=== PATIENT | male | born 1945 | race Caucasian/White ===

== ENCOUNTER → 2019-11-08 10:01 | Outpatient (CLI) | payer MEDICARE, OTHER, SELFPAY ==
--- NOTE | 2019-11-08 10:05 | DI.RAD.S_ITS ---
PROCEDURE: XR CERVICAL SPINE 4V OR 5V INDICATIONS: Cervical spondylosis TECHNIQUE: 5 views of the cervical spine acquired. COMPARISON: None. FINDINGS: Bones: No fractures or dislocations to the T1 level. Oblique images demonstrate no bony foraminal stenoses. Degenerative disc disease is near severe at C3-4, C4-5 and C5-6. Facet osteoarthritis is present at these levels, most pronounced at C4-5 and C5-6, symmetric bilaterally. Soft tissues: No prevertebral soft tissue swelling. IMPRESSION: Multilevel degenerative disc disease and facet osteoarthritis with finding of likelihood of significant spinal and foraminal stenosis from C3-4 through C5-6. Both osteophytic spurring from the degenerative disc disease and facet osteoarthritis combine to produce spinal foraminal and spinal canal narrowing. Dictated by: Cr Alex M.D. on 11/08/2019 at 10:43 Approved by: Cr Alex M.D. on 11/08/2019 at 10:44
== END ==
PROVIDERS: PCP Nurse Practitioner; Visit Provider Family Medicine
DX: M47.812 Spondylosis without myelopathy or radiculopathy, cervical region (principal); M50.31 Other cervical disc degeneration, high cervical region; M48.02 Spinal stenosis, cervical region; M48.9 Spondylopathy, unspecified; M53.86 Other specified dorsopathies, lumbar region; K22.70 Barrett's esophagus without dysplasia
CPT/HCPCS: 72050; 99214

== ENCOUNTER → 2019-11-09 19:28 | Outpatient (CLI) | payer MEDICARE, OTHER, SELFPAY | PROVIDERS: PCP Nurse Practitioner; Visit Provider Physical Medicine & Rehabilitation | DX: M48.9 Spondylopathy, unspecified (principal); Z53.20 Procedure and treatment not carried out because of patient's decision for unspecified reasons ==

== ENCOUNTER → 2019-11-16 12:34 | Outpatient (CLI) | payer MEDICARE, OTHER, SELFPAY ==
--- NOTE | 2019-11-16 12:35 | DI.MRI.S_ITS ---
PROCEDURE: MR CERVICAL SPINE WO CON INDICATIONS: Neck pain and upper extremity paresthesias TECHNIQUE: Noncontrast sagittal T1 spin echo and T2 fast spin echo, sagittal STIR, foraminal oblique sagittal T2 fast spin echo, and axial gradient echo or T2 fast spin echo through the cervical spine. COMPARISON: [facility], CR, XR CERVICAL SPINE 4V OR 5V, 11/08/2019, 10:02. FINDINGS: Image quality: Excellent. Alignment and Curvature: There is loss of normal cervical lordosis. There is mild kyphosis at C2-C4. Bone Marrow: Marrow demonstrates normal overall signal. Moderate reactive signal within the endplates adjacent to the C3-C4, C4-C5, and C5-C6 intervertebral discs. Spinal Cord: Visualized spinal cord has normal size and signal. No cerebellar tonsillar herniation. Paraspinous Soft Tissues: No paravertebral masses. Prevertebral soft tissues are normal in thickness. C2-C3: Mild disc desiccation. Left greater than right facet hypertrophy. No canal stenosis. Severe left and mild right foraminal stenosis. Left C3 nerve root compression. C3-C4: Moderate disc height loss and desiccation. Moderate diffuse disc bulge/osteophyte. Moderate facet and uncovertebral hypertrophy bilaterally. Moderate to severe canal stenosis. Mild cord flattening. Moderate left and severe right foraminal stenosis. Right C4 nerve root compression. C4-C5: Moderate disc height loss and desiccation. Mild diffuse disc bulge/osteophyte. Moderate facet and uncovertebral hypertrophy bilaterally. Moderate to severe canal stenosis. Mild cord flattening. Severe bilateral foraminal stenosis with bilateral C5 nerve root compression. C5-C6: Moderate disc height loss and desiccation. Mild diffuse disc bulge/osteophyte. Moderate facet and uncovertebral hypertrophy bilaterally. Moderate canal stenosis. Severe bilateral foraminal stenosis with bilateral C6 nerve root compression. C6-C7: Moderate disc desiccation. Mild diffuse disc bulge. Mild facet and uncovertebral hypertrophy bilaterally. Mild canal stenosis. Moderate right and mild left foraminal stenosis. C7-T1: Normal appearance. IMPRESSION: 1. Multilevel degenerative disc and facet disease, as well as uncovertebral hypertrophy. 2. Multilevel canal stenoses, worst at C3-C4 at C4-C5, where there is mild cord flattening present. 3. Multilevel foraminal stenoses, worst at C2-C3, C3-C4, C4-C5, and C5-C6, where there is associated intraforaminal nerve root compression. Recommend correlation with clinical symptoms to ascertain relevance of these findings. Dictated by: Justin Carson M.D. on 11/16/2019 at 13:17 Approved by: Justin Carson M.D. on 11/16/2019 at 13:21
== END ==
PROVIDERS: PCP Nurse Practitioner; Visit Provider Physical Medicine & Rehabilitation
DX: M47.22 Other spondylosis with radiculopathy, cervical region (principal); M50.11 Cervical disc disorder with radiculopathy, high cervical region; M48.02 Spinal stenosis, cervical region; R20.2 Paresthesia of skin
CPT/HCPCS: 72141

== ENCOUNTER → 2019-11-27 09:41 | Outpatient (CLI) | payer MEDICARE, OTHER, SELFPAY ==
[2019-11-27 11:23] LABS: Add Manual Diff / Slide Review NO; Basophils Absolute Auto 0 /uL (0-100); Basophils Percent Auto 0.8 % (0-2); Eosinophils Absolute Auto 200 /uL (0-450); Eosinophils Percent Auto 3.2 % (2-4); Hematocrit 45.7 % (41-53); Hemoglobin 15.4 g/dL (13.5-17.5); Lymphocytes Absolute Auto 1300 /uL (1100-4500); Lymphocytes Percent Auto 25.3 % (25-40); Mean Corpuscular HGB Conc 33.7 % (30-36); Mean Corpuscular Hemoglobin 33.5 PG (26-34); Mean Corpuscular Volume 99.4 fL (80-100); Monocytes Absolute Auto 600 /uL (0-900); Monocytes Percent Auto 10.4 % (3-14); Neutrophils Absolute Auto 3200 /uL (1500-7000); Neutrophils Percent Auto 60.3 % (50-75); Platelet Count 266 X10^3/uL (150-400); Red Cell Distribution Width 13.8 % (11.6-14.8); White Blood Cell Count 5.3 X10^3/uL (4.5-11.0)
[2019-11-27 11:45] LABS: Alanine Aminotransferase 28 IU/L (<50); Albumin 4.4 g/dL (3.5-5.0); Albumin Globulin Ratio 1.6 (1.0-2.8); Alkaline Phosphatase 70 U/L (38-126); Aspartate Aminotransferase 32 IU/L (17-59); Bilirubin Total 1.2 mg/dL (0.2-1.3); Bilirubin Unconjugated 1.2 mg/dL (0.0-1.1); Cholesterol 154 mg/dL (140-199); Globulin 2.7 g/dL (1.7-4.1); HDL Cholesterol 52 mg/dL (40-60); HEMOLYSIS < 15 (0-50); LDL Cholesterol Calculated 77 mg/dL (<100); Total Protein 7.1 g/dL (6.3-8.2); Triglycerides 127 mg/dL (35-150)
[2019-11-27 11:54] LABS: Ferritin 19.3 ng/mL (17.9-464)
[2019-11-30 14:16] LABS: Albumin 4.2 g/dL (3.6-5.1); Sex Hormone Binding Globulin 49 nmol/L (22-77); Testosterone, Bioavailable 106.1 ng/dL (15.0-150.0); Testosterone, Total 559 ng/dL (250-1100); Testosterone,Free 55.1 pg/mL (6.0-73.0)
== END ==
PROVIDERS: PCP Nurse Practitioner; Visit Provider Nurse Practitioner
DX: R79.89 Other specified abnormal findings of blood chemistry (principal); D64.9 Anemia, unspecified; E78.5 Hyperlipidemia, unspecified; Z79.899 Other long term (current) drug therapy
CPT/HCPCS: 36415; 80061; 80076; 82040; 82728; 84270; 84403; 85025

== ENCOUNTER 2020-02-08 09:45 | Outpatient (RCR) | payer MEDICARE, OTHER, SELFPAY ==
--- NOTE | 2019-12-20 16:00 | PT.OPPOC ---
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) Spinal stenosis, cervical region (12/20/19) Visit Care Team Role Provider Type RISA Bain Primary Care Provider Advanced Marine Design Engineer Specialty: Family Practice Address: [address] [place] [address], [id number] Email: [email or web address] RISA Fountain Attending Provider Advanced Marine Design Engineer Specialty: Pain Management Address: [address] [place] [address], [place], [address] Email: [email or web address] Plan Of Care PT-OP-T Assessment and Plan Start: 12/20/19 15:04 Freq: Status: Active Protocol: Document 12/20/19 15:06 EG (Rec: 12/20/19 16:19 EG [id number]) Physical Therapy Assessment Rehab Potential Rehabilitation Potential Good Evaluation Complexity Number of Personal Factors/Comorbidities 3 or More Number of Body Systems Impaired 4 or More Clinical Presentation at Evaluation Stable Impairments Impairments Functional Activities, Functional Mobility,Pain, Posture,ROM,Soft Tissue Mobility,Strength Other Concerns Barriers to Rehabilitation Chronic Neck pain Goals Two Impairment Pain Short Term Goal (STG) Patient will be able to play trVONTRAVELet with a max of 1/10 pain in neck in 4 weeks. STG Duration 4 weeks Senior Care Goal (LTG) Patient will be able to roll over in bed with a 1/10 pain in 6-8 weeks. LTG Duration 6-8 weeks One Impairment ROM Short Term Goal (STG) Patient will increase cervical lateral flexion to the R to 35 degrees per L lateral flexion without pain in 4 weeks. STG Duration 4 weeks Drywall Contractor Goal (LTG) Patient will increase bilateral cervical rotation to 60 degrees with no pain in 6- 8 weeks. LTG Duration 6-8 weeks Assessment Summary Assessment Patient has increased tension and decreased soft tissue length of L upper trap and levator scapulae increasing amount of cervical rotation to this side and sensitivity of tissue. Patient also seems to recruit these muscles when playing his instruments or initiating movement with rolling. Cervical stenosis is most prominent in C3-C4 and C4 /C5 but has no radiating symptoms at this time. Patient should increase scapular and postural strength to work on postural endurance. Patient should also move through breathing exercises to decrease recruitment of upper trap muscles when playing instruments. Patient will benefit from soft tissue manipulation as well as soft tissue lengthening as well as traction of the cervical spine . Physical Therapy Plan Frequency and Duration Frequency of Treatment 2x/Week Duration of Treatment 6 weeks Plan of Care Start Date 12/20/19 Plan of Care End Date 01/31/20 Therapeutic Interventions Therapeutic Interventions Home Exercise Program,Joint Mobilizations,Manual Therapy, Neuromuscular Re-education, Self-Care/Home Management,Soft Tissue Mobilization, Therapeutic Activities, Therapeutic Exercises Modalities Cold Pack/Ice Massage,Electric Stimulation,Traction- Mechanical,Ultrasound Next Visit Focus/Plan Next Note Type Treatment Note Next Visit Plan Observe rolling mechanics. Introduce scapular and postural strengthening exercises. Increase soft tissue stretching. manual therapy focused on trigger point release and traction of cervical spine. Plan of Care Dates Plan of Care Start Date 12/20/19 Plan of Care End Date 01/31/20 IVanessa, NADYAT, supervised all treatment performed by, and agreed with the plan of care, as performed by Diamond Mcdermott, EDDIE. Electronically Signed by: Vanessa Giang, PT 12/21/19 [id number] Please Sign and Return: I have reviewed this Plan of Care and certify that the skilled therapy services above are required to meet the patient?s needs. Physician Signature Date Printed Name and Credentials Clinical Instructor Signature Printed Name and Credentials
--- NOTE | 2019-12-20 16:00 | PT.OIE ---
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) Spinal stenosis, cervical region (12/20/19) Past Medical History (Last Updated 12/14/19 @ 07:58 by RISA Bain) Allergies (Chronic ~1959) Anemia (Acute ~2009) Anxiety (Chronic ~2006) Flores's syndrome (Chronic ~2004) Cervical spine disease (Chronic ~1994) Cervical spondylosis with radiculopathy (Acute) Cervical stenosis of spinal canal (Chronic) Cervicalgia (Chronic) Chicken pox (Resolved ~1957) Depression (Chronic ~2006) Disorder of lumbar spine (Chronic ~1997) Facet arthropathy, cervical (Chronic) Foot pain (Chronic ~2005) Foraminal stenosis of cervical region (Chronic) Hearing loss (Chronic ~2016) Hyperlipidemia (Acute) Low testosterone (Chronic ~2017) Mumps (Resolved ~1957) Osteoarthritis (Chronic ~2004) 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) Peripheral neuropathy (Chronic ~2015) Wears hearing aid in both ears (Acute) Past Surgical History (Last Reviewed 11/20/19 @ 13:00 by RISA Fountain) Anesthesia (Resolved) History of discectomy (Resolved ~1997) History of shoulder surgery (Resolved ~2016) History of spinal fusion (Resolved ~1978) Visit Care Team Role Provider Type RISA Bain Primary Care Provider Advanced Home Energy Inspector Specialty: Family Practice Address: [address] [place] [address] Email: [email or web address] RISA Fountain Attending Provider Advanced Home Energy Inspector Specialty: Pain Management Address: [address] [place] [address] Email: [email or web address] Physical Therapy Initial Evaluation PT-OP-A Visit Information Start: 12/20/19 15:04 Freq: Status: Active Protocol: Document 12/20/19 15:06 EG (Rec: 12/20/19 15:34 EG [id number]) Out-Patient Physical Therapy Visit Information Visit Information Visit Type Initial Evaluation Visit Note 12/08 Visit Start Time 13:45 Visit Stop Time 14:45 Total Visit Minutes 60 Visit Number 1 Number of VACATION PLANNER Visits 0 Evaluation Information Evaluation Date 12/20/19 PT-OP-B Current Condition Start: 12/20/19 15:04 Freq: Status: Active Protocol: Document 12/20/19 15:06 JAZZ (Rec: 12/20/19 15:34 EG [id number]) Current Condition History of Current Condition Onset Date 40 years ago Current Complaints Pain when rolling in bed and getting up in morning History of Current Condition Patient is a pleasant 74 year old male who reports to physical therapy with cheif complaint of L neck and upper shoulder pain. Patient initially started having pain in his L shoulder on the inside of L shoulder blade about 40 years ago. He cannot recall any reason why he started to have this pain but had gone to physical therapy and done many treatments for years before coming to conclusion that the pain was coming from his neck. The patient had been using Radio Frequency Ablations to decrease the cervical nerve sensitivity in the past. He had also been doing PT and didn't quite remember what he had did but mentioned they had tried the ultrasound on him as well as stretching and massage. The patient's main complaint is that his L side of neck hurts the most when he is rolling to the right in the middle of the night - he mentioned that he needs to use both hands to help move his head. He also feels pain in the morning and before going to bed at night. He occasionally does have a cramp in the L upper shoulder and gets a sharp zinger towards the top of the L head once a week. 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 The only things that seem to alleviate his pain is lying on his back and taking recreational marijuana at night before going to bed. His pain hasn't stopped him from doing any activities at home but he does feel limited in what he can do. The patient recently moved here from [place], [place] and is retired, enjoys playing music, riding his bike , and walking his dog. He also has a boat that he goes in when the weather is nicer. The patient would like to learn stretches from physical therapy as well as help reduce his pain. Currently, the patient is 02/05. Prior Treatments and Tests Physical Therapy, Pain Clinic, Radio Frequency Ablations, medications (listed in paper chart); prior surgery in lumbar spine, shoulder, and foot. MRI done with results in EMR Treatment Goals Patient/Caregiver Goals Get stretches and decrease pain Prior Functional Status Baseline Function- ADL's Independent Baseline Function- Mobility Independent Baseline Function- Gait I Baseline Function- Work/School Retired Baseline Function- Recreation/Hobbies I in playing music, riding bike, walking, boating Current Functional Impairments (Reported) Functional Limitations- ADL's Bed mobility - rolling in bed Functional Limitations- Mobility/Gait Rotation in neck when turning and driving Functional Limitations- Recreation/ No longer skis; pain with Hobbies playing the [employer] Personal Factors Other Personal Factors That May Effect Arthritis, Back pain, Blood Therapy/Recovery Clots, Essential Tremor, Depression, Neuropathy, past surgery, vision problems, varicose veins PT-OP-C Subjective Start: 12/20/19 15:04 Freq: Status: Active Protocol: Document 12/20/19 15:06 EG (Rec: 12/20/19 15:34 EG [id number]) Patient Questionnaires Neck Disability Index NDI Score 16 Neck Disability Index Impairment 20 to 39% Impaired (Score 10- 19) Quick Dash- Upper Extremity Quick Dash UE Score 31.8 Quick Dash UE Impairment 20 to 39% Impaired (Score 20- 39) OP-PT Pain Assessment Pain Assessment Grid Paper Pain Assessment Grid Completed Yes: 5 on L upper shoulder/ neck Home Pain Medication Use Pain Medications Used Yes Home Pain Medication Frequency Celebrex PT-OP-E Functional Tests Start: 12/20/19 15:04 Freq: Status: Active Protocol: Document 12/20/19 15:06 EG (Rec: 12/20/19 15:45 EG [id number]) Functional Tests Apley's Scratch Test Action 2- Left WNL Action 2- Right WNL Action 3- Left 3 inches less than R Action 3- Right WNL PT-OP-F Manual Assessment Start: 12/20/19 15:04 Freq: Status: Active Protocol: Document 12/20/19 15:06 EG (Rec: 12/20/19 15:45 EG [id number]) Manual Assessments Soft Tissue Assessment Soft Tissue Mobility Assessment L>R upper trap soft tissue tension moderate bilateral cervical paraspinal tightness PT-OP-G Mobility & Gait Start: 12/20/19 15:04 Freq: Status: Active Protocol: Document 12/20/19 15:06 EG (Rec: 12/20/19 15:45 EG [id number]) OP Mobility Evaluation Bed Mobility Rolling Increased p! rolling to R when supine PT-OP-H Neuro Start: 12/20/19 15:04 Freq: Status: Active Protocol: Document 12/20/19 15:06 EG (Rec: 12/20/19 15:45 EG [id number]) Sensation Evaluation Comments Summary Comments Patient has felt N&T in the past but very infrequent. Last report of N&T was last summer (2018). PT-OP-J Posture/Palpation/Skin Start: 12/20/19 15:04 Freq: Status: Active Protocol: Document 12/20/19 15:06 EG (Rec: 12/20/19 15:45 EG [id number]) Posture Evaluation Position Sitting Evaluation View Posterior Head/C-Spine Posture Rotated Left,Forward Head T-Spine Posture Increased Kyphosis Thorax Posture (R) Elevated L-Spine Posture Decreased Lordosis Shoulder Posture (L) Rounded,(R) Rounded,(R) Elevated Scapula Posture (L) Rotated Up,(R) Rotated Up Palpation Assessment Location One Palpation Location L upper trap/L levator scapulae Palpation Findings Soft Tissue Tightness, Tenderness,Trigger Point PT-OP-K Range of Motion Start: 12/20/19 15:04 Freq: Status: Active Protocol: Document 12/20/19 15:06 EG (Rec: 12/20/19 15:45 EG [id number]) Cervical Spine Range of Motion Cervical Spine Active Degrees Testing Position Sitting Flexion 42 Extension 30 Rotation Left 30 Rotation Right 40 Lateral Flexion Left 33 Lateral Flexion Right 20 ROM Limitations Soft Tissue Tightness Comments p! in L side of neck w/ R cervical rotation PT-OP-L Special Tests Start: 12/20/19 15:04 Freq: Status: Active Protocol: Document 12/20/19 15:06 EG (Rec: 12/20/19 15:45 EG [id number]) Special Tests Cervical Spine Special Tests Traction Test Results + Comments decreased tension in neck Spurling's Test Test Results - PT-OP-M Strength Start: 12/20/19 15:04 Freq: Status: Active Protocol: Document 12/20/19 15:06 EG (Rec: 12/20/19 15:45 EG [id number]) Cervical Spine Strength Cervical Spine Manual Muscle Testing Rotation Left 4+ Good+ Rotation Right 4+ Good+ PT-OP-Q Treatments Start: 12/20/19 15:04 Freq: Status: Active Protocol: Document 12/20/19 15:06 EG (Rec: 12/20/19 16:19 EG [id number]) Therapeutic Exercises Sitting Exercises Levator Trap Stretch Sitting Exercise Name Levator Scapula Stretch Side bilateral Reps/Minutes 2x30 sec Comments given as HEP; hand behind back Upper Trap Stretch Sitting Exercise Name Upper trap stretch Side bilateral Reps/Minutes 2x30 sec Comments given as HEP; hand underneath seat PT-OP-T Assessment and Plan Start: 12/20/19 15:04 Freq: Status: Active Protocol: Document 12/20/19 15:06 EG (Rec: 12/20/19 16:19 EG [id number]) Physical Therapy Assessment Rehab Potential Rehabilitation Potential Good Evaluation Complexity Number of Personal Factors/Comorbidities 3 or More Number of Body Systems Impaired 4 or More Clinical Presentation at Evaluation Stable Impairments Impairments Functional Activities, Functional Mobility,Pain, Posture,ROM,Soft Tissue Mobility,Strength Other Concerns Barriers to Rehabilitation Chronic Neck pain Goals Two Impairment Pain Short Term Goal (STG) Patient will be able to play trumpet with a max of 1/10 pain in neck in 4 weeks. STG Duration 4 weeks Shelter Goal (LTG) Patient will be able to roll over in bed with a 1/10 pain in 6-8 weeks. LTG Duration 6-8 weeks One Impairment ROM Short Term Goal (STG) Patient will increase cervical lateral flexion to the R to 35 degrees per L lateral flexion without pain in 4 weeks. STG Duration 4 weeks Supervisor Bl[employer] Auxiliaries Goal (LTG) Patient will increase bilateral cervical rotation to 60 degrees with no pain in 6- 8 weeks. LTG Duration 6-8 weeks Assessment Summary Assessment Patient has increased tension and decreased soft tissue length of L upper trap and levator scapulae increasing amount of cervical rotation to this side and sensitivity of tissue. Patient also seems to recruit these muscles when playing his instruments or initiating movement with rolling. Cervical stenosis is most prominent in C3-C4 and C4 /C5 but has no radiating symptoms at this time. Patient should increase scapular and postural strength to work on postural endurance. Patient should also move through breathing exercises to decrease recruitment of upper trap muscles when playing instruments. Patient will benefit from soft tissue manipulation as well as soft tissue lengthening as well as traction of the cervical spine . Physical Therapy Plan Frequency and Duration Frequency of Treatment 2x/Week Duration of Treatment 6 weeks Plan of Care Start Date 12/20/19 Plan of Care End Date 01/31/20 Therapeutic Interventions Therapeutic Interventions Home Exercise Program,Joint Mobilizations,Manual Therapy, Neuromuscular Re-education, Self-Care/Home Management,Soft Tissue Mobilization, Therapeutic Activities, Therapeutic Exercises Modalities Cold Pack/Ice Massage,Electric Stimulation,Traction- Mechanical,Ultrasound Next Visit Focus/Plan Next Note Type Treatment Note Next Visit Plan Observe rolling mechanics. Introduce scapular and postural strengthening exercises. Increase soft tissue stretching. manual therapy focused on trigger point release and traction of cervical spine. Vanessa Lam DPT, supervised all treatment performed by, and agreed with the plan of care, as performed by Diamond Mcdermott, EDDIE.
--- NOTE | 2019-12-22 16:16 | PT.OTN ---
Current Diagnoses Spondylosis without myelopathy or radiculopathy, cervical region (12/22/19) Spinal stenosis, cervical region (12/22/19) Physical Therapy Treatment Note PT-OP-A Visit Information Start: 12/20/19 15:04 Freq: Status: Active Protocol: Document 12/22/19 15:07 EG (Rec: 12/22/19 15:25 EG [email or web address]) Out-Patient Physical Therapy Visit Information Visit Information Visit Type Treatment Note Visit Note 01/08 Visit Start Time 13:00 Visit Stop Time 13:45 Total Visit Minutes 45 Visit Number 2 Number of PRINCIPAL INVESTIGATOR Visits 0 PT-OP-B Current Condition Start: 12/20/19 15:04 Freq: Status: Active Protocol: Document 12/20/19 15:06 EG (Rec: 12/20/19 15:34 EG [id number]) Current Condition History of Current Condition Onset Date 40 years ago Current Complaints Pain when rolling in bed and getting up in morning History of Current Condition Patient is a pleasant 74 year old male who reports to physical therapy with cheif complaint of L neck and upper shoulder pain. Patient initially started having pain in his L shoulder on the inside of L shoulder blade about 40 years ago. He cannot recall any reason why he started to have this pain but had gone to physical therapy and done many treatments for years before coming to conclusion that the pain was coming from his neck. The patient had been using Radio Frequency Ablasions to decrease the cervical nerve sensitivity in the past. He had also been doing PT and didn't quite remember what he had did but mentioned they had tried the ultrasound on him as well as stretching and massage. The patient's main complaint is that his L side of neck hurts the most when he is rolling to the right in the middle of the night - he mentioned that he needs to use both hands to help move his head. He also feels pain in the morning and before going to bed at night. He occasionally does have a cramp in the L upper shoulder and gets a sharp zinger towards the top of the L head once a week. 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 The only things that seem to alleviate his pain is lying on his back and taking recreational marijuana at night before going to bed. His pain hasn't stopped him from doing any activities at home but he does feel limited in what he can do. The patient recently moved here from [place], [place] and is retired, enjoys playing music, riding his bike , and walking his dog. He also has a boat that he goes in when the weather is nicer. The patient would like to learn stretches from physical therapy as well as help reduce his pain. Currently, the patient is 02/05. Prior Treatments and Tests Physical Therapy, Pain Clinic, Radio Frequency Aplasions, medications (listed in paper chart); prior surgery in lumbar spine, shoulder, and foot. MRI done with results in EMR Treatment Goals Patient/Caregiver Goals Get stretches and decrease pain Prior Functional Status Baseline Function- ADL's Independent Baseline Function- Mobility Independent Baseline Function- Gait I Baseline Function- Work/School Retired Baseline Function- Recreation/Hobbies I in playing music, riding bike, walking, boating Current Functional Impairments (Reported) Functional Limitations- ADL's Bed mobility - rolling in bed Functional Limitations- Mobility/Gait Rotation in neck when turning and driving Functional Limitations- Recreation/ No longer skis; pain with Hobbies playing the [employer] Personal Factors Other Personal Factors That May Effect Arthritis, Back pain, Blood Therapy/Recovery Clots, Essential Tremor, Depression, Neuropathy, past surgery, vision problems, varicose veins PT-OP-C Subjective Start: 12/20/19 15:04 Freq: Status: Active Protocol: Document 12/22/19 15:07 EG (Rec: 12/22/19 15:25 EG [email or web address]) OP-PT Subjective Patient Comments Patient Comments Patient reported that he was pretty sore after last appointment and he didn't know what we did that could have made him that sore. Patient also reported that he had been doing his stretches at home. He is curious about what pillow to use at home to help with his neck pain. PT-OP-E Functional Tests Start: 12/20/19 15:04 Freq: Status: Active Protocol: Document 12/20/19 15:06 EG (Rec: 12/20/19 15:45 EG [id number]) Functional Tests Neftaliey's Scratch Test Action 2- Left WNL Action 2- Right WNL Action 3- Left 3 inches less than R Action 3- Right WNL PT-OP-F Manual Assessment Start: 12/20/19 15:04 Freq: Status: Active Protocol: Document 12/20/19 15:06 EG (Rec: 12/20/19 15:45 EG [id number]) Manual Assessments Soft Tissue Assessment Soft Tissue Mobility Assessment L>R upper trap soft tissue tension moderate bilateral cervical paraspinal tightness PT-OP-G Mobility & Gait Start: 12/20/19 15:04 Freq: Status: Active Protocol: Document 12/20/19 15:06 EG (Rec: 12/20/19 15:45 EG [id number]) OP Mobility Evaluation Bed Mobility Rolling Increased p! rolling to R when supine PT-OP-H Neuro Start: 12/20/19 15:04 Freq: Status: Active Protocol: Document 12/20/19 15:06 EG (Rec: 12/20/19 15:45 EG [id number]) Sensation Evaluation Comments Summary Comments Patient has felt N&T in the past but very infrequent. Last report of N&T was last summer (2018). PT-OP-J Posture/Palpation/Skin Start: 12/20/19 15:04 Freq: Status: Active Protocol: Document 12/20/19 15:06 EG (Rec: 12/20/19 15:45 EG [id number]) Posture Evaluation Position Sitting Evaluation View Posterior Head/C-Spine Posture Rotated Left,Forward Head T-Spine Posture Increased Kyphosis Thorax Posture (R) Elevated L-Spine Posture Decreased Lordosis Shoulder Posture (L) Rounded,(R) Rounded,(R) Elevated Scapula Posture (L) Rotated Up,(R) Rotated Up Palpation Assessment Location One Palpation Location L upper trap/L levator scapulae Palpation Findings Soft Tissue Tightness, Tenderness,Trigger Point PT-OP-K Range of Motion Start: 12/20/19 15:04 Freq: Status: Active Protocol: Document 12/20/19 15:06 EG (Rec: 12/20/19 15:45 EG [id number]) Cervical Spine Range of Motion Cervical Spine Active Degrees Testing Position Sitting Flexion 42 Extension 30 Rotation Left 30 Rotation Right 40 Lateral Flexion Left 33 Lateral Flexion Right 20 ROM Limitations Soft Tissue Tightness Comments p! in L side of neck w/ R cervical rotation PT-OP-L Special Tests Start: 12/20/19 15:04 Freq: Status: Active Protocol: Document 12/20/19 15:06 EG (Rec: 12/20/19 15:45 EG [id number]) Special Tests Cervical Spine Special Tests Traction Test Results + Comments decreased tension in neck Spurling's Test Test Results - PT-OP-M Strength Start: 12/20/19 15:04 Freq: Status: Active Protocol: Document 12/20/19 15:06 EG (Rec: 12/20/19 15:45 EG [id number]) Cervical Spine Strength Cervical Spine Manual Muscle Testing Rotation Left 4+ Good+ Rotation Right 4+ Good+ PT-OP-Q Treatments Start: 12/20/19 15:04 Freq: Status: Active Protocol: Document 12/22/19 15:07 EG (Rec: 12/22/19 15:25 EG [email or web address]) Cardio Equipment Upper Body Ergometer (UBE) Duration (Minutes) 4 Other 2 min f/b Therapeutic Exercises Supine Exercises cervical rotation Supine Exercise Name cervical rotation on ball Side bilateral Equipment Used green pilates ball Reps/Minutes 10x each side Comments pain free ROM each way Standing Exercises Standing thoracic rotation Standing Exercise Name Standing thoracic rotation Side bilateral Reps/Minutes 10x each side Comments toes forward, hands on wall, thoracic rotation followed by cervical. HEP TB lat pulldown/ shoulder extension Standing Exercise Name TB lat pulldown/Shoulder extension Side bilateral Resistance Level 2 Equipment Used TB Reps/Minutes 2x10 Comments cue to decrease activation of upper trap TB Rows Standing Exercise Name TB scapular rows Side bilateral Resistance Level 2 Equipment Used TB Reps/Minutes 2x10 Comments tactile cue to increase activation of scapular retractors TB ER Standing Exercise Name TB ER Side bilateral Resistance Level 2 Equipment Used towel roll Reps/Minutes 10x Comments cues to keep towel roll up under armpit Therapeutic Activity Therapeutic Activity Belly Breathing Name Belly Breathing Reps/Minutes 2 min Comments Focus on belly breathing opposed to using chest and upper trap to help with inhalation. Rolling Name Rolling observation Comments pain in L side of neck with lift of head rolling from L to R Manual Therapy Treatment Soft Tissue Mobilization Upper trap and cervical extensors Body Location upper trap and cervical paraspinal STM Intensity/Depth Moderate Body Position Supine Comments 4 min Joint Mobilizations C3-C6 Joint C3-C6 Direction A/P and Lateral rotation Grade II Body Position Supine Reps/Duration 6 min Comments decreased pain with rotation when mobilization was done on L side. Done on both sides with rotational glide Manual Traction Cervical Details Cervical traction Body Position Supine Reps/Duration 2 min PT-OP-T Assessment and Plan Start: 12/20/19 15:04 Freq: Status: Active Protocol: Document 12/22/19 15:07 EG (Rec: 12/22/19 15:25 EG [email or web address]) Physical Therapy Assessment Assessment Summary Assessment Patient tolerated treatment well this afternoon. His rotation is still limited due to decreased cervical joint motion as well as soft tissue tightness in bilateral upper traps and cervical paraspinals . Patient should continue to work on scapular and postural strengthening to recruit correct muscles during UE movement. He should also continue with pain free ROM in both cervical and thoracic rotation to increase mobility during daily activities. Patient will benefit from soft tissue mobilization in upper traps, cervical paraspinals, as well as rotational glide of C2-C6. Physical Therapy Plan Next Visit Focus/Plan Next Note Type Treatment Note Next Visit Plan Continue with scapular and postural strengthening. Give patient rows and bilateral ER to do for HEP with a TB level 2. See how thoracic rotation exercise at home is going as well as how the upper trap and LS stretch is at home. Introduce open books. Continue with cervical rotation on the ball. Continue with soft tissue mobilization of traps and cervical paraspinals as well as manual cervical traction. Potentially introduce isometrics of cervical spine to increase tolerance of lifting head when rolling. Vanessa Lam DPT, supervised all treatment performed by, and agreed with the plan of care, as performed by Diamond Mcdermott, EDDIE.
--- NOTE | 2019-12-26 13:21 | PT.OTN ---
Current Diagnoses Spondylosis without myelopathy or radiculopathy, cervical region (12/26/19) Spinal stenosis, cervical region (12/26/19) Physical Therapy Treatment Note PT-OP-A Visit Information Start: 12/20/19 15:04 Freq: Status: Active Protocol: Document 12/26/19 11:29 EG (Rec: 12/26/19 12:25 EG [email or web address]) Out-Patient Physical Therapy Visit Information Visit Information Visit Type Treatment Note Visit Note 02/05 Visit Start Time 07:30 Visit Stop Time 08:15 Total Visit Minutes 45 Visit Number 3 Number of SETTER HELPER Visits 0 PT-OP-B Current Condition Start: 12/20/19 15:04 Freq: Status: Active Protocol: Document 12/20/19 15:06 EG (Rec: 12/20/19 15:34 EG [id number]) Current Condition History of Current Condition Onset Date 40 years ago Current Complaints Pain when rolling in bed and getting up in morning History of Current Condition Patient is a pleasant 74 year old male who reports to physical therapy with cheif complaint of L neck and upper shoulder pain. Patient initially started having pain in his L shoulder on the inside of L shoulder blade about 40 years ago. He cannot recall any reason why he started to have this pain but had gone to physical therapy and done many treatments for years before coming to conclusion that the pain was coming from his neck. The patient had been using Radio Frequency Ablasions to decrease the cervical nerve sensitivity in the past. He had also been doing PT and didn't quite remember what he had did but mentioned they had tried the ultrasound on him as well as stretching and massage. The patient's main complaint is that his L side of neck hurts the most when he is rolling to the right in the middle of the night - he mentioned that he needs to use both hands to help move his head. He also feels pain in the morning and before going to bed at night. He occasionally does have a cramp in the L upper shoulder and gets a sharp zinger towards the top of the L head once a week. 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 The only things that seem to alleviate his pain is lying on his back and taking recreational marijuana at night before going to bed. His pain hasn't stopped him from doing any activities at home but he does feel limited in what he can do. The patient recently moved here from [place], [place] and is retired, enjoys playing music, riding his bike , and walking his dog. He also has a boat that he goes in when the weather is nicer. The patient would like to learn stretches from physical therapy as well as help reduce his pain. Currently, the patient is 02/05. Prior Treatments and Tests Physical Therapy, Pain Clinic, Radio Frequency Aplasions, medications (listed in paper chart); prior surgery in lumbar spine, shoulder, and foot. MRI done with results in EMR Treatment Goals Patient/Caregiver Goals Get stretches and decrease pain Prior Functional Status Baseline Function- ADL's Independent Baseline Function- Mobility Independent Baseline Function- Gait I Baseline Function- Work/School Retired Baseline Function- Recreation/Hobbies I in playing music, riding bike, walking, boating Current Functional Impairments (Reported) Functional Limitations- ADL's Bed mobility - rolling in bed Functional Limitations- Mobility/Gait Rotation in neck when turning and driving Functional Limitations- Recreation/ No longer skis; pain with Hobbies playing the [place] Personal Factors Other Personal Factors That May Effect Arthritis, Back pain, Blood Therapy/Recovery Clots, Essential Tremor, Depression, Neuropathy, past surgery, vision problems, varicose veins PT-OP-C Subjective Start: 12/20/19 15:04 Freq: Status: Active Protocol: Document 12/26/19 11:29 EG (Rec: 12/26/19 12:25 EG [email or web address]) OP-PT Subjective Patient Comments Patient Comments Patient reported that this time was early for him. Last night the L side of his neck was really bothering him when he was turning in bed. It calmed down some this morning but he was still feeling the tension on this side. He was feeling an increase in pain around upper L shoulder and neck. PT-OP-E Functional Tests Start: 12/20/19 15:04 Freq: Status: Active Protocol: Document 12/20/19 15:06 EG (Rec: 12/20/19 15:45 EG [id number]) Functional Tests Neftaliey's Scratch Test Action 2- Left WNL Action 2- Right WNL Action 3- Left 3 inches less than R Action 3- Right WNL PT-OP-F Manual Assessment Start: 12/20/19 15:04 Freq: Status: Active Protocol: Document 12/20/19 15:06 EG (Rec: 12/20/19 15:45 EG [id number]) Manual Assessments Soft Tissue Assessment Soft Tissue Mobility Assessment L>R upper trap soft tissue tension moderate bilateral cervical paraspinal tightness PT-OP-G Mobility & Gait Start: 12/20/19 15:04 Freq: Status: Active Protocol: Document 12/20/19 15:06 EG (Rec: 12/20/19 15:45 EG [id number]) OP Mobility Evaluation Bed Mobility Rolling Increased p! rolling to R when supine PT-OP-H Neuro Start: 12/20/19 15:04 Freq: Status: Active Protocol: Document 12/20/19 15:06 EG (Rec: 12/20/19 15:45 EG [id number]) Sensation Evaluation Comments Summary Comments Patient has felt N&T in the past but very infrequent. Last report of N&T was last summer (2018). PT-OP-J Posture/Palpation/Skin Start: 12/20/19 15:04 Freq: Status: Active Protocol: Document 12/20/19 15:06 EG (Rec: 12/20/19 15:45 EG [id number]) Posture Evaluation Position Sitting Evaluation View Posterior Head/C-Spine Posture Rotated Left,Forward Head T-Spine Posture Increased Kyphosis Thorax Posture (R) Elevated L-Spine Posture Decreased Lordosis Shoulder Posture (L) Rounded,(R) Rounded,(R) Elevated Scapula Posture (L) Rotated Up,(R) Rotated Up Palpation Assessment Location One Palpation Location L upper trap/L levator scapulae Palpation Findings Soft Tissue Tightness, Tenderness,Trigger Point PT-OP-K Range of Motion Start: 12/20/19 15:04 Freq: Status: Active Protocol: Document 12/20/19 15:06 EG (Rec: 12/20/19 15:45 EG [id number]) Cervical Spine Range of Motion Cervical Spine Active Degrees Testing Position Sitting Flexion 42 Extension 30 Rotation Left 30 Rotation Right 40 Lateral Flexion Left 33 Lateral Flexion Right 20 ROM Limitations Soft Tissue Tightness Comments p! in L side of neck w/ R cervical rotation PT-OP-L Special Tests Start: 12/20/19 15:04 Freq: Status: Active Protocol: Document 12/20/19 15:06 EG (Rec: 12/20/19 15:45 EG [id number]) Special Tests Cervical Spine Special Tests Traction Test Results + Comments decreased tension in neck Spurling's Test Test Results - PT-OP-M Strength Start: 12/20/19 15:04 Freq: Status: Active Protocol: Document 12/20/19 15:06 EG (Rec: 12/20/19 15:45 EG [id number]) Cervical Spine Strength Cervical Spine Manual Muscle Testing Rotation Left 4+ Good+ Rotation Right 4+ Good+ PT-OP-Q Treatments Start: 12/20/19 15:04 Freq: Status: Active Protocol: Document 12/26/19 11:29 EG (Rec: 12/26/19 12:25 EG [email or web address]) Cardio Equipment Upper Body Ergometer (UBE) Duration (Minutes) 4 Other 2 min f/b Therapeutic Exercises Sidelying Exercises Open Books Sidelying Exercise Name Open Books Side bilateral Reps/Minutes 8x each side Comments let head be neutral Sitting Exercises Cervical isometrics Sitting Exercise Name cervical isometrics Side bilateral Resistance R and L side Comments hold for 5 seconds, relax for 5 seconds Standing Exercises Standing thoracic rotation Standing Exercise Name Standing thoracic rotation Side bilateral Reps/Minutes 10x each side Comments toes forward, hands on wall, thoracic rotation followed by cervical. HEP TB lat pulldown/ shoulder extension Standing Exercise Name TB lat pulldown/Shoulder extension Side bilateral Resistance Level 2 Equipment Used TB Reps/Minutes 2x10 Comments cue to decrease activation of upper trap; hold contraction for 3 seconds TB Rows Standing Exercise Name TB scapular rows Side bilateral Resistance Level 3 Equipment Used TB Reps/Minutes 2x10 Comments tactile cue to increase activation of scapular retractors TB ER Standing Exercise Name bilateral ER with level 1 band Side bilateral Resistance Level 1 Reps/Minutes 10x Comments given for HEP Manual Therapy Treatment Soft Tissue Mobilization Upper trap and cervical extensors Body Location upper trap and cervical paraspinal, and SCM STM Intensity/Depth Moderate Body Position Supine Comments 8 min PT-OP-T Assessment and Plan Start: 12/20/19 15:04 Freq: Status: Active Protocol: Document 12/26/19 11:29 EG (Rec: 12/26/19 12:25 EG [email or web address]) Physical Therapy Assessment Assessment Summary Assessment Patient has been tolerating strengthening exercises without pain in the neck by isolating correct scapular muscles with tactile and verbal cues. Patient is most limited in cervical rotation and did not have pain during isometric exercises which will be beneficial for progression of rotation ROM. Patient was educated on correct rolling form in the middle of the night as to not put increased tension and strain on the neck during this movement. Physical Therapy Plan Next Visit Focus/Plan Next Note Type Treatment Note Next Visit Plan Continue with scapular and postural strengthening. Introduce rows in to HEP. See how thoracic rotation exercise at home is going as well as how the upper trap and LS stretch is at home. Continue with cervical rotation emphasized exercises. Continue with soft tissue mobilization of traps and cervical paraspinals as well as manual cervical traction. Vanessa Lam DPT, supervised all treatment performed by, and agreed with the plan of care, as performed by EDDIE Gray.
--- NOTE | 2019-12-29 12:58 | PT.OTN ---
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 Patient initially started having pain in his L shoulder on the inside of L shoulder blade about 40 years ago. He cannot recall any reason why he started to have this pain but had gone to physical therapy and done many treatments for years before coming to conclusion that the pain was coming from his neck. The patient had been using Radio Frequency Ablasions to decrease the cervical nerve sensitivity in the past. He had also been doing PT and didn't quite remember what he had did but mentioned they had tried the ultrasound on him as well as stretching and massage. The patient's main complaint is that his L side of neck hurts the most when he is rolling to the right in the middle of the night - he mentioned that he needs to use both hands to help move his head. He also feels pain in the morning and before going to bed at night. He occasionally does have a cramp in the L upper shoulder and gets a sharp zinger towards the top of the L head once a week. 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 The only things that seem to alleviate his pain is lying on his back and taking recreational marijuana at night before going to bed. His pain hasn't stopped him from doing any activities at home but he does feel limited in what he can do. The patient recently moved here from [place], [place] and is retired, enjoys playing music, riding his bike , and walking his dog. He also has a boat that he goes in when the weather is nicer. The patient would like to learn stretches from physical therapy as well as help reduce his pain. Currently, the patient is 02/05. Prior Treatments and Tests Physical Therapy, Pain Clinic, Radio Frequency Aplasions, medications (listed in paper chart); prior surgery in lumbar spine, shoulder, and foot. MRI done with results in EMR Treatment Goals Patient/Caregiver Goals Get stretches and decrease pain Prior Functional Status Baseline Function- ADL's Independent Baseline Function- Mobility Independent Baseline Function- Gait I Baseline Function- Work/School Retired Baseline Function- Recreation/Hobbies I in playing music, riding bike, walking, boating Current Functional Impairments (Reported) Functional Limitations- ADL's Bed mobility - rolling in bed Functional Limitations- Mobility/Gait Rotation in neck when turning and driving Functional Limitations- Recreation/ No longer skis; pain with Hobbies playing the Antenna Personal Factors Other Personal Factors That May Effect Arthritis, Back pain, Blood Therapy/Recovery Clots, Essential Tremor, Depression, Neuropathy, past surgery, vision problems, varicose veins PT-OP-C Subjective Start: 12/20/19 15:04 Freq: Status: Active Protocol: Document 12/29/19 12:10 EG (Rec: 12/29/19 12:42 EG [id number]) OP-PT Subjective Patient Comments Patient Comments Patient reports that he feels like his neck is hurting him more than it has before. He is starting to feel the pain move up in to his head. He thinks this is happening because he is doing his exercises and is trying to turn his head and has been avoiding this movement for a long time. PT-OP-E Functional Tests Start: 12/20/19 15:04 Freq: Status: Active Protocol: Document 12/20/19 15:06 EG (Rec: 12/20/19 15:45 EG [id number]) Functional Tests Neftaliey's Scratch Test Action 2- Left WNL Action 2- Right WNL Action 3- Left 3 inches less than R Action 3- Right WNL PT-OP-F Manual Assessment Start: 12/20/19 15:04 Freq: Status: Active Protocol: Document 12/20/19 15:06 EG (Rec: 12/20/19 15:45 EG [id number]) Manual Assessments Soft Tissue Assessment Soft Tissue Mobility Assessment L>R upper trap soft tissue tension moderate bilateral cervical paraspinal tightness PT-OP-G Mobility & Gait Start: 12/20/19 15:04 Freq: Status: Active Protocol: Document 12/20/19 15:06 EG (Rec: 12/20/19 15:45 EG [id number]) OP Mobility Evaluation Bed Mobility Rolling Increased p! rolling to R when supine PT-OP-H Neuro Start: 12/20/19 15:04 Freq: Status: Active Protocol: Document 12/20/19 15:06 EG (Rec: 12/20/19 15:45 EG [id number]) Sensation Evaluation Comments Summary Comments Patient has felt N&T in the past but very infrequent. Last report of N&T was last summer (2018). PT-OP-J Posture/Palpation/Skin Start: 12/20/19 15:04 Freq: Status: Active Protocol: Document 12/20/19 15:06 EG (Rec: 12/20/19 15:45 EG [id number]) Posture Evaluation Position Sitting Evaluation View Posterior Head/C-Spine Posture Rotated Left,Forward Head T-Spine Posture Increased Kyphosis Thorax Posture (R) Elevated L-Spine Posture Decreased Lordosis Shoulder Posture (L) Rounded,(R) Rounded,(R) Elevated Scapula Posture (L) Rotated Up,(R) Rotated Up Palpation Assessment Location One Palpation Location L upper trap/L levator scapulae Palpation Findings Soft Tissue Tightness, Tenderness,Trigger Point PT-OP-K Range of Motion Start: 12/20/19 15:04 Freq: Status: Active Protocol: Document 12/20/19 15:06 EG (Rec: 12/20/19 15:45 EG [id number]) Cervical Spine Range of Motion Cervical Spine Active Degrees Testing Position Sitting Flexion 42 Extension 30 Rotation Left 30 Rotation Right 40 Lateral Flexion Left 33 Lateral Flexion Right 20 ROM Limitations Soft Tissue Tightness Comments p! in L side of neck w/ R cervical rotation PT-OP-L Special Tests Start: 12/20/19 15:04 Freq: Status: Active Protocol: Document 12/20/19 15:06 EG (Rec: 12/20/19 15:45 EG [id number]) Special Tests Cervical Spine Special Tests Traction Test Results + Comments decreased tension in neck Spurling's Test Test Results - PT-OP-M Strength Start: 12/20/19 15:04 Freq: Status: Active Protocol: Document 12/20/19 15:06 EG (Rec: 12/20/19 15:45 EG [id number]) Cervical Spine Strength Cervical Spine Manual Muscle Testing Rotation Left 4+ Good+ Rotation Right 4+ Good+ PT-OP-Q Treatments Start: 12/20/19 15:04 Freq: Status: Active Protocol: Document 12/29/19 12:10 EG (Rec: 12/29/19 12:42 EG [id number]) Gym Equipment Cable Column (Body Solid) Pulleys Details Pulleys Reps/Time 2 min flexion, 2 min abduction Therapeutic Exercises Supine Exercises cervical rotation Supine Exercise Name cervical rotation on ball Side bilateral Equipment Used [employer] ball Reps/Minutes 10x each side Comments pain free ROM each way Sidelying Exercises Open Books Sidelying Exercise Name Open Books Side bilateral Reps/Minutes 8x each side Comments given as HEP Sitting Exercises Rotation Facilitation Sitting Exercise Name Move eyes, then move head in to rotation Comments Point to look at both sides, turn eyes then turn head Suboccipital Stretch Sitting Exercise Name Suboccipital stretch and relax Resistance manual Reps/Minutes 10x Comments interlock fingers behind head, push back 5 sec, relax 5 sec Levator Trap Stretch Sitting Exercise Name Levator Scap stretch Side bilateral Reps/Minutes 1 min Upper Trap Stretch Sitting Exercise Name Upper trap stretch Side bilateral Reps/Minutes 1 min Standing Exercises TB lat pulldown/ shoulder extension Standing Exercise Name TB lat pulldown/Shoulder extension Side bilateral Resistance Level 2 Equipment Used TB Reps/Minutes 10x Comments cue to decrease activation of upper trap; hold contraction for 3 seconds TB Rows Standing Exercise Name TB scapular rows Side bilateral Resistance Level 3 Equipment Used TB Reps/Minutes 2x10 Comments given as HEP Manual Therapy Treatment Soft Tissue Mobilization Upper trap and cervical extensors Body Location upper trap and cervical paraspinal, and SCM STM Intensity/Depth Moderate Body Position Supine Comments 6 min Joint Mobilizations C3-C6 Joint C3-C6 Direction A/P and Lateral rotation Grade II Body Position Supine Reps/Duration 6 min Comments decreased pain with rotation when mobilization was done on L side. Done on both sides with rotational glide. Manual Traction Cervical Details Cervical traction Body Position Supine Reps/Duration 2 min PT-OP-T Assessment and Plan Start: 12/20/19 15:04 Freq: Status: Active Protocol: Document 12/29/19 12:10 EG (Rec: 12/29/19 12:42 EG [id number]) Physical Therapy Assessment Assessment Summary Assessment Patient has been feeling increased symptoms due to irritation from movement after having roatation restriction due to pain for a long period of time. Patient's rotational movement should be monitored and be given a decreased dosage. Patient was advised not to do the thoracic rotation exercise on the wall to see how this effects symptoms. Manual therapy working on lateral rotational glides from C2-C6 should be continued to work on rotation at vertebral level. Soft tissue on the L side should also be continued to help increase soft tissue length on this side and facilitate movement without pain. Physical Therapy Plan Next Visit Focus/Plan Next Note Type Treatment Note Next Visit Plan See how open books and rows are going at home. Assess headache symptoms. Continue to work on rotational mobilization in cervical spine . Continue soft tissue mobilization of upper traps and levator scap. Try trigger point release on this area. Vanessa Lam DPT, supervised all treatment performed by, and agreed with the plan of care, as performed by EDDIE Gray.
--- NOTE | 2020-01-02 08:23 | PT.OTN ---
Pt seen 01/02/2020 from 0732 to 0823. 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 Patient initially started having pain in his L shoulder on the inside of L shoulder blade about 40 years ago. He cannot recall any reason why he started to have this pain but had gone to physical therapy and done many treatments for years before coming to conclusion that the pain was coming from his neck. The patient had been using Radio Frequency Ablasions to decrease the cervical nerve sensitivity in the past. He had also been doing PT and didn't quite remember what he had did but mentioned they had tried the ultrasound on him as well as stretching and massage. The patient's main complaint is that his L side of neck hurts the most when he is rolling to the right in the middle of the night - he mentioned that he needs to use both hands to help move his head. He also feels pain in the morning and before going to bed at night. He occasionally does have a cramp in the L upper shoulder and gets a sharp zinger towards the top of the L head once a week. 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 The only things that seem to alleviate his pain is lying on his back and taking recreational marijuana at night before going to bed. His pain hasn't stopped him from doing any activities at home but he does feel limited in what he can do. The patient recently moved here from [place], [place] and is retired, enjoys playing music, riding his bike , and walking his dog. He also has a boat that he goes in when the weather is nicer. The patient would like to learn stretches from physical therapy as well as help reduce his pain. Currently, the patient is 02/05. Prior Treatments and Tests Physical Therapy, Pain Clinic, Radio Frequency Aplasions, medications (listed in paper chart); prior surgery in lumbar spine, shoulder, and foot. MRI done with results in EMR Treatment Goals Patient/Caregiver Goals Get stretches and decrease pain Prior Functional Status Baseline Function- ADL's Independent Baseline Function- Mobility Independent Baseline Function- Gait I Baseline Function- Work/School Retired Baseline Function- Recreation/Hobbies I in playing music, riding bike, walking, boating Current Functional Impairments (Reported) Functional Limitations- ADL's Bed mobility - rolling in bed Functional Limitations- Mobility/Gait Rotation in neck when turning and driving Functional Limitations- Recreation/ No longer skis; pain with Hobbies playing the trumpet Personal Factors Other Personal Factors That May Effect Arthritis, Back pain, Blood Therapy/Recovery Clots, Essential Tremor, Depression, Neuropathy, past surgery, vision problems, varicose veins PT-OP-C Subjective Start: 12/20/19 15:04 Freq: Status: Active Protocol: Document 01/04/20 14:20 SP (Rec: 01/02/20 08:34 SP [id number]) OP-PT Subjective Patient Comments Patient Comments Pt reports compliant with HEP and noticing able to turn head better even though neck still hurts. Pt stated new past 2 days a mandible tremmer that is affecting his purse lip and breath control playing brass instruments more trumpet but larger instruments seems to be ok. 4/10 L upper trap painted area occiput to AC. PT-OP-E Functional Tests Start: 12/20/19 15:04 Freq: Status: Active Protocol: Document 12/20/19 15:06 EG (Rec: 12/20/19 15:45 EG [id number]) Functional Tests Kamilla's Scratch Test Action 2- Left WNL Action 2- Right WNL Action 3- Left 3 inches less than R Action 3- Right WNL PT-OP-F Manual Assessment Start: 12/20/19 15:04 Freq: Status: Active Protocol: Document 12/20/19 15:06 EG (Rec: 12/20/19 15:45 EG [id number]) Manual Assessments Soft Tissue Assessment Soft Tissue Mobility Assessment L>R upper trap soft tissue tension moderate bilateral cervical paraspinal tightness PT-OP-G Mobility & Gait Start: 12/20/19 15:04 Freq: Status: Active Protocol: Document 12/20/19 15:06 EG (Rec: 12/20/19 15:45 EG [id number]) OP Mobility Evaluation Bed Mobility Rolling Increased p! rolling to R when supine PT-OP-H Neuro Start: 12/20/19 15:04 Freq: Status: Active Protocol: Document 12/20/19 15:06 EG (Rec: 12/20/19 15:45 EG [id number]) Sensation Evaluation Comments Summary Comments Patient has felt N&T in the past but very infrequent. Last report of N&T was last summer (2019). PT-OP-J Posture/Palpation/Skin Start: 12/20/19 15:04 Freq: Status: Active Protocol: Document 12/20/19 15:06 EG (Rec: 12/20/19 15:45 EG [id number]) Posture Evaluation Position Sitting Evaluation View Posterior Head/C-Spine Posture Rotated Left,Forward Head T-Spine Posture Increased Kyphosis Thorax Posture (R) Elevated L-Spine Posture Decreased Lordosis Shoulder Posture (L) Rounded,(R) Rounded,(R) Elevated Scapula Posture (L) Rotated Up,(R) Rotated Up Palpation Assessment Location One Palpation Location L upper trap/L levator scapulae Palpation Findings Soft Tissue Tightness, Tenderness,Trigger Point PT-OP-K Range of Motion Start: 12/20/19 15:04 Freq: Status: Active Protocol: Document 12/20/19 15:06 EG (Rec: 12/20/19 15:45 EG [id number]) Cervical Spine Range of Motion Cervical Spine Active Degrees Testing Position Sitting Flexion 42 Extension 30 Rotation Left 30 Rotation Right 40 Lateral Flexion Left 33 Lateral Flexion Right 20 ROM Limitations Soft Tissue Tightness Comments p! in L side of neck w/ R cervical rotation PT-OP-L Special Tests Start: 12/20/19 15:04 Freq: Status: Active Protocol: Document 12/20/19 15:06 EG (Rec: 12/20/19 15:45 EG [id number]) Special Tests Cervical Spine Special Tests Traction Test Results + Comments decreased tension in neck Spurling's Test Test Results - PT-OP-M Strength Start: 12/20/19 15:04 Freq: Status: Active Protocol: Document 12/20/19 15:06 EG (Rec: 12/20/19 15:45 EG [id number]) Cervical Spine Strength Cervical Spine Manual Muscle Testing Rotation Left 4+ Good+ Rotation Right 4+ Good+ PT-OP-Q Treatments Start: 12/20/19 15:04 Freq: Status: Active Protocol: Document 01/04/20 14:20 SP (Rec: 01/02/20 08:34 SP [id number]) Manual Therapy Treatment Soft Tissue Mobilization SCM, masseter, med pterygoid Body Location L scm, masseter, med pterygoid , subocciptial realease Body Position 4 min Comments manual and self instruction sustained compression, pincer kneading ball wall Body Location UT, rhomboid Comments instruction self sustained compression, bouncing, rolling at wall (tennis, racquetball) theracane UT, Lev scap, Body Location self STMs w/without musc activation Body Position 10 min Comments instruction self sustained compression and pin with head nod/turn, scap movement Upper trap and cervical extensors Body Location upper trap and cervical paraspinal, and SCM STM Intensity/Depth Moderate Body Position Supine Comments 6 min PT-OP-R Modalities Start: 01/04/20 14:12 Freq: Status: Active Protocol: Document 01/04/20 13:51 EG (Rec: 01/04/20 14:13 EG [id number]) Hot Pack/Cold Pack Treatment Hot Pack Location Cervical Spine Patient Position Supine Treatment Duration (minutes) 10 Patient Tolerance Good Comments legs on bolster PT-OP-T Assessment and Plan Start: 12/20/19 15:04 Freq: Status: Active Protocol: Document 01/04/20 14:20 SP (Rec: 01/02/20 08:34 SP [id number]) Physical Therapy Assessment Goals Two Impairment Pain Short Term Goal (STG) Patient will be able to play trumpet with a max of 1/10 pain in neck in 4 weeks. STG Duration 4 weeks Pony Worker Goal (LTG) Patient will be able to roll over in bed with a 1/10 pain in 6-8 weeks. LTG Duration 6-8 weeks One Impairment ROM Short Term Goal (STG) Patient will increase cervical lateral flexion to the R to 35 degrees per L lateral flexion without pain in 4 weeks. STG Duration 4 weeks [facility] Goal (LTG) Patient will increase bilateral cervical rotation to 60 degrees with no pain in 6- 8 weeks. LTG Duration 6-8 weeks Assessment Summary Assessment Tx focused on manual and instruction of self STMs muscles of jaw to assist benefits of possible tremmers and posterior/ lateral neck to assist ROM and decreased tension neck to shld with + feedback. Wow, these self techniques helped to feel looser and can turn head better. Encouraged stretching using HEP previously instructed after the exercises to work maintaing gained ROM with verbal understanding. Physical Therapy Plan Frequency and Duration Frequency of Treatment 2x/Week Duration of Treatment 6 weeks Plan of Care Start Date 12/20/19 Plan of Care End Date 01/31/20 Therapeutic Interventions Therapeutic Interventions Home Exercise Program,Joint Mobilizations,Manual Therapy, Neuromuscular Re-education, Self-Care/Home Management,Soft Tissue Mobilization, Therapeutic Activities, Therapeutic Exercises Modalities Cold Pack/Ice Massage,Electric Stimulation,Traction- Mechanical,Ultrasound Next Visit Focus/Plan Next Note Type Treatment Note Next Visit Plan Assess response to last tx's manual theracane, ball at wall and review if needed. Continue per PT POC: See how open books and rows are going at home. Assess headache symptoms. Continue to work on rotational mobilization in cervical spine . Continue soft tissue mobilization of upper traps and levator scap. Try trigger point release on this area.
--- NOTE | 2020-01-04 17:39 | PT.OTN ---
Current Diagnoses Spondylosis without myelopathy or radiculopathy, cervical region (01/04/20) Spinal stenosis, cervical region (01/04/20) Physical Therapy Treatment Note PT-OP-A Visit Information Start: 12/20/19 15:04 Freq: Status: Active Protocol: Document 01/04/20 13:51 EG (Rec: 01/04/20 14:12 EG [id number]) Out-Patient Physical Therapy Visit Information Visit Information Visit Type Treatment Note Visit Start Time 13:00 Visit Stop Time 13:55 Total Visit Minutes 55 Visit Number 6 Number of TRANSMISSION SPECIALIST Visits 0 PT-OP-B Current Condition Start: 12/20/19 15:04 Freq: Status: Active Protocol: Document 12/20/19 15:06 EG (Rec: 12/20/19 15:34 EG [id number]) Current Condition History of Current Condition Onset Date 40 years ago Current Complaints Pain when rolling in bed and getting up in morning History of Current Condition Patient is a pleasant 74 year old male who reports to physical therapy with cheif complaint of L neck and upper shoulder pain. Patient initially started having pain in his L shoulder on the inside of L shoulder blade about 40 years ago. He cannot recall any reason why he started to have this pain but had gone to physical therapy and done many treatments for years before coming to conclusion that the pain was coming from his neck. The patient had been using Radio Frequency Ablasions to decrease the cervical nerve sensitivity in the past. He had also been doing PT and didn't quite remember what he had did but mentioned they had tried the ultrasound on him as well as stretching and massage. The patient's main complaint is that his L side of neck hurts the most when he is rolling to the right in the middle of the night - he mentioned that he needs to use both hands to help move his head. He also feels pain in the morning and before going to bed at night. He occasionally does have a cramp in the L upper shoulder and gets a sharp zinger towards the top of the L head once a week. 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 The only things that seem to alleviate his pain is lying on his back and taking recreational marijuana at night before going to bed. His pain hasn't stopped him from doing any activities at home but he does feel limited in what he can do. The patient recently moved here from [place], [place] and is retired, enjoys playing music, riding his bike , and walking his dog. He also has a boat that he goes in when the weather is nicer. The patient would like to learn stretches from physical therapy as well as help reduce his pain. Currently, the patient is 02/05. Prior Treatments and Tests Physical Therapy, Pain Clinic, Radio Frequency Aplasions, medications (listed in paper chart); prior surgery in lumbar spine, shoulder, and foot. MRI done with results in EMR Treatment Goals Patient/Caregiver Goals Get stretches and decrease pain Prior Functional Status Baseline Function- ADL's Independent Baseline Function- Mobility Independent Baseline Function- Gait I Baseline Function- Work/School Retired Baseline Function- Recreation/Hobbies I in playing music, riding bike, walking, boating Current Functional Impairments (Reported) Functional Limitations- ADL's Bed mobility - rolling in bed Functional Limitations- Mobility/Gait Rotation in neck when turning and driving Functional Limitations- Recreation/ No longer skis; pain with Hobbies playing the [place] Personal Factors Other Personal Factors That May Effect Arthritis, Back pain, Blood Therapy/Recovery Clots, Essential Tremor, Depression, Neuropathy, past surgery, vision problems, varicose veins PT-OP-C Subjective Start: 12/20/19 15:04 Freq: Status: Active Protocol: Document 01/04/20 13:51 EG (Rec: 01/04/20 14:12 EG [id number]) OP-PT Subjective Patient Comments Patient Comments Patient reported that since the last PT treatment, he was able to turn his head a lot more and had been rotating head as much as he could. The patient stated he thinks he overdid it because now he has begun to notice an increase tremor in his R hand, a deep ache in the L shoulder that seems to be moving from the neck, and a more intense pain in the L side of the neck that he had initially come for. He says but I have been moving better and think it just comes with some consequences. The patient says the pain in neck comes and goes but the pain in his L shoulder has been constant. Patient denies any shortness of breath or a headache. PT-OP-E Functional Tests Start: 12/20/19 15:04 Freq: Status: Active Protocol: Document 12/20/19 15:06 EG (Rec: 12/20/19 15:45 EG [id number]) Functional Tests Apley's Scratch Test Action 2- Left WNL Action 2- Right WNL Action 3- Left 3 inches less than R Action 3- Right WNL PT-OP-F Manual Assessment Start: 12/20/19 15:04 Freq: Status: Active Protocol: Document 12/20/19 15:06 EG (Rec: 12/20/19 15:45 EG [id number]) Manual Assessments Soft Tissue Assessment Soft Tissue Mobility Assessment L>R upper trap soft tissue tension moderate bilateral cervical paraspinal tightness PT-OP-G Mobility & Gait Start: 12/20/19 15:04 Freq: Status: Active Protocol: Document 12/20/19 15:06 EG (Rec: 12/20/19 15:45 EG [id number]) OP Mobility Evaluation Bed Mobility Rolling Increased p! rolling to R when supine PT-OP-H Neuro Start: 12/20/19 15:04 Freq: Status: Active Protocol: Document 12/20/19 15:06 EG (Rec: 12/20/19 15:45 EG [id number]) Sensation Evaluation Comments Summary Comments Patient has felt N&T in the past but very infrequent. Last report of N&T was last summer (2018). PT-OP-J Posture/Palpation/Skin Start: 12/20/19 15:04 Freq: Status: Active Protocol: Document 12/20/19 15:06 EG (Rec: 12/20/19 15:45 EG [id number]) Posture Evaluation Position Sitting Evaluation View Posterior Head/C-Spine Posture Rotated Left,Forward Head T-Spine Posture Increased Kyphosis Thorax Posture (R) Elevated L-Spine Posture Decreased Lordosis Shoulder Posture (L) Rounded,(R) Rounded,(R) Elevated Scapula Posture (L) Rotated Up,(R) Rotated Up Palpation Assessment Location One Palpation Location L upper trap/L levator scapulae Palpation Findings Soft Tissue Tightness, Tenderness,Trigger Point PT-OP-K Range of Motion Start: 12/20/19 15:04 Freq: Status: Active Protocol: Document 12/20/19 15:06 EG (Rec: 12/20/19 15:45 EG [id number]) Cervical Spine Range of Motion Cervical Spine Active Degrees Testing Position Sitting Flexion 42 Extension 30 Rotation Left 30 Rotation Right 40 Lateral Flexion Left 33 Lateral Flexion Right 20 ROM Limitations Soft Tissue Tightness Comments p! in L side of neck w/ R cervical rotation PT-OP-L Special Tests Start: 12/20/19 15:04 Freq: Status: Active Protocol: Document 12/20/19 15:06 EG (Rec: 12/20/19 15:45 EG [id number]) Special Tests Cervical Spine Special Tests Traction Test Results + Comments decreased tension in neck Spurling's Test Test Results - PT-OP-M Strength Start: 12/20/19 15:04 Freq: Status: Active Protocol: Document 12/20/19 15:06 EG (Rec: 12/20/19 15:45 EG [id number]) Cervical Spine Strength Cervical Spine Manual Muscle Testing Rotation Left 4+ Good+ Rotation Right 4+ Good+ PT-OP-Q Treatments Start: 12/20/19 15:04 Freq: Status: Active Protocol: Document 01/04/20 13:51 EG (Rec: 01/04/20 14:12 EG [email or web address]) Cardio Equipment Upper Body Ergometer (UBE) Duration (Minutes) 4 RPM 60 Other 2 min f/b Gym Equipment Cable Column (Body Solid) Lat Pulldown Details Total Body Lat Pulldown Resistance Level 3 Reps/Time 15x Therapeutic Exercises Standing Exercises TB Rows Standing Exercise Name TB scapular rows Side bilateral Resistance Level 3 Equipment Used TB Reps/Minutes 15x Comments decreased pain in the neck at end range of movement Self-Care/Home Management Treatment Education Patient Education Home Exercise Program,Pain Management Other Education Patient educated on appropriate exercise dosage at home as well as pain reduction techniques. PT-OP-R Modalities Start: 01/04/20 14:12 Freq: Status: Active Protocol: Document 01/04/20 13:51 EG (Rec: 01/04/20 14:13 EG [email or web address]) Hot Pack/Cold Pack Treatment Hot Pack Location Cervical Spine Patient Position Supine Treatment Duration (minutes) 10 Patient Tolerance Good Comments legs on bolster PT-OP-T Assessment and Plan Start: 12/20/19 15:04 Freq: Status: Active Protocol: Document 01/04/20 13:51 EG (Rec: 01/04/20 13:52 EG [email or web address]) Physical Therapy Assessment Assessment Summary Assessment Patient reported new L shoulder symptoms as deep ache with no other non-msk symptoms so BP was taken before exercise. When done manually, BP was reported as 145/95mmHg and after exercise BP was taken with machine and at 136/86mmHg. Patient remained asymptomatic throughout exercise but symptoms should continue to be assessed next visit. Patient did increase neck AROM more than baseline and may have put excessive stress on paraspinal tissues as well as upper cervical musculature. Patient was advised to only perform self STM at home once over the weekend and to perform same HEP exercises in order to decrease chance of another pain exacerbation. Physical Therapy Plan Next Visit Focus/Plan Next Note Type Treatment Note Next Visit Plan Assess symptoms. Assess HEP and modify as needed. Continue with soft tissue manipulation of the cervical paraspinals. Vanessa Lam DPT, supervised all treatment performed by, and agreed with the plan of care, as performed by Diamond Mcdermott, EDDIE.
--- NOTE | 2020-01-09 09:00 | PT.OTN ---
Current Diagnoses Spondylosis without myelopathy or radiculopathy, cervical region (01/09/20) Spinal stenosis, cervical region (01/09/20) Physical Therapy Treatment Note PT-OP-A Visit Information Start: 12/20/19 15:04 Freq: Status: Active Protocol: Document 01/09/20 08:26 SP (Rec: 01/09/20 09:09 SP [id number]) Out-Patient Physical Therapy Visit Information Visit Information Visit Type Treatment Note Visit Start Time 08:27 Visit Stop Time 09:00 Total Visit Minutes 33 Visit Number 7 Number of ICE CREAM TRUCK DRIVER Visits 1 PT-OP-B Current Condition Start: 12/20/19 15:04 Freq: Status: Active Protocol: Document 12/20/19 15:06 EG (Rec: 12/20/19 15:34 EG [id number]) Current Condition History of Current Condition Onset Date 40 years ago Current Complaints Pain when rolling in bed and getting up in morning History of Current Condition Patient is a pleasant 74 year old male who reports to physical therapy with cheif complaint of L neck and upper shoulder pain. Patient initially started having pain in his L shoulder on the inside of L shoulder blade about 40 years ago. He cannot recall any reason why he started to have this pain but had gone to physical therapy and done many treatments for years before coming to conclusion that the pain was coming from his neck. The patient had been using Radio Frequency Ablasions to decrease the cervical nerve sensitivity in the past. He had also been doing PT and didn't quite remember what he had did but mentioned they had tried the ultrasound on him as well as stretching and massage. The patient's main complaint is that his L side of neck hurts the most when he is rolling to the right in the middle of the night - he mentioned that he needs to use both hands to help move his head. He also feels pain in the morning and before going to bed at night. He occasionally does have a cramp in the L upper shoulder and gets a sharp zinger towards the top of the L head once a week. 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 The only things that seem to alleviate his pain is lying on his back and taking recreational marijuana at night before going to bed. His pain hasn't stopped him from doing any activities at home but he does feel limited in what he can do. The patient recently moved here from [place], [place] and is retired, enjoys playing music, riding his bike , and walking his dog. He also has a boat that he goes in when the weather is nicer. The patient would like to learn stretches from physical therapy as well as help reduce his pain. Currently, the patient is 3/10. Prior Treatments and Tests Physical Therapy, Pain Clinic, Radio Frequency Aplasions, medications (listed in paper chart); prior surgery in lumbar spine, shoulder, and foot. MRI done with results in EMR Treatment Goals Patient/Caregiver Goals Get stretches and decrease pain Prior Functional Status Baseline Function- ADL's Independent Baseline Function- Mobility Independent Baseline Function- Gait I Baseline Function- Work/School Retired Baseline Function- Recreation/Hobbies I in playing music, riding bike, walking, boating Current Functional Impairments (Reported) Functional Limitations- ADL's Bed mobility - rolling in bed Functional Limitations- Mobility/Gait Rotation in neck when turning and driving Functional Limitations- Recreation/ No longer skis; pain with Hobbies playing the [address] Personal Factors Other Personal Factors That May Effect Arthritis, Back pain, Blood Therapy/Recovery Clots, Essential Tremor, Depression, Neuropathy, past surgery, vision problems, varicose veins PT-OP-C Subjective Start: 12/20/19 15:04 Freq: Status: Active Protocol: Document 01/09/20 08:26 SP (Rec: 01/09/20 09:09 SP [id number]) OP-PT Subjective Patient Comments Patient Comments Pt reported stated 5/10 posterior neck when moving neck but 1/10 when relaxed. Pt stated hurt more later in day after last tx but the next day was great. Since then same normal pain and stiffness. Hand tremors has gone away but jaw tremor more than none but better. PT-OP-E Functional Tests Start: 12/20/19 15:04 Freq: Status: Active Protocol: Document 12/20/19 15:06 EG (Rec: 12/20/19 15:45 EG [id number]) Functional Tests Apley's Scratch Test Action 2- Left WNL Action 2- Right WNL Action 3- Left 3 inches less than R Action 3- Right WNL PT-OP-F Manual Assessment Start: 12/20/19 15:04 Freq: Status: Active Protocol: Document 12/20/19 15:06 EG (Rec: 12/20/19 15:45 EG [id number]) Manual Assessments Soft Tissue Assessment Soft Tissue Mobility Assessment L>R upper trap soft tissue tension moderate bilateral cervical paraspinal tightness PT-OP-G Mobility & Gait Start: 12/20/19 15:04 Freq: Status: Active Protocol: Document 12/20/19 15:06 EG (Rec: 12/20/19 15:45 EG [id number]) OP Mobility Evaluation Bed Mobility Rolling Increased p! rolling to R when supine PT-OP-H Neuro Start: 12/20/19 15:04 Freq: Status: Active Protocol: Document 12/20/19 15:06 EG (Rec: 12/20/19 15:45 EG [id number]) Sensation Evaluation Comments Summary Comments Patient has felt N&T in the past but very infrequent. Last report of N&T was last summer (2018). PT-OP-J Posture/Palpation/Skin Start: 12/20/19 15:04 Freq: Status: Active Protocol: Document 12/20/19 15:06 EG (Rec: 12/20/19 15:45 EG [id number]) Posture Evaluation Position Sitting Evaluation View Posterior Head/C-Spine Posture Rotated Left,Forward Head T-Spine Posture Increased Kyphosis Thorax Posture (R) Elevated L-Spine Posture Decreased Lordosis Shoulder Posture (L) Rounded,(R) Rounded,(R) Elevated Scapula Posture (L) Rotated Up,(R) Rotated Up Palpation Assessment Location One Palpation Location L upper trap/L levator scapulae Palpation Findings Soft Tissue Tightness, Tenderness,Trigger Point PT-OP-K Range of Motion Start: 12/20/19 15:04 Freq: Status: Active Protocol: Document 12/20/19 15:06 EG (Rec: 12/20/19 15:45 EG [id number]) Cervical Spine Range of Motion Cervical Spine Active Degrees Testing Position Sitting Flexion 42 Extension 30 Rotation Left 30 Rotation Right 40 Lateral Flexion Left 33 Lateral Flexion Right 20 ROM Limitations Soft Tissue Tightness Comments p! in L side of neck w/ R cervical rotation PT-OP-L Special Tests Start: 12/20/19 15:04 Freq: Status: Active Protocol: Document 12/20/19 15:06 EG (Rec: 12/20/19 15:45 EG [id number]) Special Tests Cervical Spine Special Tests Traction Test Results + Comments decreased tension in neck Spurling's Test Test Results - PT-OP-M Strength Start: 12/20/19 15:04 Freq: Status: Active Protocol: Document 12/20/19 15:06 EG (Rec: 12/20/19 15:45 EG [id number]) Cervical Spine Strength Cervical Spine Manual Muscle Testing Rotation Left 4+ Good+ Rotation Right 4+ Good+ PT-OP-Q Treatments Start: 12/20/19 15:04 Freq: Status: Active Protocol: Document 01/09/20 08:26 SP (Rec: 01/09/20 09:09 SP [id number]) Therapeutic Exercises Prone Exercises scap retraction CS ext lift Reps/Minutes 10 sec x10 Standing Exercises CS R rotation, side bend isometric Side right Reps/Minutes 5 sec hold x5 scap retraction TB Reps/Minutes 10 hold x10 TB ER Standing Exercise Name bilateral ER with level 1 band Side bilateral Resistance Level 1 Reps/Minutes 10x Comments given for HEP Manual Therapy Treatment Soft Tissue Mobilization SCM, masseter, med pterygoid Body Location L scm, masseter, med pterygoid , subocciptial realease Body Position 4 min Comments manual and self instruction sustained compression, pincer kneading Upper trap and cervical extensors Body Location upper trap and cervical paraspinal, and SCM STM Intensity/Depth Moderate Body Position Supine Comments 6 min PT-OP-R Modalities Start: 01/04/20 14:12 Freq: Status: Active Protocol: Document 01/04/20 13:51 EG (Rec: 01/04/20 14:13 EG [email or web address]) Hot Pack/Cold Pack Treatment Hot Pack Location Cervical Spine Patient Position Supine Treatment Duration (minutes) 10 Patient Tolerance Good Comments legs on bolster PT-OP-T Assessment and Plan Start: 12/20/19 15:04 Freq: Status: Active Protocol: Document 01/09/20 08:26 SP (Rec: 01/09/20 09:09 SP [id number]) Physical Therapy Assessment Goals Two Impairment Pain Short Term Goal (STG) Patient will be able to play trumpet with a max of 1/10 pain in neck in 4 weeks. STG Duration 4 weeks Spring Floor Service Worker Goal (LTG) Patient will be able to roll over in bed with a 1/10 pain in 6-8 weeks. LTG Duration 6-8 weeks One Impairment ROM Short Term Goal (STG) Patient will increase cervical lateral flexion to the R to 35 degrees per L lateral flexion without pain in 4 weeks. STG Duration 4 weeks Spring Floor Service Worker Goal (LTG) Patient will increase bilateral cervical rotation to 60 degrees with no pain in 6- 8 weeks. LTG Duration 6-8 weeks Assessment Summary Assessment Pt responded well to manual and isometric and small range CS R rotation, side bend then stretching. feels little weird different,away of more movement and getting use to. Physical Therapy Plan Frequency and Duration Frequency of Treatment 2x/Week Duration of Treatment 6 weeks Plan of Care Start Date 12/20/19 Plan of Care End Date 01/31/20 Therapeutic Interventions Therapeutic Interventions Home Exercise Program,Joint Mobilizations,Manual Therapy, Neuromuscular Re-education, Self-Care/Home Management,Soft Tissue Mobilization, Therapeutic Activities, Therapeutic Exercises Modalities Cold Pack/Ice Massage,Electric Stimulation,Traction- Mechanical,Ultrasound Next Visit Focus/Plan Next Note Type Treatment Note Next Visit Plan Assess symptoms. Assess HEP and modify as needed. Myabe next tx CS ext with TB, wall touch downs/slides. Continue with soft tissue manipulation of the cervical paraspinals.
--- NOTE | 2020-01-12 09:05 | PT.OTN ---
Current Diagnoses Spondylosis without myelopathy or radiculopathy, cervical region (01/12/20) Spinal stenosis, cervical region (01/12/20) Physical Therapy Treatment Note PT-OP-A Visit Information Start: 12/20/19 15:04 Freq: Status: Active Protocol: Document 01/12/20 08:20 SP (Rec: 01/12/20 12:00 SP [id number]) Out-Patient Physical Therapy Visit Information Visit Information Visit Type Treatment Note Visit Start Time 08:20 Visit Stop Time 09:05 Total Visit Minutes 45 Visit Number 8 Number of SLASHER MACHINE OPERATOR Visits 2 PT-OP-B Current Condition Start: 12/20/19 15:04 Freq: Status: Active Protocol: Document 12/20/19 15:06 EG (Rec: 12/20/19 15:34 EG [id number]) Current Condition History of Current Condition Onset Date 40 years ago Current Complaints Pain when rolling in bed and getting up in morning History of Current Condition Patient is a pleasant 74 year old male who reports to physical therapy with cheif complaint of L neck and upper shoulder pain. Patient initially started having pain in his L shoulder on the inside of L shoulder blade about 40 years ago. He cannot recall any reason why he started to have this pain but had gone to physical therapy and done many treatments for years before coming to conclusion that the pain was coming from his neck. The patient had been using Radio Frequency Ablasions to decrease the cervical nerve sensitivity in the past. He had also been doing PT and didn't quite remember what he had did but mentioned they had tried the ultrasound on him as well as stretching and massage. The patient's main complaint is that his L side of neck hurts the most when he is rolling to the right in the middle of the night - he mentioned that he needs to use both hands to help move his head. He also feels pain in the morning and before going to bed at night. He occasionally does have a cramp in the L upper shoulder and gets a sharp zinger towards the top of the L head once a week. 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 The only things that seem to alleviate his pain is lying on his back and taking recreational marijuana at night before going to bed. His pain hasn't stopped him from doing any activities at home but he does feel limited in what he can do. The patient recently moved here from [place], [place] and is retired, enjoys playing music, riding his bike , and walking his dog. He also has a boat that he goes in when the weather is nicer. The patient would like to learn stretches from physical therapy as well as help reduce his pain. Currently, the patient is 02/05. Prior Treatments and Tests Physical Therapy, Pain Clinic, Radio Frequency Aplasions, medications (listed in paper chart); prior surgery in lumbar spine, shoulder, and foot. MRI done with results in EMR Treatment Goals Patient/Caregiver Goals Get stretches and decrease pain Prior Functional Status Baseline Function- ADL's Independent Baseline Function- Mobility Independent Baseline Function- Gait I Baseline Function- Work/School Retired Baseline Function- Recreation/Hobbies I in playing music, riding bike, walking, boating Current Functional Impairments (Reported) Functional Limitations- ADL's Bed mobility - rolling in bed Functional Limitations- Mobility/Gait Rotation in neck when turning and driving Functional Limitations- Recreation/ No longer skis; pain with Hobbies playing the [employer] Personal Factors Other Personal Factors That May Effect Arthritis, Back pain, Blood Therapy/Recovery Clots, Essential Tremor, Depression, Neuropathy, past surgery, vision problems, varicose veins PT-OP-C Subjective Start: 12/20/19 15:04 Freq: Status: Active Protocol: Document 01/12/20 08:20 SP (Rec: 01/12/20 12:00 SP [id number]) OP-PT Subjective Patient Comments Patient Comments Pt stated has been feeling alot better since last tx, stiff/ tight today and experiences little electrical shock L UT area last night but has been playing music and might be triggering. Tremers in jaw better but still off to play instrument. Hand tremors continue to be gone. PT-OP-E Functional Tests Start: 12/20/19 15:04 Freq: Status: Active Protocol: Document 12/20/19 15:06 EG (Rec: 12/20/19 15:45 EG [id number]) Functional Tests Apley's Scratch Test Action 2- Left WNL Action 2- Right WNL Action 3- Left 3 inches less than R Action 3- Right WNL PT-OP-F Manual Assessment Start: 12/20/19 15:04 Freq: Status: Active Protocol: Document 12/20/19 15:06 EG (Rec: 12/20/19 15:45 EG [id number]) Manual Assessments Soft Tissue Assessment Soft Tissue Mobility Assessment L>R upper trap soft tissue tension moderate bilateral cervical paraspinal tightness PT-OP-G Mobility & Gait Start: 12/20/19 15:04 Freq: Status: Active Protocol: Document 12/20/19 15:06 EG (Rec: 12/20/19 15:45 EG [id number]) OP Mobility Evaluation Bed Mobility Rolling Increased p! rolling to R when supine PT-OP-H Neuro Start: 12/20/19 15:04 Freq: Status: Active Protocol: Document 12/20/19 15:06 EG (Rec: 12/20/19 15:45 EG [id number]) Sensation Evaluation Comments Summary Comments Patient has felt N&T in the past but very infrequent. Last report of N&T was last summer (2018). PT-OP-J Posture/Palpation/Skin Start: 12/20/19 15:04 Freq: Status: Active Protocol: Document 12/20/19 15:06 EG (Rec: 12/20/19 15:45 EG [id number]) Posture Evaluation Position Sitting Evaluation View Posterior Head/C-Spine Posture Rotated Left,Forward Head T-Spine Posture Increased Kyphosis Thorax Posture (R) Elevated L-Spine Posture Decreased Lordosis Shoulder Posture (L) Rounded,(R) Rounded,(R) Elevated Scapula Posture (L) Rotated Up,(R) Rotated Up Palpation Assessment Location One Palpation Location L upper trap/L levator scapulae Palpation Findings Soft Tissue Tightness, Tenderness,Trigger Point PT-OP-K Range of Motion Start: 12/20/19 15:04 Freq: Status: Active Protocol: Document 12/20/19 15:06 EG (Rec: 12/20/19 15:45 EG [id number]) Cervical Spine Range of Motion Cervical Spine Active Degrees Testing Position Sitting Flexion 42 Extension 30 Rotation Left 30 Rotation Right 40 Lateral Flexion Left 33 Lateral Flexion Right 20 ROM Limitations Soft Tissue Tightness Comments p! in L side of neck w/ R cervical rotation PT-OP-L Special Tests Start: 12/20/19 15:04 Freq: Status: Active Protocol: Document 12/20/19 15:06 EG (Rec: 12/20/19 15:45 EG [id number]) Special Tests Cervical Spine Special Tests Traction Test Results + Comments decreased tension in neck Spurling's Test Test Results - PT-OP-M Strength Start: 12/20/19 15:04 Freq: Status: Active Protocol: Document 12/20/19 15:06 EG (Rec: 12/20/19 15:45 EG [id number]) Cervical Spine Strength Cervical Spine Manual Muscle Testing Rotation Left 4+ Good+ Rotation Right 4+ Good+ PT-OP-Q Treatments Start: 12/20/19 15:04 Freq: Status: Active Protocol: Document 01/12/20 08:20 SP (Rec: 01/12/20 12:00 SP [id number]) Therapeutic Exercises Supine Exercises pec stretch Reps/Minutes 30 x3 Sidelying Exercises Open Books Sidelying Exercise Name Open Books (TS and CS rotation ) Side bilateral Reps/Minutes 8x each side Comments given as HEP Sitting Exercises CS rotation SNAG Reps/Minutes 5 sec hold x5 Upper Trap Stretch Sitting Exercise Name Upper trap stretch Side bilateral Reps/Minutes 1 min Standing Exercises pec stretch corner Reps/Minutes 30 CS ext TB at wall Resistance Tb #1 Reps/Minutes 5 sec hold x5 3 sets Manual Therapy Treatment Soft Tissue Mobilization ball wall Body Location UT at wall STM sustained compression and bounce Body Position 1 min Upper trap and cervical extensors Body Location upper trap, lev scap proximal, cervical paraspinal, Scalenes proximal STM Intensity/Depth Moderate Body Position Supine Comments 6 min PT-OP-R Modalities Start: 01/04/20 14:12 Freq: Status: Active Protocol: Document 01/04/20 13:51 EG (Rec: 01/04/20 14:13 EG [id number]) Hot Pack/Cold Pack Treatment Hot Pack Location Cervical Spine Patient Position Supine Treatment Duration (minutes) 10 Patient Tolerance Good Comments legs on bolster PT-OP-T Assessment and Plan Start: 12/20/19 15:04 Freq: Status: Active Protocol: Document 01/12/20 08:20 SP (Rec: 01/12/20 12:00 SP [id number]) Physical Therapy Assessment Goals Two Impairment Pain Short Term Goal (STG) Patient will be able to play trumpet with a max of 1/10 pain in neck in 4 weeks. STG Duration 4 weeks Group Home Goal (LTG) Patient will be able to roll over in bed with a 1/10 pain in 6-8 weeks. LTG Duration 6-8 weeks One Impairment ROM Short Term Goal (STG) Patient will increase cervical lateral flexion to the R to 35 degrees per L lateral flexion without pain in 4 weeks. STG Duration 4 weeks Insurance Agency Sales Manager Goal (LTG) Patient will increase bilateral cervical rotation to 60 degrees with no pain in 6- 8 weeks. LTG Duration 6-8 weeks Assessment Summary Assessment Tx focused on CS mobility and muscles flexibility then initiated strengthening DNF. Cued scap stabilization during CS ext to decrease shld elevation recruitment, proper set up and form with + results . Pt responded well wow my neck feels alot better, able to move more after the towel rotations and the band pull back are good. SLASHER MACHINE OPERATOR educated keep up with rows, shld ext Tb given previous tx for progression in strength while neck continues to loosen up. Physical Therapy Plan Frequency and Duration Frequency of Treatment 2x/Week Duration of Treatment 6 weeks Plan of Care Start Date 12/20/19 Plan of Care End Date 01/31/20 Therapeutic Interventions Therapeutic Interventions Home Exercise Program,Joint Mobilizations,Manual Therapy, Neuromuscular Re-education, Self-Care/Home Management,Soft Tissue Mobilization, Therapeutic Activities, Therapeutic Exercises Modalities Cold Pack/Ice Massage,Electric Stimulation,Traction- Mechanical,Ultrasound Next Visit Focus/Plan Next Note Type Treatment Note Next Visit Plan Assess response to and review all/ many HEP and modify as needed. Myabe next tx add wall touch downs/slides but see if doesn't have to many. Continue with soft tissue manipulation of the cervical paraspinals.
--- NOTE | 2020-01-17 15:56 | PT.OTN ---
Current Diagnoses Spondylosis without myelopathy or radiculopathy, cervical region (01/17/20) Spinal stenosis, cervical region (01/17/20) Physical Therapy Treatment Note PT-OP-A Visit Information Start: 12/20/19 15:04 Freq: Status: Active Protocol: Document 01/17/20 07:30 EG (Rec: 01/17/20 09:45 EG [email or web address]) Out-Patient Physical Therapy Visit Information Visit Information Visit Type Treatment Note Visit Start Time 07:30 Visit Stop Time 08:15 Total Visit Minutes 45 Visit Number 9 Number of STRATEGIC PLANNING ANALYST Visits 0 PT-OP-B Current Condition Start: 12/20/19 15:04 Freq: Status: Active Protocol: Document 12/20/19 15:06 EG (Rec: 12/20/19 15:34 EG [id number]) Current Condition History of Current Condition Onset Date 40 years ago Current Complaints Pain when rolling in bed and getting up in morning History of Current Condition Patient is a pleasant 74 year old male who reports to physical therapy with cheif complaint of L neck and upper shoulder pain. Patient initially started having pain in his L shoulder on the inside of L shoulder blade about 40 years ago. He cannot recall any reason why he started to have this pain but had gone to physical therapy and done many treatments for years before coming to conclusion that the pain was coming from his neck. The patient had been using Radio Frequency Ablasions to decrease the cervical nerve sensitivity in the past. He had also been doing PT and didn't quite remember what he had did but mentioned they had tried the ultrasound on him as well as stretching and massage. The patient's main complaint is that his L side of neck hurts the most when he is rolling to the right in the middle of the night - he mentioned that he needs to use both hands to help move his head. He also feels pain in the morning and before going to bed at night. He occasionally does have a cramp in the L upper shoulder and gets a sharp zinger towards the top of the L head once a week. 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 The only things that seem to alleviate his pain is lying on his back and taking recreational marijuana at night before going to bed. His pain hasn't stopped him from doing any activities at home but he does feel limited in what he can do. The patient recently moved here from [place], [place] and is retired, enjoys playing music, riding his bike , and walking his dog. He also has a boat that he goes in when the weather is nicer. The patient would like to learn stretches from physical therapy as well as help reduce his pain. Currently, the patient is 02/05. Prior Treatments and Tests Physical Therapy, Pain Clinic, Radio Frequency Aplasions, medications (listed in paper chart); prior surgery in lumbar spine, shoulder, and foot. MRI done with results in EMR Treatment Goals Patient/Caregiver Goals Get stretches and decrease pain Prior Functional Status Baseline Function- ADL's Independent Baseline Function- Mobility Independent Baseline Function- Gait I Baseline Function- Work/School Retired Baseline Function- Recreation/Hobbies I in playing music, riding bike, walking, boating Current Functional Impairments (Reported) Functional Limitations- ADL's Bed mobility - rolling in bed Functional Limitations- Mobility/Gait Rotation in neck when turning and driving Functional Limitations- Recreation/ No longer skis; pain with Hobbies playing the [employer] Personal Factors Other Personal Factors That May Effect Arthritis, Back pain, Blood Therapy/Recovery Clots, Essential Tremor, Depression, Neuropathy, past surgery, vision problems, varicose veins PT-OP-C Subjective Start: 12/20/19 15:04 Freq: Status: Active Protocol: Document 01/17/20 07:30 EG (Rec: 01/17/20 09:45 EG [email or web address]) OP-PT Subjective Patient Comments Patient Comments Patient reported that he is overall feeling better and that the exercises are going well at home. He has had less pain in the middle of the night and thinks he has trained himself to not lift his head completely when rolling in bed. He also mentioned that he would like his blood pressure taken again PT-OP-E Functional Tests Start: 12/20/19 15:04 Freq: Status: Active Protocol: Document 12/20/19 15:06 EG (Rec: 12/20/19 15:45 EG [id number]) Functional Tests Neftaliey's Scratch Test Action 2- Left WNL Action 2- Right WNL Action 3- Left 3 inches less than R Action 3- Right WNL PT-OP-F Manual Assessment Start: 12/20/19 15:04 Freq: Status: Active Protocol: Document 12/20/19 15:06 EG (Rec: 12/20/19 15:45 EG [id number]) Manual Assessments Soft Tissue Assessment Soft Tissue Mobility Assessment L>R upper trap soft tissue tension moderate bilateral cervical paraspinal tightness PT-OP-G Mobility & Gait Start: 12/20/19 15:04 Freq: Status: Active Protocol: Document 12/20/19 15:06 EG (Rec: 12/20/19 15:45 EG [id number]) OP Mobility Evaluation Bed Mobility Rolling Increased p! rolling to R when supine PT-OP-H Neuro Start: 12/20/19 15:04 Freq: Status: Active Protocol: Document 12/20/19 15:06 EG (Rec: 12/20/19 15:45 EG [id number]) Sensation Evaluation Comments Summary Comments Patient has felt N&T in the past but very infrequent. Last report of N&T was last summer (2018). PT-OP-J Posture/Palpation/Skin Start: 12/20/19 15:04 Freq: Status: Active Protocol: Document 12/20/19 15:06 EG (Rec: 12/20/19 15:45 EG [id number]) Posture Evaluation Position Sitting Evaluation View Posterior Head/C-Spine Posture Rotated Left,Forward Head T-Spine Posture Increased Kyphosis Thorax Posture (R) Elevated L-Spine Posture Decreased Lordosis Shoulder Posture (L) Rounded,(R) Rounded,(R) Elevated Scapula Posture (L) Rotated Up,(R) Rotated Up Palpation Assessment Location One Palpation Location L upper trap/L levator scapulae Palpation Findings Soft Tissue Tightness, Tenderness,Trigger Point PT-OP-K Range of Motion Start: 12/20/19 15:04 Freq: Status: Active Protocol: Document 12/20/19 15:06 EG (Rec: 12/20/19 15:45 EG [id number]) Cervical Spine Range of Motion Cervical Spine Active Degrees Testing Position Sitting Flexion 42 Extension 30 Rotation Left 30 Rotation Right 40 Lateral Flexion Left 33 Lateral Flexion Right 20 ROM Limitations Soft Tissue Tightness Comments p! in L side of neck w/ R cervical rotation PT-OP-L Special Tests Start: 12/20/19 15:04 Freq: Status: Active Protocol: Document 12/20/19 15:06 EG (Rec: 12/20/19 15:45 EG [id number]) Special Tests Cervical Spine Special Tests Traction Test Results + Comments decreased tension in neck Spurling's Test Test Results - PT-OP-M Strength Start: 12/20/19 15:04 Freq: Status: Active Protocol: Document 12/20/19 15:06 EG (Rec: 12/20/19 15:45 EG [id number]) Cervical Spine Strength Cervical Spine Manual Muscle Testing Rotation Left 4+ Good+ Rotation Right 4+ Good+ PT-OP-Q Treatments Start: 12/20/19 15:04 Freq: Status: Active Protocol: Document 01/17/20 07:30 EG (Rec: 01/17/20 09:45 EG [email or web address]) Cardio Equipment Upper Body Ergometer (UBE) Duration (Minutes) 6 Other 3 min fwd/bwd Therapeutic Exercises Sitting Exercises Levator Trap Stretch Sitting Exercise Name Levator Trap Stretch Side bilateral Reps/Minutes 1 min each side Upper Trap Stretch Sitting Exercise Name Upper trap stretch Side bilateral Reps/Minutes 1 min each side Standing Exercises CS ext TB at wall Resistance Tb #1 Reps/Minutes 5 sec hold x5 3 sets Comments cue to move from cervical spine instead of pushing with forearms TB lat pulldown/ shoulder extension Standing Exercise Name Lat pulldown/shoulder extension Side bilateral Resistance L2 Equipment Used TB Reps/Minutes 2x12 TB Rows Standing Exercise Name TB rows Side bilateral Resistance L3 Equipment Used TB Reps/Minutes 2x12 Comments verbal and tactile cues to retract scapula Manual Therapy Treatment Soft Tissue Mobilization Upper trap and cervical extensors Body Location upper trap, lev scap proximal, cervical paraspinal, Scalenes proximal STM Intensity/Depth Moderate Body Position Supine Comments 8 min Joint Mobilizations C3-C6 Joint C2-C6 Reps/Duration 2 min Comments Rotational glide PT-OP-R Modalities Start: 01/04/20 14:12 Freq: Status: Active Protocol: Document 01/04/20 13:51 EG (Rec: 01/04/20 14:13 EG [email or web address]) Hot Pack/Cold Pack Treatment Hot Pack Location Cervical Spine Patient Position Supine Treatment Duration (minutes) 10 Patient Tolerance Good Comments legs on bolster PT-OP-T Assessment and Plan Start: 12/20/19 15:04 Freq: Status: Active Protocol: Document 01/17/20 07:30 EG (Rec: 02/19/20 09:45 EG [email or web address]) Physical Therapy Assessment Assessment Summary Assessment Patient did well with therapeutic exercises today. BP was taken in beginning of treatment and was 136/80mmHg and after treatment BP increased to 140/93mmHg. Patient reports haing a historically low blood pressure so continual monitoring of BP should be done though patient is asymptomatic. Patient has slightly more cervical ROM but is still limited with R side bend and should continue to work on flexibility and repairing joint mobility of cervical spine. Physical Therapy Plan Frequency and Duration Frequency of Treatment 2x/Week Duration of Treatment 6 weeks Plan of Care Start Date 12/20/19 Plan of Care End Date 01/31/20 Next Visit Focus/Plan Next Note Type Treatment Note Next Visit Plan Assess symptoms. Take blood pressure. Continue to progress flexibility and stretching of cervical paraspinals as well as joint mobilization of C2-C6 into lateral and rotational glides. Vanessa Lam DPT, supervised all treatment performed by, and agreed with the plan of care, as performed by Diamond Mcdermott, EDDIE.
--- NOTE | 2020-01-19 12:11 | PT.OTN ---
Current Diagnoses Spondylosis without myelopathy or radiculopathy, cervical region (01/19/20) Spinal stenosis, cervical region (01/19/20) Physical Therapy Treatment Note PT-OP-A Visit Information Start: 12/20/19 15:04 Freq: Status: Active Protocol: Document 01/19/20 10:30 EG (Rec: 01/19/20 10:42 EG [id number]) Out-Patient Physical Therapy Visit Information Visit Information Visit Type Treatment Note Visit Start Time 10:30 Visit Stop Time 11:15 Total Visit Minutes 45 Visit Number 10 Number of AUTOMATIC TRANSMISSION MECHANIC Visits 0 PT-OP-B Current Condition Start: 12/20/19 15:04 Freq: Status: Active Protocol: Document 12/20/19 15:06 EG (Rec: 12/20/19 15:34 EG [id number]) Current Condition History of Current Condition Onset Date 40 years ago Current Complaints Pain when rolling in bed and getting up in morning History of Current Condition Patient is a pleasant 74 year old male who reports to physical therapy with cheif complaint of L neck and upper shoulder pain. Patient initially started having pain in his L shoulder on the inside of L shoulder blade about 40 years ago. He cannot recall any reason why he started to have this pain but had gone to physical therapy and done many treatments for years before coming to conclusion that the pain was coming from his neck. The patient had been using Radio Frequency Ablasions to decrease the cervical nerve sensitivity in the past. He had also been doing PT and didn't quite remember what he had did but mentioned they had tried the ultrasound on him as well as stretching and massage. The patient's main complaint is that his L side of neck hurts the most when he is rolling to the right in the middle of the night - he mentioned that he needs to use both hands to help move his head. He also feels pain in the morning and before going to bed at night. He occasionally does have a cramp in the L upper shoulder and gets a sharp zinger towards the top of the L head once a week. 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 The only things that seem to alleviate his pain is lying on his back and taking recreational marijuana at night before going to bed. His pain hasn't stopped him from doing any activities at home but he does feel limited in what he can do. The patient recently moved here from [place], [place] and is retired, enjoys playing music, riding his bike , and walking his dog. He also has a boat that he goes in when the weather is nicer. The patient would like to learn stretches from physical therapy as well as help reduce his pain. Currently, the patient is 02/05. Prior Treatments and Tests Physical Therapy, Pain Clinic, Radio Frequency Aplasions, medications (listed in paper chart); prior surgery in lumbar spine, shoulder, and foot. MRI done with results in EMR Treatment Goals Patient/Caregiver Goals Get stretches and decrease pain Prior Functional Status Baseline Function- ADL's Independent Baseline Function- Mobility Independent Baseline Function- Gait I Baseline Function- Work/School Retired Baseline Function- Recreation/Hobbies I in playing music, riding bike, walking, boating Current Functional Impairments (Reported) Functional Limitations- ADL's Bed mobility - rolling in bed Functional Limitations- Mobility/Gait Rotation in neck when turning and driving Functional Limitations- Recreation/ No longer skis; pain with Hobbies playing the [employer] Personal Factors Other Personal Factors That May Effect Arthritis, Back pain, Blood Therapy/Recovery Clots, Essential Tremor, Depression, Neuropathy, past surgery, vision problems, varicose veins PT-OP-C Subjective Start: 12/20/19 15:04 Freq: Status: Active Protocol: Document 01/19/20 10:30 EG (Rec: 01/19/20 10:42 EG [id number]) OP-PT Subjective Patient Comments Patient Comments Patient reports that he can do more activities before his pain is the same. He also mentioned that his ability to play the [employer] was slightly better this week. He says that when he gives his muscles in his neck the chance, they will tighten up. Patient Reported Progress Improving PT-OP-E Functional Tests Start: 12/20/19 15:04 Freq: Status: Active Protocol: Document 12/20/19 15:06 EG (Rec: 12/20/19 15:45 EG [id number]) Functional Tests Neftaliey's Scratch Test Action 2- Left WNL Action 2- Right WNL Action 3- Left 3 inches less than R Action 3- Right WNL PT-OP-F Manual Assessment Start: 12/20/19 15:04 Freq: Status: Active Protocol: Document 12/20/19 15:06 EG (Rec: 12/20/19 15:45 EG [id number]) Manual Assessments Soft Tissue Assessment Soft Tissue Mobility Assessment L>R upper trap soft tissue tension moderate bilateral cervical paraspinal tightness PT-OP-G Mobility & Gait Start: 12/20/19 15:04 Freq: Status: Active Protocol: Document 12/20/19 15:06 EG (Rec: 12/20/19 15:45 EG [id number]) OP Mobility Evaluation Bed Mobility Rolling Increased p! rolling to R when supine PT-OP-H Neuro Start: 12/20/19 15:04 Freq: Status: Active Protocol: Document 12/20/19 15:06 EG (Rec: 12/20/19 15:45 EG [id number]) Sensation Evaluation Comments Summary Comments Patient has felt N&T in the past but very infrequent. Last report of N&T was last summer (2018). PT-OP-J Posture/Palpation/Skin Start: 12/20/19 15:04 Freq: Status: Active Protocol: Document 12/20/19 15:06 EG (Rec: 12/20/19 15:45 EG [id number]) Posture Evaluation Position Sitting Evaluation View Posterior Head/C-Spine Posture Rotated Left,Forward Head T-Spine Posture Increased Kyphosis Thorax Posture (R) Elevated L-Spine Posture Decreased Lordosis Shoulder Posture (L) Rounded,(R) Rounded,(R) Elevated Scapula Posture (L) Rotated Up,(R) Rotated Up Palpation Assessment Location One Palpation Location L upper trap/L levator scapulae Palpation Findings Soft Tissue Tightness, Tenderness,Trigger Point PT-OP-K Range of Motion Start: 12/20/19 15:04 Freq: Status: Active Protocol: Document 12/20/19 15:06 EG (Rec: 12/20/19 15:45 EG [id number]) Cervical Spine Range of Motion Cervical Spine Active Degrees Testing Position Sitting Flexion 42 Extension 30 Rotation Left 30 Rotation Right 40 Lateral Flexion Left 33 Lateral Flexion Right 20 ROM Limitations Soft Tissue Tightness Comments p! in L side of neck w/ R cervical rotation PT-OP-L Special Tests Start: 12/20/19 15:04 Freq: Status: Active Protocol: Document 12/20/19 15:06 EG (Rec: 12/20/19 15:45 EG [id number]) Special Tests Cervical Spine Special Tests Traction Test Results + Comments decreased tension in neck Spurling's Test Test Results - PT-OP-M Strength Start: 12/20/19 15:04 Freq: Status: Active Protocol: Document 12/20/19 15:06 EG (Rec: 12/20/19 15:45 EG [id number]) Cervical Spine Strength Cervical Spine Manual Muscle Testing Rotation Left 4+ Good+ Rotation Right 4+ Good+ PT-OP-Q Treatments Start: 12/20/19 15:04 Freq: Status: Active Protocol: Document 01/19/20 10:30 EG (Rec: 01/19/20 11:20 EG [id number]) Cardio Equipment Upper Body Ergometer (UBE) Duration (Minutes) 6 Seat Position 16 Other 3 min fwd/bwd Therapeutic Exercises Sitting Exercises Cervical ROM Sitting Exercise Name cervical AROM Reps/Minutes 2x each way Shoulder Rolls Sitting Exercise Name Shoulder rolls Side bilateral Reps/Minutes 10x Comments cue to go slower Manual Therapy Treatment Soft Tissue Mobilization Upper trap and cervical extensors Body Location upper trap, lev scap proximal, cervical paraspinal, Scalenes proximal STM Intensity/Depth Moderate Body Position Supine Comments 10 min Joint Mobilizations C7-T6 Joint C7-T6 Direction PA Grade III Body Position Prone Comments Increased sensation in neck doing mobilization on C7/T1 C3-C6 Joint C2-C6 Comments Rotational and lateral glide Manual Traction Cervical Details Cervical manual traction Body Position Supine Comments 2 bouts of 2 min with 2 min rest. Increased pain with release of first traction. PT-OP-R Modalities Start: 01/04/20 14:12 Freq: Status: Active Protocol: Document 01/04/20 13:51 EG (Rec: 01/04/20 14:13 EG [id number]) Hot Pack/Cold Pack Treatment Hot Pack Location Cervical Spine Patient Position Supine Treatment Duration (minutes) 10 Patient Tolerance Good Comments legs on bolster PT-OP-T Assessment and Plan Start: 12/20/19 15:04 Freq: Status: Active Protocol: Document 01/19/20 10:30 EG (Rec: 01/19/20 17:05 EG [id number]) Physical Therapy Assessment Assessment Summary Assessment Patient did well tolerating treatment this morning. He had more manual therapy this session to help with cervicothoracic mobility for overall cervical ROM. BP was taken before exercise and was 132/81mmHg. Physical Therapy Plan Frequency and Duration Frequency of Treatment 2x/Week Duration of Treatment 6 weeks Plan of Care Start Date 12/20/19 Plan of Care End Date 01/31/20 Next Visit Focus/Plan Next Note Type Progress Note Next Visit Plan Assess how last session was. Reassess Goals and cervical ROM. IVanessa DPT, supervised all treatment performed by, and agreed with the plan of care, as performed by Diamond Mcdermott, EDDIE.
--- NOTE | 2020-01-23 12:10 | PT.OTN ---
Current Diagnoses Spondylosis without myelopathy or radiculopathy, cervical region (01/19/20) Spinal stenosis, cervical region (01/19/20) Physical Therapy Treatment Note PT-OP-A Visit Information Start: 12/20/19 15:04 Freq: Status: Active Protocol: Document 01/19/20 10:30 EG (Rec: 01/19/20 10:42 EG [id number]) Out-Patient Physical Therapy Visit Information Visit Information Visit Type Treatment Note Visit Start Time 10:30 Visit Stop Time 11:15 Total Visit Minutes 45 Visit Number 10 Number of POULTRY PATHOLOGIST Visits 0 PT-OP-B Current Condition Start: 12/20/19 15:04 Freq: Status: Active Protocol: Document 12/20/19 15:06 EG (Rec: 12/20/19 15:34 EG [id number]) Current Condition History of Current Condition Onset Date 40 years ago Current Complaints Pain when rolling in bed and getting up in morning History of Current Condition Patient is a pleasant 74 year old male who reports to physical therapy with cheif complaint of L neck and upper shoulder pain. Patient initially started having pain in his L shoulder on the inside of L shoulder blade about 40 years ago. He cannot recall any reason why he started to have this pain but had gone to physical therapy and done many treatments for years before coming to conclusion that the pain was coming from his neck. The patient had been using Radio Frequency Ablasions to decrease the cervical nerve sensitivity in the past. He had also been doing PT and didn't quite remember what he had did but mentioned they had tried the ultrasound on him as well as stretching and massage. The patient's main complaint is that his L side of neck hurts the most when he is rolling to the right in the middle of the night - he mentioned that he needs to use both hands to help move his head. He also feels pain in the morning and before going to bed at night. He occasionally does have a cramp in the L upper shoulder and gets a sharp zinger towards the top of the L head once a week. 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 The only things that seem to alleviate his pain is lying on his back and taking recreational marijuana at night before going to bed. His pain hasn't stopped him from doing any activities at home but he does feel limited in what he can do. The patient recently moved here from [place], [place] and is retired, enjoys playing music, riding his bike , and walking his dog. He also has a boat that he goes in when the weather is nicer. The patient would like to learn stretches from physical therapy as well as help reduce his pain. Currently, the patient is 02/05. Prior Treatments and Tests Physical Therapy, Pain Clinic, Radio Frequency Aplasions, medications (listed in paper chart); prior surgery in lumbar spine, shoulder, and foot. MRI done with results in EMR Treatment Goals Patient/Caregiver Goals Get stretches and decrease pain Prior Functional Status Baseline Function- ADL's Independent Baseline Function- Mobility Independent Baseline Function- Gait I Baseline Function- Work/School Retired Baseline Function- Recreation/Hobbies I in playing music, riding bike, walking, boating Current Functional Impairments (Reported) Functional Limitations- ADL's Bed mobility - rolling in bed Functional Limitations- Mobility/Gait Rotation in neck when turning and driving Functional Limitations- Recreation/ No longer skis; pain with Hobbies playing the [employer] Personal Factors Other Personal Factors That May Effect Arthritis, Back pain, Blood Therapy/Recovery Clots, Essential Tremor, Depression, Neuropathy, past surgery, vision problems, varicose veins PT-OP-C Subjective Start: 12/20/19 15:04 Freq: Status: Active Protocol: Document 01/19/20 10:30 EG (Rec: 01/19/20 10:42 EG [id number]) OP-PT Subjective Patient Comments Patient Comments Patient reports that he can do more activities before his pain is the same. He also mentioned that his ability to play the [employer] was slightly better this week. He says that when he gives his muscles in his neck the chance, they will tighten up. Patient Reported Progress Improving PT-OP-E Functional Tests Start: 12/20/19 15:04 Freq: Status: Active Protocol: Document 12/20/19 15:06 EG (Rec: 12/20/19 15:45 EG [id number]) Functional Tests Neftaliey's Scratch Test Action 2- Left WNL Action 2- Right WNL Action 3- Left 3 inches less than R Action 3- Right WNL PT-OP-F Manual Assessment Start: 12/20/19 15:04 Freq: Status: Active Protocol: Document 12/20/19 15:06 EG (Rec: 12/20/19 15:45 EG [id number]) Manual Assessments Soft Tissue Assessment Soft Tissue Mobility Assessment L>R upper trap soft tissue tension moderate bilateral cervical paraspinal tightness PT-OP-G Mobility & Gait Start: 12/20/19 15:04 Freq: Status: Active Protocol: Document 12/20/19 15:06 EG (Rec: 12/20/19 15:45 EG [id number]) OP Mobility Evaluation Bed Mobility Rolling Increased p! rolling to R when supine PT-OP-H Neuro Start: 12/20/19 15:04 Freq: Status: Active Protocol: Document 12/20/19 15:06 EG (Rec: 12/20/19 15:45 EG [id number]) Sensation Evaluation Comments Summary Comments Patient has felt N&T in the past but very infrequent. Last report of N&T was last summer (2018). PT-OP-J Posture/Palpation/Skin Start: 12/20/19 15:04 Freq: Status: Active Protocol: Document 12/20/19 15:06 EG (Rec: 12/20/19 15:45 EG [id number]) Posture Evaluation Position Sitting Evaluation View Posterior Head/C-Spine Posture Rotated Left,Forward Head T-Spine Posture Increased Kyphosis Thorax Posture (R) Elevated L-Spine Posture Decreased Lordosis Shoulder Posture (L) Rounded,(R) Rounded,(R) Elevated Scapula Posture (L) Rotated Up,(R) Rotated Up Palpation Assessment Location One Palpation Location L upper trap/L levator scapulae Palpation Findings Soft Tissue Tightness, Tenderness,Trigger Point PT-OP-K Range of Motion Start: 12/20/19 15:04 Freq: Status: Active Protocol: Document 12/20/19 15:06 EG (Rec: 12/20/19 15:45 EG [id number]) Cervical Spine Range of Motion Cervical Spine Active Degrees Testing Position Sitting Flexion 42 Extension 30 Rotation Left 30 Rotation Right 40 Lateral Flexion Left 33 Lateral Flexion Right 20 ROM Limitations Soft Tissue Tightness Comments p! in L side of neck w/ R cervical rotation PT-OP-L Special Tests Start: 12/20/19 15:04 Freq: Status: Active Protocol: Document 12/20/19 15:06 EG (Rec: 12/20/19 15:45 EG [id number]) Special Tests Cervical Spine Special Tests Traction Test Results + Comments decreased tension in neck Spurling's Test Test Results - PT-OP-M Strength Start: 12/20/19 15:04 Freq: Status: Active Protocol: Document 12/20/19 15:06 EG (Rec: 12/20/19 15:45 EG [id number]) Cervical Spine Strength Cervical Spine Manual Muscle Testing Rotation Left 4+ Good+ Rotation Right 4+ Good+ PT-OP-Q Treatments Start: 12/20/19 15:04 Freq: Status: Active Protocol: Document 01/19/20 10:30 EG (Rec: 01/19/20 11:20 EG [id number]) Cardio Equipment Upper Body Ergometer (UBE) Duration (Minutes) 6 Seat Position 16 Other 3 min fwd/bwd Therapeutic Exercises Sitting Exercises Cervical ROM Sitting Exercise Name cervical AROM Reps/Minutes 2x each way Shoulder Rolls Sitting Exercise Name Shoulder rolls Side bilateral Reps/Minutes 10x Comments cue to go slower Manual Therapy Treatment Soft Tissue Mobilization Upper trap and cervical extensors Body Location upper trap, lev scap proximal, cervical paraspinal, Scalenes proximal STM Intensity/Depth Moderate Body Position Supine Comments 10 min Joint Mobilizations C7-T6 Joint C7-T6 Direction PA Grade III Body Position Prone Comments Increased sensation in neck doing mobilization on C7/T1 C3-C6 Joint C2-C6 Comments Rotational and lateral glide Manual Traction Cervical Details Cervical manual traction Body Position Supine Comments 2 bouts of 2 min with 2 min rest. Increased pain with release of first traction. PT-OP-R Modalities Start: 01/04/20 14:12 Freq: Status: Active Protocol: Document 01/04/20 13:51 EG (Rec: 01/04/20 14:13 EG [id number]) Hot Pack/Cold Pack Treatment Hot Pack Location Cervical Spine Patient Position Supine Treatment Duration (minutes) 10 Patient Tolerance Good Comments legs on bolster PT-OP-T Assessment and Plan Start: 12/20/19 15:04 Freq: Status: Active Protocol: Document 01/19/20 10:30 EG (Rec: 01/19/20 17:05 EG [id number]) Physical Therapy Assessment Assessment Summary Assessment Patient did well tolerating treatment this morning. He had more manual therapy this session to help with cervicothoracic mobility for overall cervical ROM. BP was taken before exercise and was 132/81mmHg. Physical Therapy Plan Frequency and Duration Frequency of Treatment 2x/Week Duration of Treatment 6 weeks Plan of Care Start Date 12/20/19 Plan of Care End Date 01/31/20 Next Visit Focus/Plan Next Note Type Progress Note Next Visit Plan Assess how last session was. Reassess Goals and cervical ROM. IVanessa DPT, supervised all treatment performed by, and agreed with the plan of care, as performed by Diamond Mcdermott, EDDIE.
--- NOTE | 2020-01-24 16:07 | PT.OTN ---
Current Diagnoses Spondylosis without myelopathy or radiculopathy, cervical region (01/24/20) Spinal stenosis, cervical region (01/24/20) Physical Therapy Treatment Note PT-OP-A Visit Information Start: 12/20/19 15:04 Freq: Status: Active Protocol: Document 01/24/20 11:15 EG (Rec: 01/24/20 12:31 EG [id number]) Out-Patient Physical Therapy Visit Information Visit Information Visit Type Treatment Note Visit Start Time 11:15 Visit Stop Time 12:00 Total Visit Minutes 45 Visit Number 11 Number of TRUCK SPOTTER Visits 0 PT-OP-B Current Condition Start: 12/20/19 15:04 Freq: Status: Active Protocol: Document 12/20/19 15:06 EG (Rec: 12/20/19 15:34 EG [id number]) Current Condition History of Current Condition Onset Date 40 years ago Current Complaints Pain when rolling in bed and getting up in morning History of Current Condition Patient is a pleasant 74 year old male who reports to physical therapy with cheif complaint of L neck and upper shoulder pain. Patient initially started having pain in his L shoulder on the inside of L shoulder blade about 40 years ago. He cannot recall any reason why he started to have this pain but had gone to physical therapy and done many treatments for years before coming to conclusion that the pain was coming from his neck. The patient had been using Radio Frequency Ablasions to decrease the cervical nerve sensitivity in the past. He had also been doing PT and didn't quite remember what he had did but mentioned they had tried the ultrasound on him as well as stretching and massage. The patient's main complaint is that his L side of neck hurts the most when he is rolling to the right in the middle of the night - he mentioned that he needs to use both hands to help move his head. He also feels pain in the morning and before going to bed at night. He occasionally does have a cramp in the L upper shoulder and gets a sharp zinger towards the top of the L head once a week. 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 The only things that seem to alleviate his pain is lying on his back and taking recreational marijuana at night before going to bed. His pain hasn't stopped him from doing any activities at home but he does feel limited in what he can do. The patient recently moved here from [place], [place] and is retired, enjoys playing music, riding his bike , and walking his dog. He also has a boat that he goes in when the weather is nicer. The patient would like to learn stretches from physical therapy as well as help reduce his pain. Currently, the patient is 02/05. Prior Treatments and Tests Physical Therapy, Pain Clinic, Radio Frequency Aplasions, medications (listed in paper chart); prior surgery in lumbar spine, shoulder, and foot. MRI done with results in EMR Treatment Goals Patient/Caregiver Goals Get stretches and decrease pain Prior Functional Status Baseline Function- ADL's Independent Baseline Function- Mobility Independent Baseline Function- Gait I Baseline Function- Work/School Retired Baseline Function- Recreation/Hobbies I in playing music, riding bike, walking, boating Current Functional Impairments (Reported) Functional Limitations- ADL's Bed mobility - rolling in bed Functional Limitations- Mobility/Gait Rotation in neck when turning and driving Functional Limitations- Recreation/ No longer skis; pain with Hobbies playing the [place] Personal Factors Other Personal Factors That May Effect Arthritis, Back pain, Blood Therapy/Recovery Clots, Essential Tremor, Depression, Neuropathy, past surgery, vision problems, varicose veins PT-OP-C Subjective Start: 12/20/19 15:04 Freq: Status: Active Protocol: Document 01/24/20 11:15 EG (Rec: 01/24/20 12:31 EG [id number]) OP-PT Subjective Patient Comments Patient Comments Patient reports that he felt better after last session and didn't have to think about his pain as much throughout the weekend. He was able to do motions without having increased pain in his neck and thinks that the stuff you did last time helped. Patient Reported Progress Improving PT-OP-E Functional Tests Start: 12/20/19 15:04 Freq: Status: Active Protocol: Document 12/20/19 15:06 EG (Rec: 12/20/19 15:45 EG [id number]) Functional Tests Neftaliey's Scratch Test Action 2- Left WNL Action 2- Right WNL Action 3- Left 3 inches less than R Action 3- Right WNL PT-OP-F Manual Assessment Start: 12/20/19 15:04 Freq: Status: Active Protocol: Document 12/20/19 15:06 EG (Rec: 12/20/19 15:45 EG [id number]) Manual Assessments Soft Tissue Assessment Soft Tissue Mobility Assessment L>R upper trap soft tissue tension moderate bilateral cervical paraspinal tightness PT-OP-G Mobility & Gait Start: 12/20/19 15:04 Freq: Status: Active Protocol: Document 12/20/19 15:06 EG (Rec: 12/20/19 15:45 EG [id number]) OP Mobility Evaluation Bed Mobility Rolling Increased p! rolling to R when supine PT-OP-H Neuro Start: 12/20/19 15:04 Freq: Status: Active Protocol: Document 12/20/19 15:06 EG (Rec: 12/20/19 15:45 EG [id number]) Sensation Evaluation Comments Summary Comments Patient has felt N&T in the past but very infrequent. Last report of N&T was last summer (2018). PT-OP-J Posture/Palpation/Skin Start: 12/20/19 15:04 Freq: Status: Active Protocol: Document 12/20/19 15:06 EG (Rec: 12/20/19 15:45 EG [id number]) Posture Evaluation Position Sitting Evaluation View Posterior Head/C-Spine Posture Rotated Left,Forward Head T-Spine Posture Increased Kyphosis Thorax Posture (R) Elevated L-Spine Posture Decreased Lordosis Shoulder Posture (L) Rounded,(R) Rounded,(R) Elevated Scapula Posture (L) Rotated Up,(R) Rotated Up Palpation Assessment Location One Palpation Location L upper trap/L levator scapulae Palpation Findings Soft Tissue Tightness, Tenderness,Trigger Point PT-OP-K Range of Motion Start: 12/20/19 15:04 Freq: Status: Active Protocol: Document 12/20/19 15:06 EG (Rec: 12/20/19 15:45 EG [id number]) Cervical Spine Range of Motion Cervical Spine Active Degrees Testing Position Sitting Flexion 42 Extension 30 Rotation Left 30 Rotation Right 40 Lateral Flexion Left 33 Lateral Flexion Right 20 ROM Limitations Soft Tissue Tightness Comments p! in L side of neck w/ R cervical rotation PT-OP-L Special Tests Start: 12/20/19 15:04 Freq: Status: Active Protocol: Document 12/20/19 15:06 EG (Rec: 12/20/19 15:45 EG [id number]) Special Tests Cervical Spine Special Tests Traction Test Results + Comments decreased tension in neck Spurling's Test Test Results - PT-OP-M Strength Start: 12/20/19 15:04 Freq: Status: Active Protocol: Document 12/20/19 15:06 EG (Rec: 12/20/19 15:45 EG [id number]) Cervical Spine Strength Cervical Spine Manual Muscle Testing Rotation Left 4+ Good+ Rotation Right 4+ Good+ PT-OP-Q Treatments Start: 12/20/19 15:04 Freq: Status: Active Protocol: Document 01/24/20 11:15 EG (Rec: 01/24/20 12:31 EG [id number]) Cardio Equipment Upper Body Ergometer (UBE) Duration (Minutes) 6 RPM 60 Other 3 min fwd/bwd Therapeutic Exercises Sitting Exercises CS rotation SNAG Sitting Exercise Name SNAG with towel Side bilateral Equipment Used towel Reps/Minutes 10x Comments education on where to apply pressure in SNAG Levator Trap Stretch Sitting Exercise Name Levator Trap Stretch Side bilateral Reps/Minutes 1 min ea Upper Trap Stretch Sitting Exercise Name Upper Trap Stretch Side bilateral Reps/Minutes 1 min ea Standing Exercises Standing thoracic rotation Standing Exercise Name Standing thoracic rotation with cervical rotation Side bilateral Reps/Minutes 10x each side Comments turn through thoracic spine, then turn head, turn head back to neutral, Manual Therapy Treatment Soft Tissue Mobilization Upper trap and cervical extensors Body Location upper trap, lev scap proximal, cervical paraspinal, Scalenes proximal STM Intensity/Depth Moderate Body Position Sitting Comments 8 min Joint Mobilizations C3-C6 Joint C2-C6 Comments MWM rotating to L and R Self-Care/Home Management Treatment Education Patient Education Home Exercise Program,Joint Protection,Pain Management Other Education Instruction of self massage of fascial musculature as well as TMJ opening with tongue on upper palate. Done in mirror. Help wth jaw coordination and relaxation during playing of insturment PT-OP-R Modalities Start: 01/04/20 14:12 Freq: Status: Active Protocol: Document 01/04/20 13:51 EG (Rec: 01/04/20 14:13 EG [id number]) Hot Pack/Cold Pack Treatment Hot Pack Location Cervical Spine Patient Position Supine Treatment Duration (minutes) 10 Patient Tolerance Good Comments legs on bolster PT-OP-T Assessment and Plan Start: 12/20/19 15:04 Freq: Status: Active Protocol: Document 01/24/20 11:15 EG (Rec: 01/24/20 12:56 EG [id number]) Physical Therapy Assessment Goals Two Impairment Pain Short Term Goal (STG) Patient will be able to play trumpet with a max of 1/10 pain in neck in 4 weeks. 01/24/2020: patient is playing trombone regularly with 50% decrease in pain in neck but does have increased tremor in the jaw. STG Duration 4 weeks Fpc Goal (LTG) Patient will be able to roll over in bed with a 1/10 pain in 6-8 weeks. 01/24/2020: patient is able to roll over in bed while decreasing amount he initiates movement with his head and now has a 3-4/10 pain 60% of the time he rolls over at night. LTG Duration 6-8 weeks One Impairment ROM Short Term Goal (STG) Patient will increase cervical lateral flexion to the R to 35 degrees per L lateral flexion without pain in 4 weeks. 01/24/2020: Patient has increased lateral flexion to the R 50% but is still limited compared to L lateral flexion . He feels stiff but does not have increased pain. STG Duration 4 weeks Television Installer Goal (LTG) Patient will increase bilateral cervical rotation to 60 degrees with no pain in 6- 8 weeks. 01/24/2020: Patient is still limited in bilateral cervical flexion but can perform movement with no increase in pain. LTG Duration 6-8 weeks Progress Towards Goals Progress Towards Goals Progressing Toward Goals Progress Comments See updated comments Assessment Summary Assessment Patient tolerated treament well this morning. He is able to perform cervical ROM activities with no increase in pain but is still limited in these motions. Patient benefits from manual cervical traction as well as MWM of C2- C4 to help with rotational glide when rotating his head. Patient was educated on correct form when performing SNAG at home and was also introduced back to thoracic movements using the wall to help with thoracic movement independent of cervical movement. Patient should continue to work on soft tissue lengthening of upper traps and cervical paraspinals . Patient should continue with scapular stabilizer strengthening as well. He is beginning to experience increased fatigue of fascial musculature used for playing his instruments and should also begin self massage of these muscles to help with release of tension in this area. Physical Therapy Plan Frequency and Duration Frequency of Treatment 2x/Week Duration of Treatment 6 weeks Plan of Care Start Date 12/20/19 Plan of Care End Date 01/31/20 Next Visit Focus/Plan Next Note Type Treatment Note Next Visit Plan Assess SNAG and thoracic ROM on the wall. Continue with MWM of C2-C4. Continue with scapular strengthening. Vanessa Lma, NADYAT, supervised all treatment performed by, and agreed with the plan of care, as performed by Diamond Mcdermott, EDDIE.
--- NOTE | 2020-01-26 15:28 | PT.OTN ---
Current Diagnoses Spondylosis without myelopathy or radiculopathy, cervical region (01/26/20) Spinal stenosis, cervical region (01/26/20) Physical Therapy Treatment Note PT-OP-A Visit Information Start: 12/20/19 15:04 Freq: Status: Active Protocol: Document 01/26/20 11:19 EG (Rec: 01/26/20 13:06 EG [id number]) Out-Patient Physical Therapy Visit Information Visit Information Visit Type Treatment Note Visit Start Time 11:19 Visit Stop Time 12:00 Total Visit Minutes 41 Visit Number 12 Number of RADIO STATION MANAGER Visits 0 PT-OP-B Current Condition Start: 12/20/19 15:04 Freq: Status: Active Protocol: Document 12/20/19 15:06 EG (Rec: 12/20/19 15:34 EG [id number]) Current Condition History of Current Condition Onset Date 40 years ago Current Complaints Pain when rolling in bed and getting up in morning History of Current Condition Patient is a pleasant 74 year old male who reports to physical therapy with cheif complaint of L neck and upper shoulder pain. Patient initially started having pain in his L shoulder on the inside of L shoulder blade about 40 years ago. He cannot recall any reason why he started to have this pain but had gone to physical therapy and done many treatments for years before coming to conclusion that the pain was coming from his neck. The patient had been using Radio Frequency Ablasions to decrease the cervical nerve sensitivity in the past. He had also been doing PT and didn't quite remember what he had did but mentioned they had tried the ultrasound on him as well as stretching and massage. The patient's main complaint is that his L side of neck hurts the most when he is rolling to the right in the middle of the night - he mentioned that he needs to use both hands to help move his head. He also feels pain in the morning and before going to bed at night. He occasionally does have a cramp in the L upper shoulder and gets a sharp zinger towards the top of the L head once a week. 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 The only things that seem to alleviate his pain is lying on his back and taking recreational marijuana at night before going to bed. His pain hasn't stopped him from doing any activities at home but he does feel limited in what he can do. The patient recently moved here from [place], [place] and is retired, enjoys playing music, riding his bike , and walking his dog. He also has a boat that he goes in when the weather is nicer. The patient would like to learn stretches from physical therapy as well as help reduce his pain. Currently, the patient is 3/10. Prior Treatments and Tests Physical Therapy, Pain Clinic, Radio Frequency Aplasions, medications (listed in paper chart); prior surgery in lumbar spine, shoulder, and foot. MRI done with results in EMR Treatment Goals Patient/Caregiver Goals Get stretches and decrease pain Prior Functional Status Baseline Function- ADL's Independent Baseline Function- Mobility Independent Baseline Function- Gait I Baseline Function- Work/School Retired Baseline Function- Recreation/Hobbies I in playing music, riding bike, walking, boating Current Functional Impairments (Reported) Functional Limitations- ADL's Bed mobility - rolling in bed Functional Limitations- Mobility/Gait Rotation in neck when turning and driving Functional Limitations- Recreation/ No longer skis; pain with Hobbies playing the [place] Personal Factors Other Personal Factors That May Effect Arthritis, Back pain, Blood Therapy/Recovery Clots, Essential Tremor, Depression, Neuropathy, past surgery, vision problems, varicose veins PT-OP-C Subjective Start: 12/20/19 15:04 Freq: Status: Active Protocol: Document 01/26/20 11:19 EG (Rec: 01/26/20 13:06 EG [id number]) OP-PT Subjective Patient Comments Patient Comments Patient reports that he is still feeling pretty good. Continuing on with being less stiff and feels like he can turn his head farther before it grinds to a halt. Patient reports a gerneal pain of 3-4/ 10 and right now it is a 2/10. Patient reports that sleeping is a little better but still feels a sharp bite when he lifts his head up when lying on his L side. Patient made progress with the trumpet - says it is about 7 with 10 being the best. Patient Reported Progress Improving PT-OP-E Functional Tests Start: 12/20/19 15:04 Freq: Status: Active Protocol: Document 12/20/19 15:06 EG (Rec: 12/20/19 15:45 EG [id number]) Functional Tests Apley's Scratch Test Action 2- Left WNL Action 2- Right WNL Action 3- Left 3 inches less than R Action 3- Right WNL PT-OP-F Manual Assessment Start: 12/20/19 15:04 Freq: Status: Active Protocol: Document 12/20/19 15:06 EG (Rec: 12/20/19 15:45 EG [id number]) Manual Assessments Soft Tissue Assessment Soft Tissue Mobility Assessment L>R upper trap soft tissue tension moderate bilateral cervical paraspinal tightness PT-OP-G Mobility & Gait Start: 12/20/19 15:04 Freq: Status: Active Protocol: Document 12/20/19 15:06 EG (Rec: 12/20/19 15:45 EG [id number]) OP Mobility Evaluation Bed Mobility Rolling Increased p! rolling to R when supine PT-OP-H Neuro Start: 12/20/19 15:04 Freq: Status: Active Protocol: Document 12/20/19 15:06 EG (Rec: 12/20/19 15:45 EG [id number]) Sensation Evaluation Comments Summary Comments Patient has felt N&T in the past but very infrequent. Last report of N&T was last summer (2018). PT-OP-J Posture/Palpation/Skin Start: 12/20/19 15:04 Freq: Status: Active Protocol: Document 12/20/19 15:06 EG (Rec: 12/20/19 15:45 EG [id number]) Posture Evaluation Position Sitting Evaluation View Posterior Head/C-Spine Posture Rotated Left,Forward Head T-Spine Posture Increased Kyphosis Thorax Posture (R) Elevated L-Spine Posture Decreased Lordosis Shoulder Posture (L) Rounded,(R) Rounded,(R) Elevated Scapula Posture (L) Rotated Up,(R) Rotated Up Palpation Assessment Location One Palpation Location L upper trap/L levator scapulae Palpation Findings Soft Tissue Tightness, Tenderness,Trigger Point PT-OP-K Range of Motion Start: 12/20/19 15:04 Freq: Status: Active Protocol: Document 12/20/19 15:06 EG (Rec: 12/20/19 15:45 EG [id number]) Cervical Spine Range of Motion Cervical Spine Active Degrees Testing Position Sitting Flexion 42 Extension 30 Rotation Left 30 Rotation Right 40 Lateral Flexion Left 33 Lateral Flexion Right 20 ROM Limitations Soft Tissue Tightness Comments p! in L side of neck w/ R cervical rotation PT-OP-L Special Tests Start: 12/20/19 15:04 Freq: Status: Active Protocol: Document 12/20/19 15:06 EG (Rec: 12/20/19 15:45 EG [id number]) Special Tests Cervical Spine Special Tests Traction Test Results + Comments decreased tension in neck Spurling's Test Test Results - PT-OP-M Strength Start: 12/20/19 15:04 Freq: Status: Active Protocol: Document 12/20/19 15:06 EG (Rec: 12/20/19 15:45 EG [id number]) Cervical Spine Strength Cervical Spine Manual Muscle Testing Rotation Left 4+ Good+ Rotation Right 4+ Good+ PT-OP-Q Treatments Start: 12/20/19 15:04 Freq: Status: Active Protocol: Document 01/26/20 11:19 EG (Rec: 01/26/20 13:06 EG [id number]) Cardio Equipment Upper Body Ergometer (UBE) Duration (Minutes) 7 RPM 60 Other 3 min fwd/bwd Gym Equipment Cable Column (Body Solid) Rows Details Seated Rows Resistance L3, L4 Reps/Time 2x10 - increase in weight 2nd rep Lat Pulldown Details Lat Pulldown Resistance L3, L4 Reps/Time 2x10 - increase in weight 2nd rep Therapeutic Exercises Standing Exercises Standing thoracic rotation Standing Exercise Name Standing thoracic rotation with cervical rotation Side bilateral Reps/Minutes 10x each side Comments turn through thoracic spine, then turn head, turn head back to neutral, Manual Therapy Treatment Soft Tissue Mobilization 1 Body Location Suboccipital release Mobilization Type Trigger Point Release Intensity/Depth Deep Body Position Supine C3 Body Location L transverse C3 Mobilization Type Strain/Counterstrain Intensity/Depth Moderate Body Position Supine Comments move neck into extension, R SB , R rotation SCM, masseter, med pterygoid Body Location SCM, levator scap, upper trap, and masseter Mobilization Type Myofascial Release Intensity/Depth Moderate Body Position Supine Joint Mobilizations C3-C6 Joint C2-C6 Comments MWM rotating passively to L and R PT-OP-R Modalities Start: 01/04/20 14:12 Freq: Status: Active Protocol: Document 01/04/20 13:51 EG (Rec: 01/04/20 14:13 EG [id number]) Hot Pack/Cold Pack Treatment Hot Pack Location Cervical Spine Patient Position Supine Treatment Duration (minutes) 10 Patient Tolerance Good Comments legs on bolster PT-OP-T Assessment and Plan Start: 12/20/19 15:04 Freq: Status: Active Protocol: Document 01/26/20 11:19 EG (Rec: 01/26/20 14:09 EG [id number]) Physical Therapy Assessment Assessment Summary Assessment Patient tolerated strengthening treatment well today. He reports still doing the SNAG and standing thoracic rotation at home and will continue to improve with cervical rotation as long as this continues to not cause him pain. Patient did report less pain lifting head in bed after doing strain/ counterstrain and continual assessment of symptoms should be done. Patient overall has more functional ROM and is progressing well. Physical Therapy Plan Frequency and Duration Frequency of Treatment 2x/Week Duration of Treatment 6 weeks Plan of Care Start Date 12/20/19 Plan of Care End Date 01/31/20 Next Visit Focus/Plan Next Note Type Treatment Note Next Visit Plan Assess symptoms of strain counterstrain. Perform again if tolerated well. Continue with scapular strengthening. Vanessa Lam DPT, supervised all treatment performed by, and agreed with the plan of care, as performed by Diamond Mcdermott, EDDIE.
--- NOTE | 2020-01-30 15:36 | PT.OTN ---
Current Diagnoses Spondylosis without myelopathy or radiculopathy, cervical region (01/30/20) Spinal stenosis, cervical region (01/30/20) Physical Therapy Treatment Note PT-OP-A Visit Information Start: 12/20/19 15:04 Freq: Status: Active Protocol: Document 01/30/20 10:35 EG (Rec: 01/30/20 11:17 EG [id number]) Out-Patient Physical Therapy Visit Information Visit Information Visit Type Progress Note Visit Start Time 10:35 Visit Stop Time 11:15 Total Visit Minutes 40 Visit Number 13 Number of FISH AND WILDLIFE BIOLOGIST Visits 0 PT-OP-B Current Condition Start: 12/20/19 15:04 Freq: Status: Active Protocol: Document 12/20/19 15:06 EG (Rec: 12/20/19 15:34 EG [id number]) Current Condition History of Current Condition Onset Date 40 years ago Current Complaints Pain when rolling in bed and getting up in morning History of Current Condition Patient is a pleasant 74 year old male who reports to physical therapy with cheif complaint of L neck and upper shoulder pain. Patient initially started having pain in his L shoulder on the inside of L shoulder blade about 40 years ago. He cannot recall any reason why he started to have this pain but had gone to physical therapy and done many treatments for years before coming to conclusion that the pain was coming from his neck. The patient had been using Radio Frequency Ablasions to decrease the cervical nerve sensitivity in the past. He had also been doing PT and didn't quite remember what he had did but mentioned they had tried the ultrasound on him as well as stretching and massage. The patient's main complaint is that his L side of neck hurts the most when he is rolling to the right in the middle of the night - he mentioned that he needs to use both hands to help move his head. He also feels pain in the morning and before going to bed at night. He occasionally does have a cramp in the L upper shoulder and gets a sharp zinger towards the top of the L head once a week. 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 The only things that seem to alleviate his pain is lying on his back and taking recreational marijuana at night before going to bed. His pain hasn't stopped him from doing any activities at home but he does feel limited in what he can do. The patient recently moved here from [place], [place] and is retired, enjoys playing music, riding his bike , and walking his dog. He also has a boat that he goes in when the weather is nicer. The patient would like to learn stretches from physical therapy as well as help reduce his pain. Currently, the patient is 02/05. Prior Treatments and Tests Physical Therapy, Pain Clinic, Radio Frequency Aplasions, medications (listed in paper chart); prior surgery in lumbar spine, shoulder, and foot. MRI done with results in EMR Treatment Goals Patient/Caregiver Goals Get stretches and decrease pain Prior Functional Status Baseline Function- ADL's Independent Baseline Function- Mobility Independent Baseline Function- Gait I Baseline Function- Work/School Retired Baseline Function- Recreation/Hobbies I in playing music, riding bike, walking, boating Current Functional Impairments (Reported) Functional Limitations- ADL's Bed mobility - rolling in bed Functional Limitations- Mobility/Gait Rotation in neck when turning and driving Functional Limitations- Recreation/ No longer skis; pain with Hobbies playing the [employer] Personal Factors Other Personal Factors That May Effect Arthritis, Back pain, Blood Therapy/Recovery Clots, Essential Tremor, Depression, Neuropathy, past surgery, vision problems, varicose veins PT-OP-C Subjective Start: 12/20/19 15:04 Freq: Status: Active Protocol: Document 01/30/20 10:35 EG (Rec: 01/30/20 11:17 EG [id number]) OP-PT Subjective Patient Comments Patient Comments Patient reports that he has been taking Baclofen again and it seems that the tremor when playing instruments has gotten a lot better. He lifted his head when sleeping the past two night and does not have pain which is the first time he can remember this happened in a long time. Patient also reported that after last appointment, the afternoon was uncomfortable for his muscles but it got better the next day. Patient put celebrix on his neck as well that seems to help. Patient Reported Progress Improving PT-OP-E Functional Tests Start: 12/20/19 15:04 Freq: Status: Active Protocol: Document 12/20/19 15:06 EG (Rec: 12/20/19 15:45 EG [id number]) Functional Tests Apley's Scratch Test Action 2- Left WNL Action 2- Right WNL Action 3- Left 3 inches less than R Action 3- Right WNL PT-OP-F Manual Assessment Start: 12/20/19 15:04 Freq: Status: Active Protocol: Document 12/20/19 15:06 EG (Rec: 12/20/19 15:45 EG [id number]) Manual Assessments Soft Tissue Assessment Soft Tissue Mobility Assessment L>R upper trap soft tissue tension moderate bilateral cervical paraspinal tightness PT-OP-G Mobility & Gait Start: 12/20/19 15:04 Freq: Status: Active Protocol: Document 12/20/19 15:06 EG (Rec: 12/20/19 15:45 EG [id number]) OP Mobility Evaluation Bed Mobility Rolling Increased p! rolling to R when supine PT-OP-H Neuro Start: 12/20/19 15:04 Freq: Status: Active Protocol: Document 12/20/19 15:06 EG (Rec: 12/20/19 15:45 EG [id number]) Sensation Evaluation Comments Summary Comments Patient has felt N&T in the past but very infrequent. Last report of N&T was last summer (2018). PT-OP-J Posture/Palpation/Skin Start: 12/20/19 15:04 Freq: Status: Active Protocol: Document 12/20/19 15:06 EG (Rec: 12/20/19 15:45 EG [id number]) Posture Evaluation Position Sitting Evaluation View Posterior Head/C-Spine Posture Rotated Left,Forward Head T-Spine Posture Increased Kyphosis Thorax Posture (R) Elevated L-Spine Posture Decreased Lordosis Shoulder Posture (L) Rounded,(R) Rounded,(R) Elevated Scapula Posture (L) Rotated Up,(R) Rotated Up Palpation Assessment Location One Palpation Location L upper trap/L levator scapulae Palpation Findings Soft Tissue Tightness, Tenderness,Trigger Point PT-OP-K Range of Motion Start: 12/20/19 15:04 Freq: Status: Active Protocol: Document 01/30/20 10:35 EG (Rec: 01/30/20 12:02 EG [id number]) Cervical Spine Range of Motion Cervical Spine Active Degrees Testing Position Sitting Rotation Left 54 Rotation Right 35 Lateral Flexion Left 35 Lateral Flexion Right 28 Comments No p! with any motion - just feeling of tightness PT-OP-L Special Tests Start: 12/20/19 15:04 Freq: Status: Active Protocol: Document 12/20/19 15:06 EG (Rec: 12/20/19 15:45 EG [id number]) Special Tests Cervical Spine Special Tests Traction Test Results + Comments decreased tension in neck Spurling's Test Test Results - PT-OP-M Strength Start: 12/20/19 15:04 Freq: Status: Active Protocol: Document 12/20/19 15:06 EG (Rec: 12/20/19 15:45 EG [id number]) Cervical Spine Strength Cervical Spine Manual Muscle Testing Rotation Left 4+ Good+ Rotation Right 4+ Good+ PT-OP-Q Treatments Start: 12/20/19 15:04 Freq: Status: Active Protocol: Document 01/30/20 10:35 EG (Rec: 01/30/20 11:17 EG [id number]) Cardio Equipment Recumbent Stepper (Sci-Fit) Duration (Minutes) 6 Resistance 2.5 Seat Position 14 Other above 50 crouch Therapeutic Exercises Standing Exercises Standing thoracic rotation Standing Exercise Name Standing thoracic rotation with cervical rotation Side bilateral Reps/Minutes 10x each side Comments Added extra turn to other side once back to neutral TB Rows Standing Exercise Name TB rows Side bilateral Resistance 4 Equipment Used TB Reps/Minutes 2x15 Manual Therapy Treatment Soft Tissue Mobilization 1 Body Location upper traps, SCM, levator scapulae Mobilization Type Manual Lymphatic Drainage, Sustained Pressure Intensity/Depth Moderate Body Position Supine C3 Body Location L transverse C3 Mobilization Type Strain/Counterstrain Intensity/Depth Moderate Body Position Supine Comments move neck into extension, R SB , R rotation Joint Mobilizations C3-C6 Joint C2-C6 Comments MWM rotating passively to L and R Manual Traction Cervical Details Cervical Traction Body Position Supine Reps/Duration 3x1 min hold PT-OP-R Modalities Start: 01/04/20 14:12 Freq: Status: Active Protocol: Document 01/04/20 13:51 EG (Rec: 01/04/20 14:13 EG [id number]) Hot Pack/Cold Pack Treatment Hot Pack Location Cervical Spine Patient Position Supine Treatment Duration (minutes) 10 Patient Tolerance Good Comments legs on bolster PT-OP-T Assessment and Plan Start: 12/20/19 15:04 Freq: Status: Active Protocol: Document 01/30/20 10:35 EG (Rec: 01/30/20 11:17 EG [id number]) Physical Therapy Assessment Goals Two Impairment Pain Short Term Goal (STG) Patient will be able to play trumpet with a max of 1/10 pain in neck in 4 weeks. 01/24/2020: patient is playing trombone regularly with 50% decrease in pain in neck but does have increased tremor in the jaw. 01/30/2020: Patient reports that his pain is at about a 2/10 when he plays the trumpet really well. Patient has improved 10% in pain when playing trumpet. 40% in normal activities in the neck. STG Duration 4 weeks Teacher Home Therapy Goal (LTG) Patient will be able to roll over in bed with a 1/10 pain in 6-8 weeks. 01/24/2020: patient is able to roll over in bed while decreasing amount he initiates movement with his head and now has a 3-4/10 pain 60% of the time he rolls over at night. 01/30/2020: Patient reports a 1/ 10 pain in neck when rolling in bed the past couple nights. LTG Duration 6-8 weeks One Impairment ROM Short Term Goal (STG) Patient will increase cervical lateral flexion to the R to 35 degrees per L lateral flexion without pain in 4 weeks. 01/24/2020: Patient has increased lateral flexion to the R 50% but is still limited compared to L lateral flexion . He feels stiff but does not have increased pain. 01/30/2020: R lateral flexion: 28 degrees; L lateral flexion: 35 degrees - does not report pain - reports tightness compared to pain. STG Duration 4 weeks Teacher Home Therapy Goal (LTG) Patient will increase bilateral cervical rotation to 60 degrees with no pain in 6- 8 weeks. 01/24/2020: Patient is still limited in bilateral cervical rotation but can perform movement with no increase in pain. 01/30/2020: R rotation: 35 degrees - no pain, increase in tightness. L rotation: 54 degrees with no pain . LTG Duration 6-8 weeks Progress Towards Goals Progress Towards Goals Slow Progress - Other Progress Comments Chronic ROM defecits - however patient is making progress towards goals Assessment Summary Assessment Patient has been benefitting from physical therapy treatment focused on scapular and postural musculature strengthening, cervical soft tissue lengthening, cervical and thoracic joint mobility, and HEP training. Patient's cervical ROM has increased slightly and he does have decreased pain with the motion but continual joint mobility work should be done to increase cervical rotation bilaterally. Due to the chronic ROM impairment, small increase in movement is significant progress. Patient will also continue to benefit from scapular and postural strengthening in order to decrease tension in cervical paraspinals as well as upper trapezius. Physical Therapy Plan Frequency and Duration Frequency of Treatment 2x/Week Duration of Treatment 6 weeks Plan of Care Start Date 01/30/20 Plan of Care End Date 03/12/20 Therapeutic Interventions Therapeutic Interventions Home Exercise Program,Joint Mobilizations,Manual Therapy, Neuromuscular Re-education, Self-Care/Home Management,Soft Tissue Mobilization, Therapeutic Activities, Therapeutic Exercises Modalities Cold Pack/Ice Massage,Electric Stimulation,Traction- Mechanical,Ultrasound Next Visit Focus/Plan Next Note Type Treatment Note Next Visit Plan Assess symptoms of patient after last treatment - continue with lateral and rotational mobilization of C3- C7. Continue with strain/ counterstrain. Continue with strengthening. Vanessa Lam DPT, supervised all treatment performed by, and agreed with the plan of care, as performed by Diamond Mcdermott, EDDIE.
--- NOTE | 2020-01-30 15:37 | PT.OPPOC ---
Physical, Occupational & Speech Therapy At [facility] Current Diagnoses Spondylosis without myelopathy or radiculopathy, cervical region (01/30/20) Spinal stenosis, cervical region (01/30/20) Visit Care Team Role Provider Type RISA Bain Primary Care Provider Advanced Railway Head Tender Specialty: Family Practice Address: [address] [place] [address], [id number] Email: [email or web address] RISA Fountain Attending Provider Advanced Railway Head Tender Specialty: Pain Management Address: [address] [place] [address], [place], [address] Email: [email or web address] Plan Of Care PT-OP-T Assessment and Plan Start: 12/20/19 15:04 Freq: Status: Active Protocol: Document 01/30/20 10:35 EG (Rec: 01/30/20 11:17 EG [id number]) Physical Therapy Assessment Goals Two Impairment Pain Short Term Goal (STG) Patient will be able to play trumpet with a max of 1/10 pain in neck in 4 weeks. 01/24/2020: patient is playing trombone regularly with 50% decrease in pain in neck but does have increased tremor in the jaw. 01/30/2020: Patient reports that his pain is at about a 2/10 when he plays the trumpet really well. Patient has improved 10% in pain when playing trumpet. 40% in normal activities in the neck. STG Duration 4 weeks Liability Analyst Goal (LTG) Patient will be able to roll over in bed with a 1/10 pain in 6-8 weeks. 01/24/2020: patient is able to roll over in bed while decreasing amount he initiates movement with his head and now has a 3-4/10 pain 60% of the time he rolls over at night. 01/30/2020: Patient reports a 1/ 10 pain in neck when rolling in bed the past couple nights. LTG Duration 6-8 weeks One Impairment ROM Short Term Goal (STG) Patient will increase cervical lateral flexion to the R to 35 degrees per L lateral flexion without pain in 4 weeks. 01/24/2020: Patient has increased lateral flexion to the R 50% but is still limited compared to L lateral flexion . He feels stiff but does not have increased pain. 01/30/2020: R lateral flexion: 28 degrees; L lateral flexion: 35 degrees - does not report pain - reports tightness compared to pain. STG Duration 4 weeks Liability Analyst Goal (LTG) Patient will increase bilateral cervical rotation to 60 degrees with no pain in 6- 8 weeks. 01/24/2020: Patient is still limited in bilateral cervical rotation but can perform movement with no increase in pain. 01/30/2020: R rotation: 35 degrees - no pain, increase in tightness. L rotation: 54 degrees with no pain . LTG Duration 6-8 weeks Progress Towards Goals Progress Towards Goals Slow Progress - Other Progress Comments Chronic ROM defecits - however patient is making progress towards goals Assessment Summary Assessment Patient has been benefitting from physical therapy treatment focused on scapular and postural musculature strengthening, cervical soft tissue lengthening, cervical and thoracic joint mobility, and HEP training. Patient's cervical ROM has increased slightly and he does have decreased pain with the motion but continual joint mobility work should be done to increase cervical rotation bilaterally. Due to the chronic ROM impairment, small increase in movement is significant progress. Patient will also continue to benefit from scapular and postural strengthening in order to decrease tension in cervical paraspinals as well as upper trapezius. Physical Therapy Plan Frequency and Duration Frequency of Treatment 2x/Week Duration of Treatment 6 weeks Plan of Care Start Date 01/30/20 Plan of Care End Date 03/12/20 Therapeutic Interventions Therapeutic Interventions Home Exercise Program,Joint Mobilizations,Manual Therapy, Neuromuscular Re-education, Self-Care/Home Management,Soft Tissue Mobilization, Therapeutic Activities, Therapeutic Exercises Modalities Cold Pack/Ice Massage,Electric Stimulation,Traction- Mechanical,Ultrasound Next Visit Focus/Plan Next Note Type Treatment Note Next Visit Plan Assess symptoms of patient after last treatment - continue with lateral and rotational mobilization of C3- C7. Continue with strain/ counterstrain. Continue with strengthening. Plan of Care Dates Plan of Care Start Date 01/30/20 Plan of Care End Date 03/12/20 Vanessa Lam DPT, supervised all treatment performed by, and agreed with the plan of care, as performed by Diamond Mcdermott, EDDIE. Electronically Signed by: Vanessa Giang, PT 01/30/20 1537 Please Sign and Return: I have reviewed this Plan of Care and certify that the skilled therapy services above are required to meet the patient?s needs. Physician Signature Date Printed Name and Credentials Clinical Instructor Signature Printed Name and Credentials
--- NOTE | 2020-01-30 15:39 | PT.OPPOC ---
Physical, Occupational & Speech Therapy At [facility] Current Diagnoses Spondylosis without myelopathy or radiculopathy, cervical region (01/30/20) Spinal stenosis, cervical region (01/30/20) Visit Care Team Role Provider Type RISA Bain Primary Care Provider Advanced Retail Advertising Executive Specialty: Family Practice Address: [address] [place] [address], [address] Email: [email or web address] RISA Fountain Attending Provider Advanced Retail Advertising Executive Specialty: Pain Management Address: [address] [place] [address], [place], [address] Email: [email or web address] Plan Of Care PT-OP-T Assessment and Plan Start: 12/20/19 15:04 Freq: Status: Active Protocol: Document 01/30/20 10:35 EG (Rec: 01/30/20 11:17 EG [id number]) Physical Therapy Assessment Goals Two Impairment Pain Short Term Goal (STG) Patient will be able to play trumpet with a max of 1/10 pain in neck in 4 weeks. 01/24/2020: patient is playing trombone regularly with 50% decrease in pain in neck but does have increased tremor in the jaw. 01/30/2020: Patient reports that his pain is at about a 2/10 when he plays the trumpet really well. Patient has improved 10% in pain when playing trumpet. 40% in normal activities in the neck. STG Duration 4 weeks Tractor Mechanic Apprentice Goal (LTG) Patient will be able to roll over in bed with a 1/10 pain in 6-8 weeks. 01/24/2020: patient is able to roll over in bed while decreasing amount he initiates movement with his head and now has a 3-4/10 pain 60% of the time he rolls over at night. 01/30/2020: Patient reports a 1/ 10 pain in neck when rolling in bed the past couple nights. LTG Duration 6-8 weeks One Impairment ROM Short Term Goal (STG) Patient will increase cervical lateral flexion to the R to 35 degrees per L lateral flexion without pain in 4 weeks. 01/24/2020: Patient has increased lateral flexion to the R 50% but is still limited compared to L lateral flexion . He feels stiff but does not have increased pain. 01/30/2020: R lateral flexion: 28 degrees; L lateral flexion: 35 degrees - does not report pain - reports tightness compared to pain. STG Duration 4 weeks Tractor Mechanic Apprentice Goal (LTG) Patient will increase bilateral cervical rotation to 60 degrees with no pain in 6- 8 weeks. 01/24/2020: Patient is still limited in bilateral cervical rotation but can perform movement with no increase in pain. 01/30/2020: R rotation: 35 degrees - no pain, increase in tightness. L rotation: 54 degrees with no pain . LTG Duration 6-8 weeks Progress Towards Goals Progress Towards Goals Slow Progress - Other Progress Comments Chronic ROM defecits - however patient is making progress towards goals Assessment Summary Assessment Patient has been benefitting from physical therapy treatment focused on scapular and postural musculature strengthening, cervical soft tissue lengthening, cervical and thoracic joint mobility, and HEP training. Patient's cervical ROM has increased slightly and he does have decreased pain with the motion but continual joint mobility work should be done to increase cervical rotation bilaterally. Due to the chronic ROM impairment, small increase in movement is significant progress. Patient will also continue to benefit from scapular and postural strengthening in order to decrease tension in cervical paraspinals as well as upper trapezius. Physical Therapy Plan Frequency and Duration Frequency of Treatment 2x/Week Duration of Treatment 6 weeks Plan of Care Start Date 01/30/20 Plan of Care End Date 03/12/20 Therapeutic Interventions Therapeutic Interventions Home Exercise Program,Joint Mobilizations,Manual Therapy, Neuromuscular Re-education, Self-Care/Home Management,Soft Tissue Mobilization, Therapeutic Activities, Therapeutic Exercises Modalities Cold Pack/Ice Massage,Electric Stimulation,Traction- Mechanical,Ultrasound Next Visit Focus/Plan Next Note Type Treatment Note Next Visit Plan Assess symptoms of patient after last treatment - continue with lateral and rotational mobilization of C3- C7. Continue with strain/ counterstrain. Continue with strengthening. Plan of Care Dates Plan of Care Start Date 01/30/20 Plan of Care End Date 03/12/20 Vanessa Lam DPT, supervised all treatment performed by, and agreed with the plan of care, as performed by Diamond Mcdermott, EDDIE. Electronically Signed by: Vanessa Giang, PT 01/30/20 1539 Please Sign and Return: I have reviewed this Plan of Care and certify that the skilled therapy services above are required to meet the patient?s needs. Physician Signature Date Printed Name and Credentials Clinical Instructor Signature Printed Name and Credentials
--- NOTE | 2020-02-01 13:34 | PT.OTN ---
Current Diagnoses Spondylosis without myelopathy or radiculopathy, cervical region (02/01/20) Spinal stenosis, cervical region (02/01/20) Physical Therapy Treatment Note PT-OP-A Visit Information Start: 12/20/19 15:04 Freq: Status: Active Protocol: Document 02/01/20 10:33 EG (Rec: 02/01/20 11:15 EG [id number]) Out-Patient Physical Therapy Visit Information Visit Information Visit Type Treatment Note Visit Start Time 10:33 Visit Stop Time 11:15 Total Visit Minutes 42 Visit Number 14 Number of RESIDENTIAL INSURANCE INSPECTOR Visits 0 PT-OP-B Current Condition Start: 12/20/19 15:04 Freq: Status: Active Protocol: Document 12/20/19 15:06 EG (Rec: 12/20/19 15:34 EG [id number]) Current Condition History of Current Condition Onset Date 40 years ago Current Complaints Pain when rolling in bed and getting up in morning History of Current Condition Patient is a pleasant 74 year old male who reports to physical therapy with cheif complaint of L neck and upper shoulder pain. Patient initially started having pain in his L shoulder on the inside of L shoulder blade about 40 years ago. He cannot recall any reason why he started to have this pain but had gone to physical therapy and done many treatments for years before coming to conclusion that the pain was coming from his neck. The patient had been using Radio Frequency Ablasions to decrease the cervical nerve sensitivity in the past. He had also been doing PT and didn't quite remember what he had did but mentioned they had tried the ultrasound on him as well as stretching and massage. The patient's main complaint is that his L side of neck hurts the most when he is rolling to the right in the middle of the night - he mentioned that he needs to use both hands to help move his head. He also feels pain in the morning and before going to bed at night. He occasionally does have a cramp in the L upper shoulder and gets a sharp zinger towards the top of the L head once a week. 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 The only things that seem to alleviate his pain is lying on his back and taking recreational marijuana at night before going to bed. His pain hasn't stopped him from doing any activities at home but he does feel limited in what he can do. The patient recently moved here from [place], [place] and is retired, enjoys playing music, riding his bike , and walking his dog. He also has a boat that he goes in when the weather is nicer. The patient would like to learn stretches from physical therapy as well as help reduce his pain. Currently, the patient is 02/05. Prior Treatments and Tests Physical Therapy, Pain Clinic, Radio Frequency Aplasions, medications (listed in paper chart); prior surgery in lumbar spine, shoulder, and foot. MRI done with results in EMR Treatment Goals Patient/Caregiver Goals Get stretches and decrease pain Prior Functional Status Baseline Function- ADL's Independent Baseline Function- Mobility Independent Baseline Function- Gait I Baseline Function- Work/School Retired Baseline Function- Recreation/Hobbies I in playing music, riding bike, walking, boating Current Functional Impairments (Reported) Functional Limitations- ADL's Bed mobility - rolling in bed Functional Limitations- Mobility/Gait Rotation in neck when turning and driving Functional Limitations- Recreation/ No longer skis; pain with Hobbies playing the [employer] Personal Factors Other Personal Factors That May Effect Arthritis, Back pain, Blood Therapy/Recovery Clots, Essential Tremor, Depression, Neuropathy, past surgery, vision problems, varicose veins PT-OP-C Subjective Start: 12/20/19 15:04 Freq: Status: Active Protocol: Document 02/01/20 10:33 EG (Rec: 02/01/20 11:15 EG [id number]) OP-PT Subjective Patient Comments Patient Comments Patient reports that he was no more sore than usual after last appointment. 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 Patient also reported that he moved his MD appointment up one week to ask about the tremor. He also reported that he felt his neck again last night when he went to roll. PT-OP-E Functional Tests Start: 12/20/19 15:04 Freq: Status: Active Protocol: Document 12/20/19 15:06 EG (Rec: 12/20/19 15:45 EG [id number]) Functional Tests Kamilla's Scratch Test Action 2- Left WNL Action 2- Right WNL Action 3- Left 3 inches less than R Action 3- Right WNL PT-OP-F Manual Assessment Start: 12/20/19 15:04 Freq: Status: Active Protocol: Document 12/20/19 15:06 EG (Rec: 12/20/19 15:45 EG [id number]) Manual Assessments Soft Tissue Assessment Soft Tissue Mobility Assessment L>R upper trap soft tissue tension moderate bilateral cervical paraspinal tightness PT-OP-G Mobility & Gait Start: 12/20/19 15:04 Freq: Status: Active Protocol: Document 12/20/19 15:06 EG (Rec: 12/20/19 15:45 EG [id number]) OP Mobility Evaluation Bed Mobility Rolling Increased p! rolling to R when supine PT-OP-H Neuro Start: 12/20/19 15:04 Freq: Status: Active Protocol: Document 12/20/19 15:06 EG (Rec: 12/20/19 15:45 EG [id number]) Sensation Evaluation Comments Summary Comments Patient has felt N&T in the past but very infrequent. Last report of N&T was last summer (2018). PT-OP-J Posture/Palpation/Skin Start: 12/20/19 15:04 Freq: Status: Active Protocol: Document 12/20/19 15:06 EG (Rec: 12/20/19 15:45 EG [id number]) Posture Evaluation Position Sitting Evaluation View Posterior Head/C-Spine Posture Rotated Left,Forward Head T-Spine Posture Increased Kyphosis Thorax Posture (R) Elevated L-Spine Posture Decreased Lordosis Shoulder Posture (L) Rounded,(R) Rounded,(R) Elevated Scapula Posture (L) Rotated Up,(R) Rotated Up Palpation Assessment Location One Palpation Location L upper trap/L levator scapulae Palpation Findings Soft Tissue Tightness, Tenderness,Trigger Point PT-OP-K Range of Motion Start: 12/20/19 15:04 Freq: Status: Active Protocol: Document 01/30/20 10:35 EG (Rec: 01/30/20 12:02 EG [id number]) Cervical Spine Range of Motion Cervical Spine Active Degrees Testing Position Sitting Rotation Left 54 Rotation Right 35 Lateral Flexion Left 35 Lateral Flexion Right 28 Comments No p! with any motion - just feeling of tightness PT-OP-L Special Tests Start: 12/20/19 15:04 Freq: Status: Active Protocol: Document 12/20/19 15:06 EG (Rec: 12/20/19 15:45 EG [id number]) Special Tests Cervical Spine Special Tests Traction Test Results + Comments decreased tension in neck Spurling's Test Test Results - PT-OP-M Strength Start: 12/20/19 15:04 Freq: Status: Active Protocol: Document 12/20/19 15:06 EG (Rec: 12/20/19 15:45 EG [id number]) Cervical Spine Strength Cervical Spine Manual Muscle Testing Rotation Left 4+ Good+ Rotation Right 4+ Good+ PT-OP-Q Treatments Start: 12/20/19 15:04 Freq: Status: Active Protocol: Document 02/01/20 10:33 EG (Rec: 02/01/20 11:15 EG [id number]) Cardio Equipment Upper Body Ergometer (UBE) Duration (Minutes) 8 RPM 60 Other 4 min fwd/bwd Therapeutic Exercises Supine Exercises Cervical Flexion Supine Exercise Name Cervical Flexion with hold and sustained relaxion Reps/Minutes 10x Comments HEP - lift head with chin tuck , hold 2 sec, relax head completely for 5 pec stretch Supine Exercise Name Pec stretch on foam roller Equipment Used Body length black foam roller Reps/Minutes 2 min cervical rotation Supine Exercise Name Cervical Rotation on rubber ball Side bilateral Equipment Used Blue rubber ball Reps/Minutes 5x each way Comments stay for 3-5 seconds at end range Sidelying Exercises Lateral Flexion in Side-lying Sidelying Exercise Name Head lift while in side-lying with sustained relaxion between lifts Side bilateral Reps/Minutes 10x each side Comments lift, hold for 2 sec, relax head down for 5 sec given for HEP Open Books Sidelying Exercise Name Open Books Side bilateral Reps/Minutes 8x each side Comments done slowly with cervical rotation seperate from thoracic rotation Sitting Exercises Shoulder Rolls Sitting Exercise Name Shoulder Rolls Reps/Minutes 10x Standing Exercises CS ext TB at wall Standing Exercise Name CS ext TB at wall Resistance L1 Equipment Used TB Reps/Minutes 2x10 TB ER Standing Exercise Name Bilateral ER Side bilateral Resistance L1 Equipment Used TB Reps/Minutes 2x15 Comments Also done for 1 minute in a row PT-OP-R Modalities Start: 01/04/20 14:12 Freq: Status: Active Protocol: Document 01/04/20 13:51 EG (Rec: 01/04/20 14:13 EG [id number]) Hot Pack/Cold Pack Treatment Hot Pack Location Cervical Spine Patient Position Supine Treatment Duration (minutes) 10 Patient Tolerance Good Comments legs on bolster PT-OP-T Assessment and Plan Start: 12/20/19 15:04 Freq: Status: Active Protocol: Document 02/01/20 10:33 EG (Rec: 02/01/20 12:32 EG [email or web address]) Physical Therapy Assessment Assessment Summary Assessment Patient worked on increasing cervical ROM today. He did not experience an increase in symptoms when performing lateral cervical flexion with control and time to normalize muscles tone between sets. This should be continually worked on to help with decreased pain when performing shifts with cervical spine when in bed at home. Patient does still hold increased tension in cervical spine and shoulders due to chronic neck pain and will benefit from continual reinforcement of strengthening postural and scapular musculature to help normalize resting posture. Physical Therapy Plan Frequency and Duration Frequency of Treatment 2x/Week Duration of Treatment 6 weeks Plan of Care Start Date 01/30/20 Plan of Care End Date 03/12/20 Next Visit Focus/Plan Next Note Type Treatment Note Next Visit Plan Assess new HEP exercise ( lateral flexion/cervical flexion with relaxation) continue with lateral and rotational mobilization of C3- C7. Continue with strain/ counterstrain. Continue with strengthening. Vanessa Lam DPT, supervised all treatment performed by, and agreed with the plan of care, as performed by Diamond Mcdermott, EDDIE.
--- NOTE | 2020-02-06 11:16 | PT.OTN ---
Current Diagnoses Spondylosis without myelopathy or radiculopathy, cervical region (02/06/20) Spinal stenosis, cervical region (02/06/20) Physical Therapy Treatment Note PT-OP-A Visit Information Start: 12/20/19 15:04 Freq: Status: Active Protocol: Document 02/06/20 09:45 EG (Rec: 02/06/20 11:10 EG [id number]) Out-Patient Physical Therapy Visit Information Visit Information Visit Type Treatment Note Visit Start Time 09:45 Visit Stop Time 10:30 Total Visit Minutes 45 Visit Number 15 Number of WEIGHT CLERK Visits 0 PT-OP-B Current Condition Start: 12/20/19 15:04 Freq: Status: Active Protocol: Document 12/20/19 15:06 EG (Rec: 12/20/19 15:34 EG [id number]) Current Condition History of Current Condition Onset Date 40 years ago Current Complaints Pain when rolling in bed and getting up in morning History of Current Condition Patient is a pleasant 74 year old male who reports to physical therapy with cheif complaint of L neck and upper shoulder pain. Patient initially started having pain in his L shoulder on the inside of L shoulder blade about 40 years ago. He cannot recall any reason why he started to have this pain but had gone to physical therapy and done many treatments for years before coming to conclusion that the pain was coming from his neck. The patient had been using Radio Frequency Ablasions to decrease the cervical nerve sensitivity in the past. He had also been doing PT and didn't quite remember what he had did but mentioned they had tried the ultrasound on him as well as stretching and massage. The patient's main complaint is that his L side of neck hurts the most when he is rolling to the right in the middle of the night - he mentioned that he needs to use both hands to help move his head. He also feels pain in the morning and before going to bed at night. He occasionally does have a cramp in the L upper shoulder and gets a sharp zinger towards the top of the L head once a week. 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 The only things that seem to alleviate his pain is lying on his back and taking recreational marijuana at night before going to bed. His pain hasn't stopped him from doing any activities at home but he does feel limited in what he can do. The patient recently moved here from [place], [place] and is retired, enjoys playing music, riding his bike , and walking his dog. He also has a boat that he goes in when the weather is nicer. The patient would like to learn stretches from physical therapy as well as help reduce his pain. Currently, the patient is 02/05. Prior Treatments and Tests Physical Therapy, Pain Clinic, Radio Frequency Aplasions, medications (listed in paper chart); prior surgery in lumbar spine, shoulder, and foot. MRI done with results in EMR Treatment Goals Patient/Caregiver Goals Get stretches and decrease pain Prior Functional Status Baseline Function- ADL's Independent Baseline Function- Mobility Independent Baseline Function- Gait I Baseline Function- Work/School Retired Baseline Function- Recreation/Hobbies I in playing music, riding bike, walking, boating Current Functional Impairments (Reported) Functional Limitations- ADL's Bed mobility - rolling in bed Functional Limitations- Mobility/Gait Rotation in neck when turning and driving Functional Limitations- Recreation/ No longer skis; pain with Hobbies playing the [employer] Personal Factors Other Personal Factors That May Effect Arthritis, Back pain, Blood Therapy/Recovery Clots, Essential Tremor, Depression, Neuropathy, past surgery, vision problems, varicose veins PT-OP-C Subjective Start: 12/20/19 15:04 Freq: Status: Active Protocol: Document 02/06/20 09:45 EG (Rec: 02/06/20 11:10 EG [email or web address]) OP-PT Subjective Patient Comments Patient Comments Patient reports that he is feeling about the same. He still has some pain that shoots in to his neck when moving in bed but thinks it has gotten less severe. He has been doing his exercises at home and had a few ah-mcdonald moments this weekend where he realized that if he uses other muscles besides his neck muscles, he doesn't have as much pain. He also did not have tremors with trumpet playing this weekend and thinks that is related to decreased tension in the neck. Patient Reported Progress Same PT-OP-E Functional Tests Start: 12/20/19 15:04 Freq: Status: Active Protocol: Document 12/20/19 15:06 EG (Rec: 12/20/19 15:45 EG [id number]) Functional Tests Apley's Scratch Test Action 2- Left WNL Action 2- Right WNL Action 3- Left 3 inches less than R Action 3- Right WNL PT-OP-F Manual Assessment Start: 12/20/19 15:04 Freq: Status: Active Protocol: Document 12/20/19 15:06 EG (Rec: 12/20/19 15:45 EG [id number]) Manual Assessments Soft Tissue Assessment Soft Tissue Mobility Assessment L>R upper trap soft tissue tension moderate bilateral cervical paraspinal tightness PT-OP-G Mobility & Gait Start: 12/20/19 15:04 Freq: Status: Active Protocol: Document 12/20/19 15:06 EG (Rec: 12/20/19 15:45 EG [id number]) OP Mobility Evaluation Bed Mobility Rolling Increased p! rolling to R when supine PT-OP-H Neuro Start: 12/20/19 15:04 Freq: Status: Active Protocol: Document 12/20/19 15:06 EG (Rec: 12/20/19 15:45 EG [id number]) Sensation Evaluation Comments Summary Comments Patient has felt N&T in the past but very infrequent. Last report of N&T was last summer (2018). PT-OP-J Posture/Palpation/Skin Start: 12/20/19 15:04 Freq: Status: Active Protocol: Document 12/20/19 15:06 EG (Rec: 12/20/19 15:45 EG [id number]) Posture Evaluation Position Sitting Evaluation View Posterior Head/C-Spine Posture Rotated Left,Forward Head T-Spine Posture Increased Kyphosis Thorax Posture (R) Elevated L-Spine Posture Decreased Lordosis Shoulder Posture (L) Rounded,(R) Rounded,(R) Elevated Scapula Posture (L) Rotated Up,(R) Rotated Up Palpation Assessment Location One Palpation Location L upper trap/L levator scapulae Palpation Findings Soft Tissue Tightness, Tenderness,Trigger Point PT-OP-K Range of Motion Start: 12/20/19 15:04 Freq: Status: Active Protocol: Document 01/30/20 10:35 EG (Rec: 01/30/20 12:02 EG [email or web address]) Cervical Spine Range of Motion Cervical Spine Active Degrees Testing Position Sitting Rotation Left 54 Rotation Right 35 Lateral Flexion Left 35 Lateral Flexion Right 28 Comments No p! with any motion - just feeling of tightness PT-OP-L Special Tests Start: 12/20/19 15:04 Freq: Status: Active Protocol: Document 12/20/19 15:06 EG (Rec: 12/20/19 15:45 EG [id number]) Special Tests Cervical Spine Special Tests Traction Test Results + Comments decreased tension in neck Spurling's Test Test Results - PT-OP-M Strength Start: 12/20/19 15:04 Freq: Status: Active Protocol: Document 12/20/19 15:06 EG (Rec: 12/20/19 15:45 EG [id number]) Cervical Spine Strength Cervical Spine Manual Muscle Testing Rotation Left 4+ Good+ Rotation Right 4+ Good+ PT-OP-Q Treatments Start: 12/20/19 15:04 Freq: Status: Active Protocol: Document 02/06/20 09:45 EG (Rec: 02/06/20 11:10 EG [email or web address]) Cardio Equipment Recumbent Stepper (Sci-Fit) Duration (Minutes) 6 Resistance 2.5 Seat Position 14 Other above 50 crouch Gym Equipment Cable Column (Body Solid) Rows Details Rows Resistance L5 Reps/Time 2x10 - cued correct muscle engagement; 1 min rest Lat Pulldown Details Lat Pulldown Resistance L5 Reps/Time 2x10 - cued correct muscle engagement; 1 min rest Therapeutic Ball Y lift with arms Exercise Details Y lift with arms Ball Size/Color 65inch/red Body Position Prone Reps/Duration 10x Comments tactile cue on lower trap for engagement - maintained chin tuck Therapeutic Exercises Sidelying Exercises Lateral Flexion in Side-lying Sidelying Exercise Name Head lift while in side-lying with sustained relaxion between lifts Side bilateral Reps/Minutes 10x each side Comments lat flex lift, ipsi rotation, extend and relax in reverse order Sitting Exercises Upper Trap tension/relaxation Sitting Exercise Name Upper trap contraction in tension/relaxation Side bilateral Reps/Minutes 10x Comments Deep breath in and tense, deep breath out and completely relax Manual Therapy Treatment Soft Tissue Mobilization 1 Body Location upper traps, SCM, levator scapulae Mobilization Type Manual Lymphatic Drainage, Sustained Pressure Intensity/Depth Moderate Body Position Supine C3 Body Location L transverse C3 Mobilization Type Strain/Counterstrain Intensity/Depth Moderate Body Position Supine Comments move neck into extension, R SB , R rotation Joint Mobilizations C3-C6 Joint C2-C6 Comments Rotating passively to L and R PT-OP-R Modalities Start: 01/04/20 14:12 Freq: Status: Active Protocol: Document 01/04/20 13:51 EG (Rec: 01/04/20 14:13 EG [email or web address]) Hot Pack/Cold Pack Treatment Hot Pack Location Cervical Spine Patient Position Supine Treatment Duration (minutes) 10 Patient Tolerance Good Comments legs on bolster PT-OP-T Assessment and Plan Start: 12/20/19 15:04 Freq: Status: Active Protocol: Document 02/06/20 09:45 EG (Rec: 02/06/20 11:10 EG [email or web address]) Physical Therapy Assessment Assessment Summary Assessment Patient is still experiencing stiffness in cervical rotation as well as pain with lateral flexion and rotation when moving in bed. Today focused on creating muscular connection to relaxing muscle tension of the upper traps and patient felt relief when doing upper body exercises and performing this relaxation. Patient also worked on multiple planes of neck movement in to lateral flexion , rotation, and extension to help normalize these movements and decrease pain level when moving in bed. Physical Therapy Plan Frequency and Duration Frequency of Treatment 2x/Week Duration of Treatment 6 weeks Plan of Care Start Date 01/30/20 Plan of Care End Date 03/12/20 Next Visit Focus/Plan Next Note Type Treatment Note Next Visit Plan SCHEDULE more appts. Assess new HEP exercise (lateral flexion + rotation + extension /cervical flexion with relaxation) continue with lateral and rotational mobilization of C3-C7. Continue with strain/ counterstrain. Continue with strengthening.
--- NOTE | 2020-02-08 11:45 | PT.OTN ---
Current Diagnoses Spondylosis without myelopathy or radiculopathy, cervical region (02/08/20) Spinal stenosis, cervical region (02/08/20) Physical Therapy Treatment Note PT-OP-A Visit Information Start: 12/20/19 15:04 Freq: Status: Active Protocol: Document 02/08/20 09:48 EG (Rec: 02/08/20 14:12 EG [id number]) Out-Patient Physical Therapy Visit Information Visit Information Visit Type Treatment Note Visit Start Time 09:48 Visit Stop Time 10:30 Total Visit Minutes 42 Visit Number 16 Number of CONCERT SINGER Visits 0 PT-OP-B Current Condition Start: 12/20/19 15:04 Freq: Status: Active Protocol: Document 12/20/19 15:06 EG (Rec: 12/20/19 15:34 EG [id number]) Current Condition History of Current Condition Onset Date 40 years ago Current Complaints Pain when rolling in bed and getting up in morning History of Current Condition Patient is a pleasant 74 year old male who reports to physical therapy with cheif complaint of L neck and upper shoulder pain. Patient initially started having pain in his L shoulder on the inside of L shoulder blade about 40 years ago. He cannot recall any reason why he started to have this pain but had gone to physical therapy and done many treatments for years before coming to conclusion that the pain was coming from his neck. The patient had been using Radio Frequency Ablasions to decrease the cervical nerve sensitivity in the past. He had also been doing PT and didn't quite remember what he had did but mentioned they had tried the ultrasound on him as well as stretching and massage. The patient's main complaint is that his L side of neck hurts the most when he is rolling to the right in the middle of the night - he mentioned that he needs to use both hands to help move his head. He also feels pain in the morning and before going to bed at night. He occasionally does have a cramp in the L upper shoulder and gets a sharp zinger towards the top of the L head once a week. 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 The only things that seem to alleviate his pain is lying on his back and taking recreational marijuana at night before going to bed. His pain hasn't stopped him from doing any activities at home but he does feel limited in what he can do. The patient recently moved here from [place], [place] and is retired, enjoys playing music, riding his bike , and walking his dog. He also has a boat that he goes in when the weather is nicer. The patient would like to learn stretches from physical therapy as well as help reduce his pain. Currently, the patient is 02/05. Prior Treatments and Tests Physical Therapy, Pain Clinic, Radio Frequency Aplasions, medications (listed in paper chart); prior surgery in lumbar spine, shoulder, and foot. MRI done with results in EMR Treatment Goals Patient/Caregiver Goals Get stretches and decrease pain Prior Functional Status Baseline Function- ADL's Independent Baseline Function- Mobility Independent Baseline Function- Gait I Baseline Function- Work/School Retired Baseline Function- Recreation/Hobbies I in playing music, riding bike, walking, boating Current Functional Impairments (Reported) Functional Limitations- ADL's Bed mobility - rolling in bed Functional Limitations- Mobility/Gait Rotation in neck when turning and driving Functional Limitations- Recreation/ No longer skis; pain with Hobbies playing the [place] Personal Factors Other Personal Factors That May Effect Arthritis, Back pain, Blood Therapy/Recovery Clots, Essential Tremor, Depression, Neuropathy, past surgery, vision problems, varicose veins PT-OP-C Subjective Start: 12/20/19 15:04 Freq: Status: Active Protocol: Document 02/08/20 09:48 EG (Rec: 02/08/20 13:01 EG [id number]) OP-PT Subjective Patient Comments Patient Comments Patient reports that he was sore after last appointment. He did not have any pain last night turning his head. He wants this to be his last appointment for a while due to the coronavirus. He thinks he has the tools to do some things at home but will come back in a few weeks once all of this dies down. He thinks he has really improved since starting therapy. Patient Reported Progress Improving PT-OP-E Functional Tests Start: 12/20/19 15:04 Freq: Status: Active Protocol: Document 12/20/19 15:06 EG (Rec: 12/20/19 15:45 EG [id number]) Functional Tests Kamilla's Scratch Test Action 2- Left WNL Action 2- Right WNL Action 3- Left 3 inches less than R Action 3- Right WNL PT-OP-F Manual Assessment Start: 12/20/19 15:04 Freq: Status: Active Protocol: Document 12/20/19 15:06 EG (Rec: 12/20/19 15:45 EG [id number]) Manual Assessments Soft Tissue Assessment Soft Tissue Mobility Assessment L>R upper trap soft tissue tension moderate bilateral cervical paraspinal tightness PT-OP-G Mobility & Gait Start: 12/20/19 15:04 Freq: Status: Active Protocol: Document 12/20/19 15:06 EG (Rec: 12/20/19 15:45 EG [id number]) OP Mobility Evaluation Bed Mobility Rolling Increased p! rolling to R when supine PT-OP-H Neuro Start: 12/20/19 15:04 Freq: Status: Active Protocol: Document 12/20/19 15:06 EG (Rec: 12/20/19 15:45 EG [id number]) Sensation Evaluation Comments Summary Comments Patient has felt N&T in the past but very infrequent. Last report of N&T was last summer (2018). PT-OP-J Posture/Palpation/Skin Start: 12/20/19 15:04 Freq: Status: Active Protocol: Document 12/20/19 15:06 EG (Rec: 12/20/19 15:45 EG [id number]) Posture Evaluation Position Sitting Evaluation View Posterior Head/C-Spine Posture Rotated Left,Forward Head T-Spine Posture Increased Kyphosis Thorax Posture (R) Elevated L-Spine Posture Decreased Lordosis Shoulder Posture (L) Rounded,(R) Rounded,(R) Elevated Scapula Posture (L) Rotated Up,(R) Rotated Up Palpation Assessment Location One Palpation Location L upper trap/L levator scapulae Palpation Findings Soft Tissue Tightness, Tenderness,Trigger Point PT-OP-K Range of Motion Start: 12/20/19 15:04 Freq: Status: Active Protocol: Document 01/30/20 10:35 EG (Rec: 01/30/20 12:02 EG [id number]) Cervical Spine Range of Motion Cervical Spine Active Degrees Testing Position Sitting Rotation Left 54 Rotation Right 35 Lateral Flexion Left 35 Lateral Flexion Right 28 Comments No p! with any motion - just feeling of tightness PT-OP-L Special Tests Start: 12/20/19 15:04 Freq: Status: Active Protocol: Document 12/20/19 15:06 EG (Rec: 12/20/19 15:45 EG [id number]) Special Tests Cervical Spine Special Tests Traction Test Results + Comments decreased tension in neck Spurling's Test Test Results - PT-OP-M Strength Start: 12/20/19 15:04 Freq: Status: Active Protocol: Document 12/20/19 15:06 EG (Rec: 12/20/19 15:45 EG [id number]) Cervical Spine Strength Cervical Spine Manual Muscle Testing Rotation Left 4+ Good+ Rotation Right 4+ Good+ PT-OP-Q Treatments Start: 12/20/19 15:04 Freq: Status: Active Protocol: Document 02/08/20 09:48 EG (Rec: 02/08/20 13:01 EG [id number]) Cardio Equipment Upper Body Ergometer (UBE) Duration (Minutes) 7 RPM 60 Other 3.5 min fws/bkwd Therapeutic Exercises Sidelying Exercises Lateral Flexion in Side-lying Sidelying Exercise Name Head lift while in side-lying with sustained relaxion between lifts Side bilateral Reps/Minutes 10x each side Comments lat flex lift, ipsi rotation, extend and relax in reverse order Open Books Sidelying Exercise Name Open Books Side bilateral Reps/Minutes 8x Comments done for HEP Manual Therapy Treatment Soft Tissue Mobilization 1 Body Location upper traps, SCM, levator scapulae Mobilization Type Manual Lymphatic Drainage, Sustained Pressure Intensity/Depth Moderate Body Position Supine Upper trap and cervical extensors Body Location upper trap, lev scap proximal, cervical paraspinal, Scalenes proximal STM Intensity/Depth Moderate Body Position Sitting Joint Mobilizations C3-C6 Joint C2-C6 Comments Rotating passively to L and R Manual Traction Cervical Details Cervical Traction Body Position Sitting Reps/Duration 3x1 min hold PT-OP-R Modalities Start: 01/04/20 14:12 Freq: Status: Active Protocol: Document 01/04/20 13:51 EG (Rec: 01/04/20 14:13 EG [id number]) Hot Pack/Cold Pack Treatment Hot Pack Location Cervical Spine Patient Position Supine Treatment Duration (minutes) 10 Patient Tolerance Good Comments legs on bolster PT-OP-T Assessment and Plan Start: 12/20/19 15:04 Freq: Status: Active Protocol: Document 02/08/20 09:48 EG (Rec: 02/08/20 14:24 EG [id number]) Physical Therapy Assessment Assessment Summary Assessment Patient tolerated treatment well today. He is planning on taking a few weeks off of Physical Therapy because he doesn't want to spread any viruses during this period of time. He does understand the HEP he was given and will continue to do these at home to help with improved ROM as well as scapular and rotator cuff strength. Patient does have decreased pain when transitioning in bed but still has that pain intermittently at this time. His ROM has improved but is still limited in his rotation. He was told to continue with the SNAG to help with this ROM. Physical Therapy Plan Frequency and Duration Frequency of Treatment 2x/Week Duration of Treatment 6 weeks Plan of Care Start Date 01/30/20 Plan of Care End Date 03/12/20 Next Visit Focus/Plan Next Note Type Progress Note Next Visit Plan Check on HEP after having a break. Reassess ROM and pain levels. Vanessa Lam DPT supervised all treatment and agreed with the plan of care, as performed by Diamond Chinchilla, EDDIE.
--- NOTE | 2020-06-05 16:05 | PT.OPDS ---
Current Diagnoses Spondylosis without myelopathy or radiculopathy, cervical region (02/08/20) Spinal stenosis, cervical region (02/08/20) Visit Care Team Role Provider Type RISA Bain Primary Care Provider Advanced Mechanical Facilities Technician Specialty: Family Practice Address: [address] [place] [address], [facility] Email: [email or web address] RISA Fountain Attending Provider Non-Staff Specialty: Pain Management Address: [address] [place] [address], [facility] Email: [email or web address] Visit Number Visit Number 16 Discharge Summary PT-OP-B Current Condition Start: 12/20/19 15:04 Freq: Status: Active Protocol: Document 12/20/19 15:06 EG (Rec: 12/20/19 15:34 EG [id number]) Current Condition History of Current Condition Onset Date 40 years ago Current Complaints Pain when rolling in bed and getting up in morning History of Current Condition Patient is a pleasant 74 year old male who reports to physical therapy with cheif complaint of L neck and upper shoulder pain. Patient initially started having pain in his L shoulder on the inside of L shoulder blade about 40 years ago. He cannot recall any reason why he started to have this pain but had gone to physical therapy and done many treatments for years before coming to conclusion that the pain was coming from his neck. The patient had been using Radio Frequency Ablasions to decrease the cervical nerve sensitivity in the past. He had also been doing PT and didn't quite remember what he had did but mentioned they had tried the ultrasound on him as well as stretching and massage. The patient's main complaint is that his L side of neck hurts the most when he is rolling to the right in the middle of the night - he mentioned that he needs to use both hands to help move his head. He also feels pain in the morning and before going to bed at night. He occasionally does have a cramp in the L upper shoulder and gets a sharp zinger towards the top of the L head once a week. 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 The only things that seem to alleviate his pain is lying on his back and taking recreational marijuana at night before going to bed. His pain hasn't stopped him from doing any activities at home but he does feel limited in what he can do. The patient recently moved here from [place], [place] and is retired, enjoys playing music, riding his bike , and walking his dog. He also has a boat that he goes in when the weather is nicer. The patient would like to learn stretches from physical therapy as well as help reduce his pain. Currently, the patient is 02/05. Prior Treatments and Tests Physical Therapy, Pain Clinic, Radio Frequency Aplasions, medications (listed in paper chart); prior surgery in lumbar spine, shoulder, and foot. MRI done with results in EMR Treatment Goals Patient/Caregiver Goals Get stretches and decrease pain Prior Functional Status Baseline Function- ADL's Independent Baseline Function- Mobility Independent Baseline Function- Gait I Baseline Function- Work/School Retired Baseline Function- Recreation/Hobbies I in playing music, riding bike, walking, boating Current Functional Impairments (Reported) Functional Limitations- ADL's Bed mobility - rolling in bed Functional Limitations- Mobility/Gait Rotation in neck when turning and driving Functional Limitations- Recreation/ No longer skis; pain with Hobbies playing the [employer] Personal Factors Other Personal Factors That May Effect Arthritis, Back pain, Blood Therapy/Recovery Clots, Essential Tremor, Depression, Neuropathy, past surgery, vision problems, varicose veins PT-OP-C Subjective Start: 12/20/19 15:04 Freq: Status: Active Protocol: Document 02/08/20 09:48 EG (Rec: 02/08/20 13:01 EG [id number]) OP-PT Subjective Patient Comments Patient Comments Patient reports that he was sore after last appointment. He did not have any pain last night turning his head. He wants this to be his last appointment for a while due to the coronavirus. He thinks he has the tools to do some things at home but will come back in a few weeks once all of this dies down. He thinks he has really improved since starting therapy. Patient Reported Progress Improving PT-OP-E Functional Tests Start: 12/20/19 15:04 Freq: Status: Active Protocol: Document 12/20/19 15:06 EG (Rec: 12/20/19 15:45 EG [id number]) Functional Tests Apley's Scratch Test Action 2- Left WNL Action 2- Right WNL Action 3- Left 3 inches less than R Action 3- Right WNL PT-OP-F Manual Assessment Start: 12/20/19 15:04 Freq: Status: Active Protocol: Document 12/20/19 15:06 EG (Rec: 12/20/19 15:45 EG [id number]) Manual Assessments Soft Tissue Assessment Soft Tissue Mobility Assessment L>R upper trap soft tissue tension moderate bilateral cervical paraspinal tightness PT-OP-G Mobility & Gait Start: 12/20/19 15:04 Freq: Status: Active Protocol: Document 12/20/19 15:06 EG (Rec: 12/20/19 15:45 EG [id number]) OP Mobility Evaluation Bed Mobility Rolling Increased p! rolling to R when supine PT-OP-H Neuro Start: 12/20/19 15:04 Freq: Status: Active Protocol: Document 12/20/19 15:06 EG (Rec: 12/20/19 15:45 EG [id number]) Sensation Evaluation Comments Summary Comments Patient has felt N&T in the past but very infrequent. Last report of N&T was last summer (2018). PT-OP-J Posture/Palpation/Skin Start: 12/20/19 15:04 Freq: Status: Active Protocol: Document 12/20/19 15:06 EG (Rec: 12/20/19 15:45 EG [id number]) Posture Evaluation Position Sitting Evaluation View Posterior Head/C-Spine Posture Rotated Left,Forward Head T-Spine Posture Increased Kyphosis Thorax Posture (R) Elevated L-Spine Posture Decreased Lordosis Shoulder Posture (L) Rounded,(R) Rounded,(R) Elevated Scapula Posture (L) Rotated Up,(R) Rotated Up Palpation Assessment Location One Palpation Location L upper trap/L levator scapulae Palpation Findings Soft Tissue Tightness, Tenderness,Trigger Point PT-OP-K Range of Motion Start: 12/20/19 15:04 Freq: Status: Active Protocol: Document 01/30/20 10:35 EG (Rec: 01/30/20 12:02 EG [id number]) Cervical Spine Range of Motion Cervical Spine Active Degrees Testing Position Sitting Rotation Left 54 Rotation Right 35 Lateral Flexion Left 35 Lateral Flexion Right 28 Comments No p! with any motion - just feeling of tightness PT-OP-L Special Tests Start: 12/20/19 15:04 Freq: Status: Active Protocol: Document 12/20/19 15:06 EG (Rec: 12/20/19 15:45 EG [id number]) Special Tests Cervical Spine Special Tests Traction Test Results + Comments decreased tension in neck Spurling's Test Test Results - PT-OP-M Strength Start: 12/20/19 15:04 Freq: Status: Active Protocol: Document 12/20/19 15:06 EG (Rec: 12/20/19 15:45 EG [id number]) Cervical Spine Strength Cervical Spine Manual Muscle Testing Rotation Left 4+ Good+ Rotation Right 4+ Good+ PT-OP-T Assessment and Plan Start: 12/20/19 15:04 Freq: Status: Active Protocol: Document 06/05/20 16:05 MB (Rec: 06/05/20 16:05 MB [id number]) Physical Therapy Plan Discharge Physical Therapy Discharge Reasons No Longer Attending PT Discharge Comments Pt has not been seen or called to reschedule after COVID closure. Will d/c PT.
== END 2020-06-07 08:10 ==
LOC: PHYS 09:45
PROVIDERS: PCP Nurse Practitioner; Visit Provider Registered Nurse
DX: M47.812 Spondylosis without myelopathy or radiculopathy, cervical region (principal); M48.02 Spinal stenosis, cervical region
CPT/HCPCS: 97010; 97110; 97140; 97161; 97162; 97530; 97535

== ENCOUNTER → 2020-05-03 09:10 | Outpatient (CLI) | payer MEDICARE, OTHER, SELFPAY ==
[2020-05-11 10:40] LABS: Testosterone % Fr + Wkly bound 33.3 % (9.0-46.0); Testosterone Fr+Wkly bound 546.3 ng/dL (40.0-250.0); Testosterone, Total 1640.5 ng/dL (264.0-916.0)
== END ==
PROVIDERS: PCP Nurse Practitioner; Referring Provider Nurse Practitioner; Visit Provider Nurse Practitioner
DX: R79.89 Other specified abnormal findings of blood chemistry (principal)
CPT/HCPCS: 36415; 84403

== ENCOUNTER → 2020-05-20 11:44 | Outpatient (CLI) | payer MEDICARE, OTHER, SELFPAY ==
[2020-05-21 08:49] LABS: COVID19 Sendout Not Detected (Not Detect)
== END ==
PROVIDERS: PCP Nurse Practitioner; Visit Provider Nurse Practitioner
DX: Z01.812 Encounter for preprocedural laboratory examination (principal)
CPT/HCPCS: 87635

== ENCOUNTER 2020-05-23 08:17 | Outpatient (CLI) | payer MEDICARE, OTHER, SELFPAY ==
[2020-05-23] VITALS (11 sets, daily range): BP systolic 126–152; BP diastolic 72–89; PULSE 57–65; RESP 16; TEMP 36.8; O2SAT 93–99
--- NOTE | 2020-05-23 08:21 | DI.RAD.S_ITS ---
PROCEDURE: PAIN C/T INTERLAMINAR INJECT INDICATIONS: CERVICAL STENOSIS FINDINGS: Fluoroscopic spot filming was performed to verify placement of spinal needles at the C6-C7 level(s), as labeled on the films. Appropriate location(s) of the needle tip(s) was confirmed by injection of iodinated contrast. IMPRESSION: Intraprocedural examination within normal limits. Dictated by: Rhett Hernandez M.D. on 05/23/2020 at 10:14 Approved by: Rhett Hernandez M.D. on 05/23/2020 at 10:14
[2020-05-23] MEDS: MIDAZOLAM 5 MG/5 ML VIAL IV (09:27)
[2020-05-23] MEDS: fentaNYL 100 MCG/2 ML INJ 50 MCG IV (09:27)
[2020-05-23] MEDS: IOPAMIDOL 15 ML VIAL 3 ML INJ (09:37)
[2020-05-23] MEDS: DEXAMETHASONE 10 MG/ML VIAL 20 MG INJ (09:38)
[2020-05-23] MEDS: LIDOCAINE 1% 20 ML 5 ML INJ (09:38)
--- NOTE | 2020-05-23 09:45 | PC.NURSE ---
ASSISTING PT OFF TABLE AND TRANSPORTING TO POST PROC AREA IN STABLE CONDITION. PASSING RN CARE OF PT OFF TO ANTHONY CORDOBA.
--- NOTE | 2020-05-23 09:52 | PM.PROC.1 ---
Procedures Date/Time Date of procedure: 05/23/20 Time of procedure: 09:52 General Procedure description: PREOP DIAGNOSIS 1. CERVICAL STENOSIS, 2. CERVICAL HNP WITH UPPER EXTREMITY RADICULAR FEATURES, POST OP DIAGNOSIS 1. CERVICAL STENOSIS, 2. CERVICAL HNP WITH UPPER EXTREMITY RADICULAR FEATURES, PROCEDURES 1. FLUORSCOPICALLY GUIDED CONTRAST CONTROLLED INTERLAMINAR EPIDURAL STEROID INJECTION - C6/7 TL RENATA PHYSICIAN: Joel Arora, DO INDICATIONS Joel is referred MAGNETIC TAPE COMPOSER OPERATORGenia Barrientos for treatment of Cervical HNP with Upper Extremity Paresthesias. FINDINGS Cervical Stenosis due to disc deterioration and nerve root irritation and nerve root irritation DESCRIPTION OF PROCEDURE Fluoroscopically guided, contrast-controlled C6/7 translaminar epidural steroid injection with conscious sedation. Following review of allergy and review of potential side effects and complications, including, but not necessarily limited to, infection, allergic reaction, local tissue breakdown, temporary as well as permanent nerve injury, stroke, paralysis, and possible , the patient indicated that patient understood and agreed to proceed. An informed consent document was signed by the patient, witnessed by a nurse, and placed in the patient's chart. Additionally, other treatment options including modalities, medications, and physical therapy were reviewed with the patient. After review of previous anaesthesic history and IV conscious sedation the patient was deemed safe to proceed with todays procedure with IV conscious sedation as ASA class II designation. Safety time-out was performed to confirm patient ID, procedure to be performed and site of procedure. IV sedation was accomplished with a combination of 3mg of Versed and 50mcg of Fentanyl administered by the RN after DO order, titrated to patient comfort during the course of the procedure while the patient remained responsive to all verbal commands. In the prone position, following sterile prep and drape of the cervical region, the C6/7 translaminar space was identified fluoroscopically. The skin was anesthetized via a 25-gauge 1.5-inch needle with 1% lidocaine solution. At this point, a 25-gauge, 2.5-inch short bevel spinal needle was atraumatically introduced and advanced under fluoroscopic guidance into epidural space at the C6/7 translaminar space. Depth was confirmed on lateral view. Radiological data, including multiple fluoroscopic views of the cervical spine, reveal a spinal needle at the C6/7 translaminar space. Lateral views then show placement of the needle in the epidural space. Subsequent views show contrast material flowing superiorly and inferiorly in the epidural space. DSA fluoroscopy with live contrast injection, once again, confirmed no vascular or intrathecal uptake. At this point, using loss of resistance technique with saline and air, the epidural space was entered. Following negative aspiration, injection of approximately 1.5 cc of Isovue-200 with live fluoroscopy in the AP view confirmed epidural flow in the epidural space without vascular or intrathecal uptake observed. Subsequently, a test dose of 1 cc of 1% lidocaine solution was injected and patient was observed for two minutes without signs or symptoms of complications, including abdominal pain, shortness of breath, bilateral upper or lower extremity weakness, nausea and vomiting, prior to steroid injection. At this point, 3cc or 30mg of dexamethasone was then injected without incident. The patient tolerated the procedure well without signs or symptoms of complications prior to being transferred to the recovery area for further monitoring, The patient was then transferred to the recovery area where they were observed for an appropriate period of time after the injection. The patient reported a VAS score of 6 prior to the procedure and a post-procedure VAS of 0. Total Fluoroscopy Time: 17seconds Total Conscious Time: 24min POST OP INSTRUCTIONS The patient was provided a Pain Log to continue to record their response to the target-specific procedure prior to follow-up visit with the referring provider. Additionally, specific post-injection care instructions and a contact number to our office were provided if concerns arise regarding possible complications associated with the procedure are suspected. Joel Arora, Complications: none
--- NOTE | 2020-05-23 10:24 | PC.NURSE ---
pt returned to pre proc room via wc in stable condition, minimal assist in transfer from wc to chair, monitoring resumed by this RN
[2020-05-24 16:43] LABS: Fecal Immunochemical Test Negative (Negative)
== END 2020-05-23 10:13 | disposition home or self-care (01) ==
LOC: RAD 08:19
PROVIDERS: PCP Nurse Practitioner; Referring Provider Physical Medicine & Rehabilitation; Visit Provider Physical Medicine & Rehabilitation
DX: M48.02 Spinal stenosis, cervical region (principal); M50.123 Cervical disc disorder at C6-C7 level with radiculopathy
CPT/HCPCS: 62321; 82274; 99152; J1100; J2250; J3010

== ENCOUNTER → 2020-07-29 09:59 | Outpatient (CLI) | payer MEDICARE, OTHER, SELFPAY ==
[2020-07-31 06:10] LABS: COVID19 Sendout Not Detected (Not Detect)
== END ==
PROVIDERS: PCP Nurse Practitioner; Visit Provider Physician Assistant
DX: Z11.59 Encounter for screening for other viral diseases (principal)
CPT/HCPCS: 87635

== ENCOUNTER 2020-08-01 08:19 | Outpatient (CLI) | payer MEDICARE, OTHER, SELFPAY ==
[2020-08-01] VITALS (8 sets, daily range): BP systolic 113–159; BP diastolic 73–94; PULSE 61–67; RESP 15–22; TEMP 36.7; O2SAT 96–99
--- NOTE | 2020-08-01 08:20 | DI.RAD.S_ITS ---
PROCEDURE: PAIN C/T FACET INJ/BLK 1ST L INDICATIONS: SPINAL STENOSIS COMPARISON: None. FINDINGS: Fluoroscopic spot filming was performed to verify placement of spinal needles at the C3-C4, C4-C5, and C5-C6 level(s), as labeled on the films. Appropriate location(s) of the needle tip(s) was confirmed by injection of iodinated contrast. IMPRESSION: Intraprocedural examination within normal limits. Dictated by: Rhett Hernandez M.D. on 08/01/2020 at 9:23 Approved by: Rhett Hernandez M.D. on 08/01/2020 at 9:23
[2020-08-01] MEDS: MIDAZOLAM 5 MG/5 ML VIAL IV (09:20)
[2020-08-01] MEDS: fentaNYL 100 MCG/2 ML INJ 50 MCG IV (09:20)
[2020-08-01] MEDS: BUPIVACAINE 0.5% (PF) VIAL 2 ML INJ (09:23)
[2020-08-01] MEDS: IOPAMIDOL 15 ML VIAL 3 ML INJ (09:23)
[2020-08-01] MEDS: DEXAMETHASONE 10 MG/ML VIAL 30 MG INJ (09:24)
--- NOTE | 2020-08-01 09:40 | P.PCN_ITS ---
Date/Time/Diagnoses Date of procedure: 08/01/20 Time of procedure: 09:41 Pre-procedure diagnosis: 1. FACET ARTHROPATHY 2. AXIAL NECK PAIN Post-procedure diagnosis: same Procedure Notes Procedure: 1. FLUOROSCOPICALLY GUIDED, CONTRAST-CONTROLLED LEFT C3/4, C4/5, C5/6 FACET JOINT INJECTIONS WITH CONSCIOUS SEDATION. Indications: Joel is referred by RISA Barrientos for treatment of Axial Neck Pain Physician: Joel Arora Total Fluoroscopy time (seconds): 12 Total sedation minutes: 15 Complications: none Procedure in detail & Post-procedure care: DESCRIPTION OF PROCEDURE Fluoroscopically guided, contrast-controlled left C3/4, C4/5, C5/6 facet joint injections with conscious sedation. Following review of allergy and review of potential side effects and complications, including, but not necessarily limited to, infection, allergic reaction, local tissue breakdown, stroke, temporary or permanent nerve injury and paralysis, the patient indicated that the patient understood and agreed to proceed. An informed consent document was signed by the patient, witnessed by a nurse, and placed in the patient's chart. Additionally, other treatment options including medications, modalities, and physical therapy were reviewed with the patient. After review of previous anaesthesic history and IV conscious sedation the patient was deemed safe to proceed with today?s procedure with IV conscious sedation as ASA class II designation. Safety time-out was performed to confirm patient ID, procedure to be performed and site of procedure. IV sedation was accomplished with a combination of 2mg of Versed and 50mcg of Fentanyl was administered by the RN after DO order, titrated to patient comfort during the course of the procedure while the patient remained responsive to all verbal commands In the prone position, following sterile prep and drape of the cervical spine region, the posterior aspect of the left C3/4, C4/5, C5/6 facet joints were identified fluoroscopically. The skin was anesthetized via a 25-gauge 1.5-inch needle with 1% lidocaine solution into the corresponding facet joints. At this point, a 25-gauge 2.5-inch spinal needle was atraumatically introduced and advanced under fluoroscopic guidance into the corresponding facet joints. Following negative aspiration, injections of approximately 0.2-cc of Isovue 200 confirmed interarticular placement without vascular uptake. At this point, a total of 1cc including 0.5cc or 5mg of dexamethasone combined with 0.5cc of 1% lidocaine solution was injected without complication into each of the corresponding facet joints. The patient tolerated the procedure well without signs or symptoms of complications prior to transfer to the recovery area continued monitoring without incident. The patient was then transferred to the recovery area where they were observed for an appropriate period of time after the injection. The patient reported a VAS score of 7 prior to the procedure and a post- procedure VAS of 0. POST OP INSTRUCTIONS They were provided a Pain Log to continue to record their response to the target-specific procedure prior to their follow-up visit with their referring physician. Additionally, specific post-injection care instructions and a contact number to our office were provided if concerns arise regarding possible complications associated with the procedure are suspected.
== END 2020-08-01 10:03 | disposition home or self-care (01) ==
PROVIDERS: PCP Nurse Practitioner; Referring Provider Physical Medicine & Rehabilitation; Visit Provider Physical Medicine & Rehabilitation
DX: M47.812 Spondylosis without myelopathy or radiculopathy, cervical region (principal); M54.2 Cervicalgia
CPT/HCPCS: 64490; 64491; 64492; 99152; J1100; J2250; J3010

== ENCOUNTER 2020-09-27 11:27 | Emergency (ER) | payer MEDICARE, OTHER, SELFPAY ==
[2020-09-27] VITALS (10 sets, daily range): BP systolic 105–211; BP diastolic 73–110; PULSE 69–89; RESP 15–26; TEMP 36.8; O2SAT 95–99; BMI 31.4
--- NOTE | 2020-09-27 11:37 | DI.RAD.S_ITS ---
PROCEDURE: XR CHEST 1V INDICATIONS: chest pain TECHNIQUE: One view of the chest was acquired. COMPARISON: None. FINDINGS: Surgical changes and devices: None. Lungs and pleura: On this semiupright portable chest examination, no large pneumothorax or large pleural effusions are seen. No focal infiltrates are seen. Mediastinum: The cardiac contours are within normal limits. The aorta demonstrates calcification and tortuosity. Bones and chest wall: Age-appropriate bony degenerative changes are seen. No suspicious bony lesions. Overlying soft tissues appear unremarkable. IMPRESSION: Portable chest within normal limits for age. Dictated by: Rhett Hernandez M.D. on 09/27/2020 at 11:14 Approved by: Rhett Hernandez M.D. on 09/27/2020 at 11:14
[2020-09-27 11:53] LABS: Add Manual Diff / Slide Review NO; Basophils Absolute Auto 0 /uL (0-100); Basophils Percent Auto 0.6 % (0-2); Eosinophils Absolute Auto 300 /uL (0-450); Eosinophils Percent Auto 4.2 % (2-4); Hematocrit 45.7 % (41-53); Hemoglobin 15.3 g/dL (13.5-17.5); Lymphocytes Absolute Auto 1800 /uL (1100-4500); Lymphocytes Percent Auto 27.2 % (25-40); Mean Corpuscular HGB Conc 33.4 % (30-36); Mean Corpuscular Hemoglobin 32.4 PG (26-34); Monocytes Absolute Auto 600 /uL (0-900); Neutrophils Absolute Auto 3700 /uL (1500-7000); Platelet Count 261 X10^3/uL (150-400); Red Blood Cell Count 4.72 X10^6/uL (4.5-5.9); White Blood Cell Count 6.4 X10^3/uL (4.5-11.0)
[2020-09-27 11:58] LABS: Prothrombin Time 11.1 SECONDS (10.1-12.7)
[2020-09-27 12:00] LABS: PTT Partial Thromboplastin Tim 30 SECONDS (26.4-36.2)
[2020-09-27 12:02] LABS: Alanine Aminotransferase 48 IU/L (<50); Albumin 4.5 g/dL (3.5-5.0); Albumin Globulin Ratio 1.4 (1.0-2.8); Alkaline Phosphatase 73 U/L (38-126); Aspartate Aminotransferase 38 IU/L (17-59); BUN Creatinine Ratio 18.2 (6-22); Bilirubin Total 0.7 mg/dL (0.2-1.3); Blood Urea Nitrogen 16 mg/dL (9-20); Calcium 9.2 mg/dL (8.4-10.2); Carbon Dioxide 29 mmol/L (22-32); Chloride 103 mmol/L (98-107); Creatine Kinase 236 U/L (55-170); Estimated Glomerular Filt Rate > 60.0 mL/min (>60); Globulin 3.2 g/dL (1.7-4.1); Glucose 114 mg/dL (80-110); HEMOLYSIS < 15 (0-50); Lipase 61 U/L (23-300); Potassium 4.3 mmol/L (3.4-5.1); Sodium 138 mmol/L (137-145); Total Protein 7.7 g/dL (6.3-8.2)
[2020-09-27 12:14] LABS: Troponin I < 0.012 ng/mL (0.01-0.034)
[2020-09-27 12:17] LABS: CKMB % Relative Index 0.8 % (1.5-5.0); Creatine Kinase MB 1.84 ng/mL (<2.37)
--- NOTE | 2020-09-27 12:56 | ED.GENADULT ---
HPI - General Adult General Chief complaint: Hypertension Stated complaint: spike in bp Time Seen by Provider: 09/27/20 12:32 Source: patient Mode of arrival: Ambulatory Limitations: no limitations History of Present Illness HPI narrative: Patient is a 75-year-old male with history of hyperlipidemia presenting with hypertension and is a sharp shooting neuropathy like pains. He states he has had sharp shooting left-sided neck pains ongoing for a while he has even had an MRI October 2019 which showed multilevel canal stenosis and degenerative disc disease along with multiple level foraminal stenosis. Today he was feeling bad sharp shooting pains on the left side of his face and head along with his right arm on the took his blood pressure noted it to be extremely elevated at 210/130 at which point he came to the ER for evaluation. His blood pressure remained elevated here in the ED. He denies any chest pain shortness of breath nausea visual changes or weakness. He is not on any blood pressure medication at this time Related Data Home Medications Medication Instructions Recorded Confirmed omeprazole 20 mg capsule,delayed 20 mg PO DAILY 09/29/19 06/11/20 release fluticasone INTRANASAL BEDTIME 11/08/19 06/11/20 propranolol 20 mg tablet 25 mg PO QMONTH PRN tab 11/08/19 06/11/20 ascorbate calcium (vitamin C) 500 500 mg PO BID 04/15/20 06/11/20 mg tablet cholecalciferol (vitamin D3) 50 50 mcg PO BID cap 04/15/20 06/11/20 mcg (2,000 unit) capsule acetaminophen 500 mg capsule 1,000 mg PO BID PRN cap 06/11/20 06/11/20 diclofenac sodium 1 % topical gel 2 g TOP QID PRN gram 06/11/20 06/11/20 Previous Rx's Medication Instructions Recorded bupropion HCl 150 mg 24 hr tablet, 150 mg PO QAM #90 tab 10/23/19 extended release escitalopram oxalate 20 mg tablet 20 mg PO DAILY #90 tab 10/23/19 propranolol 60 mg capsule,24 60 mg PO DAILY #90 cap 10/23/19 hr,extended release testosterone cypionate 100 mg/mL 100 mg IM Q2W #10 ml 05/14/20 intramuscular oil cyclobenzaprine 10 mg tablet 10 mg PO BID PRN #60 tab 06/19/20 celecoxib 200 mg capsule See Rx Instructions .ROUTE 08/07/20 .COMPLEX #30 cap atorvastatin 80 mg tablet See Rx Instructions .ROUTE 09/07/20 .COMPLEX #90 tab Allergies Allergy/AdvReac Type Severity Reaction Status Date / Time No Known Drug Allergies Allergy Verified 09/27/20 11:35 Review of Systems Review of Systems ROS Unobtainable: All systems reviewed & are unremarkable except as noted in HPI and below Constitutional Constitutional: Denies chills, Denies fever(s), Denies lethargy and Denies weakness Eyes Eyes: Denies change in vision, Denies eye discharge, Denies irritation and Denies loss of vision Cardiovascular Cardiovascular: Denies chest pain, Denies irregular heart rhythm, Denies lightheadedness, Denies palpitations, Denies dyspnea, Denies dyspnea on exertion and Denies orthopnea Respiratory Respiratory: Denies cough, Denies dyspnea, Denies dyspnea on exertion and Denies wheezing Gastrointestinal Gastrointestinal: Denies abdominal pain, Denies change in bowel habits, Denies diarrhea, Denies nausea and Denies vomiting Neurologic Neurologic: Reports as per HPI, Denies loss of vision, Reports paresthesias and Denies weakness Endocrine Endocrine: Denies palpitations Allergic/Immunologic Allergic/Immunologic: Denies wheezing Patient History Medical History Advanced age (Acute) Allergies (Chronic ~1959) Anemia (Acute ~2009) Anxiety (Chronic ~2006) Flores's syndrome (Chronic ~2004) BPH (benign prostatic hyperplasia) (Acute) Cervical spine disease (Chronic ~1994) Cervical spondylosis with radiculopathy (Acute) Cervical stenosis of spinal canal (Chronic) Cervicalgia (Chronic) Chicken pox (Resolved ~1957) Chronic pain (Acute) Complaint of paresthesia (Acute) Counseling regarding advanced care planning and goals of care (Acute) Depression (Chronic ~2006) Disorder of lumbar spine (Chronic ~1997) Facet arthropathy, cervical (Chronic) Fatigue (Acute) Foot pain (Chronic ~2005) Foraminal stenosis of cervical region (Chronic) Hearing loss (Chronic ~2016) Hyperlipidemia (Acute) Hypogonadism in male (Acute) Low testosterone (Chronic ~2017) Mumps (Resolved ~1957) Osteoarthritis (Chronic ~2004) 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 (Acute) Peripheral neuropathy (Chronic ~2015) Wears hearing aid in both ears (Acute) Surgical History Anesthesia (Resolved) History of discectomy (Resolved ~1997) History of shoulder surgery (Resolved ~2016) History of spinal fusion (Resolved ~1978) Family History Father History of heart disease Hyperlipidemia Loud snoring Hypertension Mother Non Hodgkin's lymphoma Grandfather Stroke Grandmother History of heart disease Social History Smoking Status: Former smoker Smoking Status: Former smoker alcohol intake frequency: 0-2 drinks per day Substance Use Type: marijuana Exam Initial Vital Signs Initial Vital Signs: Vital Signs Temperature 98.2 F 09/27/20 11:28 Pulse Rate 89 09/27/20 11:28 Respiratory Rate 15 09/27/20 11:28 Blood Pressure 211/110 H 09/27/20 11:28 Pulse Oximetry 99 09/27/20 11:28 GENERAL: Well-appearing, well-nourished and in no acute distress. HEENT: Head atraumatic,EOMI, pupils reactive, face symmetric, moist mucous membranes CARDIOVASCULAR: Regular rate and rhythm without murmurs, rubs or gallops. RESPIRATORY: Breath sounds equal bilaterally, no wheezes rales or rhonchi. ABDOMEN: Soft, nontender. Normoactive bowel sounds all 4 quadrants. No guarding or rebound. EXTREMITIES: Normal range of motion, no clubbing or edema. Neurovascularly intact NEUROLOGICAL: Alert and oriented x4.Normal gait and speech. Cranial nerves II through XII grossly intact. [employer] strength equal bilaterally sensation intact but decreased in his left lower extremity which is baseline for SKIN: Warm, dry, no laceration, no petechiae, no rashes or lesions. No vesicles noted on left side of face Course Orders Ordered: ED Orders 09/27/20 11:35 Complete Blood Count AUTO DIFF Stat Comprehensive Metabolic Panel Stat Lipase Stat Partial Thromboplastin Time Stat Prothrombin Time INR Stat Troponin & CK Cardiac Panel Stat 09/27/20 11:37 XR chest 1V Stat EKG-12 Lead Stat Vital Signs Vital signs: Vital Signs - 8 hr 09/27/20 11:28 09/27/20 11:32 09/27/20 11:33 Temperature 98.2 F Pulse Rate 89 81 77 Respiratory Rate 15 20 19 Blood Pressure 211/110 H 211/110 H Pulse Oximetry 99 98 98 09/27/20 12:00 09/27/20 12:30 09/27/20 13:00 Temperature Pulse Rate 73 69 74 Respiratory Rate 21 18 26 H Blood Pressure 162/90 H 165/94 H Pulse Oximetry 96 96 96 09/27/20 13:01 09/27/20 13:06 09/27/20 13:29 Temperature Pulse Rate 77 70 69 Respiratory Rate 22 21 16 Blood Pressure 105/73 192/107 H Pulse Oximetry 95 97 96 09/27/20 13:30 Temperature Pulse Rate Respiratory Rate Blood Pressure 139/93 H Pulse Oximetry Medical Decision Making Lab Data Lab results reviewed: Yes I reviewed the patient's lab results. Result diagrams: 09/27/20 11:35 09/27/20 11:35 Labs: Lab Results 09/27/20 09/27/20 09/27/20 Range/Units 11:35 11:35 11:35 WBC 6.4 (4.5-11.0) X10^3/uL RBC 4.72 (4.5-5.9) X10^6/uL Hgb 15.3 (13.5-17.5) g/dL Hct 45.7 (41-53) % MCV 97.0 (80-100) fL MCH 32.4 (26-34) PG MCHC 33.4 (30-36) % RDW 14.0 (11.6-14.8) % Plt Count 261 (150-400) X10^3/uL Neut % (Auto) 58.0 (50-75) % Lymph % (Auto) 27.2 (25-40) % [place] % (Auto) 10.0 (3-14) % Eos % (Auto) 4.2 H (2-4) % Baso % (Auto) 0.6 (0-2) % Neut # (Auto) 3700 (8449-5842) /uL Lymph # (Auto) 1800 (4231-2270) /uL [place] # (Auto) 600 (0-900) /uL Eos # (Auto) 300 (0-450) /uL Baso # (Auto) 0 (0-100) /uL PT 11.1 (10.1-12.7) SECONDS INR 1.0 (0.9-1.3) APTT 30 (26.4-36.2) SECONDS Sodium 138 (137-145) mmol/L Potassium 4.3 (3.4-5.1) mmol/L Chloride 103 (98-107) mmol/L Carbon Dioxide 29 (22-32) mmol/L BUN 16 (9-20) mg/dL Creatinine 0.88 (0.66-1.25) mg/dL Estimated GFR > 60.0 (>60) mL/min BUN/Creatinine Ratio 18.2 (6-22) Glucose 114 H (80-110) mg/dL Calcium 9.2 (8.4-10.2) mg/dL Total Bilirubin 0.7 (0.2-1.3) mg/dL AST 38 (17-59) IU/L ALT 48 (<50) IU/L Alkaline Phosphatase 73 (38-126) U/L Total Creatine Kinase 236 H (55-170) U/L CK-MB (CK-2) 1.84 (<2.37) ng/mL CK-MB (CK-2) Rel Index 0.8 L (1.5-5.0) % Troponin I < 0.012 (0.01-0.034) ng/mL Total Protein 7.7 (6.3-8.2) g/dL Albumin 4.5 (3.5-5.0) g/dL Globulin 3.2 (1.7-4.1) g/dL Albumin/Globulin Ratio 1.4 (1.0-2.8) Lipase 61 (23-300) U/L Imaging Data Chest x-ray: Radiologist's Impression: PROCEDURE: XR CHEST 1V INDICATIONS: chest pain TECHNIQUE: One view of the chest was acquired. COMPARISON: None. FINDINGS: Surgical changes and devices: None. Lungs and pleura: On this semiupright portable chest examination, no large pneumothorax or large pleural effusions are seen. No focal infiltrates are seen. Mediastinum: The cardiac contours are within normal limits. The aorta demonstrates calcification and tortuosity. Bones and chest wall: Age-appropriate bony degenerative changes are seen. No suspicious bony lesions. Overlying soft tissues appear unremarkable. IMPRESSION: Portable chest within normal limits for age. Dictated by: Rhett Hernandez M.D. on 09/27/2020 at 11:14 Approved by: Rhett Hernandez M.D. on 09/27/2020 at 11:14 ECG Data Attestation: I personally reviewed and interpreted this ECG as follows: Prior ECG tracings: not available for review Interpretation: Sinus rhythm rate 76 p.r. interval 157 QRS 113 QTC 421 artifact noted difficult to determine significant ST changes MDM Narrative Medical decision making narrative: Patient's blood pressure has improved significantly without any intervention. He has no sign of end-organ damage. Signs and symptoms of his radiculopathy seems to be chronic he clearly has reasons to have cervical radiculopathy according to the MRI. Other possibility includes shingles but I do not see any rash or clustered vesicles. At this time I recommend monitoring blood pressure daily and recording and following up with PCP. Discharge Plan Departure Patient Disposition: Home Clinical Impression: Cervical radiculopathy Discharge Date/Time: 09/27/20 13:54 Instructions: DI for High Blood Pressure, DI for Cervical Radiculopathy Activity Restrictions/Additional Instructions: *You have been diagnosed with cervical radiculopathy *What to do: Your blood pressure has decreased while in the emergency department. I recommend that you continue to monitor your blood pressure her recommend checking at the same time every day and then following up with her PCP. At this time I will not be starting you on blood pressure medications because they did not indicate *Continue to take medications as directed *Follow up with your primary care provider in 2-3 days *Return to ER if you should have headache, chest pain, weakness, persistent nausea or worsening pain or any new, worsening or concerning symptoms Prescriptions: No Action propranolol 60 mg capsule,extended release 24 hr 60 mg PO DAILY Qty: 90 RF: 3 bupropion HCl 150 mg tablet extended release 24 hr 150 mg PO QAM Qty: 90 RF: 3 escitalopram oxalate 20 mg tablet 20 mg PO DAILY Qty: 90 RF: 3 celecoxib 200 mg capsule See Rx Instructions .ROUTE .COMPLEX Qty: 30 RF: 2 atorvastatin 80 mg tablet See Rx Instructions .ROUTE .COMPLEX Qty: 90 RF: 0 omeprazole 20 mg capsule,delayed release(DR/EC) 20 mg PO DAILY RF: 0 testosterone cypionate 100 mg/mL oil 100 mg IM Q2W Qty: 10 RF: 5 diclofenac sodium 1 % gel 2 g TOP QID PRN (Reason: arthritis pain) RF: 0 propranolol 20 mg tablet 25 mg PO QMONTH PRNRF: 0 fluticasone intranasal BEDTIME RF: 0 acetaminophen 500 mg capsule 1,000 mg PO BID PRN (Reason: pain) RF: 0 ascorbate calcium (vitamin C) 500 mg tablet 500 mg PO BID RF: 0 cholecalciferol (vitamin D3) 50 mcg (2,000 unit) capsule 50 mcg PO BID RF: 0 cyclobenzaprine 10 mg tablet 10 mg PO BID PRN (Reason: muscle spasm) Qty: 60 RF: 1 Referrals: Agnieszka Barrientos ARNP [Primary Care Provider] -
== END 2020-09-27 13:54 | disposition home or self-care (01) ==
PROVIDERS: Emergency Provider Emergency Medicine; PCP Nurse Practitioner
DX: M54.12 Radiculopathy, cervical region (principal); I10 Essential (primary) hypertension; R07.9 Chest pain, unspecified
CPT/HCPCS: 36415; 71045; 80053; 82550; 82553; 83690; 84484; 85025; 85610; 85730; 93005; 93010; 99284

== ENCOUNTER → 2020-11-27 09:09 | Outpatient (CLI) | payer MEDICARE, OTHER, SELFPAY ==
[2020-11-27 09:34] LABS: Add Manual Diff / Slide Review NO; Basophils Absolute Auto 0 /uL (0-100); Eosinophils Absolute Auto 300 /uL (0-450); Eosinophils Percent Auto 5.2 % (2-4); Hematocrit 41.7 % (41-53); Hemoglobin 14.1 g/dL (13.5-17.5); Lymphocytes Absolute Auto 1800 /uL (1100-4500); Lymphocytes Percent Auto 37.2 % (25-40); Mean Corpuscular HGB Conc 33.7 % (30-36); Mean Corpuscular Hemoglobin 33.3 PG (26-34); Mean Corpuscular Volume 98.6 fL (80-100); Monocytes Absolute Auto 500 /uL (0-900); Monocytes Percent Auto 10.3 % (3-14); Neutrophils Absolute Auto 2300 /uL (1500-7000); Neutrophils Percent Auto 46.3 % (50-75); Platelet Count 202 X10^3/uL (150-400); Red Blood Cell Count 4.24 X10^6/uL (4.5-5.9); Red Cell Distribution Width 13.9 % (11.6-14.8); White Blood Cell Count 4.9 X10^3/uL (4.5-11.0)
[2020-11-27 10:19] LABS: Cholesterol 171 mg/dL (140-199); Glucose 99 mg/dL (80-110); HDL Cholesterol 54 mg/dL (40-60); LDL Cholesterol Calculated 90 mg/dL (<100); Triglycerides 136 mg/dL (35-150)
[2020-11-27 13:11] LABS: Free T4, Direct Thyroxine 0.74 ng/dL (0.78-2.19)
[2020-11-27 13:25] LABS: Thyroid Stimulating Hormone 2.83 uIU/mL (0.47-4.68)
[2020-12-06 23:45] LABS: Percent Free Testosterone 3.15 % (1.50-4.20); Testosterone Free 4.47 ng/dL (5.00-21.00); Testosterone Total 141.9 ng/dL (264.0-916.0)
== END ==
PROVIDERS: PCP Nurse Practitioner; Referring Provider Nurse Practitioner; Visit Provider Nurse Practitioner
DX: E78.5 Hyperlipidemia, unspecified (principal); I10 Essential (primary) hypertension; E29.1 Testicular hypofunction; F32.9 Major depressive disorder, single episode, unspecified; R53.83 Other fatigue; T78.40XA Allergy, unspecified, initial encounter; D64.9 Anemia, unspecified; F41.9 Anxiety disorder, unspecified
CPT/HCPCS: 36415; 80061; 82947; 84402; 84403; 84439; 84443; 84481; 85025

== ENCOUNTER → 2021-03-17 08:13 | Outpatient (CLI) | payer MEDICARE, OTHER, SELFPAY ==
[2021-03-18 18:36] LABS: Testosterone, Free 12.7 pg/mL (6.6-18.1)
== END ==
PROVIDERS: PCP Nurse Practitioner; Referring Provider Nurse Practitioner; Visit Provider Nurse Practitioner
DX: E29.1 Testicular hypofunction (principal); R79.89 Other specified abnormal findings of blood chemistry
CPT/HCPCS: 36415; 84402

== ENCOUNTER → 2021-09-30 10:52 | Outpatient (CLI) | payer MEDICARE, OTHER, SELFPAY ==
[2021-09-30 12:14] LABS: Add Manual Diff / Slide Review NO; Basophils Absolute Auto 0 /uL (0-100); Basophils Percent Auto 0.5 % (0-2); Eosinophils Absolute Auto 200 /uL (0-450); Eosinophils Percent Auto 5.1 % (2-4); Hematocrit 42.1 % (41-53); Hemoglobin 14.3 g/dL (13.5-17.5); Lymphocytes Absolute Auto 1300 /uL (1100-4500); Lymphocytes Percent Auto 27.6 % (25-40); Mean Corpuscular Hemoglobin 33.6 PG (26-34); Mean Corpuscular Volume 98.7 fL (80-100); Monocytes Absolute Auto 400 /uL (0-900); Neutrophils Absolute Auto 2600 /uL (1500-7000); Neutrophils Percent Auto 57.8 % (50-75); Platelet Count 212 X10^3/uL (150-400); Red Blood Cell Count 4.27 X10^6/uL (4.5-5.9); Red Cell Distribution Width 13.2 % (11.6-14.8); White Blood Cell Count 4.5 X10^3/uL (4.5-11.0)
[2021-09-30 13:18] LABS: Alanine Aminotransferase 32 IU/L (<50); Albumin 4.2 g/dL (3.5-5.0); Albumin Globulin Ratio 1.7 (1.0-2.8); Alkaline Phosphatase 55 U/L (38-126); Aspartate Aminotransferase 32 IU/L (17-59); BUN Creatinine Ratio 19.8 (6-22); Bilirubin Total 0.8 mg/dL (0.2-1.3); Blood Urea Nitrogen 18 mg/dL (9-20); Calcium 9.1 mg/dL (8.4-10.2); Carbon Dioxide 30 mmol/L (22-32); Chloride 99 mmol/L (98-107); Cholesterol 151 mg/dL (140-199); Estimated Glomerular Filt Rate > 60.0 mL/min (>60); Globulin 2.5 g/dL (1.7-4.1); Glucose 117 mg/dL (80-110); HDL Cholesterol 56 mg/dL (40-60); HEMOLYSIS < 15 (0-50); LDL Cholesterol Calculated 70 mg/dL (<100); Potassium 4.5 mmol/L (3.4-5.1); Sodium 136 mmol/L (137-145); Total Protein 6.7 g/dL (6.3-8.2); Triglycerides 125 mg/dL (35-150)
[2021-09-30 13:46] LABS: TSH w/ Reflex to FT4 1.49 uIU/mL (0.47-4.68)
[2021-09-30 13:49] LABS: Prostate Specific Antigen 1.03 ng/mL (0.10-4.00)
[2021-09-30 15:14] LABS: Creatinine Urine Random 234.9 mg/dL
[2021-09-30 15:17] LABS: Microalbumi Creatinin Ratio Ur 6.3 ug/mg CR (<30); Microalbumin Urine Random 1.5 mg/dL (0-1.6)
[2021-10-06 09:36] LABS: Testosterone % Fr + Wkly bound 11.5 % (9.0-46.0); Testosterone Fr+Wkly bound 74.6 ng/dL (40.0-250.0); Testosterone, Total 648.9 ng/dL (264.0-916.0)
== END ==
PROVIDERS: PCP Nurse Practitioner; Referring Provider Nurse Practitioner; Visit Provider Nurse Practitioner
DX: E29.1 Testicular hypofunction (principal); E78.2 Mixed hyperlipidemia; F32.9 Major depressive disorder, single episode, unspecified; F41.9 Anxiety disorder, unspecified; R53.83 Other fatigue; R79.89 Other specified abnormal findings of blood chemistry; Z79.899 Other long term (current) drug therapy
CPT/HCPCS: 36415; 80053; 80061; 82043; 82570; 84153; 84403; 84443; 85025

== ENCOUNTER → 2021-10-08 10:28 | Outpatient (CLI) | payer MEDICARE, OTHER, SELFPAY | PROVIDERS: PCP Nurse Practitioner; Referring Provider Nurse Practitioner; Visit Provider Nurse Practitioner | DX: E29.1 Testicular hypofunction; Z79.899 Other long term (current) drug therapy; Z87.891 Personal history of nicotine dependence; R29.890 Loss of height | CPT/HCPCS: 77080 ==

== ENCOUNTER 2021-11-11 15:20 | Emergency (ER) | payer MEDICARE, OTHER, SELFPAY ==
[2021-11-11 15:25] VITALS: BP 156/81; PULSE 62; RESP 15; TEMP 36.7; O2SAT 99; BMI 31.5
--- NOTE | 2021-11-11 15:35 | DI.CT.S_ITS ---
PROCEDURE: CT HEAD/BRAIN WO CON INDICATIONS: facial droop. not TPA candidate, sx started 2 weeks ago TECHNIQUE: Noncontrast 4.5 mm thick angled axial sections acquired from the foramen magnum to the vertex, with coronal and sagittal reformats. For radiation dose reduction, the following was used: automated exposure control, adjustment of mA and/or kV according to patient size. COMPARISON: None. FINDINGS: Image quality: Excellent. CSF spaces: Basal cisterns are patent. No extra-axial fluid collections. The ventricles are symmetric in size and shape. Brain: No intracranial bleeds or masses. There is cerebral volume loss for age, with resultant ventricular and sulcal prominence. There are periventricular and deep white matter chronic small vessel ischemic changes. There is intracranial internal carotid artery atherosclerosis. Skull and face: Calvarium and visualized facial bones appear intact, without suspicious lesions. Sinuses: Visualized sinuses and mastoids are clear. IMPRESSION: No acute finding. Dictated by: Brayan Clark M.D. on 11/11/2021 at 15:57 Approved by: Brayan Clark M.D. on 11/11/2021 at 15:57
[2021-11-11 16:38] VITALS: BP 151/86; PULSE 64; TEMP 36.8; O2SAT 97
--- NOTE | 2021-11-11 17:05 | ED_ITS ---
HPI - Neuro Symptoms/Deficit General Chief Complaint: Neuro Symptoms/Deficit Stated Complaint: fever, tremer, numbness face & hand Time Seen by Provider: 11/11/21 16:41 Source: patient Mode of arrival: Ambulatory History of Present Illness HPI Narrative: Patient is a 76-year-old male. Does have an essential tremor. Takes 2 medications for this. Has been taking them as directed. Does see a neurologist. 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 He feels like the symptoms have improved somewhat since the onset but is not completely back to normal again. He can now make sound out of the trunk but but cannot get specific notes. He is also complaining of his right hand feeling cold. Also some tingling in his right hand. He contacted his neurologist who could get in to see him until December so he contacted his primary doctor who instructed him to come to the emergency department for evaluation. He denies chest pain cough. No shortness of breath. No headache. No vision changes. He does have balance issues but this is not necessarily new for him. He does have left lower extremity swelling that is not new for him. On Anticoagulants: No Related Data Home Medications Medication Instructions Recorded Confirmed omeprazole 20 mg capsule,delayed 20 mg PO DAILY 09/29/19 03/06/21 release fluticasone INTRANASAL BEDTIME 11/08/19 03/06/21 ascorbate calcium (vitamin C) 500 500 mg PO BID 04/15/20 03/06/21 mg tablet cholecalciferol (vitamin D3) 50 50 mcg PO BID cap 04/15/20 03/06/21 mcg (2,000 unit) capsule acetaminophen 500 mg capsule 1,000 mg PO BID PRN cap 06/11/20 03/06/21 naproxen sodium 220 mg capsule 440 mg PO .QHS PRN cap 10/03/20 03/06/21 (Aleve) alprazolam 0.5 mg tablet 0.5 mg PO DAILY 09/04/21 09/04/21 duloxetine 20 mg capsule,delayed 20 mg PO BID 10/09/21 10/09/21 release Previous Rx's Medication Instructions Recorded duloxetine 40 mg capsule,delayed 40 mg PO BID #180 cap 09/04/21 release atorvastatin 80 mg tablet See Rx Instructions .ROUTE 10/09/21 .COMPLEX #90 tab naltrexone 50 mg tablet 25 mg PO BID #90 tab 10/09/21 primidone 50 mg tablet 50 mg PO BEDTIME #90 tab 10/09/21 propranolol 60 mg capsule,24 60 mg PO DAILY #90 cap 10/09/21 hr,extended release testosterone cypionate 200 mg/mL 100 mg (0.5 mL) IM Q2W #10 ml 10/09/21 intramuscular oil Allergies Allergy/AdvReac Type Severity Reaction Status Date / Time No Known Drug Allergies Allergy Verified 11/11/21 15:25 Review of Systems Constitutional Constitutional: Denies fever(s) and Denies headache(s) Eyes Eyes: Reports system reviewed and no additional complaints, except as documented ENT Ears, Nose, Mouth, and Throat: Denies vertigo, Denies dizziness and Denies headache(s) Cardiovascular Cardiovascular: Reports system reviewed and no additional complaints, except as documented Respiratory Respiratory: Reports system reviewed and no additional complaints, except as documented Gastrointestinal Gastrointestinal: Reports system reviewed and no additional complaints, except as documented Musculoskeletal Musculoskeletal: Reports tingling Integumentary/Breasts Skin/Breast: Reports system reviewed and no additional complaints, except as documented Neurologic Neurologic: Reports system reviewed and no additional complaints, except as documented, Reports as per HPI, Denies confusion, Denies vertigo, Denies dizziness, Denies headache(s), Reports lack of coordination and Reports tingling Psychiatric Psychiatric: Denies confusion Hematologic/Lymphatic On Anticoagulants: No Allergic/Immunologic Allergic/Immunologic: Reports system reviewed and no additional complaints, except as documented Patient History Medical History Advanced age Allergies (~1959) Anemia (~2009) Anxiety (~2006) Folres's syndrome (~2004) BPH (benign prostatic hyperplasia) Cervical spine disease (~1994) Cervical spondylosis with radiculopathy Cervical stenosis of spinal canal Cervicalgia Chicken pox (~1957) Chronic pain Complaint of paresthesia Counseling regarding advanced care planning and goals of care Depression (~2006) Disorder of lumbar spine (~1997) Facet arthropathy, cervical Fatigue Foot pain (~2005) Foraminal stenosis of cervical region Hearing loss (~2016) Hyperlipidemia Hypogonadism Hypogonadism in male Intention tremor Low testosterone (~2017) Mumps (~1958) Obstructive sleep apnea syndrome Osteoarthritis (~2004) Other fpc (current) drug therapy Peripheral neuropathy (~2015) Wears hearing aid in both ears Surgical History Anesthesia History of discectomy (~1997) History of shoulder surgery (~2016) History of spinal fusion (~1978) Family History Father History of heart disease Hyperlipidemia Loud snoring Hypertension Mother Non Hodgkin's lymphoma Grandfather Stroke Grandmother History of heart disease Social History marital status: household members: spouse ( to Jeaneth) lives independently: Yes caregiver/support person: No housing: house pets and animals: Yes (2 dogs; bridges, and a goldendoodle) education level: master's degree 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 Smoking Status: Former smoker Smoking Status: Former smoker alcohol intake frequency: 3 or more drinks per day Alcohol type: beer Substance Use Type: marijuana Exam Initial Vital Signs Initial Vital Signs: Vital Signs Temperature 98.0 F 11/11/21 15:25 Pulse Rate 62 11/11/21 15:25 Respiratory Rate 15 11/11/21 15:25 Blood Pressure 156/81 H 11/11/21 15:25 Pulse Oximetry 99 11/11/21 15:25 Const General: cooperative, healthy appearing, comfortable and well developed [facility] Head: normal to inspection and normocephalic Nose: external nose normal Face and sinus: normal facial exam and face symmetric Mouth: lip normal, tongue normal and moist mucous membranes Teeth and gingiva: dentition normal Eyes General: appearance normal, both eyes and all related structures Resp Effort & Inspection: normal respiratory effort Auscultation: clear to auscultation bilaterally Cardio Rate: regular rate Rhythm: regular rhythm Skin General: no rashes or lesions noted Neuro General: patient alert, patient awake and moves all extremities Cranial Nerves: CN's II-XI intact bilaterally Cognition: normal cognition Speech: speech normal Motor: muscle tone normal throughout Other: Cranial nerves are intact. He has subjective tingling to around his mouth and to his right hand. Extrem General: normal to inspection and capillary refill normal Psych Appearance: grossly normal and well kempt Mood: congruent mood Affect: normal affect Scores NIH Stroke Scale Level of Conciousness: Alert, keenly responsive Ask month/age: Answers both questions correctly. Open/close eyes, close hand: Performs both tasks correctly Best gaze horizontal: Normal Visual gonzalez: No visual loss Facial palsy: Normal symetrical movement Left arm drift: No drift for full 10 sec Right arm drift: No drift for full 10 sec Left leg drift: No drift for full 5 sec Right leg drift: No drift for full 5 sec Limb ataxia: Absent Sensory on face/arms/legs: Mild to moderate sensory loss, can tell touch Best language: No aphasia, normal Dysarthria: Normal Extinction or inattention: No abnormality Total NIH Stroke scale score: 1 Course Orders Ordered: ED Orders 11/11/21 15:35 CT head/brain wo con Stat 11/11/21 17:31 Complete Blood Count AUTO DIFF Stat Comprehensive Metabolic Panel Stat Magnesium Stat Phosphorous Stat Vital Signs Vital signs: Vital Signs - 8 hr 11/11/21 15:25 11/11/21 16:38 Temperature 98.0 F 98.3 F Pulse Rate 62 64 Respiratory Rate 15 Blood Pressure 156/81 H 151/86 H Pulse Oximetry 99 97 MDM - Neuro Symptoms/Deficit Lab Data Attestation: I reviewed the patient's lab results. Result diagrams: 11/11/21 17:31 11/11/21 17:31 Labs: Lab Results 11/11/21 11/11/21 Range/Units 17:31 17:31 WBC 5.7 (4.5-11.0) X10^3/uL RBC 4.31 L (4.5-5.9) X10^6/uL Hgb 14.7 (13.5-17.5) g/dL Hct 42.8 (41-53) % MCV 99.2 (80-100) fL MCH 34.0 (26-34) PG MCHC 34.3 (30-36) % RDW 13.3 (11.6-14.8) % Plt Count 247 (150-400) X10^3/uL Neut % (Auto) 52.5 (50-75) % Lymph % (Auto) 29.6 (25-40) % Millard % (Auto) 11.8 (3-14) % Eos % (Auto) 5.2 H (2-4) % Baso % (Auto) 0.9 (0-2) % Neut # (Auto) 3000 (8078-2355) /uL Lymph # (Auto) 1700 (9910-3949) /uL Millard # (Auto) 700 (0-900) /uL Eos # (Auto) 300 (0-450) /uL Baso # (Auto) 100 (0-100) /uL Sodium 139 (137-145) mmol/L Potassium 4.2 (3.4-5.1) mmol/L Chloride 102 (98-107) mmol/L Carbon Dioxide 35 H (22-32) mmol/L BUN 19 (9-20) mg/dL Creatinine 1.05 (0.66-1.25) mg/dL Estimated GFR > 60.0 (>60) mL/min BUN/Creatinine Ratio 18.1 (6-22) Glucose 120 H (80-110) mg/dL Calcium 9.3 (8.4-10.2) mg/dL Phosphorus 2.7 (2.3-3.7) mg/dL Magnesium 2.1 (1.6-2.3) mg/dL Total Bilirubin 0.6 (0.2-1.3) mg/dL AST 36 (17-59) IU/L ALT 30 (<50) IU/L Alkaline Phosphatase 59 (38-126) U/L Total Protein 7.6 (6.3-8.2) g/dL Albumin 4.5 (3.5-5.0) g/dL Globulin 3.1 (1.7-4.1) g/dL Albumin/Globulin Ratio 1.5 (1.0-2.8) Point of Care Testing Glucose POC [address] scan - head: Radiologist's Impression: [address] [address] [address] Scan Report Signed Patient: Joel Matson MR#: [id number] : 1945 Acct:[id number] Age/Sex: 76 / M Date of Service: 11/11/21 Loc: ED Accession Number: [id number] ?? Procedure: CT head/brain wo con Ordering Provider: Jerry Ward D.O. PROCEDURE:? CT HEAD/BRAIN WO CON ? INDICATIONS:? facial droop. not TPA candidate, sx started 2 weeks ago ? TECHNIQUE:? Noncontrast 4.5 mm thick angled axial sections acquired from the foramen magnum to the vertex, with coronal and sagittal reformats.? For radiation dose reduction, the following was used:? automated exposure control, adjustment of mA and/or kV according to patient size.? ? COMPARISON:? None. ? FINDINGS:? Image quality:? Excellent.? ? CSF spaces:? Basal cisterns are patent.? No extra-axial fluid collections.? The ventricles are symmetric in size and shape.? ? Brain:? No intracranial bleeds or masses.? There is cerebral volume loss for age, with resultant ventricular and sulcal prominence.? There are periventricular and deep white matter chronic small vessel ischemic changes.? There is intracranial internal carotid artery atherosclerosis.? ? Skull and face:? Calvarium and visualized facial bones appear intact, without suspicious lesions.? ? Sinuses:? Visualized sinuses and mastoids are clear.? ? IMPRESSION:? No acute finding. ? ? Dictated by: Brayan Clark M.D. on 11/11/2021 at 15:57 ? ? Approved by: Brayan Clark M.D. on 11/11/2021 at 15:57?? MDM Narrative Medical decision making narrative: Patient has subjective findings with tingling around his mouth and also to the back of his right hand. I suspect that if it was not for the fact that he plays the trumpet he would not have even noticed his symptoms that brought him in today. He is being treated for essential tremor and this potentially could be just worsening of that. I have low suspicion for CVA. Low suspicion for TIA. His electrolytes are unremarkable. Will have him increase his propranolol to see if this does not help his symptoms. He states that there has never been any discussion about other diagnoses such as Parkinson's disease. He did have some movements here in the emergency department that make me somewhat suspicious for this however I did inform him that he does need to continue to follow-up with his neurologist. He was given return precautions. He expressed understanding and agreement. Discharge Plan Departure Patient Disposition: Home Clinical Impression: Facial paresthesia, Hand paresthesia Instructions: DI for Numbness/Tingling Activity Restrictions/Additional Instructions: I do recommend that you increase your propanolol to 90 mg a day. Continue the rest your medications as directed. Contact your primary doctor and also your neurologist for follow-up. Return to the emergency department for any new or worsening symptoms. Prescriptions: No Action naproxen sodium [Aleve] 220 mg capsule 440 mg PO .QHS PRN0RF duloxetine 20 mg capsule,delayed release(DR/EC) 20 mg PO BID 0RF Rx Instructions: Take 1 capsule along with 40mg cap for total of 60mg twice per day. atorvastatin 80 mg tablet See Rx Instructions .ROUTE .COMPLEX Qty: 90 3RF Dose Instruction: take 1 tablet by mouth each evening for cholesterol management Rx Instructions: take 1 tablet by mouth each evening for cholesterol management naltrexone 50 mg tablet 25 mg PO BID Qty: 90 3RF Rx Instructions: Take 1/2 tablet daily primidone 50 mg tablet 50 mg PO BEDTIME Qty: 90 3RF propranolol 60 mg capsule,extended release 24 hr 60 mg PO DAILY Qty: 90 3RF testosterone cypionate 200 mg/mL oil 100 mg IM Q2W Qty: 10 3RF omeprazole 20 mg capsule,delayed release(DR/EC) 20 mg PO DAILY 0RF duloxetine 40 mg capsule,delayed release(DR/EC) 40 mg PO BID Qty: 180 3RF Rx Instructions: Take 1 capsule twice per day for depression alprazolam 0.5 mg tablet 0.5 mg PO DAILY 0RF fluticasone intranasal BEDTIME 0RF acetaminophen 500 mg capsule 1,000 mg PO BID PRN (Reason: pain) 0RF ascorbate calcium (vitamin C) 500 mg tablet 500 mg PO BID 0RF cholecalciferol (vitamin D3) 50 mcg (2,000 unit) capsule 50 mcg PO BID 0RF Referrals: Agnieszka Barrientos ARNP [Primary Care Provider] -
--- NOTE | 2021-11-11 17:21 | PC.NURSE ---
1630: in to speak with pt. pt taking a phone call.
--- NOTE | 2021-11-11 17:25 | PC.NURSE ---
pt out to RN station to let RN know hes off the phone and ready for his blood draw.
[2021-11-11 17:53] LABS: Alanine Aminotransferase 30 IU/L (<50); Albumin 4.5 g/dL (3.5-5.0); Albumin Globulin Ratio 1.5 (1.0-2.8); Alkaline Phosphatase 59 U/L (38-126); Aspartate Aminotransferase 36 IU/L (17-59); BUN Creatinine Ratio 18.1 (6-22); Bilirubin Total 0.6 mg/dL (0.2-1.3); Blood Urea Nitrogen 19 mg/dL (9-20); Calcium 9.3 mg/dL (8.4-10.2); Carbon Dioxide 35 mmol/L (22-32); Chloride 102 mmol/L (98-107); Estimated Glomerular Filt Rate > 60.0 mL/min (>60); Globulin 3.1 g/dL (1.7-4.1); Glucose 120 mg/dL (80-110); HEMOLYSIS < 15 (0-50); Magnesium 2.1 mg/dL (1.6-2.3); Phosphorous 2.7 mg/dL (2.3-3.7); Potassium 4.2 mmol/L (3.4-5.1); Sodium 139 mmol/L (137-145); Total Protein 7.6 g/dL (6.3-8.2)
[2021-11-11 17:56] LABS: Add Manual Diff / Slide Review NO; Basophils Absolute Auto 100 /uL (0-100); Basophils Percent Auto 0.9 % (0-2); Eosinophils Absolute Auto 300 /uL (0-450); Eosinophils Percent Auto 5.2 % (2-4); Hematocrit 42.8 % (41-53); Hemoglobin 14.7 g/dL (13.5-17.5); Lymphocytes Absolute Auto 1700 /uL (1100-4500); Lymphocytes Percent Auto 29.6 % (25-40); Mean Corpuscular HGB Conc 34.3 % (30-36); Mean Corpuscular Volume 99.2 fL (80-100); Monocytes Absolute Auto 700 /uL (0-900); Monocytes Percent Auto 11.8 % (3-14); Neutrophils Absolute Auto 3000 /uL (1500-7000); Neutrophils Percent Auto 52.5 % (50-75); Platelet Count 247 X10^3/uL (150-400); Red Blood Cell Count 4.31 X10^6/uL (4.5-5.9); Red Cell Distribution Width 13.3 % (11.6-14.8); White Blood Cell Count 5.7 X10^3/uL (4.5-11.0)
[2021-11-11 18:49] VITALS: BP 148/78; PULSE 66; RESP 16; O2SAT 97
== END 2021-11-11 18:50 | disposition home or self-care (01) ==
PROVIDERS: Emergency Provider Emergency Medicine; PCP Nurse Practitioner; Referring Provider Nurse Practitioner
DX: R20.2 Paresthesia of skin (principal); Z87.891 Personal history of nicotine dependence
CPT/HCPCS: 36415; 70450; 80053; 82962; 83735; 84100; 85025; 99283; 99284

== ENCOUNTER → 2022-03-16 08:57 | Outpatient (CLI) | payer MEDICARE, OTHER, SELFPAY ==
[2022-03-26 10:48] LABS: Testosterone % Fr + Wkly bound 34.4 % (9.0-46.0); Testosterone Fr+Wkly bound 494.9 ng/dL (40.0-250.0); Testosterone, Total 1438.6 ng/dL (264.0-916.0)
== END ==
PROVIDERS: PCP Nurse Practitioner; Referring Provider Nurse Practitioner; Visit Provider Nurse Practitioner
DX: E29.1 Testicular hypofunction (principal); R79.89 Other specified abnormal findings of blood chemistry
CPT/HCPCS: 36415; 84403

== ENCOUNTER → 2022-03-26 08:10 | Outpatient (CLI) | payer MEDICARE, OTHER, SELFPAY ==
[2022-03-26 08:55] LABS: Add Manual Diff / Slide Review NO; Basophils Absolute Auto 0 /uL (0-100); Basophils Percent Auto 0.5 % (0-2); Eosinophils Absolute Auto 200 /uL (0-450); Hemoglobin 14.6 g/dL (13.5-17.5); Lymphocytes Absolute Auto 1600 /uL (1100-4500); Lymphocytes Percent Auto 29.4 % (25-40); Mean Corpuscular HGB Conc 33.2 % (30-36); Mean Corpuscular Hemoglobin 32.5 PG (26-34); Mean Corpuscular Volume 98.1 fL (80-100); Monocytes Absolute Auto 600 /uL (0-900); Monocytes Percent Auto 11.5 % (3-14); Neutrophils Absolute Auto 3000 /uL (1500-7000); Neutrophils Percent Auto 54.6 % (50-75); Platelet Count 237 X10^3/uL (150-400); Red Blood Cell Count 4.48 X10^6/uL (4.5-5.9); Red Cell Distribution Width 14.1 % (11.6-14.8); White Blood Cell Count 5.4 X10^3/uL (4.5-11.0)
[2022-03-26 09:13] LABS: Alanine Aminotransferase 38 IU/L (<50); Albumin 4.3 g/dL (3.5-5.0); Albumin Globulin Ratio 1.5 (1.0-2.8); Alkaline Phosphatase 55 U/L (38-126); Aspartate Aminotransferase 37 IU/L (17-59); BUN Creatinine Ratio 15.6 (6-22); Bilirubin Total 0.7 mg/dL (0.2-1.3); Blood Urea Nitrogen 15 mg/dL (9-20); Calcium 8.6 mg/dL (8.4-10.2); Carbon Dioxide 34 mmol/L (22-32); Chloride 100 mmol/L (98-107); Estimated Glomerular Filt Rate > 60 mL/min (>60); Globulin 2.8 g/dL (1.7-4.1); Glucose 105 mg/dL (80-110); HEMOLYSIS 16 (0-50); Potassium 4.3 mmol/L (3.4-5.1); Sodium 138 mmol/L (137-145); Total Protein 7.1 g/dL (6.3-8.2)
== END ==
PROVIDERS: PCP Nurse Practitioner; Referring Provider Nurse Practitioner; Visit Provider Nurse Practitioner
DX: R53.83 Other fatigue (principal); R73.01 Impaired fasting glucose; Z79.899 Other long term (current) drug therapy
CPT/HCPCS: 36415; 80053; 85025

== ENCOUNTER → 2022-06-02 08:40 | Outpatient (CLI) | payer MEDICARE, OTHER, SELFPAY ==
[2022-06-06 14:47] LABS: Testosterone Free 4.39 ng/dL (5.00-21.00); Testosterone Total 258.4 ng/dL (264.0-916.0)
== END ==
PROVIDERS: PCP Nurse Practitioner; Referring Provider Nurse Practitioner; Visit Provider Nurse Practitioner
DX: Z79.899 Other long term (current) drug therapy (principal)
CPT/HCPCS: 36415; 84402; 84403

== ENCOUNTER → 2022-07-11 16:36 | Outpatient (CLI) | payer MEDICARE, OTHER, SELFPAY ==
--- NOTE | 2022-07-11 16:40 | DI.RAD.S_ITS ---
PROCEDURE: XR ACUTE ABDOMEN SERIES INDICATIONS: Constipation TECHNIQUE: One view chest and two views of the abdomen were acquired. COMPARISON: None. FINDINGS: Surgical changes and devices: Lumbosacral screws are seen. Chest: Lungs are clear. Heart size is normal. No pleural effusions. No pneumoperitoneum. Abdomen: Bowel gas pattern is normal. There is a moderate amount of stool seen within the colon. No suspicious calcifications. Visualized solid organ contours appear normal. Bones: No suspicious bony lesions. Age-appropriate bony degenerative changes are seen. S-shaped scoliotic curvature is seen. IMPRESSION: There is a moderate amount of stool seen within the colon, which is consistent with the given history of constipation. Postoperative and degenerative changes are seen. Dictated by: Rhett Hernandez M.D. on 07/11/2022 at 16:34 Approved by: Rhett Hernandez M.D. on 07/11/2022 at 16:35
== END ==
PROVIDERS: PCP Nurse Practitioner; Referring Provider Nurse Practitioner Family; Visit Provider Nurse Practitioner Family
DX: K59.00 Constipation, unspecified (principal)
CPT/HCPCS: 74022

== ENCOUNTER 2022-07-22 15:01 | Emergency (ER) | payer MEDICARE, OTHER, SELFPAY ==
[2022-07-22 15:06] VITALS: BP 181/97; PULSE 66; RESP 16; TEMP 36.2; O2SAT 100; BMI 31.5
--- NOTE | 2022-07-22 15:16 | DI.CT.S_ITS ---
PROCEDURE: CT ABDOMEN PELVIS WO CON INDICATIONS: pain no BM for 6 weeks TECHNIQUE: Noncontrast 5 mm thick sections acquired from the diaphragms to the symphysis. 5 mm coronal and sagittal reformats were then performed. For radiation dose reduction, the following was used: automated exposure control, adjustment of mA and/or kV according to patient size. COMPARISON: None. FINDINGS: Image quality: Excellent. ABDOMEN: Lung bases: Lung bases are clear. Heart size is normal. Solid organs: Liver is normal in size. Gallbladder is within normal limits . Pancreas is normal in contours. Spleen is normal in size. No adrenal nodules. Kidneys are normal in size, without hydronephrosis or nephrolithiasis. Peritoneum and bowel: Unenhanced bowel loops demonstrate normal wall thickness and caliber. Moderate diffuse colonic stool. No free fluid or air. Normal appendix. Nodes and vessels: No retroperitoneal or mesenteric adenopathy by size criteria. Aorta and inferior vena cava are normal in caliber. Miscellaneous: No ventral hernias. PELVIS: Genitourinary: Bladder wall thickness is normal. Miscellaneous: No inguinal hernias or adenopathy. Bones: No suspicious bony lesions. No vertebral body compression fractures. IMPRESSION: 1. No evidence of urinary tract calcification, nor obstruction. 2. Moderate diffuse colonic stool. 3. Normal appendix. Dictated by: Justin Crason M.D. on 07/22/2022 at 15:53 Approved by: Justin Carson M.D. on 07/22/2022 at 15:54
[2022-07-22 15:48] LABS: Add Manual Diff / Slide Review NO; Basophils Absolute Auto 0 /uL (0-100); Basophils Percent Auto 0.8 % (0-2); Eosinophils Absolute Auto 200 /uL (0-450); Eosinophils Percent Auto 2.6 % (2-4); Hematocrit 46.3 % (41-53); Hemoglobin 15.5 g/dL (13.5-17.5); Lymphocytes Absolute Auto 1700 /uL (1100-4500); Lymphocytes Percent Auto 28.6 % (25-40); Mean Corpuscular HGB Conc 33.5 % (30-36); Mean Corpuscular Hemoglobin 33.5 PG (26-34); Monocytes Absolute Auto 600 /uL (0-900); Monocytes Percent Auto 10.2 % (3-14); Neutrophils Absolute Auto 3500 /uL (1500-7000); Neutrophils Percent Auto 57.8 % (50-75); Platelet Count 234 X10^3/uL (150-400); Red Blood Cell Count 4.63 X10^6/uL (4.5-5.9); Red Cell Distribution Width 13.9 % (11.6-14.8)
[2022-07-22 15:53] LABS: Alanine Aminotransferase 31 IU/L (<50); Albumin 4.8 g/dL (3.5-5.0); Albumin Globulin Ratio 1.5 (1.0-2.8); Alkaline Phosphatase 72 U/L (38-126); Aspartate Aminotransferase 35 IU/L (17-59); BUN Creatinine Ratio 10.5 (6-22); Bilirubin Total 0.7 mg/dL (0.2-1.3); Blood Urea Nitrogen 9 mg/dL (9-20); Calcium 9.2 mg/dL (8.4-10.2); Carbon Dioxide 30 mmol/L (22-32); Chloride 99 mmol/L (98-107); Estimated Glomerular Filt Rate > 60 mL/min (>60); Globulin 3.2 g/dL (1.7-4.1); Glucose 99 mg/dL (80-110); HEMOLYSIS < 15 (0-50); Lipase 55 U/L (23-300); Potassium 4.2 mmol/L (3.4-5.1); Sodium 137 mmol/L (137-145)
[2022-07-22 17:21] VITALS: PULSE 69; O2SAT 100
[2022-07-22 17:22] VITALS: BP 187/90; PULSE 64; RESP 24; O2SAT 98
[2022-07-22 17:30] VITALS: BP 159/82; PULSE 64; RESP 12; O2SAT 100
[2022-07-22 18:00] VITALS: BP 137/82; PULSE 63; RESP 14; O2SAT 98
[2022-07-22 18:30] VITALS: BP 138/80; PULSE 63; RESP 12; O2SAT 97
--- NOTE | 2022-07-22 18:38 | ED.ABDPAIN ---
HPI - Abdominal Pain General Chief Complaint: Abdominal Pain Stated Complaint: Constipated/abd. pain Time Seen by Provider: 07/22/22 17:32 Mode of arrival: Family Vehicle History of Present Illness HPI narrative: Patient here with . Has been struggling with good bowel movements for the past 1 month. Has small amounts of stool at a time. He has taken [id number] oral laxatives without effect. He states he had a colonoscopy 2 years ago and was informed that there was no abnormalities. He states the bowel prep solution cleaned them out very well. He states he does eat vegetables, his does prepare good healthy meals however he admits very poor oral intake/water. His agrees with this. Complains of abdominal fullness but not pain. No back pain no urinary complaints. No numbness tingling or weakness. No recent cough cold congestion fever chills. Related Data Home Medications Medication Instructions Recorded Confirmed omeprazole 20 mg capsule,delayed 20 mg PO DAILY 09/29/19 07/11/22 release ascorbate calcium (vitamin C) 500 500 mg PO BID 04/15/20 07/11/22 mg tablet cholecalciferol (vitamin D3) 50 50 mcg PO BID 04/15/20 07/11/22 mcg (2,000 unit) capsule acetaminophen 500 mg capsule 1,000 mg PO BID PRN pain 06/11/20 07/11/22 naproxen sodium 220 mg capsule 440 mg PO .QHS PRN 10/03/20 07/11/22 (Aleve) alprazolam 0.5 mg tablet 0.5 mg PO DAILY 09/04/21 07/11/22 fluticasone intranasal BEDTIME PRN 05/05/22 07/11/22 Previous Rx's Medication Instructions Recorded atorvastatin 80 mg tablet See Rx Instructions .Route 10/09/21 .COMPLEX #90 tabs naltrexone 50 mg tablet 25 mg PO BID #90 tabs 10/09/21 propranolol 60 mg capsule,24 60 mg PO DAILY #90 caps 10/09/21 hr,extended release clonazepam 0.5 mg tablet 0.25 mg PO BID PRN spasms #30 tabs 01/06/22 duloxetine 20 mg capsule,delayed 40 mg PO BID 90 days #360 caps 03/24/22 release primidone 50 mg tablet 100 mg PO BEDTIME #180 tabs 03/25/22 bupropion HCl 150 mg 24 hr tablet, 300 mg PO QAM #180 tabs 06/04/22 extended release testosterone cypionate 200 mg/mL 200 mg IM Q2W #10 mL 06/09/22 intramuscular oil Allergies Allergy/AdvReac Type Severity Reaction Status Date / Time No Known Drug Allergies Allergy Verified 07/22/22 15:12 Review of Systems Review of Systems Narrative: GENERAL: Denies chills, fatigue, malaise, fever, sweats. HEENT: Denies sinus pain, ear pain, sore throat RESPIRATORY: Denies dyspnea, cough CARDIOVASCULAR: Denies chest pain, palpitations GASTROINTESTINAL: Denies nausea, vomiting, abdominal pain, positive for constipation : Denies dysuria, frequency, hematuria MUSCULOSKELETAL: denies muscle or bony pain SKIN: Denies rash, skin lesions NEUROLOGIC: Denies weakness, numbness ROS Unobtainable: All systems reviewed & are unremarkable except as noted in HPI and below Patient History Medical History Advanced age Allergies (~1959) Anemia (~2009) Anxiety (~2006) Flores's syndrome (~2004) BPH (benign prostatic hyperplasia) Cervical spine disease (~1994) Cervical spondylosis with radiculopathy Cervical stenosis of spinal canal Cervicalgia Chicken pox (~1957) Chronic pain Complaint of paresthesia Counseling regarding advanced care planning and goals of care Depression (~2006) Disorder of lumbar spine (~1997) Facet arthropathy, cervical Fatigue Foot pain (~2005) Foraminal stenosis of cervical region Hearing loss (~2016) Hyperlipidemia Hypogonadism Hypogonadism in male Intention tremor Low testosterone (~2017) Low testosterone in male Mumps (~1957) Obstructive sleep apnea syndrome Osteoarthritis (~2004) Other fpc (current) drug therapy Peripheral neuropathy (~2015) Wears hearing aid in both ears Surgical History Anesthesia History of discectomy (~1997) History of shoulder surgery (~2016) History of spinal fusion (~1978) Family History Father History of heart disease Hyperlipidemia Loud snoring Hypertension Mother Non Hodgkin's lymphoma Grandfather Stroke Grandmother History of heart disease Social History marital status: household members: spouse ( to Jeaneth) lives independently: Yes caregiver/support person: No housing: house pets and animals: Yes (2 dogs; bridges, and a goldendoodle) education level: master's degree 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 EYES: Pupils equal round No scleral icterus. ENT: Mucous membranes moist. NECK: Trachea midline. CARDIOVASCULAR: Regular rate and rhythm without murmurs RESPIRATORY: Clear to auscultation. Breath sounds equal bilaterally. No wheezes, rales, or rhonchi. GASTROINTESTINAL: Abdomen soft, non-tender, no peritoneal signs bowel sounds are present. No CVA tenderness EXTREMITIES: No gross deformities. BACK: No flank tenderness. NEURO: AOx4. SKIN: Warm and dry PSYCH: Not anxious, is cooperative Initial Vital Signs Initial Vital Signs: Vital Signs Temperature 97.2 F L 07/22/22 15:06 Pulse Rate 66 07/22/22 15:06 Respiratory Rate 16 07/22/22 15:06 Blood Pressure 181/97 H 07/22/22 15:06 Pulse Oximetry 100 07/22/22 15:06 Oxygen Delivery Method 07/22/22 15:06 Course Course Course Narrative: No new issues during course of stay Orders Ordered: Discontinued Medications Polyethylene Glycol/Electrolytes ([id number]/Sod Sulf,Bicarb,Cl/Kcl 4,000 Ml Solution) 4,000 ml PO NOW ONE Stop: 07/22/22 18:38 Reevaluation(s) Reevaluation #1: Reviewed with patient and results of blood work and imaging. They agree with treatment plan and agree with [facility] to take home. Return precautions reviewed with him Time: 18:42 Vital Signs Vital signs: Vital Signs - 8 hr 07/22/22 18:00 07/22/22 18:00 07/22/22 18:30 Pulse Rate 63 Respiratory Rate 14 Blood Pressure 137/82 138/80 Pulse Oximetry 98 07/22/22 18:30 Pulse Rate 63 Respiratory Rate 12 Blood Pressure Pulse Oximetry 97 MDM - Abdominal Pain Differential Diagnosis Differential diagnosis: Likely abdominal pain, acute appendicitis, calculus of kidney, constipation, diverticulitis and small bowel obstruction Lab Data Result diagrams: 07/22/22 15:25 07/22/22 15:25 Labs: Lab Results 07/22/22 07/22/22 Range/Units 15:25 15:25 WBC 6.0 (4.5-11.0) X10^3/uL RBC 4.63 (4.5-5.9) X10^6/uL Hgb 15.5 (13.5-17.5) g/dL Hct 46.3 (41-53) % MCV 100.0 (80-100) fL MCH 33.5 (26-34) PG MCHC 33.5 (30-36) % RDW 13.9 (11.6-14.8) % Plt Count 234 (150-400) X10^3/uL Neut % (Auto) 57.8 (50-75) % Lymph % (Auto) 28.6 (25-40) % [place] % (Auto) 10.2 (3-14) % Eos % (Auto) 2.6 (2-4) % Baso % (Auto) 0.8 (0-2) % Neut # (Auto) 3500 (2590-3177) /uL Lymph # (Auto) 1700 (5976-6019) /uL [place] # (Auto) 600 (0-900) /uL Eos # (Auto) 200 (0-450) /uL Baso # (Auto) 0 (0-100) /uL Sodium 137 (137-145) mmol/L Potassium 4.2 (3.4-5.1) mmol/L Chloride 99 (98-107) mmol/L Carbon Dioxide 30 (22-32) mmol/L BUN 9 (9-20) mg/dL Creatinine 0.86 (0.66-1.25) mg/dL Estimated GFR > 60 (>60) mL/min BUN/Creatinine Ratio 10.5 (6-22) Glucose 99 (80-110) mg/dL Calcium 9.2 (8.4-10.2) mg/dL Total Bilirubin 0.7 (0.2-1.3) mg/dL AST 35 (17-59) IU/L ALT 31 (<50) IU/L Alkaline Phosphatase 72 (38-126) U/L Total Protein 8.0 (6.3-8.2) g/dL Albumin 4.8 (3.5-5.0) g/dL Globulin 3.2 (1.7-4.1) g/dL Albumin/Globulin Ratio 1.5 (1.0-2.8) Lipase 55 (23-300) U/L Imaging Data CT scan - abdomen/pelvis: Radiologist's Impression: [address] [id number] Scan ReportSigned Patient: Joel Matson EMR#: [id number]: 5Acct:[id number]/Sex: 77 / MDate of Service: 07/22/22Loc: EDAccession Number: [id number] Procedure: CT abdomen pelvis wo con Ordering Provider: Keeley Shahid D.O. PROCEDURE: CT ABDOMEN PELVIS WO CON INDICATIONS: pain no BM for 6 weeks TECHNIQUE: Noncontrast 5 mm thick sections acquired from the diaphragms to the symphysis. 5 mm coronal and sagittal reformats were then performed. For radiation dose reduction, the following was used: automated exposure control, adjustment of mA and/or kV according to patient size. COMPARISON: None. FINDINGS: Image quality: Excellent. ABDOMEN: Lung bases: Lung bases are clear. Heart size is normal. Solid organs: Liver is normal in size. Gallbladder is within normal limits . Pancreas is normal in contours. Spleen is normal in size. No adrenal nodules. Kidneys are normal in size, without hydronephrosis or nephrolithiasis. Peritoneum and bowel: Unenhanced bowel loops demonstrate normal wall thickness and caliber. Moderate diffuse colonic stool. No free fluid or air. Normal appendix. Nodes and vessels: No retroperitoneal or mesenteric adenopathy by size criteria. Aorta and inferior vena cava are normal in caliber. Miscellaneous: No ventral hernias. PELVIS: Genitourinary: Bladder wall thickness is normal. Miscellaneous: No inguinal hernias or adenopathy. Bones: No suspicious bony lesions. No vertebral body compression fractures. IMPRESSION: 1. No evidence of urinary tract calcification, nor obstruction. 2. Moderate diffuse colonic stool. 3. Normal appendix. Dictated by: Justin Carson M.D. on 07/22/2022 at 15:53 Approved by: Justin Carson M.D. on 07/22/2022 at 15:54 MDM Narrative Medical decision making narrative: Appropriate for discharge home. Exam and imaging and blood work reassuring. Clinically constipation. Patient has had good effect with GoLYTELY in the past. Return precautions reviewed with him. Not toxic at discharge. Discharge Plan Departure Patient Disposition: Home Clinical Impression: Constipation Instructions: DI for Constipation Activity Restrictions/Additional Instructions: Continue daily fiber salads fruits and vegetables as you are doing. However as we talked to you about, be sure to increase oral hydration/water. This will help for good bowel movements. Be sure to take bowel prep solution tonight for effect of bowel movements. See family doctor next week for re-evaluation. Return if worse if any questions or concerns. See your family doctor for possible rescheduling for colonoscopy Prescriptions: No Action clonazepam 0.5 mg tablet 0.25 mg PO BID PRN (Reason: spasms) Qty: 30 2RF Rx Instructions: Tak1 1/2 to 1 tab as needed duloxetine 20 mg capsule,delayed release(DR/EC) 40 mg PO BID 90 Days Qty: 360 3RF Rx Instructions: Take 2 tabs twice per day testosterone cypionate 200 mg/mL oil 200 mg IM Q2W Qty: 10 3RF naproxen sodium [Aleve] 220 mg capsule 440 mg PO .QHS PRN atorvastatin 80 mg tablet See Rx Instructions .ROUTE .COMPLEX Qty: 90 3RF Dose Instruction: take 1 tablet by mouth each evening for cholesterol management Rx Instructions: take 1 tablet by mouth each evening for cholesterol management naltrexone 50 mg tablet 25 mg PO BID Qty: 90 3RF Rx Instructions: Take 1/2 tablet daily propranolol 60 mg capsule,extended release 24 hr 60 mg PO DAILY Qty: 90 3RF primidone 50 mg tablet 100 mg PO BEDTIME Qty: 180 3RF Rx Instructions: Take 2 tabs (100mg) at bedtime daily for tremors bupropion HCl 150 mg tablet extended release 24 hr 300 mg PO QAM Qty: 180 2RF omeprazole 20 mg capsule,delayed release(DR/EC) 20 mg PO DAILY alprazolam 0.5 mg tablet 0.5 mg PO DAILY acetaminophen 500 mg capsule 1,000 mg PO BID PRN (Reason: pain) fluticasone intranasal BEDTIME PRN ascorbate calcium (vitamin C) 500 mg tablet 500 mg PO BID cholecalciferol (vitamin D3) 50 mcg (2,000 unit) capsule 50 mcg PO BID Referrals: Agnieszka Barrientos ARNP [Primary Care Provider] - Visit Report Forms: Patient Portal/API
== END 2022-07-22 19:07 | disposition home or self-care (01) ==
PROVIDERS: Emergency Medicine; Emergency Provider Emergency Medicine; PCP Nurse Practitioner
DX: K59.00 Constipation, unspecified (principal)
CPT/HCPCS: 36415; 74176; 80053; 83690; 85025; 99283; 99284

== ENCOUNTER → 2022-11-05 09:11 | Outpatient (CLI) | payer MEDICARE, OTHER, SELFPAY ==
[2022-11-05 12:58] LABS: COVID19 -Nasal RAPID Negative (Negative)
== END ==
PROVIDERS: PCP Nurse Practitioner; Visit Provider Surgery
DX: Z01.812 Encounter for preprocedural laboratory examination (principal); Z20.822 Contact with and (suspected) exposure to COVID-19
CPT/HCPCS: 87635; C9803

== ENCOUNTER 2022-11-06 06:43 | Day surgery (SDC) | payer MEDICARE, OTHER, SELFPAY ==
--- NOTE | 2022-11-06 | PATH_ITS ---
[facility] Accession Number: [id number] . 01 Material submitted: . rectum - RANDOM RECTAL . 01 Diagnosis: Rectum, Random Biopsies: Colonic mucosa with no diagnostic abnormality. Negative for active, chronic, and microscopic colitis. Negative for dysplasia and malignancy. . MRV 11/09/20223 Local . 01 Electronically signed: . Radha Melissa MD, Pathologist NPI- [id number] . 01 Gross description: . The specimen is received in formalin, labeled with the patient's name, , and random rectal biopsies, and consists of three irregular [place] soft tissue fragments ranging from 0.2 cm to 0.3 cm in greatest dimension. Submitted entirely in cassette A1. ([id number]) /FRR 11/07/20221950 Local . 01 Pathologist provided ICD-10: K59.00, R19.4 . 01 CPT . 541133 Specimen Comment: A courtesy copy of this report has been sent to [facility] Performed at: 01 [facility] [address] [place] [address], [place], [place] [id number] MD Manpreet Mcqueen MD Phone: [phone]
[2022-11-06 07:10] VITALS: BMI 31.5
[2022-11-06] MEDS: LACTATED RINGERS 1,000 ML 42 ML IV (07:21)
[2022-11-06 07:25] VITALS: BP 151/89; PULSE 91; RESP 16; TEMP 36.2; O2SAT 99
--- NOTE | 2022-11-06 07:49 | P.HP_ITS ---
History of Present Illness History of Present Illness Chief complaint: [facility] – [place] Narrative: Mr. Matson Presents today having been referred by Agnieszka urbano because of a history of a difficult constipation. He has had a screening colonoscopy about 3-5 years ago in [facility] at [facility]. He was given the okay for never having 1 again i.e. 10 year follow-up at that time. Due to the change in his symptoms as she has discussed with him the the options for workup and he decided along with her that he would like to have a colonoscopy. He has not had any bleeding from below or diarrhea and no family history of colon cancer. He is on a bowel regimen including fiber at this time and is doing better with constipation. Patient History Medical History Advanced age Allergies (~1959) Anemia (~2009) Anxiety (~2006) Flores's syndrome (~2004) BPH (benign prostatic hyperplasia) Cervical spine disease (~1994) Cervical spondylosis with radiculopathy Cervical stenosis of spinal canal Cervicalgia Chicken pox (~1957) Chronic pain Complaint of paresthesia Counseling regarding advanced care planning and goals of care Depression (~2006) Disorder of lumbar spine (~1997) Facet arthropathy, cervical Fatigue Foot pain (~2005) Foraminal stenosis of cervical region Hearing loss (~2016) Hyperlipidemia Hypogonadism Hypogonadism in male Intention tremor Low testosterone (~2017) Low testosterone in male Mumps (~1957) Obstructive sleep apnea syndrome Osteoarthritis (~2004) 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 Peripheral neuropathy (~2015) Wears hearing aid in both ears Surgical History Anesthesia History of discectomy (~1997) History of shoulder surgery (~2016) History of spinal fusion (~1978) Family & Social History Family History Father History of heart disease Hyperlipidemia Loud snoring Hypertension Mother Non Hodgkin's lymphoma Grandfather Stroke Grandmother History of heart disease Social History: household members spouse lives independently Yes caregiver/support person No Tobacco & Substance use: Smoking Status Former smoker alcohol intake current alcohol intake frequency 0-2 drinks per day Substance Use Type marijuana Meds Home Medications and Allergies Home Medications Medication Instructions Recorded Confirmed Type omeprazole 20 mg capsule,delayed 20 mg PO DAILY 11/01/19 12/09/22 History release ascorbate calcium (vitamin C) 500 500 mg PO BID 04/15/20 11/06/22 History mg tablet cholecalciferol (vitamin D3) 50 50 mcg PO BID 04/15/20 11/06/22 History mcg (2,000 unit) capsule acetaminophen 500 mg capsule 1,000 mg PO BID PRN pain 06/11/20 11/06/22 History naproxen sodium 220 mg capsule 440 mg PO .QHS PRN Pain (Scale 10/03/20 11/06/22 History (Aleve) Score 1-3) alprazolam 0.5 mg tablet 0.5 mg PO DAILY 09/04/21 11/06/22 History atorvastatin 80 mg tablet See Rx Instructions .Route 10/09/21 11/06/22 Rx .COMPLEX #90 tabs naltrexone 50 mg tablet 25 mg PO BID #90 tabs 10/09/21 11/06/22 Rx propranolol 60 mg capsule,24 60 mg PO DAILY #90 caps 10/09/21 11/06/22 Rx hr,extended release primidone 50 mg tablet 100 mg PO BEDTIME #180 tabs 03/25/22 11/06/22 Rx bupropion HCl 150 mg 24 hr tablet, 150 mg PO QAM #90 tabs 08/05/22 11/06/22 Rx extended release duloxetine 20 mg capsule,delayed 60 mg PO BID 90 days #540 caps 08/05/22 11/06/22 Rx release testosterone cypionate 200 mg/mL 100 mg (0.5 mL) IM Q2W #10 mL 08/05/22 11/06/22 Rx intramuscular oil clonazepam 0.5 mg tablet 0.5 mg PO BID PRN spasms #30 tabs 09/04/22 11/06/22 Rx sodium,potassium,mag sulfates 17.5 See Rx Instructions PO .COMPLEX 10/28/22 11/06/22 Rx gram-3.13 gram-1.6 gram oral soln #354 mL (Suprep Bowel Prep Kit) Allergies Allergy/AdvReac Type Severity Reaction Status Date / Time No Known Drug Allergies Allergy Verified 11/06/22 07:16 Exam Vital Signs (past 8 hours): - 11/06/22 07:25 Temperature 97.2 F L Pulse Rate 91 H Respiratory Rate 16 Blood Pressure 151/89 H Pulse Oximetry 99 Oxygen Delivery Method Room Air Oxygen Delivery Method Room Air Const General: cooperative, healthy appearing and comfortable Orientation: alert, awake and oriented x3 HENMT Head: normal to inspection Eyes General: appearance normal, both eyes and all related structures Resp Effort & Inspection: normal respiratory effort and able to speak in complete sentences Cardio Pulses: radial pulses present GI Palpation: soft and No tender Assessment & Plan Assessment and plan (1) Constipation: Status: Acute Plan I personally discussed the risks benefits and alternatives of the screw colonoscopy including not limited to the risk of perforation and incomplete exam he understands and would like to proceed. Time Spent With Patient Critical Care time: I spent a total of [] minutes of critical care time on this patient's care today; this time is exclusive of procedural time.
[2022-11-06 08:36] VITALS: BP 104/75; PULSE 76; RESP 189; TEMP 36.3; O2SAT 96
[2022-11-06 08:41] VITALS: BP 105/78; PULSE 71; RESP 12; O2SAT 96
[2022-11-06 08:46] VITALS: BP 112/82; PULSE 84; RESP 18; O2SAT 96
[2022-11-06 08:51] VITALS: BP 117/89; PULSE 80; RESP 17; TEMP 36.3; O2SAT 97
--- NOTE | 2022-11-06 08:54 | PM.OP.1 ---
Operative Date/Time/Diagnoses Date of procedure: 11/06/22 Pre-op diagnosis: Constipation Post-op diagnosis: same Procedure & Clinicians Procedure: Colonoscopy and biopsy Same procedure as scheduled: Yes Indications: Mr. Matson has had screening colonoscopies in the past; has no colon cancer in his family, but is struggling with severe constipation and after discussion with his primary care physician, he and she has decided to pursue a colonoscopy to be sure there was nothing structural that is contributing to this constipation. Surgeon: Ivette Springer Click Yes if Unassisted: Yes Anesthesia Type: Sedation Operative Notes Procedure in detail: Patient was taken to the endoscopy suite and placed in a left lateral decubitus position. A time-out was performed. Monitored anesthetic care was provided. A digital rectal exam was performed and colonoscope was placed into the anal canal and advanced through to the cecum. A photograph was taken of the appendiceal orifice. The scope was then withdrawn for a time of 17 minutes. There were no mucosal abnormalities appreciated maybe 1 or 2 diverticula in the sigmoid colon but not many. Overall the colon looked very good. I did take some random biopsies of the rectum because of the history of constipation. I retroflexed the scope and took a photograph. I did not see large hemorrhoid piles there either. The prep was excellent. Complications: none Post-operative Condition: stable Disposition: PACU Plan for aftercare: I will follow-up the biopsy results and I recommended a fiber supplement daily.
[2022-11-06 09:02] VITALS: BP 109/82; PULSE 86; RESP 22; TEMP 37.1; O2SAT 96
== END 2022-11-06 09:14 | disposition home or self-care (01) ==
PROVIDERS: PCP Nurse Practitioner; Referring Provider Surgery; Visit Provider Surgery
PROC: 0DJD8ZZ Inspection of Lower Intestinal Tract, Via Natural or Artificial Opening Endoscopic (ICD-10-PCS; CPT 45378; principal; 2022-11-06 07:45)
DX: K59.00 Constipation, unspecified (principal); K57.30 Diverticulosis of large intestine without perforation or abscess without bleeding
CPT/HCPCS: 45380; J2250; J2704; J3010

== ENCOUNTER → 2022-12-02 15:38 | Outpatient (CLI) | payer MEDICARE, OTHER, SELFPAY ==
[2022-12-08 12:13] LABS: Percent Free Testosterone 1.17 % (1.50-4.20); Testosterone Total 444.5 ng/dL (264.0-916.0)
== END ==
PROVIDERS: PCP Nurse Practitioner; Referring Provider Nurse Practitioner; Visit Provider Nurse Practitioner
DX: R79.89 Other specified abnormal findings of blood chemistry (principal); Z79.899 Other long term (current) drug therapy
CPT/HCPCS: 36415; 84402; 84403

== ENCOUNTER → 2023-03-15 10:11 | Outpatient (CLI) | payer MEDICARE, OTHER, SELFPAY ==
[2023-03-15 11:43] LABS: Add Manual Diff / Slide Review NO; Basophils Absolute Auto 0 /uL (0-100); Basophils Percent Auto 0.4 % (0-2); Eosinophils Absolute Auto 200 /uL (0-450); Eosinophils Percent Auto 2.9 % (2-4); Hematocrit 45.9 % (41-53); Hemoglobin 15.3 g/dL (13.5-17.5); Lymphocytes Absolute Auto 1400 /uL (1100-4500); Lymphocytes Percent Auto 23.7 % (25-40); Mean Corpuscular HGB Conc 33.2 % (30-36); Mean Corpuscular Hemoglobin 33.8 PG (26-34); Mean Corpuscular Volume 101.9 fL (80-100); Monocytes Absolute Auto 700 /uL (0-900); Monocytes Percent Auto 11.2 % (3-14); Neutrophils Absolute Auto 3800 /uL (1500-7000); Neutrophils Percent Auto 61.8 % (50-75); Platelet Count 243 X10^3/uL (150-400); Red Blood Cell Count 4.51 X10^6/uL (4.5-5.9); Red Cell Distribution Width 13.1 % (11.6-14.8); White Blood Cell Count 6.1 X10^3/uL (4.5-11.0)
[2023-03-15 12:05] LABS: Alanine Aminotransferase 37 IU/L (<50); Albumin 4.2 g/dL (3.5-5.0); Albumin Globulin Ratio 1.3 (1.0-2.8); Alkaline Phosphatase 66 U/L (38-126); Aspartate Aminotransferase 34 IU/L (17-59); BUN Creatinine Ratio 11.5 (6-22); Bilirubin Total 0.8 mg/dL (0.2-1.3); Blood Urea Nitrogen 12 mg/dL (9-20); Calcium 8.9 mg/dL (8.4-10.2); Carbon Dioxide 36 mmol/L (22-32); Chloride 95 mmol/L (98-107); Cholesterol 176 mg/dL (140-199); Estimated Glomerular Filt Rate > 60 mL/min (>60); Globulin 3.2 g/dL (1.7-4.1); Glucose 106 mg/dL (80-110); HDL Cholesterol 65 mg/dL (40-60); HEMOLYSIS < 15 (0-50); LDL Cholesterol Calculated 92 mg/dL (<100); Potassium 4.5 mmol/L (3.4-5.1); Sodium 136 mmol/L (137-145); Total Protein 7.4 g/dL (6.3-8.2); Triglycerides 97 mg/dL (35-150)
[2023-03-15 12:07] LABS: Microalbumi Creatinin Ratio Ur 5.8 ug/mg CR (<30); Microalbumin Urine Random 0.9 mg/dL (0-1.6)
[2023-03-15 12:25] LABS: Free T4, Direct Thyroxine 0.57 ng/dL (0.78-2.19)
[2023-03-15 12:36] LABS: Prostate Specific Antigen Scrn 1.19 ng/mL (0.1-4.0)
[2023-03-15 17:23] LABS: Hep C Virus Ab w/Reflex Quant NEGATIVE s/c (NEGATIVE)
== END ==
PROVIDERS: PCP Nurse Practitioner; Referring Provider Nurse Practitioner; Visit Provider Nurse Practitioner
DX: E29.1 Testicular hypofunction (principal); E78.2 Mixed hyperlipidemia; Z12.5 Encounter for screening for malignant neoplasm of prostate; F41.9 Anxiety disorder, unspecified; F32.9 Major depressive disorder, single episode, unspecified; R79.89 Other specified abnormal findings of blood chemistry; Z79.890 Hormone replacement therapy; Z79.899 Other long term (current) drug therapy; Z11.59 Encounter for screening for other viral diseases
CPT/HCPCS: 36415; 80053; 80061; 82043; 82570; 84439; 84443; 84481; 85025; 86803; G0103

== ENCOUNTER → 2023-04-30 13:40 | Outpatient (CLI) | payer MEDICARE, OTHER, SELFPAY ==
--- NOTE | 2023-04-30 13:41 | DI.RAD.S_ITS ---
PROCEDURE: XR CERVICAL SPINE 4V OR 5V INDICATIONS: NECK PAIN TECHNIQUE: 5 views of the cervical spine acquired. COMPARISON: [facility], CR, XR CERVICAL SPINE 4V OR 5V, 11/08/2019, 10:02. FINDINGS: Bones: No fractures or dislocations to the C6 level. There is reversal normal cervical lordosis. Normal bone mineralization. Craniovertebral relationships normal. Disc space narrowing and sclerotic facet joints present throughout the exam. In the oblique images show foraminal stenosis in the mid to lower cervical spine Soft tissues: No prevertebral soft tissue swelling. IMPRESSION: Advanced degenerative disc disease and arthropathy. Consider follow-up MR evaluation. Approved by: Gregg Duong M.D. on 04/30/2023 at 14:12
== END ==
PROVIDERS: PCP Nurse Practitioner; Referring Provider Physical Medicine & Rehabilitation; Visit Provider Physical Medicine & Rehabilitation
DX: M47.22 Other spondylosis with radiculopathy, cervical region (principal); M50.10 Cervical disc disorder with radiculopathy, unspecified cervical region; G47.33 Obstructive sleep apnea (adult) (pediatric); G25.0 Essential tremor
CPT/HCPCS: 72050; 99214

== ENCOUNTER → 2023-05-08 08:53 | Outpatient (CLI) | payer MEDICARE, OTHER, SELFPAY ==
--- NOTE | 2023-05-08 08:55 | DI.MRI.S_ITS ---
PROCEDURE: MR CERVICAL SPINE WO CON INDICATIONS: Mid chain cervical facet arthropathy TECHNIQUE: Noncontrast sagittal T1 spin echo and T2 fast spin echo, sagittal STIR, foraminal oblique sagittal T2 fast spin echo, and axial gradient echo or T2 fast spin echo through the cervical spine. COMPARISON: [facility], MR, MR CERVICAL SPINE WO CON, 11/16/2019, 12:43. FINDINGS: Image quality: Degraded by motion artifact. Alignment and Curvature: There is loss of normal cervical lordosis. There is mild kyphosis at C2-C5. 2 mm of retrolisthesis of C3 on C4, C4 on C5, and C5 on C6. 2 mm of anterolisthesis of C2 on C3. Bone Marrow: Marrow demonstrates normal overall signal. Moderate reactive signal within the endplates adjacent to the C3-C4, C4-C5, and C5-C6 intervertebral discs. Low T2 intensity material adjacent to the odontoid process of C2, extending into the anterior epidural space, with a maximal anteroposterior thickness of 9 mm. Spinal Cord: Visualized spinal cord has normal size and signal. No cerebellar tonsillar herniation. Paraspinous Soft Tissues: No paravertebral masses. Prevertebral soft tissues are normal in thickness. C2-C3: Moderate disc desiccation. Mild diffuse disc bulge. Mild facet and uncovertebral hypertrophy bilaterally. Mild canal stenosis. Mild right and severe left foraminal stenosis. Left C3 nerve root compression. No significant change. C3-C4: Moderate disc height loss and desiccation. Moderate diffuse disc bulge/osteophyte. Moderate facet and uncovertebral hypertrophy. Moderate to severe canal stenosis. Mild cord flattening. Increased, severe left foraminal stenosis. No change in severe right foraminal stenosis. Bilateral C4 nerve root compression. C4-C5: Moderate disc height loss and desiccation. Mild diffuse disc bulge/osteophyte. Moderate bilateral facet and uncovertebral hypertrophy. Increased, severe canal stenosis. Mild cord flattening, as before. No change in severe bilateral foraminal stenosis with bilateral C5 nerve root compression. C5-C6: Moderate disc height loss and desiccation. Mild diffuse disc bulge/osteophyte. Moderate bilateral facet and uncovertebral hypertrophy. M increased, severe canal stenosis with new mild cord flattening. Severe bilateral foraminal stenosis is present, as before with bilateral C6 nerve root compression. C6-C7: Moderate disc desiccation. Mild diffuse disc bulge. Mild bilateral facet and uncovertebral hypertrophy. Mild canal stenosis. Mild left foraminal stenosis is unchanged. Increased, moderate to severe right foraminal stenosis with right C7 nerve root compression. C7-T1: Mild disc desiccation. Mild facet and uncovertebral hypertrophy. No significant canal stenosis. Increased, moderate bilateral foraminal stenosis. IMPRESSION: 1. Multilevel degenerative disc and facet disease, as well as uncovertebral hypertrophy. 2. Multilevel canal stenoses, worst at C3-C4, C4-C5, and C5-C6 where there is associated cord flattening. 3. Multilevel foraminal stenoses, worst at C2-C3, C3-C4, C4-C5, C5-C6, and C6-C7 where there is associated intraforaminal nerve root compression. Recommend correlation with clinical symptoms to ascertain relevance of these findings. 4. Low T2 intensity material adjacent to the odontoid process of C2, possibly indicating sequelae of CPPD or rheumatoid arthropathy. Dictated by: Justin Carson M.D. on 05/10/2023 at 9:18 Approved by: Justin Carson M.D. on 05/10/2023 at 9:25
== END ==
PROVIDERS: PCP Nurse Practitioner; Referring Provider Physical Medicine & Rehabilitation; Visit Provider Physical Medicine & Rehabilitation
DX: M47.22 Other spondylosis with radiculopathy, cervical region; M50.11 Cervical disc disorder with radiculopathy, high cervical region; M48.02 Spinal stenosis, cervical region
CPT/HCPCS: 72141

== ENCOUNTER 2023-05-18 08:52 | Outpatient (CLI) | payer MEDICARE, OTHER, SELFPAY ==
[2023-05-18] VITALS (10 sets, daily range): BP systolic 118–161; BP diastolic 58–96; PULSE 65–77; RESP 12–22; TEMP 37.1; O2SAT 94–97
--- NOTE | 2023-05-18 08:53 | DI.RAD.S_ITS ---
PROCEDURE: PAIN C/T FACET INJ/BLK 1ST L INDICATIONS: SPINAL STENOSIS COMPARISON: [facility], , PAIN C/T FACET INJ/BLK 1ST L, 08/01/2020, 9:24. FINDINGS: Fluoroscopic spot filming was performed to verify placement of spinal needles at the left C3-4, C4-5, C5-6 level(s), as labeled on the films. Appropriate location(s) of the needle tip(s) was confirmed by injection of iodinated contrast. IMPRESSION: Intraprocedural fluoroscopy was provided for guidance and anatomical localization. Please see the procedure report for further details. Dictated by: Franklyn Valdivia M.D. on 05/18/2023 at 15:46 Approved by: Franklyn Valdivia M.D. on 05/18/2023 at 15:47
[2023-05-18] MEDS: MIDAZOLAM 2 MG/2 ML VIAL 4 MG IV (10:15)
[2023-05-18] MEDS: IOPAMIDOL 15 ML VIAL 3 ML INJ (10:17)
[2023-05-18] MEDS: BUPIVACAINE 0.5% (PF) 10 ML VIAL 2 ML INJ (10:18)
[2023-05-18] MEDS: DEXAMETHASONE 10 MG/ML VIAL 30 MG INJ (10:20)
--- NOTE | 2023-05-18 10:31 | P.PCN_ITS ---
Date/Time/Diagnoses Date of procedure: 05/18/23 Time of procedure: 10:31 Pre-procedure diagnosis: 1. FACET ARTHROPATHY 2. AXIAL NECK PAIN Post-procedure diagnosis: same Procedure Notes Procedure: 1. FLUOROSCOPICALLY GUIDED, CONTRAST-CONTROLLED LEFT C3/4, C4/5, C5/6 FACET JOINT INJECTIONS WITH CONSCIOUS SEDATION. Indications: Joel is referred by RISA Barrientos for treatment of Axial Neck Pain Physician: Joel Arora Total Fluoroscopy time (seconds): 13 Total sedation minutes: 11 Complications: none Procedure in detail & Post-procedure care: DESCRIPTION OF PROCEDURE Fluoroscopically guided, contrast-controlled left C3/4, C4/5, C5/6 facet joint injections with conscious sedation. Following review of allergy and review of potential side effects and complications, including, but not necessarily limited to, infection, allergic reaction, local tissue breakdown, stroke, temporary or permanent nerve injury and paralysis, the patient indicated that the patient understood and agreed to proceed. An informed consent document was signed by the patient, witnessed by a nurse, and placed in the patient's chart. Additionally, other treatment options including medications, modalities, and physical therapy were reviewed with the patient. After review of previous anaesthesic history and IV conscious sedation the patient was deemed safe to proceed with today?s procedure with IV conscious sedation as ASA class II designation. Safety time-out was performed to confirm patient ID, procedure to be performed and site of procedure. IV sedation was accomplished with a combination of 4mg of Versed was administered by the RN after DO order, titrated to patient comfort during the course of the procedure while the patient remained responsive to all verbal commands In the prone position, following sterile prep and drape of the cervical spine region, the posterior aspect of the left C3/4, C4/5, C5/6 facet joints were identified fluoroscopically. The skin was anesthetized via a 25-gauge 1.5-inch needle with 1% lidocaine solution into the corresponding facet joints. At this point, a 25-gauge 2.5-inch spinal needle was atraumatically introduced and advanced under fluoroscopic guidance into the corresponding facet joints. Following negative aspiration, injections of approximately 0.2-cc of Isovue 200 confirmed interarticular placement without vascular uptake. At this point, a total of 1cc including 0.5cc or 5mg of dexamethasone combined with 0.5cc of 1% lidocaine solution was injected without complication into each of the corresponding facet joints. The patient tolerated the procedure well without signs or symptoms of complications prior to transfer to the recovery area continued monitoring without incident. The patient was then transferred to the recovery area where they were observed for an appropriate period of time after the injection. The patient reported a VAS score of 7 prior to the procedure and a post- procedure VAS of 0. POST OP INSTRUCTIONS They were provided a Pain Log to continue to record their response to the target-specific procedure prior to their follow-up visit with their referring physician. Additionally, specific post-injection care instructions and a contact number to our office were provided if concerns arise regarding possible complications associated with the procedure are suspected.
== END 2023-05-18 10:55 | disposition home or self-care (01) ==
LOC: RAD 08:53
PROVIDERS: PCP Nurse Practitioner; Referring Provider Physical Medicine & Rehabilitation; Visit Provider Physical Medicine & Rehabilitation
DX: M47.812 Spondylosis without myelopathy or radiculopathy, cervical region (principal)
CPT/HCPCS: 64490; 64491; 64492; 99152; J1100; J2250

== ENCOUNTER → 2023-08-19 09:46 | Outpatient (CLI) | payer MEDICARE, OTHER, SELFPAY ==
[2023-08-19 10:36] LABS: Add Manual Diff / Slide Review NO; Basophils Absolute Auto 0 /uL (0-100); Basophils Percent Auto 0.5 % (0-2); Eosinophils Absolute Auto 300 /uL (0-450); Eosinophils Percent Auto 5.8 % (2-4); Hematocrit 44.7 % (41-53); Hemoglobin 15.2 g/dL (13.5-17.5); Lymphocytes Absolute Auto 1500 /uL (1100-4500); Lymphocytes Percent Auto 28.6 % (25-40); Mean Corpuscular Hemoglobin 34.9 PG (26-34); Mean Corpuscular Volume 102.7 fL (80-100); Monocytes Absolute Auto 600 /uL (0-900); Monocytes Percent Auto 11.1 % (3-14); Neutrophils Absolute Auto 2800 /uL (1500-7000); Platelet Count 223 X10^3/uL (150-400); Red Blood Cell Count 4.35 X10^6/uL (4.5-5.9); Red Cell Distribution Width 14.3 % (11.6-14.8); White Blood Cell Count 5.1 X10^3/uL (4.5-11.0)
[2023-08-19 11:35] LABS: Alanine Aminotransferase 41 IU/L (<50); Albumin 4.6 g/dL (3.5-5.0); Albumin Globulin Ratio 1.6 (1.0-2.8); Alkaline Phosphatase 68 U/L (38-126); Aspartate Aminotransferase 39 IU/L (17-59); BUN Creatinine Ratio 10.8 (6-22); Bilirubin Total 0.7 mg/dL (0.2-1.3); Blood Urea Nitrogen 11 mg/dL (9-20); Calcium 9.8 mg/dL (8.4-10.2); Carbon Dioxide 30 mmol/L (22-32); Chloride 98 mmol/L (98-107); Estimated Glomerular Filt Rate > 60 mL/min (>60); Globulin 2.8 g/dL (1.7-4.1); Glucose 100 mg/dL (80-110); HEMOLYSIS < 15 (0-50); Potassium 4.7 mmol/L (3.4-5.1); Sodium 137 mmol/L (137-145); Total Protein 7.4 g/dL (6.3-8.2)
[2023-08-27 07:12] LABS: Percent Free Testosterone 1.46 % (1.50-4.20); Testosterone Free 10.63 ng/dL (5.00-21.00); Testosterone Total 727.9 ng/dL (264.0-916.0)
== END ==
PROVIDERS: PCP Nurse Practitioner; Referring Provider Family Medicine; Visit Provider Family Medicine
DX: E29.1 Testicular hypofunction (principal)
CPT/HCPCS: 36415; 80053; 84402; 84403; 85025

== ENCOUNTER → 2023-08-20 17:43 | Outpatient (CLI) | payer MEDICARE, OTHER, SELFPAY ==
[2023-08-20 19:05] LABS: Vitamin B12 284 pg/mL (239-931)
== END ==
PROVIDERS: PCP Nurse Practitioner; Visit Provider Nurse Practitioner
DX: Z79.899 Other long term (current) drug therapy (principal)
CPT/HCPCS: 82607

== ENCOUNTER 2023-10-31 14:39 | Emergency (ER) | payer MEDICARE, OTHER, SELFPAY ==
[2023-10-31 14:43] VITALS: BP 193/98; PULSE 80; RESP 18; TEMP 36.6; O2SAT 99; BMI 33.0
--- NOTE | 2023-10-31 14:48 | DI.RAD.S_ITS ---
PROCEDURE: XR KNEE RT 3V INDICATIONS: fall, twisted knee TECHNIQUE: 3 views of the knee were acquired. COMPARISON: None. FINDINGS: Bones: No fractures or dislocations. No suspicious bony lesions. Soft tissues: No joint effusion. No suspicious soft tissue calcifications. IMPRESSION: No acute bony abnormality or significant effusion. Dictated by: Hosea Freeman M.D. on 10/31/2023 at 14:13 Approved by: Hosea Freeman M.D. on 10/31/2023 at 14:14
--- NOTE | 2023-10-31 15:32 | ED_ITS ---
HPI - Extremity Injury (Lower) <Treva Li PA-C - Last Filed: 10/31/23 17:07> General Chief Complaint: Extremity Injury, Lower Stated Complaint: fall, rt leg injury Time Seen by Provider: 10/31/23 15:01 Source: patient Mode of arrival: Wheelchair History of Present Illness HPI Narrative: Patient is a 78-year-old male who presents with a right posterior knee pain after a twist and fall incident earlier today. He was attempting to stabilize an instrument with one hand while reaching into the back of a van with the other when he fell backwards onto his buttocks. His right knee was pinned at the time and sustained a significant twist with a fall. He felt and heard a tearing/sharp pain behind his knee. He does not have pain when at rest but is very painful to try to stand or walk. He is not taken any medication or tried any therapy. Pain is 10/10 when trying to stand and bear weight. Related Data Home Medications Medication Instructions Recorded Confirmed omeprazole 20 mg capsule,delayed 20 mg PO DAILY 09/29/19 08/04/23 release ascorbate calcium (vitamin C) 500 500 mg PO BID 04/15/20 08/04/23 mg tablet cholecalciferol (vitamin D3) 50 50 mcg PO BID 04/15/20 08/04/23 mcg (2,000 unit) capsule acetaminophen 500 mg capsule 1,000 mg PO BID PRN pain 06/11/20 08/04/23 naproxen sodium 220 mg capsule 440 mg PO .QHS PRN Pain (Scale 10/03/20 08/04/23 (Aleve) Score 1-3) alprazolam 0.5 mg tablet 0.5 mg PO DAILY 09/04/21 08/04/23 duloxetine 30 mg capsule,delayed 30 mg PO BID 04/30/23 08/04/23 release duloxetine 20 mg capsule,delayed 40 mg PO BID 08/04/23 08/04/23 release Previous Rx's Medication Instructions Recorded primidone 50 mg tablet 100 mg (2 x 50 mg) PO BEDTIME #180 03/25/22 tabs bupropion HCl 150 mg 24 hr tablet, 150 mg PO QAM #90 tabs 08/05/22 extended release tadalafil 20 mg tablet (Cialis) 20 mg PO DAILY PRN sexual activity 12/02/22 #30 tabs naltrexone 50 mg tablet See Rx Instructions .Route 12/03/22 .COMPLEX #90 tabs atorvastatin 80 mg tablet See Rx Instructions .Route 01/25/23 .COMPLEX #90 tabs clonazepam 0.5 mg tablet 0.5 mg PO BID PRN muscle spasms 03/29/23 #60 tabs meloxicam 15 mg tablet 15 mg PO DAILY #30 tabs 08/04/23 testosterone cypionate 200 mg/mL 150 mg (0.75 mL) IM Q2W #10 mL 09/01/23 intramuscular oil propranolol 60 mg capsule,24 See Rx Instructions .Route 10/25/23 hr,extended release .COMPLEX #90 caps Allergies Allergy/AdvReac Type Severity Reaction Status Date / Time No Known Drug Allergies Allergy Verified 08/04/23 14:41 Review of Systems <Treva Li PA-C - Last Filed: 10/31/23 17:07> Review of Systems ROS Unobtainable: All systems reviewed & are unremarkable except as noted in HPI and below Patient History <Treva Li PA-C - Last Filed: 10/31/23 17:07> Medical History Macrocytosis Hot flash in male CTS (carpal tunnel syndrome) Low testosterone in male Hypogonadism Obstructive sleep apnea syndrome Intention tremor Chronic pain Advanced age Counseling regarding advanced care planning and goals of care Complaint of paresthesia BPH (benign prostatic hyperplasia) Fatigue Hypogonadism in male 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 Wears hearing aid in both ears Cervical stenosis of spinal canal Foraminal stenosis of cervical region Facet arthropathy, cervical Cervicalgia Cervical spondylosis with radiculopathy Hyperlipidemia Osteoarthritis (~2004) Allergies (~1959) Depression (~2006) Anxiety (~2006) Peripheral neuropathy (~2015) Disorder of lumbar spine (~1997) Foot pain (~2005) Cervical spine disease (~1994) Mumps (~1957) Chicken pox (~1957) Anemia (~2009) Hearing loss (~2016) Flores's syndrome (~2004) Low testosterone (~2018) Surgical History Anesthesia History of shoulder surgery (~2016) History of discectomy (~1997) History of spinal fusion (~1978) Family History Father History of heart disease Hyperlipidemia Loud snoring Hypertension Mother Non Hodgkin's lymphoma Grandfather Stroke Grandmother History of heart disease Social History marital status: household members: spouse lives independently: Yes caregiver/support person: No housing: house pets and animals: Yes (2 dogs; bridges, and a goldendoodle) education level: master's degree 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 Well-developed patient, in no distress. NEURO: AOx3. HEAD: Atraumatic. Normocephalic. EYES: Pupils equal round and reactive. Extraocular motions intact. No scleral icterus. No injection or drainage. ENT: Nose without bleeding or purulent drainage. Airway patent. RESPIRATORY: No distress. EXTREMITIES: No visible edema around the knee or in the popliteal space, no ecchymosis or other signs of trauma. No visible deformity. There is no tenderness with deep palpation in the popliteal space, no anterior knee pain, no laxity of the knee joint. Distal neurovascular exam is intact. SKIN: No rash or erythema of visible areas Initial Vital Signs Initial Vital Signs: Vital Signs Temperature 97.9 F 10/31/23 14:43 Pulse Rate 80 10/31/23 14:43 Respiratory Rate 18 10/31/23 14:43 Blood Pressure 193/98 H 10/31/23 14:43 Pulse Oximetry 99 10/31/23 14:43 Oxygen Delivery Method Room Air 10/31/23 14:43 <Jerry Ward DO - Last Filed: 10/31/23 17:16> Initial Vital Signs Initial Vital Signs: Vital Signs Temperature 97.9 F 10/31/23 14:43 Pulse Rate 80 10/31/23 14:43 Respiratory Rate 18 10/31/23 14:43 Blood Pressure 193/98 H 10/31/23 14:43 Pulse Oximetry 99 10/31/23 14:43 Oxygen Delivery Method Room Air 10/31/23 14:43 Course <Treva Li PA-C - Last Filed: 10/31/23 17:07> Orders Ordered: ED Orders 10/31/23 14:48 XR knee RT 3V Stat Vital Signs Vital signs: Vital Signs - 8 hr 10/31/23 14:43 10/31/23 15:49 Temperature 97.9 F Pulse Rate 80 Respiratory Rate 18 Blood Pressure 193/98 H 148/81 H Pulse Oximetry 99 Oxygen Delivery Method Room Air <Jerry Ward DO - Last Filed: 10/31/23 17:16> Orders Ordered: ED Orders 10/31/23 14:48 XR knee RT 3V Stat Vital Signs Vital signs: Vital Signs - 8 hr 10/31/23 14:43 10/31/23 15:49 Temperature 97.9 F Pulse Rate 80 Respiratory Rate 18 Blood Pressure 193/98 H 148/81 H Pulse Oximetry 99 Oxygen Delivery Method Room Air MDM - Extremity Injury (Lower) <Treva Li PA-C - Last Filed: 10/31/23 17:07> Imaging Data Extremity x-ray #1: Radiologist's Impression: PROCEDURE: XR KNEE RT 3V INDICATIONS: fall, twisted knee TECHNIQUE: 3 views of the knee were acquired. COMPARISON: None. FINDINGS: Bones: No fractures or dislocations. No suspicious bony lesions. Soft tissues: No joint effusion. No suspicious soft tissue calcifications. IMPRESSION: No acute bony abnormality or significant effusion. Dictated by: Hosea Freeman M.D. on 10/31/2023 at 14:13 Approved by: Hosea Freeman M.D. on 10/31/2023 at 14:14 [facility] Narrative Medical decision making narrative: Multiple etiologies for patient's symptoms considered including, but not limited to: Fracture, dislocation, sprain/strain, soft tissue injury, ruptured popliteal cyst Patient has no history of popliteal cysts. X-ray negative for bony fracture no effusion seen. Suspect soft tissue injury due to torsion of the knee. Advised rest, ice, compression, NSAIDs. Offered Mynor wrap or knee immobilizer but patient declined stating he has something at home. If not improving after 10-14 days of conservative management, would consider following up with Orthopedics. He reports he is an appointment later this week with Dr. Arora and can discuss with him. Patient's symptoms improved over duration of stay with above-stated therapies. Findings and discharge diagnosis discussed with patient/family followed by verbalization of understanding Return precautions discussed with patient/family whom verbalize understanding of diagnosis and plan Discharge Plan Departure Patient Disposition: Home Clinical Impression: Soft tissue injury of right knee Qualifiers: Encounter type: initial encounter Qualified Code(s): S89.91XA - Unspecified injury of right lower leg, initial encounter Instructions: How To Perform RICE (Rest, Ice, Compress, Elevate), DI for Knee Pain Activity Restrictions/Additional Instructions: *You have been diagnosed with a soft tissue injury of the right knee. I suggest you use rest, ice, ibuprofen. If the pain is not improving after 10-14 days of conservative therapy, I would suggest calling the orthopedic clinic and getting up an appointment. There is no evidence of fracture on your x-ray today. If you are feeling better, you can bear weight and gently walk on the leg, it will not harm things further. You have been diagnosed with a musculoskeletal injury. You are advised to use R: rest. take it easy and listen to your body! I: ice. apply ice for 20 minutes every 2 hours while awake. Do not put ice directly on the skin. C: compression. Gentle compression with mynor wrap or splint will decrease pain and swelling. E: elevation. Keep extremity elevated above the heart whenever possible. Use tylenol or ibuprofen for inflammation and pain. It is generally safe to take up to 3-4grams of tylenol in 24 hours, or 2400mg of ibuprofen in 24 hours. If you have questions about dosing or whether these medications are safe for you, please ask a healthcare provider. *What to do: *Please continue to take your regular medications as directed. [ ] New medication prescriptions sent to your pharmacy: [ ] [ ] New medication written as a paper prescription [x] No new medications given *Please follow up with your primary care provider in 2-3 days, call for an appointment. Let them know you were seen in the Emergency Department and that we ask that you be seen in follow up. We will electronically transmit a record of today's note if your PCP is in our system *If you do not have a primary care provider please contact the [facility] Resource line at [phone]. They will ask some questions about your medical history and help get you set up with a doctor in the community. *Return to Emergency Department if you should have any new, worsening or concerning symptoms, such as [fever greater than 101 F, shaking chills, wo rsening pain, persistent vomiting or other concerning symptoms]. Prescriptions: No Action naltrexone 50 mg tablet See Rx Instructions .ROUTE .COMPLEX Qty: 90 3RF Dose Instruction: TAKE 1/2 TABLET by mouth TWICE DAILY Rx Instructions: TAKE 1/2 TABLET by mouth TWICE DAILY atorvastatin 80 mg tablet See Rx Instructions .ROUTE .COMPLEX Qty: 90 3RF Dose Instruction: take 1 tablet by mouth each evening for cholesterol management Rx Instructions: take 1 tablet by mouth each evening for cholesterol management clonazepam 0.5 mg tablet 0.5 mg PO BID PRN (Reason: muscle spasms) Qty: 60 3RF Rx Instructions: Take 1/2 to 1 tab twice daily as needed for muscle spasms propranolol 60 mg capsule,extended release 24 hr See Rx Instructions .ROUTE .COMPLEX Qty: 90 3RF Dose Instruction: Take one tablet by mouth once daily. Rx Instructions: Take one tablet by mouth once daily. naproxen sodium [Aleve] 220 mg capsule 440 mg PO .QHS PRN (Reason: Pain (Scale Score 1-3)) Hold Instructions: Home Medication placed on hold at Doctor's office primidone 50 mg tablet 100 mg PO BEDTIME Qty: 180 3RF Rx Instructions: Take 2 tabs (100mg) at bedtime daily for tremors bupropion HCl 150 mg tablet extended release 24 hr 150 mg PO QAM Qty: 90 2RF Rx Instructions: Take 150mg each morning omeprazole 20 mg capsule,delayed release(DR/EC) 20 mg PO DAILY alprazolam 0.5 mg tablet 0.5 mg PO DAILY tadalafil [Cialis] 20 mg tablet 20 mg PO DAILY PRN (Reason: sexual activity) Qty: 30 3RF Rx Instructions: administer 1/4 to 1 tab approximately 30min before sexual activity; do not use more than 1 dose per 24hrs testosterone cypionate 200 mg/mL oil 150 mg IM Q2W Qty: 10 3RF acetaminophen 500 mg capsule 1,000 mg PO BID PRN (Reason: pain) ascorbate calcium (vitamin C) 500 mg tablet 500 mg PO BID cholecalciferol (vitamin D3) 50 mcg (2,000 unit) capsule 50 mcg PO BID duloxetine 20 mg capsule,delayed release(DR/EC) 40 mg PO BID meloxicam 15 mg tablet 15 mg PO DAILY Qty: 30 2RF duloxetine 30 mg capsule,delayed release(DR/EC) 30 mg PO BID Referrals: Agnieszka Barrientos ARNP [Primary Care Provider] - Stand Alone Forms: Patient Portal/API ED Sign-out <Jerry Ward DO - Last Filed: 10/31/23 17:16> Cosign ED Attending Cosignature Attestation: Dr Ward Co-Sign Statement: I was available for consultation during this pat ient's emergency department visit. This chart is signed by myself for administrative purposes only. I did not have direct contact with this patient during this visit. They were seen independently by the APC.
[2023-10-31 15:49] VITALS: BP 148/81
== END 2023-10-31 15:53 | disposition home or self-care (01) ==
PROVIDERS: Emergency Provider Physician Assistant; PCP Nurse Practitioner
DX: S89.81XA Other specified injuries of right lower leg, initial encounter (principal); W18.39XA Other fall on same level, initial encounter; Y93.89 Activity, other specified
CPT/HCPCS: 73562; 99283

== ENCOUNTER → 2023-11-23 10:36 | Outpatient (CLI) | payer MEDICARE, OTHER, SELFPAY ==
[2023-11-23 11:09] LABS: Add Manual Diff / Slide Review NO; Basophils Absolute Auto 100 /uL (0-100); Eosinophils Absolute Auto 300 /uL (0-450); Eosinophils Percent Auto 4.3 % (2-4); Hemoglobin 15.4 g/dL (13.5-17.5); Lymphocytes Absolute Auto 1500 /uL (1100-4500); Lymphocytes Percent Auto 21.6 % (25-40); Mean Corpuscular HGB Conc 34.3 % (30-36); Mean Corpuscular Hemoglobin 35.6 PG (26-34); Mean Corpuscular Volume 103.8 fL (80-100); Monocytes Absolute Auto 700 /uL (0-900); Monocytes Percent Auto 9.8 % (3-14); Neutrophils Absolute Auto 4300 /uL (1500-7000); Neutrophils Percent Auto 63.3 % (50-75); Platelet Count 272 X10^3/uL (150-400); Red Blood Cell Count 4.34 X10^6/uL (4.5-5.9); Red Cell Distribution Width 13.5 % (11.6-14.8); White Blood Cell Count 6.7 X10^3/uL (4.5-11.0)
[2023-12-09 21:12] LABS: Percent Free Testosterone 2.45 % (1.50-4.20); Testosterone Free 20.83 ng/dL (5.00-21.00); Testosterone Total 850.3 ng/dL (264.0-916.0)
== END ==
PROVIDERS: PCP Nurse Practitioner; Referring Provider Nurse Practitioner; Visit Provider Nurse Practitioner
DX: E29.1 Testicular hypofunction (principal)
CPT/HCPCS: 36415; 84402; 84403; 85025

== ENCOUNTER → 2023-12-22 08:51 | Outpatient (CLI) | payer MEDICARE, OTHER, SELFPAY ==
[2023-12-22 09:37] LABS: Add Manual Diff / Slide Review NO; Basophils Absolute Auto 0 /uL (0-100); Basophils Percent Auto 1.2 % (0-2); Eosinophils Absolute Auto 200 /uL (0-450); Eosinophils Percent Auto 5.3 % (2-4); Hematocrit 42.1 % (41-53); Hemoglobin 14.4 g/dL (13.5-17.5); Lymphocytes Absolute Auto 1600 /uL (1100-4500); Lymphocytes Percent Auto 38.2 % (25-40); Mean Corpuscular HGB Conc 34.3 % (30-36); Mean Corpuscular Hemoglobin 34.8 PG (26-34); Mean Corpuscular Volume 101.7 fL (80-100); Monocytes Absolute Auto 500 /uL (0-900); Monocytes Percent Auto 12.1 % (3-14); Neutrophils Absolute Auto 1800 /uL (1500-7000); Neutrophils Percent Auto 43.2 % (50-75); Platelet Count 224 X10^3/uL (150-400); Red Blood Cell Count 4.14 X10^6/uL (4.5-5.9); Red Cell Distribution Width 13.1 % (11.6-14.8); White Blood Cell Count 4.2 X10^3/uL (4.5-11.0)
[2023-12-22 10:25] LABS: HEMOLYSIS < 15 (0-50); Iron 121 ug/dL (49-181)
[2023-12-22 10:27] LABS: Alanine Aminotransferase 57 IU/L (<50); Albumin 4.1 g/dL (3.5-5.0); Albumin Globulin Ratio 1.4 (1.0-2.8); Alkaline Phosphatase 71 U/L (38-126); Aspartate Aminotransferase 48 IU/L (17-59); BUN Creatinine Ratio 17.8 (6-22); Bilirubin Total 0.7 mg/dL (0.2-1.3); Blood Urea Nitrogen 19 mg/dL (9-20); Calcium 9.1 mg/dL (8.4-10.2); Carbon Dioxide 30 mmol/L (22-32); Chloride 102 mmol/L (98-107); Cholesterol 144 mg/dL (140-199); Estimated Glomerular Filt Rate > 60 mL/min (>60); Glucose 101 mg/dL (80-110); HDL Cholesterol 44 mg/dL (40-60); HEMOLYSIS < 15 (0-50); LDL Cholesterol Calculated 85 mg/dL (<100); Potassium 4.4 mmol/L (3.4-5.1); Sodium 137 mmol/L (137-145); Total Protein 7.1 g/dL (6.3-8.2); Triglycerides 76 mg/dL (35-150)
[2023-12-22 10:36] LABS: Percent Iron Saturation 42 % (20-50); Total Iron Binding Capacity 290 ug/dL (261-462); Transferrin 254 mg/dL (206-381)
[2023-12-22 10:46] LABS: Free T3, Triiodothyronine Free 3.67 pg/mL (2.77-5.27)
[2023-12-22 10:55] LABS: Prostate Specific Antigen Scrn 1.11 ng/mL (0.1-4.0)
[2023-12-22 10:59] LABS: Ferritin 59 ng/mL (18-464); Thyroid Stimulating Hormone 2.11 uIU/mL (0.47-4.68)
[2023-12-22 11:14] LABS: Vitamin B12 993 pg/mL (239-931)
[2023-12-28 00:37] LABS: Percent Free Testosterone 2.33 % (1.50-4.20); Testosterone Total 64.4 ng/dL (264.0-916.0)
== END ==
LOC: LAB 08:52
PROVIDERS: PCP Nurse Practitioner; Referring Provider Nurse Practitioner; Visit Provider Nurse Practitioner
DX: R53.83 Other fatigue (principal); E29.1 Testicular hypofunction; R79.89 Other specified abnormal findings of blood chemistry; Z12.5 Encounter for screening for malignant neoplasm of prostate; F32.9 Major depressive disorder, single episode, unspecified; F41.9 Anxiety disorder, unspecified; E78.5 Hyperlipidemia, unspecified; E61.1 Iron deficiency
CPT/HCPCS: 36415; 80053; 80061; 82607; 82728; 83540; 83550; 84402; 84403; 84439; 84443; 84481; 85025; G0103

== ENCOUNTER → 2024-03-21 09:11 | Outpatient (CLI) | payer MEDICARE, OTHER, SELFPAY ==
[2024-03-21 09:55] LABS: Add Manual Diff / Slide Review NO; Basophils Absolute Auto 0 /uL (0-100); Basophils Percent Auto 0.7 % (0-2); Eosinophils Absolute Auto 200 /uL (0-450); Hematocrit 38.6 % (41-53); Lymphocytes Absolute Auto 1500 /uL (1100-4500); Lymphocytes Percent Auto 36.8 % (25-40); Mean Corpuscular HGB Conc 33.7 % (30-36); Mean Corpuscular Hemoglobin 34.2 PG (26-34); Mean Corpuscular Volume 101.3 fL (80-100); Monocytes Absolute Auto 400 /uL (0-900); Monocytes Percent Auto 10.8 % (3-14); Neutrophils Absolute Auto 1900 /uL (1500-7000); Neutrophils Percent Auto 45.7 % (50-75); Platelet Count 246 X10^3/uL (150-400); Red Blood Cell Count 3.81 X10^6/uL (4.5-5.9); Red Cell Distribution Width 13.9 % (11.6-14.8); White Blood Cell Count 4.1 X10^3/uL (4.5-11.0)
[2024-03-21 10:18] LABS: HEMOLYSIS < 15 (0-50)
[2024-03-21 10:20] LABS: HEMOLYSIS < 15 (0-50); Iron 126 ug/dL (49-181)
[2024-03-21 10:31] LABS: Percent Iron Saturation 40 % (20-50); Total Iron Binding Capacity 312 ug/dL (261-462); Transferrin 249 mg/dL (206-381)
[2024-03-21 10:32] LABS: Alanine Aminotransferase 40 IU/L (<50); Albumin 4.4 g/dL (3.5-5.0); Albumin Globulin Ratio 1.7 (1.0-2.8); Alkaline Phosphatase 77 U/L (38-126); Aspartate Aminotransferase 33 IU/L (17-59); BUN Creatinine Ratio 21.4 (6-22); Bilirubin Total 0.8 mg/dL (0.2-1.3); Blood Urea Nitrogen 18 mg/dL (9-20); Calcium 9.3 mg/dL (8.4-10.2); Carbon Dioxide 32 mmol/L (22-32); Chloride 103 mmol/L (98-107); Estimated Glomerular Filt Rate > 60 mL/min (>60); Globulin 2.6 g/dL (1.7-4.1); Glucose 102 mg/dL (80-110); Potassium 4.5 mmol/L (3.4-5.1); Sodium 138 mmol/L (137-145)
[2024-03-21 20:28] LABS: Vitamin B12 997 pg/mL (239-931)
== END ==
LOC: LAB 09:12
PROVIDERS: PCP Nurse Practitioner; Referring Provider Nurse Practitioner; Visit Provider Nurse Practitioner
DX: R79.89 Other specified abnormal findings of blood chemistry (principal); D64.9 Anemia, unspecified; E29.1 Testicular hypofunction
CPT/HCPCS: 36415; 80053; 82607; 83540; 83550; 84403; 85025

== ENCOUNTER → 2024-05-05 08:53 | Outpatient (CLI) | payer MEDICARE, OTHER, SELFPAY ==
[2024-05-05 09:53] LABS: Add Manual Diff / Slide Review NO; Basophils Absolute Auto 0 /uL (0-100); Basophils Percent Auto 0.7 % (0-2); Eosinophils Absolute Auto 400 /uL (0-450); Hematocrit 37.7 % (41-53); Hemoglobin 12.5 g/dL (13.5-17.5); Lymphocytes Absolute Auto 1600 /uL (1100-4500); Lymphocytes Percent Auto 35.2 % (25-40); Mean Corpuscular HGB Conc 33.3 % (30-36); Mean Corpuscular Volume 102.1 fL (80-100); Monocytes Absolute Auto 500 /uL (0-900); Monocytes Percent Auto 10.7 % (3-14); Neutrophils Absolute Auto 2100 /uL (1500-7000); Neutrophils Percent Auto 45.4 % (50-75); Platelet Count 222 X10^3/uL (150-400); Red Blood Cell Count 3.69 X10^6/uL (4.5-5.9); Red Cell Distribution Width 13.2 % (11.6-14.8); White Blood Cell Count 4.6 X10^3/uL (4.5-11.0)
[2024-05-05 10:06] LABS: HEMOLYSIS < 15 (0-50); Iron 126 ug/dL (49-181)
[2024-05-05 10:19] LABS: Percent Iron Saturation 40 % (20-50); Total Iron Binding Capacity 312 ug/dL (261-462); Transferrin 352 mg/dL (206-381)
[2024-05-10 10:24] LABS: Percent Free Testosterone 2.91 % (1.50-4.20); Testosterone Total 202.9 ng/dL (264.0-916.0)
== END ==
LOC: LAB 08:54
PROVIDERS: PCP Nurse Practitioner; Referring Provider Nurse Practitioner; Visit Provider Nurse Practitioner
DX: D64.9 Anemia, unspecified (principal); E29.1 Testicular hypofunction
CPT/HCPCS: 36415; 83540; 83550; 84402; 84403; 85025

== ENCOUNTER → 2024-06-29 11:43 | Outpatient (CLI) | payer MEDICARE, OTHER, SELFPAY ==
[2024-06-29 12:19] LABS: Hematocrit 37.3 % (41-53); Hemoglobin 12.7 g/dL (13.5-17.5); Mean Corpuscular HGB Conc 34.1 % (30-36); Mean Corpuscular Hemoglobin 34.9 PG (26-34); Mean Corpuscular Volume 102.6 fL (80-100); Platelet Count 190 X10^3/uL (150-400); Red Blood Cell Count 3.63 X10^6/uL (4.5-5.9); Red Cell Distribution Width 13.3 % (11.6-14.8); White Blood Cell Count 4.5 X10^3/uL (4.5-11.0)
[2024-06-29 13:11] LABS: Neutrophils Absolute Manual 2250 /uL (3000-5900); RBC Morphology Normal Morphology; Total Cells Counted 100
[2024-06-29 13:34] LABS: Ferritin 80 ng/mL (18-464)
[2024-06-29 14:04] LABS: Folate 4.2 ng/mL (2.76-20.0)
== END ==
PROVIDERS: PCP Nurse Practitioner; Referring Provider Nurse Practitioner; Visit Provider Nurse Practitioner
DX: D51.0 Vitamin B12 deficiency anemia due to intrinsic factor deficiency (principal)
CPT/HCPCS: 36415; 82728; 82746; 85025; 85045

== ENCOUNTER → 2024-07-16 10:08 | Outpatient (CLI) | payer MEDICARE, OTHER, SELFPAY ==
--- NOTE | 2024-07-16 10:10 | DI.RAD.S_ITS ---
PROCEDURE: XR LUMBAR SPINE MIN 4V INDICATIONS: Lumbar stenosis TECHNIQUE: 5 views of the lumbar spine were acquired, including bilateral oblique views. COMPARISON: [facility], MR, MR LUMBAR SPINE WO CON, 07/16/2024, 10:28. FINDINGS: Bones: 5 nonrib-bearing vertebrae are present. Mild levocurvature centered at L4. Trace anterolisthesis of L3 on L4 and L4 on L5. Posterior lateral screws at S1 which are intact. Prominent multilevel lower lumbar facet arthropathy. No vertebral body compression fractures. No suspicious bony lesions. Soft tissues: Overlying bowel gas pattern is normal. No suspicious soft tissue calcifications. Oblique images: No pars defects. IMPRESSION: No acute bony abnormality. Prominent multilevel facet arthropathy. Please refer to separate report for lumbar spine MRI findings. Dictated by: Sanket Laws M.D. on 07/16/2024 at 15:21 Approved by: Sanket Laws M.D. on 07/16/2024 at 15:24
--- NOTE | 2024-07-16 10:30 | DI.MRI.S_ITS ---
PROCEDURE: MR LUMBAR SPINE WO CON INDICATIONS: Lumbar stenosis TECHNIQUE: Noncontrast sagittal T1 spin echo and T2 fast echo, sagittal STIR, and T2 fast spin echo through the lumbar spine. In cases with scoliosis, additional coronal T2 fast spin echo may be performed. COMPARISON: [facility], CR, XR LUMBAR SPINE MIN 4V, 07/16/2024, 10:09. [facility], CT, CT ABDOMEN PELVIS WO CON, 07/22/2022, 15:21. FINDINGS: Image quality: There is artifact associated with the metallic hardware. Alignment and Curvature: There is mild anterolisthesis seen at the L3-L4 level. Minimal to mild anterolisthesis is seen at L4-L5. Mild levoconvex scoliotic curvature is noted. Bone Marrow: Marrow is of normal overall signal. No acute vertebral body compression fractures. Spinal Cord: Conus medullaris terminates at the L1 level. Visualized cord demonstrates normal signal and size. Paraspinous Soft Tissues: No paravertebral masses. T12-L1: Normal appearance. L1-L2: The disc height and disk signal are relatively well-preserved. Bridging anterior osteophytes are seen. Mild generalized disc bulge is seen. Mild facet there is mild left-sided and no right-sided neural foraminal narrowing. No central canal narrowing is seen. L2-L3: Moderate loss of disc height is seen. Loss of disc signal is seen. Moderate disc bulge is seen, which is eccentric to the left. There is a central disc osteophyte protrusion. At least moderate facet hypertrophy is seen. Associated hypertrophy of the ligamentum flavum can be seen. Moderate bilateral neural foraminal narrowing can be seen, left worse than right. Moderate central canal narrowing is seen. L3-L4: Mild loss of disc height is seen. Loss of disc signal is seen. Reactive marrow endplate changes are seen posteriorly, which are hyperintense on T1-weighted and T2-weighted imaging and most consistent with fatty metaplasia (Modic type II changes). Moderate disc bulge is seen, which is eccentric to the right. At least moderate facet hypertrophy is seen. Associated hypertrophy of the ligamentum flavum can be seen. Moderate to severe central canal narrowing is seen, as on series 7, image 13. L4-L5: [id number] loss of disc height and disc signal can be seen. Moderate disc bulge is seen, which is eccentric to the right. There is a central disc protrusion. At least moderate facet hypertrophy can be seen at this level. There is at least moderate bilateral neural foraminal narrowing, right worse than left. Moderate central canal narrowing is seen. L5-S1: Mild loss of disc height is seen. Loss of disc signal is seen. Mild generalized disc bulge is seen. Moderate facet joint hypertrophy is seen. Moderate bilateral neural foraminal narrowing can be seen, right worse than left. No significant central canal narrowing can be seen. Posterior elements screws can be seen on both sides. IMPRESSION: Multiple levels of degenerative change can be seen, which are worst inferiorly. Mild levoconvex scoliotic curvature is noted. Screws are seen through the posterior elements on both sides at L5-S1. Dictated by: Rhett Hernandez M.D. on 07/17/2024 at 16:24 Approved by: Rhett Hernandez M.D. on 07/17/2024 at 16:29
== END ==
PROVIDERS: PCP Nurse Practitioner; Referring Provider Physical Medicine & Rehabilitation; Visit Provider Physical Medicine & Rehabilitation
DX: M48.062 Spinal stenosis, lumbar region with neurogenic claudication (principal); M47.816 Spondylosis without myelopathy or radiculopathy, lumbar region; M47.817 Spondylosis without myelopathy or radiculopathy, lumbosacral region; M41.9 Scoliosis, unspecified; Z98.1 Arthrodesis status
CPT/HCPCS: 72110; 72148

== ENCOUNTER 2024-09-14 13:49 | Outpatient (CLI) | payer MEDICARE, OTHER, SELFPAY ==
[2024-09-14] VITALS (9 sets, daily range): BP systolic 103–152; BP diastolic 64–82; PULSE 57–65; RESP 12–20; TEMP 36.1; O2SAT 95–100
--- NOTE | 2024-09-14 14:30 | DI.RAD.S_ITS ---
PROCEDURE: PAIN L INTERLAMINAR/CAUDAL INJ INDICATIONS: SPONDYLOSIS COMPARISON: None. FINDINGS: Fluoroscopic spot filming was performed to verify placement of spinal needles at the L3-4 level(s), as labeled on the films. Appropriate location(s) of the needle tip(s) was confirmed by injection of iodinated contrast. IMPRESSION: Fluoro guidance was provided intraoperatively for L3-4 translaminar RENATA performed by ordering physician. Dictated by: Robbie Larsen M.D. on 09/14/2024 at 16:59 Approved by: Robbie Larsen M.D. on 09/14/2024 at 16:59
[2024-09-14] MEDS: MIDAZOLAM 2 MG/2 ML VIAL IV (14:48)
[2024-09-14] MEDS: BETAMETHASONE 30 MG/5 ML MDV 6 MG INJ (14:51)
[2024-09-14] MEDS: iopamidoL 15 ML VIAL 3 ML INJ (14:51)
[2024-09-14] MEDS: DEXAMETHASONE 10 MG/ML VIAL INJ (14:52)
[2024-09-14] MEDS: BUPIVACAINE 0.25% (PF) VIAL 2 ML INJ (14:52)
--- NOTE | 2024-09-14 15:04 | P.PCN_ITS ---
Date/Time/Diagnoses Date of procedure: 09/14/24 Time of procedure: 15:04 Pre-procedure diagnosis: 1. HNP WITH RADICULAR FEATURES, 2. MULTILEVEL CENTRAL STENOSIS, Post-procedure diagnosis: same Procedure Notes Procedure: 1. FLUOROSCOPICALLY GUIDED CONTRAST CONTROLLED INTERLAMINAR EPIDURAL STEROID INJECTION - L3/4 Indications: Joel is referred by RISA Barrientos for treatment of Bilateral Foraminal Stenosis L>R LE symptoms. Physician: Joel Arora Total Fluoroscopy time (seconds): 8 Total sedation minutes: 12 Complications: none Procedure in detail & Post-procedure care: FINDINGS Multilevel Central Spinal Stenosis with Nerve Root Compression DESCRIPTION OF PROCEDURE Fluoroscopically guided, contrast-controlled L3/4 translaminar epidural steroid injection. Following review of allergy and review of potential side effects and complications, including, but not necessarily limited to, infection, allergic reaction, local tissue breakdown, temporary as well as permanent nerve injury, paralysis, stroke and possible , the patient indicated that the patient understood and agreed to proceed. An informed consent document was signed by the patient, witnessed by a nurse, and placed in the patient's chart. Additionally, other treatment options including modalities, medications, and physical therapy were reviewed with the patient. After review of previous anaesthesic history and IV conscious sedation the patient was deemed safe to proceed with today?s procedure with IV conscious sedation as ASA class II designation. Safety time-out was performed to confirm p atient ID, procedure to be performed and site of procedure. IV sedation was accomplished with a combination of 2mg of Versed was administered by the RN after DO order, titrated to patient comfort during the course of the procedure while the patient remained responsive to all verbal commands. In the prone position, following sterile prep and drape of the lumbar region, the L3/4 translaminar space was identified fluoroscopically. The skin was anesthetized via a 25-gauge, 1.5-inch needle with 1% lidocaine solution. At this point, a 22-gauge short bevel spinal needle was atraumatically introduced and advanced under fluoroscopic guidance into the region of the L3/4 translaminar space. Depth was confirmed on lateral view. Radiological data, including multiple fluoroscopic views of the lumbar spine, reveal a spinal needle at the L3/4 translaminar space. Lateral views then show placement of the needle in the epidural space. Subsequent views show contrast material flowing superiorly and inferiorly in the epidural space. No vascular or intrathecal uptake is observed. At this point, using loss of resistance technique with saline and air, the epidural space was entered. This was confirmed following negative aspiration with injection of approximately 1.5 cc of Isovue 200, showing excellent epidural flow without vascular or intrathecal uptake. At this point, 1cc of 1% lidocaine solution combined with 2cc or 10mg of dexamethasone and 6mg of betamethasone was injected without incident. The patient tolerated the procedure well without signs or symptoms of complications prior to transfer to the recovery area continued monitoring without incident. The patient was then transferred to the recovery area where they were observed for an appropriate period of time after the injection. The patient reported a VAS score of 6 prior to the procedure and a post- procedure VAS of 0. POST OP INSTRUCTIONS The patient was provided a Pain Log to continue to record their response to the target-specific procedure prior to follow-up visit with their referring physician. Additionally, specific post-injection care instructions and a contact number to our office were provided if concerns arise regarding possible complications associated with the procedure are suspected.
== END 2024-09-14 15:24 | disposition home or self-care (01) ==
LOC: RAD 13:49
PROVIDERS: PCP Nurse Practitioner; Referring Provider Physical Medicine & Rehabilitation; Visit Provider Physical Medicine & Rehabilitation
DX: M51.16 Intervertebral disc disorders with radiculopathy, lumbar region (principal); M48.061 Spinal stenosis, lumbar region without neurogenic claudication
CPT/HCPCS: 62323; 99152; J0702; J1100; J2250; J3490

== ENCOUNTER → 2024-10-23 08:27 | Outpatient (CLI) | payer MEDICARE, OTHER, SELFPAY ==
[2024-10-23 09:10] LABS: Add Manual Diff / Slide Review NO; Basophils Absolute Auto 100 /uL (0-100); Basophils Percent Auto 1.5 % (0-2); Eosinophils Absolute Auto 200 /uL (0-450); Eosinophils Percent Auto 4.2 % (2-4); Hematocrit 40.9 % (41-53); Hemoglobin 13.7 g/dL (13.5-17.5); Lymphocytes Absolute Auto 1500 /uL (1100-4500); Lymphocytes Percent Auto 35.2 % (25-40); Mean Corpuscular HGB Conc 33.5 % (30-36); Mean Corpuscular Hemoglobin 32.5 PG (26-34); Mean Corpuscular Volume 96.9 fL (80-100); Monocytes Absolute Auto 400 /uL (0-900); Monocytes Percent Auto 10.4 % (3-14); Neutrophils Absolute Auto 2100 /uL (1500-7000); Neutrophils Percent Auto 48.7 % (50-75); Platelet Count 242 X10^3/uL (150-400); Red Blood Cell Count 4.23 X10^6/uL (4.5-5.9); Red Cell Distribution Width 12.9 % (11.6-14.8); White Blood Cell Count 4.3 X10^3/uL (4.5-11.0)
[2024-10-23 09:27] LABS: Hemoglobin A1C% w Est Avg Glu 5.9 % (4.0-6.0)
[2024-10-23 09:48] LABS: Vitamin D 25 Hydroxy (D3) 30.9 ng/mL (30.0-100.0)
[2024-10-23 09:49] LABS: Follicle Stimulating Hormone 5.72 mIU/mL; Luteinizing Hormone 5.41 mIU/mL
[2024-10-23 09:50] LABS: Prolactin 11.1 ng/mL (3.7-17.9)
[2024-10-23 10:04] LABS: Cortisol AM (Before 10AM) 18.7 ug/dL (4.46-22.7)
[2024-10-23 10:08] LABS: Thyroid Stimulating Hormone 1.91 uIU/mL (0.47-4.68)
[2024-10-23 10:44] LABS: Vitamin B12 673 pg/mL (239-931)
[2024-10-24 07:38] LABS: Dehydroepiandrosterone Sulfate 48.7 ug/dL (20.8-226.4)
== END ==
PROVIDERS: PCP Student in an Organized Health Care Education/Training Program; Referring Provider Student in an Organized Health Care Education/Training Program; Visit Provider Student in an Organized Health Care Education/Training Program
DX: R53.83 Other fatigue (principal); R73.02 Impaired glucose tolerance (oral); E55.9 Vitamin D deficiency, unspecified
CPT/HCPCS: 36415; 82306; 82533; 82607; 82627; 82746; 83001; 83002; 83036; 84146; 84402; 84403; 84439; 84443; 85025

== ENCOUNTER 2024-12-21 07:29 | Outpatient (CLI) | payer MEDICARE, OTHER, SELFPAY ==
[2024-12-21] VITALS (9 sets, daily range): BP systolic 100–121; BP diastolic 64–76; PULSE 57–65; RESP 14–20; TEMP 36.1; O2SAT 93–100
--- NOTE | 2024-12-21 07:30 | DI.RAD.S_ITS ---
PROCEDURE: PAIN L/S FACET INJ/BLK 1ST LEXIE INDICATIONS: Bilateral L3, L4 and L5 MBB LA COMPARISON: None. FINDINGS/IMPRESSION: Fluoroscopic spot filming was performed to verify placement of spinal needles at the bilateral L3, L4, and L5 level(s), as labeled on the films. Appropriate location(s) of the needle tip(s) was confirmed by injection of iodinated contrast. Dictated by: Zulma Mayfield M.D. on 12/22/2024 at 8:49 Approved by: Zulma Mayfield M.D. on 12/22/2024 at 8:50
[2024-12-21] MEDS: MIDAZOLAM 2 MG/2 ML VIAL IV (08:17)
[2024-12-21] MEDS: BUPIVACAINE 0.5% (PF) 10 ML VIAL 5 ML INJ (08:25)
[2024-12-21] MEDS: iopamidoL 15 ML VIAL 3 ML INJ (08:25)
[2024-12-21] MEDS: LIDOCAINE 1% 20 ML 5 ML INJ (08:26)
--- NOTE | 2024-12-21 08:43 | PM.PROC.IR.1 ---
Date/Time/Diagnoses Date of procedure: 12/21/24 Time of procedure: 08:43 Pre-procedure diagnosis: FACET ARTHROPATHY Post-procedure diagnosis: same Procedure Notes Procedure: 1. BILATERAL L3, L4 AND L5 DIAGNOSTIC MB BLOCKS Indications: Joel is referred by Dr. Barber for treatment of Bilateral Axial LBP. Physician: Joel Arora Total Fluoroscopy time (seconds): 12 Total sedation minutes: 22 Complications: none Procedure in detail & Post-procedure care: DESCRIPTION OF PROCEDURE Fluoroscopically guided, contrast-controlled bilateral L3, L4 and L5 medial branch blocks with 0.5cc of 0.5% Marcaine. Following review of allergy and review of potential side effects and complications, including, but not necessarily limited to, infection, allergic reaction, local tissue breakdown, nerve injury, paralysis, stroke and possible , the patient indicated that the patient understood and agreed to proceed. An informed consent document was signed by the patient, witnessed by a nurse, and placed in the patient's chart. After review of previous anaesthesic history and IV conscious sedation the patient was deemed safe to proceed with today's procedure with IV conscious sedation as ASA class II designation. Safety time-out was performed to confirm patient ID, procedure to be performed and site of procedure. IV sedation was accomplished with a combination of 2mg of Versed was administered by the RN after DO order, titrated to patient comfort during the course of the procedure while the patient remained responsive to all verbal commands In the prone position, following sterile prep and drape of the lumbar region, the right L3, L4 and L5 anatomical location of the medial branch of the dorsal ramus was identified fluoroscopically. Subsequently an anesthetic skin wheal using 1% lidocaine solution was initiated at each of the anatomical spots. Subsequently then a 22-gauge 3.5-inch spinal needle was atraumatically introduced and advanced under fluoroscopic guidance at each of the corresponding sites at the right L3, L4 and L5 MB. After negative aspiration, 0.2cc of Isovue 200 was injected, confirming placement without vascular or intrathecal uptake. Subsequently then 0.5cc of 0.5% Marcaine solution was injected at each of the corresponding sites at the right L3, L4 and L5 medial branch locations. The identical procedure was replicated on the left. The patient tolerated the procedure well without signs or symptoms of complications. The patient tolerated the procedure well without signs or symptoms of complications prior to transfer to the recovery area continued monitoring without incident. Post-procedure, the patient was monitored initiating provocative activities to measure the amount of relief from block of the facetogenic pain. The patient reported a VAS of 7 prior to the procedure and a post-procedure VAS of 1. It has been a pleasure to assist in the diagnostic and therapeutic care of your patient. POST OP INSTRUCTIONS The patient was provided with a Pain Log to complete over the next several hours and subsequent days prior to the patient's follow up with the ordering physician. If the patient has cytopathology technologist relief to the solution applied, then they may be a candidate for medial branch rhizotomy. The patient is aware, was provided, once again, with a Pain Log and will follow up with the referring physician for review and clinical correlation
== END 2024-12-21 08:55 | disposition home or self-care (01) ==
PROVIDERS: Family Provider Student in an Organized Health Care Education/Training Program; PCP Student in an Organized Health Care Education/Training Program; Referring Provider Physical Medicine & Rehabilitation; Visit Provider Physical Medicine & Rehabilitation
DX: M47.816 Spondylosis without myelopathy or radiculopathy, lumbar region (principal)
CPT/HCPCS: 64493; 64494; 99152; J2250

== ENCOUNTER 2024-12-28 10:45 | Outpatient (RCR) | payer MEDICARE, OTHER, SELFPAY ==
--- NOTE | 2024-12-13 16:50 | PT.OIE ---
Current Diagnoses Spinal stenosis, lumbar region without neurogenic claudication (12/13/24) Past Medical History (Last Updated 11/13/24 @ 13:38 by Joel Arora DO) Advanced age Allergies (~1959) Anemia (~2009) Anxiety (~2006) Flores's syndrome (~2004) BPH (benign prostatic hyperplasia) Cervical spine disease (~1994) Cervical spondylosis with radiculopathy Cervical stenosis of spinal canal Cervicalgia Chicken pox (~1957) Chronic pain Complaint of paresthesia Counseling regarding advanced care planning and goals of care CTS (carpal tunnel syndrome) Depression (~2006) Disorder of lumbar spine (~1997) Facet arthropathy, cervical Facet arthropathy, lumbar Fatigue Foot pain (~2005) Foraminal stenosis of cervical region Hearing loss (~2016) Hot flash in male Hyperlipidemia Hypogonadism Hypogonadism in male Intention tremor Lateral collateral ligament sprain of knee Low testosterone (~2017) Low testosterone in male Lumbar stenosis with neurogenic claudication Macrocytosis Mumps (~1957) Obstructive sleep apnea syndrome Osteoarthritis (~2004) Other alf (current) drug therapy Peripheral neuropathy (~2015) Pernicious anemia Right knee DJD Wears hearing aid in both ears Past Surgical History (Last Reviewed 08/10/24 @ 11:48 by Joel Arora DO) Anesthesia History of discectomy (~1997) History of lumbar fusion History of shoulder surgery (~2016) History of spinal fusion (~1978) S/p bilateral carpal tunnel release Visit Care Team Role Provider Type Eloise Barber MD Attending Provider Physician Family Provider Primary Care Provider Referring Provider Specialty: Family Practice Obstetrics Address: [address] [place] [address], [facility] Email: [email or web address] Physical Therapy Initial Evaluation PT-OP-A Visit Information Start: 12/07/24 07:55 Freq: Status: Active Protocol: Document 12/13/24 08:06 MB (Rec: 12/13/24 08:46 MB [id number]) Out-Patient Physical Therapy Visit Information Visit Information Visit Type Initial Evaluation Visit Note Medicare 12/17 before KX Progress note by 01/13/25 Visit Start Time 08:06 Visit Stop Time 08:46 Visit Number 1 Number of DONOR RELATIONS OFFICER Visits 0 Evaluation Information Evaluation Date 12/13/24 Precautions Precautions No allergies that pt knows of, no blood thinners or BP issues that he knows of; cervical spine changes, lumbar stenosis so mindful with extension, he prefers flexion PT-OP-B Current Condition Start: 12/07/24 07:55 Freq: Status: Active Protocol: Document 12/13/24 08:06 MB (Rec: 12/13/24 08:46 MB [id number]) Current Condition History of Current Condition Onset Date Months Current Complaints I can't walk. Pt gets stiff with walking and he has trouble with balance History of Current Condition Pt had lumbar injection and he does not have anymore pain. He has another injection coming up 12/21/24 before he can have a RFA ( radiofrequency ablation). Pt can only walk less than a block before he stiffens up and walks flexed over and then pain starts. Pt reports that his feet don't do what they are supposed to do and he stumbles. Pt has one walking stick or cane but not always use them. Pt reports decreased sensation in both feet. He reports peripheral neuropathy in right foot at least and he has numbness L5-S1 disribution . Pt also has changes in cervical spine and history of left shoulder surgery. Pt had a fall this morning when trying to help the 60-70 lb dog off the bed. Pt is not hurt. He had a fall last summer on the steps and he missed one and there are not consistent rails. Prior Treatments and Tests MRI 07/16/24: IMPRESSION: Multiple levels of degenerative change can be seen, which are worst inferiorly. Mild levoconvex scoliotic curvature is noted. Screws are seen through the posterior elements on both sides at L5-S1. Treatment Goals Patient/Caregiver Goals To improve balance and ability to walk PT-OP-C Subjective Start: 12/07/24 07:55 Freq: Status: Active Protocol: Document 12/13/24 08:06 MB (Rec: 12/13/24 08:46 MB [id number]) OP-PT Subjective Patient Comments Patient Comments See history of current condition Patient Questionnaires Other Questionnaire Name and Score Oswestry score reporting does not match subjective complaints and so will not use this as a goal (score is 8/50 and he is reporting more severe issues with walking/ balance and so will set a balance goal) PT-OP-G Mobility & Gait Start: 12/07/24 07:55 Freq: Status: Active Protocol: Document 12/13/24 08:06 MB (Rec: 12/13/24 08:46 MB [id number]) OP Gait Assessment Comments Gait Comments Gait in socks: forward, flexed posture and arms tend to dangle with decreased arm swing B, greater on the left, decreased sacral movement B and decreased hip flexion, heel strike and step-length PT-OP-J Posture/Palpation/Skin Start: 12/07/24 07:55 Freq: Status: Active Protocol: Document 12/13/24 08:06 MB (Rec: 12/13/24 08:46 MB [id number]) Posture Evaluation Comments Posture Comments Posture in socks: B shoulders forward and rounded, greater on left, increased thoracic kyphosis superiorly and then flattened thoracic convexity, upper thoracic/lower cervical convexity to the right and shift to the right upper body (right shoulder is lateral to right hip and left shoulder is equal to left hip) and then some rotation of vertebrae in lower thoracic spine to the left, and pelvis is level in shifted spine posture today, flattened of lumbar lordosis. Decreased flexibility of spine in standing, did not push AROM in standing d/t peripheral symptoms and known stenosis. Head rests in mild left SB. Prefers flexion to extension in setting of stenosis. Sitting thoracic rotation: most movement lumbar area and mildly reduced to the right PT-OP-K Range of Motion Start: 12/07/24 07:55 Freq: Status: Active Protocol: Document 12/13/24 08:06 MB (Rec: 12/13/24 08:46 MB [id number]) Hip Goniometric Range of Motion Hip ROM Limitations Comments Passive SLR right 50 deg and left 40 deg, indicating tight hamstrings and guarding discs, decreased passive knee extension left in supine and appears to be d/t hip and knee , mild valgus on the left PT-OP-M Strength Start: 12/07/24 07:55 Freq: Status: Active Protocol: Document 12/13/24 08:06 MB (Rec: 12/13/24 08:46 MB [id number]) Hip Strength Hip Manual Muscle Testing Left Flexion (L2) 4+ Good+ Abduction 4+ Good+ Right Flexion (L2) 4+ Good+ Abduction 4+ Good+ Knee Strength Knee Manual Muscle Testing Left Flexion (S2) 4 Good Extension (L3) 4+ Good+ Right Flexion (S2) 4+ Good+ Extension (L3) 4+ Good+ Ankle/Foot Strength Ankle and Foot Manual Muscle Testing Left Dorsiflexion (L4) 5 Normal Right Dorsiflexion (L4) 5 Normal Toe Strength Toe Manual Muscle Testing Left Great Toe Extension 3+ Fair+ Right Great Toe Extension 5 Normal PT-OP-Q Treatments Start: 12/07/24 07:55 Freq: Status: Active Protocol: Document 12/13/24 08:06 MB (Rec: 12/13/24 16:50 MB [id number]) Self-Care/Home Management Treatment Education Patient Education Body Mechanics,Joint Protection,Pain Management, Posture,Safety Other Education Ed pt on benefits of log rolling, proper pillow support with pillow between legs if side lying and pillow under knees if supine, benefits of walking sticks for long walks to support back given stenosis PT-OP-T Assessment and Plan Start: 12/07/24 07:55 Freq: Status: Active Protocol: Document 12/13/24 08:06 MB (Rec: 12/13/24 16:50 MB [id number]) Physical Therapy Assessment Rehab Potential Rehabilitation Potential Fair Evaluation Complexity Number of Personal Factors/Comorbidities 1-2 Number of Body Systems Impaired 3 Clinical Presentation at Evaluation Evolving Impairments Impairments Activity Tolerance,Balance, Coordination,Functional Activities,Functional Mobility ,Gait,Pain,Posture,ROM, Sensation,Soft Tissue Mobility ,Strength Goals 4 Impairment Lack of HEP Intermediate Goal (LTG) Pt will perform progressive HEP with I including alignment , flexibility, strengthening and balance exercises to improve quality of life and walking tolerance. LTG Duration 8 weeks 3 Impairment Evidence of imbalance Intermediate Goal (LTG) Pt will perform WNLs on FGA to decrease fall risk. LTG Duration 8 weeks 2 Impairment Reports of trouble walking greater than 100' Checkering Machine Adjuster Goal (LTG) Pt will gait train at least 1300 feet with or without LRAD such as walking sticks in 6 minutes to improve community ambulation. LTG Duration 8 weeks 1 Impairment Hip weakness Intermediate Goal (LTG) Pt will present with B hip flexion and abduction strength 5/5 to improve balance and gait pattern. LTG Duration 8 weeks Assessment Summary Assessment Pt is a 79 y/o male presenting with lumbar stenosis, lumbar radiculopathy, cervical changes and right greater than left foot neuropathy and numbness presenting with weakness, imbalance and altered gait. Pt states he is getting another injection soon and may have a nerve ablation afterwards for more lasting pain relief. Pt presents with spinal changes with trunk shift to the right and pelvis is level in this shift position. He will benefit from PT for manual work, flexibility, postural and balance training and strengthening. Physical Therapy Plan Frequency and Duration Frequency of Treatment 2x/Week Duration of treatment (weeks) 8 Plan of Care Start Date 12/13/24 Plan of Care End Date 02/12/25 Therapeutic Interventions Therapeutic Interventions Balance Training,Canalithic Repositioning,Coordination Training,Gait Training,Home Exercise Program,Joint Mobilizations,Manual Therapy, Neuromuscular Re-education, Patient/Caregiver Education, Self-Care/Home Management, Sensory Integration,Soft Tissue Mobilization,Taping, Therapeutic Activities, Therapeutic Exercises Modalities Cold Pack/Ice Massage,Electric Stimulation,Hot Packs, Ultrasound Next Visit Focus/Plan Next Note Type Treatment Note Next Visit Plan Initiate manual work, consider hip rotator or hamstring stretches, open book, progressive core and LE strengthening, balance testing (FGA) and then FGA tasks to add for HEP
--- NOTE | 2024-12-13 16:50 | PT.OPPOC ---
Physical, Occupational & Speech Therapy At [facility] Current Diagnoses Spinal stenosis, lumbar region without neurogenic claudication (12/13/24) Visit Care Team Role Provider Type Eloise Barber MD Attending Provider Physician Family Provider Primary Care Provider Referring Provider Specialty: Family Practice Obstetrics Address: [address] [place] [address], [id number] Email: [email or web address] Plan Of Care PT-OP-B Current Condition Start: 12/07/24 07:55 Freq: Status: Active Protocol: Document 12/13/24 08:06 MB (Rec: 12/13/24 08:46 MB [id number]) Current Condition History of Current Condition Onset Date Months Current Complaints I can't walk. Pt gets stiff with walking and he has trouble with balance History of Current Condition Pt had lumbar injection and he does not have anymore pain. He has another injection coming up 12/21/24 before he can have a RFA ( radiofrequency ablation). Pt can only walk less than a block before he stiffens up and walks flexed over and then pain starts. Pt reports that his feet don't do what they are supposed to do and he stumbles. Pt has one walking stick or cane but not always use them. Pt reports decreased sensation in both feet. He reports peripheral neuropathy in right foot at least and he has numbness L5-S1 disribution . Pt also has changes in cervical spine and history of left shoulder surgery. Pt had a fall this morning when trying to help the 60-70 lb dog off the bed. Pt is not hurt. He had a fall last summer on the steps and he missed one and there are not consistent rails. Prior Treatments and Tests MRI 07/16/24: IMPRESSION: Multiple levels of degenerative change can be seen, which are worst inferiorly. Mild levoconvex scoliotic curvature is noted. Screws are seen through the posterior elements on both sides at L5-S1. Treatment Goals Patient/Caregiver Goals To improve balance and ability to walk PT-OP-T Assessment and Plan Start: 12/07/24 07:55 Freq: Status: Active Protocol: Document 12/13/24 08:06 MB (Rec: 12/13/24 16:50 MB [id number]) Physical Therapy Assessment Rehab Potential Rehabilitation Potential Fair Evaluation Complexity Number of Personal Factors/Comorbidities 1-2 Number of Body Systems Impaired 3 Clinical Presentation at Evaluation Evolving Impairments Impairments Activity Tolerance,Balance, Coordination,Functional Activities,Functional Mobility ,Gait,Pain,Posture,ROM, Sensation,Soft Tissue Mobility ,Strength Goals 4 Impairment Lack of HEP User Interface Developer Goal (LTG) Pt will perform progressive HEP with I including alignment , flexibility, strengthening and balance exercises to improve quality of life and walking tolerance. LTG Duration 8 weeks 3 Impairment Evidence of imbalance User Interface Developer Goal (LTG) Pt will perform WNLs on FGA to decrease fall risk. LTG Duration 8 weeks 2 Impairment Reports of trouble walking greater than 100' User Interface Developer Goal (LTG) Pt will gait train at least 1300 feet with or without LRAD such as walking sticks in 6 minutes to improve community ambulation. LTG Duration 8 weeks 1 Impairment Hip weakness Long-Term Goal (LTG) Pt will present with B hip flexion and abduction strength 5/5 to improve balance and gait pattern. LTG Duration 8 weeks Assessment Summary Assessment Pt is a 79 y/o male presenting with lumbar stenosis, lumbar radiculopathy, cervical changes and right greater than left foot neuropathy and numbness presenting with weakness, imbalance and altered gait. Pt states he is getting another injection soon and may have a nerve ablation afterwards for more lasting pain relief. Pt presents with spinal changes with trunk shift to the right and pelvis is level in this shift position. He will benefit from PT for manual work, flexibility, postural and balance training and strengthening. Physical Therapy Plan Frequency and Duration Frequency of Treatment 2x/Week Duration of treatment (weeks) 8 Plan of Care Start Date 12/13/24 Plan of Care End Date 02/12/25 Therapeutic Interventions Therapeutic Interventions Balance Training,Canalithic Repositioning,Coordination Training,Gait Training,Home Exercise Program,Joint Mobilizations,Manual Therapy, Neuromuscular Re-education, Patient/Caregiver Education, Self-Care/Home Management, Sensory Integration,Soft Tissue Mobilization,Taping, Therapeutic Activities, Therapeutic Exercises Modalities Cold Pack/Ice Massage,Electric Stimulation,Hot Packs, Ultrasound Next Visit Focus/Plan Next Note Type Treatment Note Next Visit Plan Initiate manual work, consider hip rotator or hamstring stretches, open book, progressive core and LE strengthening, balance testing (FGA) and then FGA tasks to add for HEP Plan of Care Dates Plan of Care Start Date 12/13/24 Plan of Care End Date 02/12/25 Electronically Signed by: Peggy Presley, PT 12/13/24 1905 If you are in agreement with this Plan of Care, please return a signed and dated copy. I have reviewed this Plan of Care and certify that the skilled therapy services above are required to meet the patient?s needs. Physician Signature Date Printed Name and Credentials Clinical Instructor Signature Printed Name and Credentials
--- NOTE | 2024-12-19 11:29 | PT.OTN ---
Current Diagnoses Spinal stenosis, lumbar region without neurogenic claudication (12/19/24) Physical Therapy Treatment Note PT-OP-A Visit Information Start: 12/07/24 07:55 Freq: Status: Active Protocol: Document 12/19/24 10:43 MB (Rec: 12/19/24 11:20 MB [id number]) Out-Patient Physical Therapy Visit Information Visit Information Visit Type Treatment Note Visit Note Medicare 12/17 before KX Progress note by 01/13/25 Visit Start Time 10:43 Visit Stop Time 11:23 Visit Number 2 Number of FLAGSTONE LAYER Visits 0 Evaluation Information Evaluation Date 12/13/24 Precautions Precautions No allergies that pt knows of, no blood thinners or BP issues that he knows of; cervical spine changes, lumbar stenosis so mindful with extension, he prefers flexion PT-OP-B Current Condition Start: 12/07/24 07:55 Freq: Status: Active Protocol: Document 12/13/24 08:06 MB (Rec: 12/13/24 08:46 MB [id number]) Current Condition History of Current Condition Onset Date Months Current Complaints I can't walk. Pt gets stiff with walking and he has trouble with balance History of Current Condition Pt had lumbar injection and he does not have anymore pain. He has another injection coming up 12/21/24 before he can have a RFA ( radiofrequency ablation). Pt can only walk less than a block before he stiffens up and walks flexed over and then pain starts. Pt reports that his feet don't do what they are supposed to do and he stumbles. Pt has one walking stick or cane but not always use them. Pt reports decreased sensation in both feet. He reports peripheral neuropathy in right foot at least and he has numbness L5-S1 disribution . Pt also has changes in cervical spine and history of left shoulder surgery. Pt had a fall this morning when trying to help the 60-70 lb dog off the bed. Pt is not hurt. He had a fall last summer on the steps and he missed one and there are not consistent rails. Prior Treatments and Tests MRI 07/16/24: IMPRESSION: Multiple levels of degenerative change can be seen, which are worst inferiorly. Mild levoconvex scoliotic curvature is noted. Screws are seen through the posterior elements on both sides at L5-S1. Treatment Goals Patient/Caregiver Goals To improve balance and ability to walk PT-OP-C Subjective Start: 12/07/24 07:55 Freq: Status: Active Protocol: Document 12/19/24 10:43 MB (Rec: 12/19/24 11:20 MB [id number]) OP-PT Subjective Patient Comments Patient Comments No new complaints. PT-OP-G Mobility & Gait Start: 12/07/24 07:55 Freq: Status: Active Protocol: Document 12/13/24 08:06 MB (Rec: 12/13/24 08:46 MB [id number]) OP Gait Assessment Comments Gait Comments Gait in socks: forward, flexed posture and arms tend to dangle with decreased arm swing B, greater on the left, decreased sacral movement B and decreased hip flexion, heel strike and step-length PT-OP-J Posture/Palpation/Skin Start: 12/07/24 07:55 Freq: Status: Active Protocol: Document 12/13/24 08:06 MB (Rec: 12/13/24 08:46 MB [id number]) Posture Evaluation Comments Posture Comments Posture in socks: B shoulders forward and rounded, greater on left, increased thoracic kyphosis superiorly and then flattened thoracic convexity, upper thoracic/lower cervical convexity to the right and shift to the right upper body (right shoulder is lateral to right hip and left shoulder is equal to left hip) and then some rotation of vertebrae in lower thoracic spine to the left, and pelvis is level in shifted spine posture today, flattened of lumbar lordosis. Decreased flexibility of spine in standing, did not push AROM in standing d/t peripheral symptoms and known stenosis. Head rests in mild left SB. Prefers flexion to extension in setting of stenosis. Sitting thoracic rotation: most movement lumbar area and mildly reduced to the right PT-OP-K Range of Motion Start: 12/07/24 07:55 Freq: Status: Active Protocol: Document 12/13/24 08:06 MB (Rec: 12/13/24 08:46 MB [id number]) Hip Goniometric Range of Motion Hip ROM Limitations Comments Passive SLR right 50 deg and left 40 deg, indicating tight hamstrings and guarding discs, decreased passive knee extension left in supine and appears to be d/t hip and knee , mild valgus on the left PT-OP-M Strength Start: 12/07/24 07:55 Freq: Status: Active Protocol: Document 12/13/24 08:06 MB (Rec: 12/13/24 08:46 MB [id number]) Hip Strength Hip Manual Muscle Testing Left Flexion (L2) 4+ Good+ Abduction 4+ Good+ Right Flexion (L2) 4+ Good+ Abduction 4+ Good+ Knee Strength Knee Manual Muscle Testing Left Flexion (S2) 4 Good Extension (L3) 4+ Good+ Right Flexion (S2) 4+ Good+ Extension (L3) 4+ Good+ Ankle/Foot Strength Ankle and Foot Manual Muscle Testing Left Dorsiflexion (L4) 5 Normal Right Dorsiflexion (L4) 5 Normal Toe Strength Toe Manual Muscle Testing Left Great Toe Extension 3+ Fair+ Right Great Toe Extension 5 Normal PT-OP-Q Treatments Start: 12/07/24 07:55 Freq: Status: Active Protocol: Document 12/19/24 10:43 MB (Rec: 12/19/24 11:20 MB [id number]) Therapeutic Exercises Supine Exercises Hamstring stretch with AP Supine Exercise Name HEP Side bilateral Equipment Used Towel behind leg Reps/Minutes 30 sec hold and AP foot Comments Education for form today, increased time Hip rotator stretch Supine Exercise Name HEP Side bilateral Reps/Minutes 30 sec hold Comments Education for form today, several reps Manual Therapy Treatment Consent Patient gave verbal consent for manual Yes treatment Other Other Manual Treatments Pt supine with head and legs supported: positional release B hip flexors, QL, thoracic spine and ribs, STM and positional release B quads and hamstrings and TFL, PFs PT-OP-T Assessment and Plan Start: 12/07/24 07:55 Freq: Status: Active Protocol: Document 12/19/24 10:43 MB (Rec: 12/19/24 11:20 MB [id number]) Physical Therapy Assessment Rehab Potential Rehabilitation Potential Fair Evaluation Complexity Number of Personal Factors/Comorbidities 1-2 Number of Body Systems Impaired 3 Clinical Presentation at Evaluation Evolving Impairments Impairments Activity Tolerance,Balance, Coordination,Functional Activities,Functional Mobility ,Gait,Pain,Posture,ROM, Sensation,Soft Tissue Mobility ,Strength Goals 4 Impairment Lack of HEP Bank Runner Goal (LTG) Pt will perform progressive HEP with I including alignment , flexibility, strengthening and balance exercises to improve quality of life and walking tolerance. LTG Duration 8 weeks 3 Impairment Evidence of imbalance Correction Goal (LTG) Pt will perform WNLs on FGA to decrease fall risk. LTG Duration 8 weeks 2 Impairment Reports of trouble walking greater than 100' Bank Runner Goal (LTG) Pt will gait train at least 1300 feet with or without LRAD such as walking sticks in 6 minutes to improve community ambulation. LTG Duration 8 weeks 1 Impairment Hip weakness Correction Goal (LTG) Pt will present with B hip flexion and abduction strength 5/5 to improve balance and gait pattern. LTG Duration 8 weeks Assessment Summary Assessment Initiated manual work and stretching today and right leg is tighter than the left. Physical Therapy Plan Frequency and Duration Frequency of Treatment 2x/Week Duration of treatment (weeks) 8 Plan of Care Start Date 12/13/24 Plan of Care End Date 02/12/25 Therapeutic Interventions Therapeutic Interventions Balance Training,Canalithic Repositioning,Coordination Training,Gait Training,Home Exercise Program,Joint Mobilizations,Manual Therapy, Neuromuscular Re-education, Patient/Caregiver Education, Self-Care/Home Management, Sensory Integration,Soft Tissue Mobilization,Taping, Therapeutic Activities, Therapeutic Exercises Modalities Cold Pack/Ice Massage,Electric Stimulation,Hot Packs, Ultrasound Next Visit Focus/Plan Next Note Type Treatment Note Next Visit Plan Con't manual work, review hip rotator and hamstring stretches Next: Prabhu stretch, open book, standing PF stretches, progressive core and LE strengthening, balance testing (FGA) and then FGA tasks to add for HEP
--- NOTE | 2024-12-22 16:04 | PT.OTN ---
Current Diagnoses Spinal stenosis, lumbar region without neurogenic claudication (12/22/24) Physical Therapy Treatment Note PT-OP-A Visit Information Start: 12/07/24 07:55 Freq: Status: Active Protocol: Document 12/22/24 08:14 AB (Rec: 12/22/24 10:43 AB [id number]) Out-Patient Physical Therapy Visit Information Visit Information Visit Type Treatment Note Visit Note Medicare 12/17 before KX Progress note by 01/13/25 Visit Start Time 08:23 Visit Stop Time 09:04 Visit Number 3 Number of NIGHT WORKER Visits 1 Evaluation Information Evaluation Date 12/13/24 Precautions Precautions No allergies that pt knows of, no blood thinners or BP issues that he knows of; cervical spine changes, lumbar stenosis so mindful with extension, he prefers flexion PT-OP-B Current Condition Start: 12/07/24 07:55 Freq: Status: Active Protocol: Document 12/13/24 08:06 MB (Rec: 12/13/24 08:46 MB [id number]) Current Condition History of Current Condition Onset Date Months Current Complaints I can't walk. Pt gets stiff with walking and he has trouble with balance History of Current Condition Pt had lumbar injection and he does not have anymore pain. He has another injection coming up 12/21/24 before he can have a RFA ( radiofrequency ablation). Pt can only walk less than a block before he stiffens up and walks flexed over and then pain starts. Pt reports that his feet don't do what they are supposed to do and he stumbles. Pt has one walking stick or cane but not always use them. Pt reports decreased sensation in both feet. He reports peripheral neuropathy in right foot at least and he has numbness L5-S1 disribution . Pt also has changes in cervical spine and history of left shoulder surgery. Pt had a fall this morning when trying to help the 60-70 lb dog off the bed. Pt is not hurt. He had a fall last summer on the steps and he missed one and there are not consistent rails. Prior Treatments and Tests MRI 07/16/24: IMPRESSION: Multiple levels of degenerative change can be seen, which are worst inferiorly. Mild levoconvex scoliotic curvature is noted. Screws are seen through the posterior elements on both sides at L5-S1. Treatment Goals Patient/Caregiver Goals To improve balance and ability to walk PT-OP-C Subjective Start: 12/07/24 07:55 Freq: Status: Active Protocol: Document 12/22/24 08:14 AB (Rec: 12/22/24 10:43 AB [id number]) OP-PT Subjective Patient Comments Patient Comments Patient reports he is better, attributes to the injection yesterday morning, RFA precurser injection which patient reports will have worn off right now. Patient rates pain 0/10 start of session seated, reports pain with walking is better than it was, comment the injection triggered the better. Infra costal angle 127 deg. PT-OP-E Functional Tests Start: 12/22/24 16:02 Freq: Status: Active Protocol: Document 12/22/24 16:02 AB (Rec: 12/22/24 16:03 AB [id number]) Functional Tests Functional Gait Assessment Functional Gait Assessment Impairment 20 to <40% Impaired (Score 19- Rating 24) PT-OP-G Mobility & Gait Start: 12/07/24 07:55 Freq: Status: Active Protocol: Document 12/13/24 08:06 MB (Rec: 12/13/24 08:46 MB [id number]) OP Gait Assessment Comments Gait Comments Gait in socks: forward, flexed posture and arms tend to dangle with decreased arm swing B, greater on the left, decreased sacral movement B and decreased hip flexion, heel strike and step-length PT-OP-J Posture/Palpation/Skin Start: 12/07/24 07:55 Freq: Status: Active Protocol: Document 12/13/24 08:06 MB (Rec: 12/13/24 08:46 MB [id number]) Posture Evaluation Comments Posture Comments Posture in socks: B shoulders forward and rounded, greater on left, increased thoracic kyphosis superiorly and then flattened thoracic convexity, upper thoracic/lower cervical convexity to the right and shift to the right upper body (right shoulder is lateral to right hip and left shoulder is equal to left hip) and then some rotation of vertebrae in lower thoracic spine to the left, and pelvis is level in shifted spine posture today, flattened of lumbar lordosis. Decreased flexibility of spine in standing, did not push AROM in standing d/t peripheral symptoms and known stenosis. Head rests in mild left SB. Prefers flexion to extension in setting of stenosis. Sitting thoracic rotation: most movement lumbar area and mildly reduced to the right PT-OP-K Range of Motion Start: 12/07/24 07:55 Freq: Status: Active Protocol: Document 12/13/24 08:06 MB (Rec: 12/13/24 08:46 MB [id number]) Hip Goniometric Range of Motion Hip ROM Limitations Comments Passive SLR right 50 deg and left 40 deg, indicating tight hamstrings and guarding discs, decreased passive knee extension left in supine and appears to be d/t hip and knee , mild valgus on the left PT-OP-M Strength Start: 12/07/24 07:55 Freq: Status: Active Protocol: Document 12/13/24 08:06 MB (Rec: 12/13/24 08:46 MB [id number]) Hip Strength Hip Manual Muscle Testing Left Flexion (L2) 4+ Good+ Abduction 4+ Good+ Right Flexion (L2) 4+ Good+ Abduction 4+ Good+ Knee Strength Knee Manual Muscle Testing Left Flexion (S2) 4 Good Extension (L3) 4+ Good+ Right Flexion (S2) 4+ Good+ Extension (L3) 4+ Good+ Ankle/Foot Strength Ankle and Foot Manual Muscle Testing Left Dorsiflexion (L4) 5 Normal Right Dorsiflexion (L4) 5 Normal Toe Strength Toe Manual Muscle Testing Left Great Toe Extension 3+ Fair+ Right Great Toe Extension 5 Normal PT-OP-Q Treatments Start: 12/07/24 07:55 Freq: Status: Active Protocol: Document 12/22/24 08:14 AB (Rec: 12/22/24 10:43 AB [id number]) Therapeutic Exercises Supine Exercises Modified restorative pose Supine Exercise Name with breathing from diaphragm Handout for breathing to HEP Comments During manual Modified Prabhu stretch Supine Exercise Name HEP Side bilateral Reps/Minutes 60 sec each Comments Verbal cues Hamstring stretch with AP Supine Exercise Name HEP Side bilateral Equipment Used Towel behind leg Reps/Minutes 30 sec hold and AP foot Comments HEP review Hip rotator stretch Supine Exercise Name HEP Side bilateral Reps/Minutes 30 sec hold Comments HEP review Manual Therapy Treatment Consent Patient gave verbal consent for manual Yes treatment Soft Tissue Mobilization Illiopsoas, glute/piriformis Body Location bilateral Mobilization Type Cross-Friction,Rolling Intensity/Depth Moderate Body Position Sidelying Comments and hooklying PT-OP-T Assessment and Plan Start: 12/07/24 07:55 Freq: Status: Active Protocol: Document 12/22/24 08:14 AB (Rec: 12/22/24 10:43 AB [id number]) Physical Therapy Assessment Goals 4 Impairment Lack of HEP Glass Cutting Machine Feeder Goal (LTG) Pt will perform progressive HEP with I including alignment , flexibility, strengthening and balance exercises to improve quality of life and walking tolerance. LTG Duration 8 weeks 3 Impairment Evidence of imbalance Glass Cutting Machine Feeder Goal (LTG) Pt will perform WNLs on FGA to decrease fall risk. LTG Duration 8 weeks 2 Impairment Reports of trouble walking greater than 100' Glass Cutting Machine Feeder Goal (LTG) Pt will gait train at least 1300 feet with or without LRAD such as walking sticks in 6 minutes to improve community ambulation. LTG Duration 8 weeks 1 Impairment Hip weakness Detention Goal (LTG) Pt will present with B hip flexion and abduction strength 5/5 to improve balance and gait pattern. LTG Duration 8 weeks Assessment Summary Assessment Performed FGA test this session with difficulty during narrow ANAHI, eyes closed, steps, verticle head turns, and mild impairment with velocity impacted with a total score of 24/30. Ulysses into session with no pain and reports having no pain end of session. Physical Therapy Plan Frequency and Duration Frequency of Treatment 2x/Week Duration of treatment (weeks) 8 Plan of Care Start Date 12/13/24 Plan of Care End Date 02/12/25 Next Visit Focus/Plan Next Note Type Treatment Note Next Visit Plan Con't manual work, Next: open book, standing PF stretches, progressive core and LE strengthening, FGA tasks to add for HEP ( steps, narrow ANAHI, eyes closed, verticle head movement limited with FGA, velocity of gait mildly decreased )
--- NOTE | 2024-12-26 11:33 | PT.OTN ---
Current Diagnoses Spinal stenosis, lumbar region without neurogenic claudication (12/26/24) Physical Therapy Treatment Note PT-OP-A Visit Information Start: 12/07/24 07:55 Freq: Status: Active Protocol: Document 12/26/24 10:47 MB (Rec: 12/26/24 11:32 MB [id number]) Out-Patient Physical Therapy Visit Information Visit Information Visit Type Treatment Note Visit Note Medicare 12/17 before KX Progress note by 01/13/25 Visit Start Time 10:47 Visit Stop Time 11:27 Visit Number 4 Number of CABLE SPLICER APPRENTICE Visits 0 Evaluation Information Evaluation Date 12/13/24 Precautions Precautions No allergies that pt knows of, no blood thinners or BP issues that he knows of; cervical spine changes, lumbar stenosis so mindful with extension, he prefers flexion PT-OP-B Current Condition Start: 12/07/24 07:55 Freq: Status: Active Protocol: Document 12/13/24 08:06 MB (Rec: 12/13/24 08:46 MB [id number]) Current Condition History of Current Condition Onset Date Months Current Complaints I can't walk. Pt gets stiff with walking and he has trouble with balance History of Current Condition Pt had lumbar injection and he does not have anymore pain. He has another injection coming up 12/21/24 before he can have a RFA ( radiofrequency ablation). Pt can only walk less than a block before he stiffens up and walks flexed over and then pain starts. Pt reports that his feet don't do what they are supposed to do and he stumbles. Pt has one walking stick or cane but not always use them. Pt reports decreased sensation in both feet. He reports peripheral neuropathy in right foot at least and he has numbness L5-S1 disribution . Pt also has changes in cervical spine and history of left shoulder surgery. Pt had a fall this morning when trying to help the 60-70 lb dog off the bed. Pt is not hurt. He had a fall last summer on the steps and he missed one and there are not consistent rails. Prior Treatments and Tests MRI 07/16/24: IMPRESSION: Multiple levels of degenerative change can be seen, which are worst inferiorly. Mild levoconvex scoliotic curvature is noted. Screws are seen through the posterior elements on both sides at L5-S1. Treatment Goals Patient/Caregiver Goals To improve balance and ability to walk PT-OP-C Subjective Start: 12/07/24 07:55 Freq: Status: Active Protocol: Document 12/26/24 10:47 MB (Rec: 12/26/24 11:32 MB [id number]) OP-PT Subjective Patient Comments Patient Comments Pt was surprised about having limited hip IR in hook lying. Pt had medial nerve shot L3, L4, L5 on 12/21/24. Between that and the stretches, he was able to walk about a mile. He is feeling better. He felt more normal and more upright with his walking. PT-OP-E Functional Tests Start: 12/22/24 16:02 Freq: Status: Active Protocol: Document 12/22/24 16:02 AB (Rec: 12/22/24 16:03 AB [id number]) Functional Tests Functional Gait Assessment Functional Gait Assessment Impairment 20 to <40% Impaired (Score 19- Rating 24) PT-OP-G Mobility & Gait Start: 12/07/24 07:55 Freq: Status: Active Protocol: Document 12/13/24 08:06 MB (Rec: 12/13/24 08:46 MB [id number]) OP Gait Assessment Comments Gait Comments Gait in socks: forward, flexed posture and arms tend to dangle with decreased arm swing B, greater on the left, decreased sacral movement B and decreased hip flexion, heel strike and step-length PT-OP-J Posture/Palpation/Skin Start: 12/07/24 07:55 Freq: Status: Active Protocol: Document 12/13/24 08:06 MB (Rec: 12/13/24 08:46 MB [id number]) Posture Evaluation Comments Posture Comments Posture in socks: B shoulders forward and rounded, greater on left, increased thoracic kyphosis superiorly and then flattened thoracic convexity, upper thoracic/lower cervical convexity to the right and shift to the right upper body (right shoulder is lateral to right hip and left shoulder is equal to left hip) and then some rotation of vertebrae in lower thoracic spine to the left, and pelvis is level in shifted spine posture today, flattened of lumbar lordosis. Decreased flexibility of spine in standing, did not push AROM in standing d/t peripheral symptoms and known stenosis. Head rests in mild left SB. Prefers flexion to extension in setting of stenosis. Sitting thoracic rotation: most movement lumbar area and mildly reduced to the right PT-OP-K Range of Motion Start: 12/07/24 07:55 Freq: Status: Active Protocol: Document 12/13/24 08:06 MB (Rec: 12/13/24 08:46 MB [id number]) Hip Goniometric Range of Motion Hip ROM Limitations Comments Passive SLR right 50 deg and left 40 deg, indicating tight hamstrings and guarding discs, decreased passive knee extension left in supine and appears to be d/t hip and knee , mild valgus on the left PT-OP-M Strength Start: 12/07/24 07:55 Freq: Status: Active Protocol: Document 12/13/24 08:06 MB (Rec: 12/13/24 08:46 MB [id number]) Hip Strength Hip Manual Muscle Testing Left Flexion (L2) 4+ Good+ Abduction 4+ Good+ Right Flexion (L2) 4+ Good+ Abduction 4+ Good+ Knee Strength Knee Manual Muscle Testing Left Flexion (S2) 4 Good Extension (L3) 4+ Good+ Right Flexion (S2) 4+ Good+ Extension (L3) 4+ Good+ Ankle/Foot Strength Ankle and Foot Manual Muscle Testing Left Dorsiflexion (L4) 5 Normal Right Dorsiflexion (L4) 5 Normal Toe Strength Toe Manual Muscle Testing Left Great Toe Extension 3+ Fair+ Right Great Toe Extension 5 Normal PT-OP-Q Treatments Start: 12/07/24 07:55 Freq: Status: Active Protocol: Document 12/26/24 10:47 MB (Rec: 12/26/24 11:32 MB [id number]) Therapeutic Exercises Supine Exercises Modified restorative pose Comments Reviewed today Modified Prabhu stretch Supine Exercise Name HEP Side bilateral Reps/Minutes 60 sec each Comments Verbal cues Hamstring stretch with AP Supine Exercise Name HEP Side bilateral Equipment Used Towel behind leg Reps/Minutes 30 sec hold and AP foot Comments HEP review, opp leg straight Hip rotator stretch Supine Exercise Name HEP Side bilateral Reps/Minutes 30 sec hold Comments HEP review, today, used towel behind opp leg to raise it Manual Therapy Treatment Consent Patient gave verbal consent for manual Yes treatment Other Other Manual Treatments Pt side lying with head and legs supported: Grade I rib mobs, STM B QL, hip rotators, vastus lateralis, PFs. Neuro Re-Education Treatment Balance Activities FGA activities for home Details HEP Comments Added for home, sliding fingernail along the wall: gait with EC, backward gait, vertical head turns, tandem gait, superv today, 1 rep all, 5 sets today and for HEP PT-OP-T Assessment and Plan Start: 12/07/24 07:55 Freq: Status: Active Protocol: Document 12/26/24 10:47 MB (Rec: 12/26/24 11:32 MB [id number]) Physical Therapy Assessment Rehab Potential Rehabilitation Potential Fair Evaluation Complexity Number of Personal Factors/Comorbidities 1-2 Number of Body Systems Impaired 3 Clinical Presentation at Evaluation Evolving Impairments Impairments Activity Tolerance,Balance, Coordination,Functional Activities,Functional Mobility ,Gait,Pain,Posture,ROM, Sensation,Soft Tissue Mobility ,Strength Goals 4 Impairment Lack of HEP Jail Goal (LTG) Pt will perform progressive HEP with I including alignment , flexibility, strengthening and balance exercises to improve quality of life and walking tolerance. LTG Duration 8 weeks 3 Impairment Evidence of imbalance Waiter/Waitress Formal Goal (LTG) Pt will perform WNLs on FGA to decrease fall risk. LTG Duration 8 weeks 2 Impairment Reports of trouble walking greater than 100' Jail Goal (LTG) Pt will gait train at least 1300 feet with or without LRAD such as walking sticks in 6 minutes to improve community ambulation. LTG Duration 8 weeks 1 Impairment Hip weakness Jail Goal (LTG) Pt will present with B hip flexion and abduction strength 5/5 to improve balance and gait pattern. LTG Duration 8 weeks Assessment Summary Assessment Sitting IR right hip is more than in hook lying but is less than LLE. Progressed balance exercises for home today. Physical Therapy Plan Frequency and Duration Frequency of Treatment 2x/Week Duration of treatment (weeks) 8 Plan of Care Start Date 12/13/24 Plan of Care End Date 02/12/25 Therapeutic Interventions Therapeutic Interventions Balance Training,Canalithic Repositioning,Coordination Training,Gait Training,Home Exercise Program,Joint Mobilizations,Manual Therapy, Neuromuscular Re-education, Patient/Caregiver Education, Self-Care/Home Management, Sensory Integration,Soft Tissue Mobilization,Taping, Therapeutic Activities, Therapeutic Exercises Modalities Cold Pack/Ice Massage,Electric Stimulation,Hot Packs, Ultrasound Next Visit Focus/Plan Next Note Type Treatment Note Next Visit Plan Con't manual work, Next: open book, standing PF stretches, progressive core and LE strengthening. Avoid clam in side lying given spinal and pelvic limitations: could do hip abduction in hook lying, standing or sitting
--- NOTE | 2024-12-28 12:28 | PT.OTN ---
Current Diagnoses Spinal stenosis, lumbar region without neurogenic claudication (12/28/24) Physical Therapy Treatment Note PT-OP-A Visit Information Start: 12/07/24 07:55 Freq: Status: Active Protocol: Document 12/28/24 10:44 AB (Rec: 12/28/24 12:28 AB [id number]) Out-Patient Physical Therapy Visit Information Visit Information Visit Type Treatment Note Visit Note Medicare 12/17 before KX Progress note by 01/13/25 Visit Start Time 10:48 Visit Stop Time 11:33 Visit Number 5 Number of REWINDER Visits 1 Evaluation Information Evaluation Date 12/13/24 Precautions Precautions No allergies that pt knows of, no blood thinners or BP issues that he knows of; cervical spine changes, lumbar stenosis so mindful with extension, he prefers flexion PT-OP-B Current Condition Start: 12/07/24 07:55 Freq: Status: Active Protocol: Document 12/13/24 08:06 MB (Rec: 12/13/24 08:46 MB [id number]) Current Condition History of Current Condition Onset Date Months Current Complaints I can't walk. Pt gets stiff with walking and he has trouble with balance History of Current Condition Pt had lumbar injection and he does not have anymore pain. He has another injection coming up 12/21/24 before he can have a RFA ( radiofrequency ablation). Pt can only walk less than a block before he stiffens up and walks flexed over and then pain starts. Pt reports that his feet don't do what they are supposed to do and he stumbles. Pt has one walking stick or cane but not always use them. Pt reports decreased sensation in both feet. He reports peripheral neuropathy in right foot at least and he has numbness L5-S1 disribution . Pt also has changes in cervical spine and history of left shoulder surgery. Pt had a fall this morning when trying to help the 60-70 lb dog off the bed. Pt is not hurt. He had a fall last summer on the steps and he missed one and there are not consistent rails. Prior Treatments and Tests MRI 07/16/24: IMPRESSION: Multiple levels of degenerative change can be seen, which are worst inferiorly. Mild levoconvex scoliotic curvature is noted. Screws are seen through the posterior elements on both sides at L5-S1. Treatment Goals Patient/Caregiver Goals To improve balance and ability to walk PT-OP-C Subjective Start: 12/07/24 07:55 Freq: Status: Active Protocol: Document 12/28/24 10:44 AB (Rec: 12/28/24 12:28 AB [id number]) OP-PT Subjective Patient Comments Patient Comments Ulysses reports he is better, is a little bit looser, but now he realizes how tight he is. Patient rates pain 2/10 Lumbar /sacral area ambulating into session without device. PT-OP-E Functional Tests Start: 12/22/24 16:02 Freq: Status: Active Protocol: Document 12/22/24 16:02 AB (Rec: 12/22/24 16:03 AB [id number]) Functional Tests Functional Gait Assessment Functional Gait Assessment Impairment 20 to <40% Impaired (Score 19- Rating 24) PT-OP-G Mobility & Gait Start: 12/07/24 07:55 Freq: Status: Active Protocol: Document 12/13/24 08:06 MB (Rec: 12/13/24 08:46 MB [id number]) OP Gait Assessment Comments Gait Comments Gait in socks: forward, flexed posture and arms tend to dangle with decreased arm swing B, greater on the left, decreased sacral movement B and decreased hip flexion, heel strike and step-length PT-OP-J Posture/Palpation/Skin Start: 12/07/24 07:55 Freq: Status: Active Protocol: Document 12/13/24 08:06 MB (Rec: 12/13/24 08:46 MB [id number]) Posture Evaluation Comments Posture Comments Posture in socks: B shoulders forward and rounded, greater on left, increased thoracic kyphosis superiorly and then flattened thoracic convexity, upper thoracic/lower cervical convexity to the right and shift to the right upper body (right shoulder is lateral to right hip and left shoulder is equal to left hip) and then some rotation of vertebrae in lower thoracic spine to the left, and pelvis is level in shifted spine posture today, flattened of lumbar lordosis. Decreased flexibility of spine in standing, did not push AROM in standing d/t peripheral symptoms and known stenosis. Head rests in mild left SB. Prefers flexion to extension in setting of stenosis. Sitting thoracic rotation: most movement lumbar area and mildly reduced to the right PT-OP-K Range of Motion Start: 12/07/24 07:55 Freq: Status: Active Protocol: Document 12/13/24 08:06 MB (Rec: 12/13/24 08:46 MB [id number]) Hip Goniometric Range of Motion Hip ROM Limitations Comments Passive SLR right 50 deg and left 40 deg, indicating tight hamstrings and guarding discs, decreased passive knee extension left in supine and appears to be d/t hip and knee , mild valgus on the left PT-OP-M Strength Start: 12/07/24 07:55 Freq: Status: Active Protocol: Document 12/13/24 08:06 MB (Rec: 12/13/24 08:46 MB [id number]) Hip Strength Hip Manual Muscle Testing Left Flexion (L2) 4+ Good+ Abduction 4+ Good+ Right Flexion (L2) 4+ Good+ Abduction 4+ Good+ Knee Strength Knee Manual Muscle Testing Left Flexion (S2) 4 Good Extension (L3) 4+ Good+ Right Flexion (S2) 4+ Good+ Extension (L3) 4+ Good+ Ankle/Foot Strength Ankle and Foot Manual Muscle Testing Left Dorsiflexion (L4) 5 Normal Right Dorsiflexion (L4) 5 Normal Toe Strength Toe Manual Muscle Testing Left Great Toe Extension 3+ Fair+ Right Great Toe Extension 5 Normal PT-OP-Q Treatments Start: 12/07/24 07:55 Freq: Status: Active Protocol: Document 12/28/24 10:44 AB (Rec: 12/28/24 12:28 AB [id number]) Therapeutic Exercises Supine Exercises Modified Prabhu stretch Supine Exercise Name HEP Side bilateral Reps/Minutes 60 sec each Comments post manual Hamstring stretch with AP Supine Exercise Name HEP Side bilateral Equipment Used Towel behind leg Reps/Minutes 30 sec hold and AP foot Comments HEP review, opp leg straight Hip rotator stretch Supine Exercise Name HEP Side bilateral Reps/Minutes 60 sec hold Comments post manual Sidelying Exercises open book Sidelying Exercise Name HEP Side bilateral Reps/Minutes X5 hold for 3 breaths Comments Verbal cues Standing Exercises calf stretches Standing Exercise Name gastroc, soleus Side bilateral Resistance HEP Equipment Used R limited by restriction Talus , PT ed to stop,/ sensation at calf to procee Reps/Minutes 60 sec runner's stretch, 60 sec on stairs. Comments verbal and visual cues Manual Therapy Treatment Soft Tissue Mobilization lumbar paraspinals Body Location bilateral Mobilization Type Sustained Pressure Intensity/Depth Moderate Body Position Sitting Illiopsoas, glute/piriformis Body Location bilateral Mobilization Type Cross-Friction,Rolling Intensity/Depth Moderate Body Position Sidelying Comments and hooklying PT-OP-T Assessment and Plan Start: 12/07/24 07:55 Freq: Status: Active Protocol: Document 12/28/24 10:44 AB (Rec: 12/28/24 12:28 AB [id number]) Physical Therapy Assessment Goals 4 Impairment Lack of HEP Telecommunications Manager Goal (LTG) Pt will perform progressive HEP with I including alignment , flexibility, strengthening and balance exercises to improve quality of life and walking tolerance. LTG Duration 8 weeks 3 Impairment Evidence of imbalance Telecommunications Manager Goal (LTG) Pt will perform WNLs on FGA to decrease fall risk. LTG Duration 8 weeks 2 Impairment Reports of trouble walking greater than 100' Skilled Nursing Goal (LTG) Pt will gait train at least 1300 feet with or without LRAD such as walking sticks in 6 minutes to improve community ambulation. LTG Duration 8 weeks 1 Impairment Hip weakness Telecommunications Manager Goal (LTG) Pt will present with B hip flexion and abduction strength 5/5 to improve balance and gait pattern. LTG Duration 8 weeks Assessment Summary Assessment Right soleus stretch limited by sensation at talus that LE wouldn't move, did not feel any stretch. Patient reports having no pain end of session. Physical Therapy Plan Frequency and Duration Frequency of Treatment 2x/Week Duration of treatment (weeks) 8 Plan of Care Start Date 12/13/24 Plan of Care End Date 02/12/25 Next Visit Focus/Plan Next Note Type Treatment Note Next Visit Plan Con't manual work, Next: progressive core and LE strengthening. Avoid clam in side lying given spinal and pelvic limitations: could do hip abduction in hook lying, standing or sitting
--- NOTE | 2025-01-02 09:58 | PT-OP ANOTE ---
Pt reports that he had a bad fall on Wednesday when giving directions and he turned and fell over a curb. He hurt his left knee, left 3rd finger and left neck and shoulder. Left shoulder elevation appears similar to the right. His left middle finger is purple and deformed. Canceled appointment and ed pt to go to walk-in clinic or see if doctor office has an opening today. He will see Dr. Arora tomorrow.
--- NOTE | 2025-01-03 12:59 | PT-OP ANOTE ---
PT follows up in chart to see if pt saw PCP or walk-in clinic after weekend fall yesterday and no notes in chart. Dr. Fish note today in the chart. Hand x-ray was ordered and cancelled.
--- NOTE | 2025-01-10 07:26 | PT.OPDS ---
Current Diagnoses Spinal stenosis, lumbar region without neurogenic claudication (12/28/24) Visit Care Team Role Provider Type Eloise Barber MD Attending Provider Physician Family Provider Primary Care Provider Referring Provider Specialty: Family Practice Obstetrics Address: [address] [place] [address], [id number] Email: [email or web address] Visit Number Visit Number 5 Discharge Summary PT-OP-B Current Condition Start: 12/07/24 07:55 Freq: Status: Active Protocol: Document 12/13/24 08:06 MB (Rec: 12/13/24 08:46 MB [id number]) Current Condition History of Current Condition Onset Date Months Current Complaints I can't walk. Pt gets stiff with walking and he has trouble with balance History of Current Condition Pt had lumbar injection and he does not have anymore pain. He has another injection coming up 12/21/24 before he can have a RFA ( radiofrequency ablation). Pt can only walk less than a block before he stiffens up and walks flexed over and then pain starts. Pt reports that his feet don't do what they are supposed to do and he stumbles. Pt has one walking stick or cane but not always use them. Pt reports decreased sensation in both feet. He reports peripheral neuropathy in right foot at least and he has numbness L5-S1 disribution . Pt also has changes in cervical spine and history of left shoulder surgery. Pt had a fall this morning when trying to help the 60-70 lb dog off the bed. Pt is not hurt. He had a fall last summer on the steps and he missed one and there are not consistent rails. Prior Treatments and Tests MRI 07/16/24: IMPRESSION: Multiple levels of degenerative change can be seen, which are worst inferiorly. Mild levoconvex scoliotic curvature is noted. Screws are seen through the posterior elements on both sides at L5-S1. Treatment Goals Patient/Caregiver Goals To improve balance and ability to walk PT-OP-C Subjective Start: 12/07/24 07:55 Freq: Status: Active Protocol: Document 12/28/24 10:44 AB (Rec: 12/28/24 12:28 AB [id number]) OP-PT Subjective Patient Comments Patient Comments Ulysses reports he is better, is a little bit looser, but now he realizes how tight he is. Patient rates pain 2/10 Lumbar /sacral area ambulating into session without device. PT-OP-E Functional Tests Start: 12/22/24 16:02 Freq: Status: Active Protocol: Document 12/22/24 16:02 AB (Rec: 12/22/24 16:03 AB [id number]) Functional Tests Functional Gait Assessment Functional Gait Assessment Impairment 20 to <40% Impaired (Score 19- Rating 24) PT-OP-G Mobility & Gait Start: 12/07/24 07:55 Freq: Status: Active Protocol: Document 12/13/24 08:06 MB (Rec: 12/13/24 08:46 MB [id number]) OP Gait Assessment Comments Gait Comments Gait in socks: forward, flexed posture and arms tend to dangle with decreased arm swing B, greater on the left, decreased sacral movement B and decreased hip flexion, heel strike and step-length PT-OP-J Posture/Palpation/Skin Start: 12/07/24 07:55 Freq: Status: Active Protocol: Document 12/13/24 08:06 MB (Rec: 12/13/24 08:46 MB [id number]) Posture Evaluation Comments Posture Comments Posture in socks: B shoulders forward and rounded, greater on left, increased thoracic kyphosis superiorly and then flattened thoracic convexity, upper thoracic/lower cervical convexity to the right and shift to the right upper body (right shoulder is lateral to right hip and left shoulder is equal to left hip) and then some rotation of vertebrae in lower thoracic spine to the left, and pelvis is level in shifted spine posture today, flattened of lumbar lordosis. Decreased flexibility of spine in standing, did not push AROM in standing d/t peripheral symptoms and known stenosis. Head rests in mild left SB. Prefers flexion to extension in setting of stenosis. Sitting thoracic rotation: most movement lumbar area and mildly reduced to the right PT-OP-K Range of Motion Start: 12/07/24 07:55 Freq: Status: Active Protocol: Document 12/13/24 08:06 MB (Rec: 12/13/24 08:46 MB [id number]) Hip Goniometric Range of Motion Hip ROM Limitations Comments Passive SLR right 50 deg and left 40 deg, indicating tight hamstrings and guarding discs, decreased passive knee extension left in supine and appears to be d/t hip and knee , mild valgus on the left PT-OP-M Strength Start: 12/07/24 07:55 Freq: Status: Active Protocol: Document 12/13/24 08:06 MB (Rec: 12/13/24 08:46 MB [id number]) Hip Strength Hip Manual Muscle Testing Left Flexion (L2) 4+ Good+ Abduction 4+ Good+ Right Flexion (L2) 4+ Good+ Abduction 4+ Good+ Knee Strength Knee Manual Muscle Testing Left Flexion (S2) 4 Good Extension (L3) 4+ Good+ Right Flexion (S2) 4+ Good+ Extension (L3) 4+ Good+ Ankle/Foot Strength Ankle and Foot Manual Muscle Testing Left Dorsiflexion (L4) 5 Normal Right Dorsiflexion (L4) 5 Normal Toe Strength Toe Manual Muscle Testing Left Great Toe Extension 3+ Fair+ Right Great Toe Extension 5 Normal PT-OP-T Assessment and Plan Start: 12/07/24 07:55 Freq: Status: Active Protocol: Document 01/10/25 07:26 MB (Rec: 01/10/25 07:26 MB [id number]) Physical Therapy Assessment Assessment Summary Assessment Pt had a fall and he broke his left finger. He cancelled all PT appointments.
== END 2025-01-11 15:03 | disposition home or self-care (01) ==
LOC: PHYS 10:45
PROVIDERS: Family Provider Student in an Organized Health Care Education/Training Program; PCP Student in an Organized Health Care Education/Training Program; Referring Provider Student in an Organized Health Care Education/Training Program; Visit Provider Student in an Organized Health Care Education/Training Program
DX: M48.061 Spinal stenosis, lumbar region without neurogenic claudication (principal)
CPT/HCPCS: 97110; 97112; 97140; 97162; 97535

== ENCOUNTER → 2025-01-03 09:39 | Outpatient (CLI) | payer MEDICARE, OTHER, SELFPAY ==
--- NOTE | 2025-01-03 09:41 | DI.RAD.S_ITS ---
PROCEDURE: XR HAND LT MIN 3V INDICATIONS: left 3rd pip and dip possible fx TECHNIQUE: 3 views of the hand(s) acquired. COMPARISON: None. FINDINGS: Bones: Mildly displaced oblique intra-articular fracture of the dorsal base of the 3rd distal phalanx appreciated. Joints: Severe degeneration in the STT , 1st CMC and all interphalangeal joints appreciated. There is moderate degeneration in the 2nd and 3rd MCP joints. Soft tissues: The 2-3 small soft tissue calcifications in the phalangeal region IMPRESSION: Mildly displaced oblique intra-articular fracture 3rd distal phalanx. Multilevel degeneration Dictated by: Ace Kothari M.D. on 01/04/2025 at 17:10 Approved by: Ace Kothari M.D. on 01/04/2025 at 17:12
== END ==
PROVIDERS: Family Provider Student in an Organized Health Care Education/Training Program; PCP Student in an Organized Health Care Education/Training Program; Referring Provider Physical Medicine & Rehabilitation; Visit Provider Physical Medicine & Rehabilitation
DX: S62.633A Displaced fracture of distal phalanx of left middle finger, initial encounter for closed fracture (principal); M18.12 Unilateral primary osteoarthritis of first carpometacarpal joint, left hand; M19.042 Primary osteoarthritis, left hand; M19.032 Primary osteoarthritis, left wrist; G56.03 Carpal tunnel syndrome, bilateral upper limbs; M47.812 Spondylosis without myelopathy or radiculopathy, cervical region; M47.816 Spondylosis without myelopathy or radiculopathy, lumbar region; X58.XXXA Exposure to other specified factors, initial encounter; Z98.1 Arthrodesis status; Z98.890 Other specified postprocedural states
CPT/HCPCS: 73130; 99214

== ENCOUNTER → 2025-01-04 09:29 | Outpatient (CLI) | payer MEDICARE, OTHER, SELFPAY ==
[2025-01-04 10:28] LABS: Add Manual Diff / Slide Review NO; Basophils Absolute Auto 0 /uL (0-100); Basophils Percent Auto 0.4 % (0-2); Eosinophils Absolute Auto 300 /uL (0-450); Eosinophils Percent Auto 5.4 % (2-4); Hematocrit 40.6 % (41-53); Hemoglobin 13.7 g/dL (13.5-17.5); Lymphocytes Absolute Auto 1600 /uL (1100-4500); Lymphocytes Percent Auto 26.7 % (25-40); Mean Corpuscular HGB Conc 33.7 % (30-36); Mean Corpuscular Hemoglobin 32.2 PG (26-34); Mean Corpuscular Volume 95.6 fL (80-100); Monocytes Absolute Auto 500 /uL (0-900); Monocytes Percent Auto 8.5 % (3-14); Neutrophils Absolute Auto 3600 /uL (1500-7000); Platelet Count 254 X10^3/uL (150-400); Red Blood Cell Count 4.25 X10^6/uL (4.5-5.9); Red Cell Distribution Width 13.2 % (11.6-14.8)
== END ==
LOC: LAB 09:30
PROVIDERS: Family Provider Student in an Organized Health Care Education/Training Program; PCP Student in an Organized Health Care Education/Training Program; Referring Provider Internal Medicine Cardiovascular Disease; Visit Provider Internal Medicine Cardiovascular Disease
DX: R06.02 Shortness of breath (principal)
CPT/HCPCS: 36415; 85025

== ENCOUNTER 2025-01-23 13:25 | Outpatient (CLI) | payer MEDICARE, OTHER, SELFPAY ==
[2025-01-23] VITALS (8 sets, daily range): BP systolic 110–145; BP diastolic 68–79; PULSE 59–69; RESP 16–20; TEMP 36.2; O2SAT 97–100
--- NOTE | 2025-01-23 13:26 | DI.RAD.S_ITS ---
PROCEDURE: PAIN L/SI FACET INJ/BLK 1STL INDICATIONS: L3, L4, L5 MBB-SA COMPARISON: None. FINDINGS/IMPRESSION: Fluoroscopic spot filming was performed to verify placement of spinal needles at the L3 through L5 level(s), as labeled on the films. Appropriate location(s) of the needle tip(s) was confirmed by injection of iodinated contrast. Dictated by: Hosea Freeman M.D. on 01/23/2025 at 17:16 Approved by: Hosea Freeman M.D. on 01/23/2025 at 17:16
[2025-01-23] MEDS: MIDAZOLAM 2 MG/2 ML VIAL IV (14:30)
[2025-01-23] MEDS: iopamidoL 15 ML VIAL 3 ML INJ (14:37)
[2025-01-23] MEDS: LIDOCAINE 1% 20 ML 5 ML INJ (14:38)
[2025-01-23] MEDS: LIDOCAINE 2% INJ SDV 5ML 1 ML INJ (14:38)
--- NOTE | 2025-01-23 14:49 | P.PCN_ITS ---
Date/Time/Diagnoses Date of procedure: 01/23/25 Time of procedure: 14:49 Pre-procedure diagnosis: 1. FACET ARTHROPATHY Post-procedure diagnosis: same Procedure Notes Procedure: 1. BILATERAL L3, L4 AND L5 DIAGNOSTIC MB BLOCKS Indications: Joel is referred by Dr. Barber for treatment of Bilateral Axial LBP. Physician: Joel Arora Total Fluoroscopy time (seconds): 9 Total sedation minutes: 15 Complications: none Procedure in detail & Post-procedure care: DESCRIPTION OF PROCEDURE Fluoroscopically guided, contrast-controlled bilateral L3, L4 AND L5 medial branch blocks with 0.5cc of 2% Lidocaine. Following review of allergy and review of potential side effects and complications, including, but not necessarily limited to, infection, allergic reaction, local tissue breakdown, nerve injury, paralysis, stroke and possible , the patient indicated that the patient understood and agreed to proceed. An informed consent document was signed by the patient, witnessed by a nurse, and placed in the patient's chart. After review of previous anaesthesic history and IV conscious sedation the patient was deemed safe to proceed with today's procedure with IV conscious sedation as ASA class II designation. Safety time-out was performed to confirm patient ID, procedure to be performed and site of procedure. IV sedation was accomplished with a combination of 2mg of Versed was administered by the RN after DO order, titrated to patient comfort during the course of the procedure while the patient remained responsive to all verbal commands In the prone position, following sterile prep and drape of the lumbar region, the right L3, L4 AND L5 anatomical location of the medial branch of the dorsal ramus was identified fluoroscopically. Subsequently an anesthetic skin wheal using 1% lidocaine solution was initiated at each of the anatomical spots. Subsequently then a 22-gauge 3.5-inch spinal needle was atraumatically introduced and advanced under fluoroscopic guidance at each of the corresponding sites at the right L3, L4 and L5 MB. After negative aspiration, 0.2cc of Isovue 200 was injected, confirming placement without vascular or intrathecal uptake. Subsequently then 0.5cc of 2% Lidocaine solution was injected at each of the corresponding sites at the right L3, L4 and L5 medial branch locations. The identical procedure was replicated on the left. The patient tolerated the procedure well without signs or symptoms of complications. The patient tolerated the procedure well without signs or symptoms of complications prior to transfer to the recovery area continued monitoring without incident. Post-procedure, the patient was monitored initiating provocative activities to measure the amount of relief from block of the facetogenic pain. The patient reported a VAS of 7 prior to the procedure and a post-procedure VAS of 1. It has been a pleasure to assist in the diagnostic and therapeutic care of your patient. POST OP INSTRUCTIONS The patient was provided with a Pain Log to complete over the next several hours and subsequent days prior to the patient's follow up with the ordering physician. If the patient has process environmental technician relief to the solution applied, then they may be a candidate for medial branch rhizotomy. The patient is aware, was provided, once again, with a Pain Log and will follow up with the referring physician for review and clinical correlation
== END 2025-01-23 15:03 | disposition home or self-care (01) ==
LOC: RAD 13:26
PROVIDERS: Family Provider Student in an Organized Health Care Education/Training Program; PCP Student in an Organized Health Care Education/Training Program; Referring Provider Physical Medicine & Rehabilitation; Visit Provider Physical Medicine & Rehabilitation
DX: M47.816 Spondylosis without myelopathy or radiculopathy, lumbar region (principal)
CPT/HCPCS: 64493; 64494; 99152; J2250

== ENCOUNTER 2025-02-01 09:12 | Outpatient (CLI) | payer MEDICARE, OTHER, SELFPAY ==
[2025-02-01] VITALS (9 sets, daily range): BP systolic 108–149; BP diastolic 59–83; PULSE 62–69; RESP 16–18; TEMP 36.1; O2SAT 95–100
[2025-02-01] MEDS: MIDAZOLAM 2 MG/2 ML VIAL IV (10:12)
[2025-02-01] MEDS: iopamidoL 15 ML VIAL 3 ML INJ (10:18)
[2025-02-01] MEDS: DEXAMETHASONE 10 MG/ML VIAL 20 MG INJ (10:18)
[2025-02-01] MEDS: BUPIVACAINE 0.25% (PF) VIAL 2 ML INJ (10:19)
--- NOTE | 2025-02-01 10:34 | P.PCN_ITS ---
Date/Time/Diagnoses Date of procedure: 02/01/25 Time of procedure: 10:34 Pre-procedure diagnosis: 1. CERVICAL STENOSIS, 2. CERVICAL HNP WITH UPPER EXTREMITY RADICULAR FEATURES Post-procedure diagnosis: same Procedure Notes Procedure: 1. FLUORSCOPICALLY GUIDED CONTRAST CONTROLLED INTERLAMINAR EPIDURAL STEROID INJECTION - C6/7 TL RENATA Indications: Joel is referred by Dr. Barber for treatment of Cervical HNP with Upper Extremity Paresthesias. Physician: Joel Arora Total Fluoroscopy time (seconds): 33 Total sedation minutes: 16 Complications: none Procedure in detail & Post-procedure care: FINDINGS Cervical Stenosis due to disc deterioration and nerve root irritation and nerve root irritation DESCRIPTION OF PROCEDURE Fluoroscopically guided, contrast-controlled C6/7 translaminar epidural steroid injection with conscious sedation. Following review of allergy and review of potential side effects and complications, including, but not necessarily limited to, infection, allergic reaction, local tissue breakdown, temporary as well as permanent nerve injury, stroke, paralysis, and possible , the patient indicated that patient understood and agreed to proceed. An informed consent document was signed by the patient, witnessed by a nurse, and placed in the patient's chart. Additionally, other treatment options including modalities, medications, and physical therapy were reviewed with the patient. After review of previous anaesthesic history and IV conscious sedation the patient was deemed safe to proceed with today?s procedure with IV conscious s edation as ASA class II designation. Safety time-out was performed to confirm patient ID, procedure to be performed and site of procedure. IV sedation was accomplished with a combination of 2mg of Versed administered by the RN after DO order, titrated to patient comfort during the course of the procedure while the patient remained responsive to all verbal commands. In the prone position, following sterile prep and drape of the cervical region, the C6/7 translaminar space was identified fluoroscopically. The skin was anesthetized via a 25-gauge 1.5-inch needle with 1% lidocaine solution. At this point, a 25-gauge, 2.5-inch short bevel spinal needle was atraumatically introduced and advanced under fluoroscopic guidance into epidural space at the C6/7 translaminar space. Depth was confirmed on lateral view. Radiological data, including multiple fluoroscopic views of the cervical spine, reveal a spinal needle at the C6/7 translaminar space. Lateral views then show placement of the needle in the epidural space. Subsequent views show contrast material flowing superiorly and inferiorly in the epidural space. DSA fluoroscopy with live contrast injection, once again, confirmed no vascular or intrathecal uptake. At this point, using loss of resistance technique with saline and air, the epidural space was entered. Following negative aspiration, injection of approximately 1.5 cc of Isovue-200 with live fluoroscopy in the AP view confirmed epidural flow in the epidural space without vascular or intrathecal uptake observed. Subsequently, a test dose of 1 cc of 1% lidocaine solution was injected and patient was observed for two minutes without signs or symptoms of complications, including abdominal pain, shortness of breath, bilateral upper or lower extremity weakness, nausea and vomiting, prior to steroid injection. At this point, 2cc or 20mg of dexamethasone was then injected without incident. The patient tolerated the procedure well without signs or symptoms of complications prior to being transferred to the recovery area for further monitoring, The patient was then transferred to the recovery area where they were observed for an appropriate period of time after the injection. The patient reported a VAS score of 6 prior to the procedure and a post-procedure VAS of 0. POST OP INSTRUCTIONS The patient was provided a Pain Log to continue to record their response to the target-specific procedure prior to follow-up visit with the referring provider. Additionally, specific post-injection care instructions and a contact number to our office were provided if concerns arise regarding possible complications associated with the procedure are suspected.
== END 2025-02-01 10:52 | disposition home or self-care (01) ==
PROVIDERS: Family Provider Student in an Organized Health Care Education/Training Program; PCP Student in an Organized Health Care Education/Training Program; Referring Provider Physical Medicine & Rehabilitation; Visit Provider Physical Medicine & Rehabilitation
DX: M48.02 Spinal stenosis, cervical region (principal); M50.123 Cervical disc disorder at C6-C7 level with radiculopathy
CPT/HCPCS: 62321; 99152; J1100; J2250; J3490

== ENCOUNTER → 2025-05-24 14:56 | Outpatient (CLI) | payer MEDICARE, OTHER, SELFPAY ==
--- NOTE | 2025-05-24 15:41 | DI.RAD.S_ITS ---
PROCEDURE: ORTHO-XR FOOT 3V WB LEFT COMPARISON: None. INDICATIONS: FOOT PAIN FINDINGS: Mild degenerative changes at the tibiotalar, talonavicular, calcaneocuboid, 1st metatarsophalangeal and to a lesser degree PIP and DIP joints. No radiographic evidence of displaced fracture line, dislocation or high attenuation soft tissue foreign body. No radiographic evidence of pes planus or pes cavus on lateral weight-bearing image. IMPRESSION: Degenerative changes. If symptoms persist or worsen, or there is high clinical suspicion of left foot/ankle abnormality, MRI could be performed. Dictated by: Elian Baird M.D. on 05/25/2025 at 10:48 Approved by: Elian Baird M.D. on 05/25/2025 at 10:54
--- NOTE | 2025-05-24 15:41 | DI.RAD.S_ITS ---
PROCEDURE: ORTHO-XR FOOT 3V WB RIGHT INDICATIONS: FOOT PAIN TECHNIQUE: 3 weight-bearing views acquired of the foot. COMPARISON: None. FINDINGS: Apparent mild pes cavus the calcaneal inclination angle measures approximately 33 degrees. Mild degenerative changes of the tibiotalar, talonavicular, calcaneocuboid, 1st metatarsophalangeal and to a lesser degree PIP and DIP joints of the toes. No radiographic evidence of fracture, dislocation or high attenuation soft tissue foreign body. IMPRESSION: Degenerative changes. Mild pes cavus. If symptoms persist or worsen, or there is high clinical suspicion of right foot/ankle abnormality, MRI could be performed. Dictated by: Elian Baird M.D. on 05/25/2025 at 10:54 Approved by: Elian Baird M.D. on 05/25/2025 at 10:59
== END ==
PROVIDERS: Family Provider Student in an Organized Health Care Education/Training Program; PCP Student in an Organized Health Care Education/Training Program; Referring Provider Podiatrist Foot & Ankle Surgery; Visit Provider Podiatrist Foot & Ankle Surgery
DX: M21.6X1 Other acquired deformities of right foot (principal); M79.671 Pain in right foot; M79.672 Pain in left foot
CPT/HCPCS: 73630

== ENCOUNTER → 2025-06-15 08:10 | Outpatient (CLI) | payer MEDICARE, OTHER, SELFPAY ==
--- NOTE | 2025-06-15 08:13 | DI.US.S_ITS ---
PROCEDURE: US ARTERIAL DUPLEX LE BI INDICATIONS: PERIPHERIAL VASCULAR DISEASE TECHNIQUE: Color and pulse Doppler interrogation was performed of both lower extremity arterial systems, with image documentation. COMPARISON: None. FINDINGS: Right lower extremity: Common femoral artery: 88.8 cm/sec, with triphasic flow. Deep femoral artery: 35.4 cm/sec, with triphasic flow. Proximal superficial femoral artery: 64.9 cm/sec, with triphasic flow. Mid superficial femoral artery: 57 cm/sec, with triphasic flow. Distal superficial femoral artery: 55.5 cm/sec, with triphasic flow. Popliteal artery: 46.2 cm/sec, with triphasic flow. Posterior tibial artery: 52.8 cm/sec, with triphasic flow. Anterior tibial artery/dorsalis pedis: 35.4 cm/sec, with biphasic flow. Ayala-scale imaging description: No significant atheromatous disease is seen. Left lower extremity: Common femoral artery: 96.5 cm/sec, with triphasic flow. Deep femoral artery: 61.1 cm/sec, with monophasic flow. Proximal superficial femoral artery: 82.1 cm/sec, with triphasic flow. Popliteal artery: 51.7 cm/sec, with triphasic flow. Posterior tibial artery: 46.8 cm/sec, with triphasic flow. Anterior tibial artery/dorsalis pedis: 49.8 cm/sec, with triphasic flow. Ayala-scale imaging description: No significant atheromatous disease is seen. IMPRESSION: Right No significant stenosis is detected. Left No significant stenosis is detected. Dictated by: Manpreet Gaxiola M.D. on 06/16/2025 at 14:55 Approved by: Manpreet Gaxiola M.D. on 06/16/2025 at 14:58
== END ==
PROVIDERS: Family Provider Student in an Organized Health Care Education/Training Program; PCP Student in an Organized Health Care Education/Training Program; Referring Provider Podiatrist Foot & Ankle Surgery; Visit Provider Podiatrist Foot & Ankle Surgery
DX: I73.89 Other specified peripheral vascular diseases (principal)
CPT/HCPCS: 93925